=== PATIENT | female | born 1945 | race Caucasian/White ===

== ENCOUNTER 2017-09-10 10:16 | Inpatient (IN) | payer MEDICARE, BC ==
[~2017-09-10] VITALS: Ht 175.3 cm; Wt 69.9 kg
[~2017-09-10 10:16] MED LIST: ALBU1.25 NEB; ASPI-1169 PO; BACL10TA PO; CHOL100044 PO; CLON0.122 PO; LEVO750T21 GT; Nutritional Supplement/Fiber GT; SERT50TA PO
[2017-09-10 11:01] LABS: BASOPHILS # (AUTO) 0.2 /CMM (0.0-0.2); BASOPHILS % (AUTO) 1.5 % (0.0-2.0); EOSINOPHILS % (AUTO) 0.4 % (0.0-6.0); HEMATOCRIT 33 % (33-45); HEMOGLOBIN 10.9 g/dL (11.5-14.8); LYMPHOCYTES # (AUTO) 0.9 /CMM (0.8-4.8); LYMPHOCYTES % (AUTO) 6.7 % (20.0-44.0); MEAN CORPUSCULAR HEMOGLOBIN 26 PG (26.0-33.0); MEAN CORPUSCULAR HGB CONC 33 g/dl (31.0-36.0); MEAN CORPUSCULAR VOLUME 80 fL (82-100); MONOCYTES # (AUTO) 0.6 /CMM (0.1-1.30); MONOCYTES % (AUTO) 4.9 % (2.0-12.0); NEUTROPHILS # (AUTO) 11.4 /CMM (1.8-8.9); NEUTROPHILS % (AUTO) 86.5 % (43.0-81.0); PLATELET COUNT (AUTO) 451 /CMM (150-450); RDW COEFFICIENT OF VARIATION 15.3 (11.5-15.0); RED BLOOD CELL COUNT(AUTO) 4.14 MIL/uL (4.0-5.2); WHITE BLOOD COUNT (AUTO) 13.2 K/uL (4.3-11.0)
--- NOTE | 2017-09-10 11:10 | NUR ---
BBRA FROM HOME SENT BY PMD FOR FEVER . +BEDSORE. FAMILY MEMBER AT BS. NOTED WITH FC INSERTED 3 WEEKS AGO AND GTUBE. NOTED HYPOTENSIVE. SEEN BY MD FOR EVAL. SAFETY AND COMFORT MEASURES PROVIDED. WILL MONITOR.
[2017-09-10 11:11] LABS: CALCIUM, SERUM 8.8 mg/dL (8.5-10.1); CARBON DIOXIDE 28 mmol/L (21-32); CHLORIDE 99 mmol/L (98-107); CREATININE 0.6 mg/dL (0.6-1.3); GLUCOSE 152 mg/dL (74-106); POTASSIUM 4.1 mmol/L (3.5-5.1); SODIUM SERUM 131 mmol/L (136-145); UREA NITROGEN, BLOOD 13 mg/dL (7-18)
[2017-09-10 11:14] LABS: INR 1.32 (0.85-1.15)
--- NOTE | 2017-09-10 11:15 | NUR ---
IV ACCESS STARTED. TRUST VAULT CLERK AT TO DRAW BLOOD.
[2017-09-10 11:17] LABS: ALANINE AMINOTRANSFERASE 60 U/L (12-78); ALBUMIN 2.1 g/dL (3.4-5.0); ALKALINE PHOSPHATASE 115 U/L (46-116); ASPARTATE AMINOTRANSFERASE 52 U/L (15-37); BILIRUBIN,DIRECT 0.1 mg/dL (0.0-0.2); BILIRUBIN,TOTAL 0.4 mg/dL (0.2-1.0); TOTAL PROTEIN, SERUM 6.6 g/dL (6.4-8.2)
[2017-09-10 11:18] LABS: TROPONIN I < 0.017 ng/mL (0.00-0.056)
--- NOTE | 2017-09-10 11:25 | NUR ---
PT NOTED IN SOILED DIAPER, CLEANED AND CHANGED ASSISTED BY FAMILY MEMBER. OLD FC DISCONTINUED, REPLACED WITH A NEW ONE. NO OUTPUT NOTED OF NOW.
[2017-09-10] MEDS ORDERED: IV NS 0.9% 1,000 ML BAG IV ONE ×2 (11:30→13:30)
[2017-09-10 12:29] LABS: BILIRUBIN,URINE Negative (NEGATIVE); BLOOD, URINE Moderate Ery/uL (NEGATIVE); KETONES,URINE Negative (NEGATIVE); LEUKOCYTE ESTERASE ,URINE Negative (NEGATIVE); NITRITE, URINE Negative (NEGATIVE); PH,URINE 5.5 (5.0-8.0); PROTEIN,URINE 100 mg/dl (NEGATIVE); UGLUCOSE Negative (NEGATIVE); UROBILINOGEN,URINE 0.2 EU/dL (0.2)
[2017-09-10 12:32] LABS: APPEARANCE,URINE Slightly Hazy (CLEAR); COLOR,URINE Dark Yellow (YELLOW)
[2017-09-10 12:39] LABS: BACTERIA,URINE Few /HPF (None Seen); MUCUS,URINE Few /LPF (None Seen); RBC,URINE 50-80 /HPF (0-2); SQUAMOUS EPITHELIAL CELL,UR Few /HPF (None Seen)
[2017-09-10] MEDS ORDERED: CEFEPIME 1 GM in IV D5W 50 ML IV ONE (13:00)
[2017-09-10] MEDS ORDERED: JEVITY 1.2 CAL 1,000 ML BOTTLE GT PRN (13:00)
[2017-09-10] MEDS ORDERED: VANCOMYCIN 1 GM in IV D5W 250 ML IV ONE (13:00)
--- NOTE | 2017-09-10 13:00 | NUR ---
CALLED NURSING SUP. FOR TELE BED
--- NOTE | 2017-09-10 13:12 | NUR ---
TELE 311-1 FOR SEPSIS, DR. NONA Hook ADMITTING
[2017-09-10] MEDS ORDERED: POLY17PO4 GT (13:13)
[2017-09-10] MEDS ORDERED: ASCO500T9 GT (13:13)
[2017-09-10] MEDS ORDERED: ZINC220C6 GT (13:13)
[2017-09-10] MEDS ORDERED: MULT-188 GT (13:13)
[2017-09-10] MEDS ORDERED: ACID1TAB14 GT (13:13)
[2017-09-10] MEDS ORDERED: CIPR500T5 GT (13:13)
[2017-09-10] MEDS: ENOXAPARIN SODIUM 40 MG/0.4 ML DISP.SYRIN SQ SCH (13:30)
[2017-09-10] MEDS ORDERED: VANCOMYCIN 1 GM in IV D5W 250 ML IV SCH (13:30)
[2017-09-10] MEDS ORDERED: MAGNESIUM HYDROXIDE 30 ML UDC PO PRN (13:30)
[2017-09-10] MEDS ORDERED: HYDROCODONE/APAP 5/325MG 1 EACH TABLET PO PRN (13:30)
[2017-09-10] MEDS ORDERED: MAG HYDROX/AL HYDROX/SIMETH 30 ML UDC PO PRN (13:30)
[2017-09-10] MEDS ORDERED: ZOLPIDEM TARTRATE 5 MG TABLET PO PRN (13:30)
[2017-09-10] MEDS ORDERED: ONDANSETRON HCL/PF 4 MG/2 ML VIAL IVP PRN (13:30)
--- NOTE | 2017-09-10 13:35 | NUR ---
REPORT GIVEN TO DEBI FRANKS FOR TELE ROOM 311-1
[2017-09-10] MEDS ORDERED: FEE PK DOSING 1 MIN EA MC ONE (14:07)
--- NOTE | 2017-09-10 14:10 | NUR ---
AUTOMOTIVE PARTS MANAGERORTHOPEDIC SHOES SALESPERSON NOTE RECEIVED REPORT FROM WYATT SHI RN. RECEIVED PATIENT VIA FLEXRBETTY. PATIENT IS OBTUNDED, NON-VERBAL AND VERY CONTRACTED. GRAND DAUGHTER AT BEDSIDE AND PRIMARY CAREGIVER AT HOME WITH WOUND CARE NURSE. NO FACIAL GRIMACING NOTED FOR PAIN. NO SOB OR DISTRESS NOTED. ON ROOM AIR TOLERATING WELL. ALLERGIES DOCUMENTED ON ADMISSION. SKIN ISSUES PRESENT, AND DOCUMENTED IN CHART, WOUND CONSULT ORDERED. G-TUBE SITE SOILED IN BLOODY DRAINAGE NOTED. IV INTACT AND PATENT ON LEFT HAND 20G WITH IV FLUIDS RUNNING AT THIS TIME. AWAITING DIETARY CONSULT FOR TUBE FEEDING RATE. CALL LIGHT WITHIN REACH AND SAFETY MEASURES IMPLEMENTED. WILL CONTINUE TO MONITOR THROUGHOUT SHIFT
[2017-09-10] MEDS ORDERED: BLOO-697 IN (14:42)
[2017-09-10 15:30] VITALS: BP 104/58
[2017-09-10] MEDS ORDERED: INSU100V3 SQ (15:42)
[2017-09-10] MEDS ORDERED: COLL30OI TP (15:42)
--- NOTE | 2017-09-10 15:45 | NUR ---
ACCOUNTS PAYABLE PROCESSOR NOTE LOVENOX HELD DUE TO G-TUBE SITE CONTINUOUSLY BLEEDING. MADE MD AWARE. G-TUBE SITE CLEANED AND DRESSING INTACT. WILL CONTINUE TO MONITOR
[2017-09-10 15:57] VITALS: BP 104/58
[2017-09-10] MEDS ORDERED: BACLOFEN (10 MG) 10 MG TABLET PO ONE (17:30)
[2017-09-10] MEDS: PIPERACILLIN /TAZOBACTAM 3.375 G in IV NS 0.9% 50 ML IV SCH (17:30)
[2017-09-10] MEDS: BLOOD SUGAR DIAGNOSTIC 1 EACH STRIP IN SCH (17:51)
[2017-09-10] MEDS: IV NS 0.9% 1,000 ML IV PRN (17:56)
[2017-09-10] MEDS ORDERED: POLYETHYLENE GLYCOL 3350 17 GM POWD.PACK GT PRN (18:00)
[2017-09-10] MEDS ORDERED: DEXTROSE 50%-WATER 50 ML DISP.SYRIN IV PRN (18:00)
--- NOTE | 2017-09-10 18:30 | NUR ---
MS RN CLOSING NOTE PATIENT IS OBTUNDED, NON-VERBAL. NO FACIAL GRIMACING NOTED AT THIS TIME FOR PAIN. NO SOB OR DISTRESS NOTED. ON ROOM AIR TOLERATING WELL AT 97%. CALL LIGHT WITHIN REACH AT ALL TIMES. SAFETY MEASURES IMPLEMENTED. FALL PRECAUTION IN PLACE. G-TUBE SITE KEPT CLEAN DRY AND INTACT WITH TUBE FEEDING RUNNING AT THIS TIME, TOLERATING WELL. WOUND DRESSING CLEAN DRY AND INTACT, WOUND CONSULT ORDERED WELL DIETARY CONSULT. IV INTACT AND PATENT NO REDNESS OR SWELLING NOTED WITH IV FLUIDS. LABS IN AM. WARD CATHETER IN PLACE, DRAINING WELL WITH CLEAR YELLOW URINE. WILL ENDORSE TO HEADING AND PRIMING OPERATOR NURSE FOR ANGUS
--- NOTE | 2017-09-10 19:30 | NUR ---
MS/RN RECEIVE PATIENT APPEAR SLEEPING, APPEAR COMFORTABLE, BREATHING EVEN AND UNLABORED, HOB ELEVATED, GT FEEDING INFUSING, WILL MONITOR.
[2017-09-10 20:00] VITALS: BP 106/78
[2017-09-10] MEDS ORDERED: clonazePAM 1 MG TABLET PO SCH (22:00)
[2017-09-10] MEDS: clonazePAM 0.5 MG TABLET PO SCH (22:23)
[2017-09-11] MEDS: BLOOD SUGAR DIAGNOSTIC 1 EACH STRIP IN SCH ×4 (00:12→17:57)
[2017-09-11] MEDS: PIPERACILLIN /TAZOBACTAM 3.375 G in IV NS 0.9% 50 ML IV SCH ×4 (00:12→18:39)
[2017-09-11] MEDS: INSULIN REGULAR, HUMAN 100 UNIT/ML 3 ML VIAL SQ PRN ×4 (00:14→18:02)
[2017-09-11] MEDS: VANCOMYCIN 0.75 GM in IV NS 0.9% 250 ML IV SCH ×2 (02:07→14:14)
[2017-09-11] MEDS: IV NS 0.9% 1,000 ML IV PRN (05:49)
--- NOTE | 2017-09-11 06:36 | NUR ---
MS/RN PATIENT IS SLEEPING, AROUSABLE, APPEAR COMFORTABLE, NO SIGNS OF DISTRESS NOTED, GT FEEDING INFUSING NO RESIDUAL NOTED, HOB ELEVATED, ALL NEEDS ATTENDED AT THIS TIME, WILL CONTINUE TO MONITOR.
[2017-09-11 06:39] LABS: BASOPHILS % (AUTO) 0.1 % (0.0-2.0); HEMATOCRIT 30 % (33-45); HEMOGLOBIN 9.9 g/dL (11.5-14.8); LYMPHOCYTES # (AUTO) 0.8 /CMM (0.8-4.8); LYMPHOCYTES % (AUTO) 5.9 % (20.0-44.0); MEAN CORPUSCULAR HEMOGLOBIN 27 PG (26.0-33.0); MEAN CORPUSCULAR HGB CONC 33 g/dl (31.0-36.0); MEAN CORPUSCULAR VOLUME 83 fL (82-100); MONOCYTES # (AUTO) 0.6 /CMM (0.1-1.30); MONOCYTES % (AUTO) 4.3 % (2.0-12.0); NEUTROPHILS # (AUTO) 11.6 /CMM (1.8-8.9); NEUTROPHILS % (AUTO) 88.7 % (43.0-81.0); PLATELET COUNT (AUTO) 396 /CMM (150-450); RDW COEFFICIENT OF VARIATION 16.1 (11.5-15.0); RED BLOOD CELL COUNT(AUTO) 3.65 MIL/uL (4.0-5.2)
[2017-09-11 07:06] LABS: CALCIUM, SERUM 8.4 mg/dL (8.5-10.1); CREATININE 0.6 mg/dL (0.6-1.3); MAGNESIUM 2.1 mg/dL (1.8-2.4); PHOSPHORUS 3.4 mg/dL (2.5-4.9); POTASSIUM 4.5 mmol/L (3.5-5.1)
--- NOTE | 2017-09-11 07:10 | NUR ---
RN OPENING NOTES RECEIVED PT. IN BED OBTUNDED, NON VERBAL. PT. IS BREATHING UNLABORED, AND EVENLY ON ROOM AIR. NO S/S OF ACUTE DISTRESS. IV FLUIDS RUNNING AT 75 ML/HR. PT. HAS WARD CATHETER WITH CLEAR, AND YELLOW URINE. G TUBE FEEDING IS RUNNING AT 65 ML/HR. BED IS IN LOWEST, AND LOCKED POSITION. 2 SIDE RAILS UP, AND CALL LIGHT WITHIN REACH. WILL CONTINUE TO ASSESS AND MONITOR.
[2017-09-11 07:27] LABS: THYROID STIMULATING HORMONE 2.444 uIU/mL (0.358-3.74)
[2017-09-11 08:00] VITALS: BP 131/91
[2017-09-11] MEDS: ENOXAPARIN SODIUM 40 MG/0.4 ML DISP.SYRIN SQ SCH (09:00)
[2017-09-11] MEDS: SERTRALINE HCL 50 MG TABLET PO SCH (09:44)
[2017-09-11] MEDS: BACLOFEN (10 MG) 10 MG TABLET PO SCH (09:44)
[2017-09-11] MEDS: CHOLECALCIFEROL 1,000 UNIT TABLET (VIT D3) PO SCH (09:44)
[2017-09-11] MEDS: MULTIVITAMIN/LUTEIN/MINERALS 1 TAB PO SCH (09:44)
[2017-09-11] MEDS: ZINC SULFATE 220 MG CAPSULE GT SCH (09:44)
[2017-09-11] MEDS: ASPIRIN 81 MG TAB.CHEW PO SCH (09:44)
[2017-09-11] MEDS: ASCORBIC ACID 500 MG TABLET GT SCH ×2 (09:44→18:08)
[2017-09-11] MEDS: SANTYL TP SCH (09:45)
[2017-09-11] MEDS: ACETAMINOPHEN 325 MG TABLET PO PRN ×2 (09:54→15:54)
[2017-09-11] MEDS ORDERED: LIDOCAINE 1%-EPI 1:100,000 20 ML VIAL TP ONE (14:30)
[2017-09-11] MEDS ORDERED: SILVER NITRATE APPLICATOR 1 EA BOX TP ONE (14:30)
[2017-09-11] MEDS: DAKINS QUARTER STRENGTH (0.125%) 480 ML BOTTLE TOP SCH (18:35)
--- NOTE | 2017-09-11 19:20 | NUR ---
MS/RN OPENING NOTES PT RECEIVED RESTING IN BED. NON VERBAL, OBTUNDED. GRANDDAUGHTER AT BEDSIDE. ON ROOM AIR, BREATHING EVEN AND UNLABORED. NO S/S OF SOB NOTED. PT WITH SOME GRUNTING, PT RECEIVED PAIN MEDICATION. WARD IN PLACE AND DRAINING TO GRAVITY. IV TO LFA PATENT AND INTACT RUNNING IVF ORDERED. BED IN LOW/LOCKED POSITION WITH CALL LIGHT IN REACH. SIDE RAILS UPX3. WILL CONTINUE TO MONITOR
--- NOTE | 2017-09-11 19:25 | NUR ---
RN CLOSING NOTES PT. IN BED OBTUNDED, NON VERBAL, GRANDDAUGHTER IS AT BEDSIDE. PT. IS BREATHING UNLABORED, AND EVENLY ON ROOM AIR. NO S/S OF ACUTE DISTRESS. IV FLUIDS RUNNING AT 75 ML/HR. PT. HAS WARD CATHETER WITH CLEAR, AND YELLOW URINE OUTPUT. G TUBE FEEDING IS RUNNING AT 65 ML/HR. PT. HAD A SACRAL WOUND DEBRIDEMENT AT BEDSIDE. BED IS IN LOWEST, AND LOCKED POSITION. 2 SIDE RAILS UP, AND CALL LIGHT WITHIN REACH. WILL ENDORSE REPORT TO NURSE.
[2017-09-11 20:00] VITALS: BP 94/50
[2017-09-11] MEDS ORDERED: GLUCERNA 1.2 1,000 ML BOTTLE NG PRN (20:00)
[2017-09-11] MEDS: GLUCERNA 1.2 1,000 ML BOTTLE GT PRN (21:42)
[2017-09-12] MEDS: PIPERACILLIN /TAZOBACTAM 3.375 G in IV NS 0.9% 50 ML IV SCH ×4 (00:07→18:19)
[2017-09-12] MEDS: BLOOD SUGAR DIAGNOSTIC 1 EACH STRIP IN SCH ×4 (00:07→18:18)
[2017-09-12] MEDS: INSULIN REGULAR, HUMAN 100 UNIT/ML 3 ML VIAL SQ PRN ×2 (00:13→06:38)
[2017-09-12] MEDS: VANCOMYCIN 0.75 GM in IV NS 0.9% 250 ML IV SCH ×2 (02:08→14:18)
[2017-09-12] MEDS: IV NS 0.9% 1,000 ML IV PRN (04:06)
[2017-09-12 06:17] LABS: EOSINOPHILS % (AUTO) 1.5 % (0.0-6.0); HEMATOCRIT 29 % (33-45); HEMOGLOBIN 9.4 g/dL (11.5-14.8); LYMPHOCYTES # (AUTO) 0.8 /CMM (0.8-4.8); LYMPHOCYTES % (AUTO) 8.3 % (20.0-44.0); MEAN CORPUSCULAR HEMOGLOBIN 27 PG (26.0-33.0); MEAN CORPUSCULAR HGB CONC 33 g/dl (31.0-36.0); MEAN CORPUSCULAR VOLUME 83 fL (82-100); MONOCYTES # (AUTO) 0.5 /CMM (0.1-1.30); MONOCYTES % (AUTO) 4.6 % (2.0-12.0); NEUTROPHILS # (AUTO) 8.4 /CMM (1.8-8.9); NEUTROPHILS % (AUTO) 85.6 % (43.0-81.0); PLATELET COUNT (AUTO) 369 /CMM (150-450); RDW COEFFICIENT OF VARIATION 16.6 (11.5-15.0); RED BLOOD CELL COUNT(AUTO) 3.48 MIL/uL (4.0-5.2); WHITE BLOOD COUNT (AUTO) 9.8 K/uL (4.3-11.0)
[2017-09-12 06:29] LABS: CALCIUM, SERUM 8.4 mg/dL (8.5-10.1); CREATININE 0.6 mg/dL (0.6-1.3); PHOSPHORUS 3.4 mg/dL (2.5-4.9); POTASSIUM 4.5 mmol/L (3.5-5.1)
--- NOTE | 2017-09-12 06:56 | NUR ---
MS/RN CLOSING NOTES PT WITH EYES CLOSED, OPENS EYES TO LIGHT TOUCH. NON VERBAL. ALL EXTREMITIES CONTRACTED. ON ROOM AIR, BREATHING EVEN AND UNLABORED. NO S/S OF SOB, PAIN OR DISTRESS. NO FACIAL GRIMACING NOTED. IV TO LFA PATENT AND INTACT RUNNING IVF ORDERED. ASPIRATION PRECAUTIONS IMPLEMENTED DURING SHIFT. HOB ELEVATED. WOUND CARE PROVIDED ORDERED. TURNED/REPOSITIONED Q2H, HEELS AND ELBOWS OFFLOADED. WARD IN PLACE AND DRAINING CLEAR YELLOW URINE BY GRAVITY. NO SIGNIFICANT CHANGES OVERNIGHT. BED REMAINS IN LOW/LOCKED POSITION WITH CALL LIGHT IN REACH. SIDE RAILS UPX2. WILL ENDORSE TO DAY SHIFT RN ANGUS.
--- NOTE | 2017-09-12 07:00 | NUR ---
RN OPENING NOTES RECEIVED PT. IN BED OBTUNDED, NON VERBAL. PT. IS BREATHING UNLABORED, AND EVENLY ON ROOM AIR. NO S/S OF ACUTE DISTRESS. IV FLUIDS RUNNING AT 75 ML/HR. PT. HAS WARD CATHETER WITH CLEAR, AND YELLOW URINE. GLUCERNA FEEDING IS RUNNING AT 65 ML/HR. BED IS IN LOWEST, AND LOCKED POSITION. 2 SIDE RAILS UP, AND CALL LIGHT WITHIN REACH. WILL CONTINUE TO ASSESS AND MONITOR.
[2017-09-12 08:00] VITALS: BP 100/52
[2017-09-12] MEDS: BACLOFEN (10 MG) 10 MG TABLET PO SCH (08:21)
[2017-09-12] MEDS: CHOLECALCIFEROL 1,000 UNIT TABLET (VIT D3) PO SCH (08:21)
[2017-09-12] MEDS: MULTIVITAMIN/LUTEIN/MINERALS 1 TAB PO SCH (08:21)
[2017-09-12] MEDS: ASCORBIC ACID 500 MG TABLET GT SCH ×2 (08:21→16:44)
[2017-09-12] MEDS: SERTRALINE HCL 50 MG TABLET PO SCH (08:21)
[2017-09-12] MEDS: ASPIRIN 81 MG TAB.CHEW PO SCH (08:21)
[2017-09-12] MEDS: ZINC SULFATE 220 MG CAPSULE GT SCH (08:21)
[2017-09-12] MEDS: PROSOURCE / PROSTAT (PYXIS) 30 ML UDC GT SCH ×3 (08:22→16:44)
[2017-09-12] MEDS: DAKINS QUARTER STRENGTH (0.125%) 480 ML BOTTLE TOP SCH (08:22)
[2017-09-12] MEDS: SANTYL TP SCH (08:23)
[2017-09-12] MEDS: ACETAMINOPHEN 325 MG TABLET PO PRN ×2 (08:24→16:44)
--- NOTE | 2017-09-12 09:00 | NUR ---
SACRAL WOUND CARE WAS PERFORMED PER DOCTOR'S ORDERS. PT. TOLERATED PROCEDURE.
--- NOTE | 2017-09-12 09:30 | NUR ---
CHANGED PT. TO A [facility] MATTRESS. PT. TOLERATED TRANSFER WELL.
[2017-09-12] MEDS: ENOXAPARIN SODIUM 40 MG/0.4 ML DISP.SYRIN SQ SCH (09:46)
--- NOTE | 2017-09-12 11:43 | NUR ---
WOUND CARE CONSULT: PT FOLLOWED BY PLASTIC SURGERY TEAM FOR WOUNDS. DEFER TO SURGICAL TEAM FOR WOUND TREATMENT PLAN. ALL SKIN PROTECTION AND PRESSURE ULCER PREVENTION MEASURES IN PLACE AND DISCUSSED WITH NURSING STAFF. PT ON FIRST STEP MATTRESS (LOW AIRLOSS ). WILL SEE PRN.
--- NOTE | 2017-09-12 12:28 | NUR ---
BIOPHYSICS TEACHER BIOPHYSICS TEACHER RECOMMENDS SOCIAL SERVICE CONSULT FOR PATIENT PATIENT CAME FROM HOME WITH STAGE 4 PRESSURE ULCER. HAS CAREGIVERS IN PLACE, MAY NEED ADDITIONAL SERVICES IN THE HOME. DISCUSSED WITH WEB OPERATIONS LEAD.
[2017-09-12] MEDS: GLUCERNA 1.2 1,000 ML BOTTLE GT PRN (13:27)
--- NOTE | 2017-09-12 14:08 | NUR ---
Social service consult requested by wound RN Cristela due to pt. coming from home with Stage 4 wound. Pt. resides with her daughter Miracle who is also pt's caregiver 07/10. Pt. has all needed DME's at home but does require a new hospital bed and air mattress. Pt. is also currently receiving home health services with [facility] . [place] consulted with welfare case worker Serina who informed [place] that pt. will be receiving a new hospital bed and air mattress at home. Pt. appears to have good family support at home. No other social service needs are requested at this time. SW is available, if needed.
[2017-09-12 16:00] VITALS: BP 96/57
--- NOTE | 2017-09-12 19:47 | NUR ---
RN CLOSING NOTES PT. IS IN BED WITH HEAD OF BED UP, OBTUNDED, NON VERBAL. PT.'S GRANDDAUGHTER IS AT BEDSIDE. PT. IS BREATHING UNLABORED, AND EVENLY ON ROOM AIR. NO S/S OF ACUTE DISTRESS. PT. HAS WARD CATHETER WITH CLEAR, AND YELLOW URINE. GLUCERNA FEEDING IS RUNNING AT 65 ML/HR. BED IS IN LOWEST, AND LOCKED POSITION. 2 SIDE RAILS UP, AND CALL LIGHT WITHIN REACH. WILL ENDORSE REPORT.
--- NOTE | 2017-09-12 19:50 | NUR ---
MS RN NOTE: PATIENT RESTING IN BED, FAMILY AT BEDSIDE. BREATHING EVEN AND UNLABORED, NO SOB NOTED. WARD CATHETER IN PLACE, EMPTY AT THIS TIME. G-TUBE IN PLACE, WITH 5ML RESIDUAL, INFUSING GLUCERNA AT 65ML/HR. HOB ELEVATED. NO S/S OF HYPER/HYPOGLYCEMIA NOTED. IV TO LFA IN PLACE. BED LOCKED AND IN LOWEST POSITION, CALL LIGHT IN REACH. WILL CONTINUE TO MONITOR.
[2017-09-12 20:00] VITALS: BP 99/52
[2017-09-12] MEDS: clonazePAM 0.5 MG TABLET PO SCH (22:42)
[2017-09-13] MEDS: BLOOD SUGAR DIAGNOSTIC 1 EACH STRIP IN SCH ×4 (00:19→17:11)
[2017-09-13] MEDS: PIPERACILLIN /TAZOBACTAM 3.375 G in IV NS 0.9% 50 ML IV SCH ×5 (00:19→23:31)
--- NOTE | 2017-09-13 00:30 | NUR ---
MS RN NOTE: PATIENT BLOOD SUGAR LEVEL 123 MG/DL, NO INSULIN NEEDED PER SLIDING SCALE. NO S/S OF HYPER/HYPOGLYCEMIA NOTED. PATIENT ON G-TUBE FEEDING OF GLUCERNA AT 65 ML/HR. WILL CONTINUE TO MONITOR.
[2017-09-13] MEDS: VANCOMYCIN 0.75 GM in IV NS 0.9% 250 ML IV SCH ×2 (01:59→13:00)
[2017-09-13] MEDS: GLUCERNA 1.2 1,000 ML BOTTLE GT PRN ×2 (05:19→22:19)
[2017-09-13] MEDS: INSULIN REGULAR, HUMAN 100 UNIT/ML 3 ML VIAL SQ PRN ×2 (05:44→11:21)
--- NOTE | 2017-09-13 06:20 | NUR ---
MS RN NOTE: PATIENT RESTING IN BED, FAMILY AT BEDSIDE. BREATHING EVEN AND UNLABORED, NO SOB NOTED. WARD CATHETER IN PLACE, DRAINED 900ML AT THIS TIME. G-TUBE IN PLACE, INFUSING GLUCERNA AT 65ML/HR. HOB ELEVATED. PATIENT BLOOD SUGAR LEVEL 145 MG/DL, PATIENT TO RECEIVE 2 UNITS OF INSULIN PER SLIDING SCALE, NO S/S OF HYPER/HYPOGLYCEMIA NOTED. IV TO LFA IN PLACE. BED LOCKED AND IN LOWEST POSITION, CALL LIGHT IN REACH. WILL ENDORSE TO DAY NURSE TO CONTINUE WITH PLAN OF CARE.
[2017-09-13 06:49] LABS: BASOPHILS % (AUTO) 0.5 % (0.0-2.0); EOSINOPHILS % (AUTO) 2.8 % (0.0-6.0); HEMATOCRIT 31 % (33-45); HEMOGLOBIN 10.1 g/dL (11.5-14.8); LYMPHOCYTES # (AUTO) 1.1 /CMM (0.8-4.8); LYMPHOCYTES % (AUTO) 11.9 % (20.0-44.0); MEAN CORPUSCULAR HEMOGLOBIN 27 PG (26.0-33.0); MEAN CORPUSCULAR HGB CONC 33 g/dl (31.0-36.0); MEAN CORPUSCULAR VOLUME 82 fL (82-100); MONOCYTES # (AUTO) 0.3 /CMM (0.1-1.30); MONOCYTES % (AUTO) 3.4 % (2.0-12.0); NEUTROPHILS # (AUTO) 7.3 /CMM (1.8-8.9); NEUTROPHILS % (AUTO) 81.4 % (43.0-81.0); PLATELET COUNT (AUTO) 424 /CMM (150-450); RDW COEFFICIENT OF VARIATION 16.3 (11.5-15.0); RED BLOOD CELL COUNT(AUTO) 3.76 MIL/uL (4.0-5.2); WHITE BLOOD COUNT (AUTO) 8.9 K/uL (4.3-11.0)
[2017-09-13 07:11] LABS: CALCIUM, SERUM 8.9 mg/dL (8.5-10.1); CREATININE 0.6 mg/dL (0.6-1.3); POTASSIUM 4.6 mmol/L (3.5-5.1)
--- NOTE | 2017-09-13 07:15 | NUR ---
RN NOTES PT IS SITTING UP IN BED, SLEEPING COMFORTABLY. PT ON RA, RESPIRATIONS ARE EVEN AND UNLABORED. IV ON LFA INTACT AND RUNNING TKO. WARD CATHETER IS INTACT AND DRAINING TO GRAVITY. NO SIGNS OF DISTRESS NOTED. SAFETY MEASURES ARE IN PLACE, CALL LIGHT IS IN REACH. WILL CONTINUE TO MONITOR.
[2017-09-13 08:00] VITALS: BP 140/63
[2017-09-13 08:15] VITALS: BP 140/63
[2017-09-13] MEDS: MULTIVITAMIN/LUTEIN/MINERALS 1 TAB PO SCH (08:24)
[2017-09-13] MEDS: SERTRALINE HCL 50 MG TABLET PO SCH (08:24)
[2017-09-13] MEDS: BACLOFEN (10 MG) 10 MG TABLET PO SCH (08:24)
[2017-09-13] MEDS: DAKINS QUARTER STRENGTH (0.125%) 480 ML BOTTLE TOP SCH (08:24)
[2017-09-13] MEDS: ASCORBIC ACID 500 MG TABLET GT SCH ×2 (08:24→16:36)
[2017-09-13] MEDS: ASPIRIN 81 MG TAB.CHEW PO SCH (08:24)
[2017-09-13] MEDS: ZINC SULFATE 220 MG CAPSULE GT SCH (08:24)
[2017-09-13] MEDS: CHOLECALCIFEROL 1,000 UNIT TABLET (VIT D3) PO SCH (08:24)
[2017-09-13] MEDS: SANTYL TP SCH (08:28)
[2017-09-13] MEDS: PROSOURCE / PROSTAT (PYXIS) 30 ML UDC GT SCH ×3 (08:29→16:36)
[2017-09-13] MEDS: ENOXAPARIN SODIUM 40 MG/0.4 ML DISP.SYRIN SQ SCH (08:37)
[2017-09-13 16:00] VITALS: BP 120/48
[2017-09-13 16:02] VITALS: BP 120/48
--- NOTE | 2017-09-13 18:48 | NUR ---
RN NOTES PT IS SITTING UP WITH GRANDDAUGHTER AT BEDSIDE, RESTING COMFORTABLY. PT ON RA, RESPIRATIONS ARE EVEN AND UNLABORED. IV ON LFA INTACT AND RUNNING TKO. WARD CATHETER IS IN PLACE WITH 1800ML OUTPUT. G-TUBE IS IN PLACE AND RUNNING GLUCERNA @ 65ML/HR, PT TOLERATING WELL. ALL MEDS WERE GIVEN ORDERED AND PT NEEDS MET. WOUND CARE PROVIDED FOR SACRAL WOUND ORDERED. NO SIGNS OF DISTRESS NOTED. SAFETY MEASURES ARE IN PLACE, CALL LIGHT IS IN REACH. WILL ENDORSE TO SMOKED MEAT PREPARER RN FOR CONTINUITY OF CARE.
--- NOTE | 2017-09-13 19:20 | NUR ---
RN OPENING NOTES RECEIVED PT IN BED, EYES OPEN , NOTED WITH NO FACIAL GRIMACING, IN NO ACUTE DISTRESS, WITH DAUGHTER AT BEDSIDE. GTF INFUSING ORDERED. WARD CATHETER DRAINING WITH YELLOW URINE. PLACED CALL LIGHT WITHIN EASY REACH. BED IN LOW POSITION AND LOCKED IN PLACE. WILL CONTINUE TO MONITOR PT.
[2017-09-13 20:00] VITALS: BP 120/53
[2017-09-13] MEDS: clonazePAM 0.5 MG TABLET PO SCH (22:19)
[2017-09-13] MEDS: IV NS 0.9% 1,000 ML IV PRN (22:38)
[2017-09-14] MEDS: BLOOD SUGAR DIAGNOSTIC 1 EACH STRIP IN SCH ×5 (01:09→23:22)
[2017-09-14] MEDS: VANCOMYCIN 0.75 GM in IV NS 0.9% 250 ML IV SCH ×2 (01:29→13:26)
[2017-09-14] MEDS: PIPERACILLIN /TAZOBACTAM 3.375 G in IV NS 0.9% 50 ML IV SCH ×4 (05:17→23:19)
[2017-09-14 06:30] LABS: BASOPHILS # (AUTO) 0.1 /CMM (0.0-0.2); EOSINOPHILS % (AUTO) 2.9 % (0.0-6.0); HEMATOCRIT 34 % (33-45); LYMPHOCYTES # (AUTO) 1.2 /CMM (0.8-4.8); MEAN CORPUSCULAR HEMOGLOBIN 26 PG (26.0-33.0); MEAN CORPUSCULAR HGB CONC 32 g/dl (31.0-36.0); MEAN CORPUSCULAR VOLUME 82 fL (82-100); MONOCYTES # (AUTO) 0.3 /CMM (0.1-1.30); MONOCYTES % (AUTO) 3.6 % (2.0-12.0); NEUTROPHILS # (AUTO) 7.4 /CMM (1.8-8.9); NEUTROPHILS % (AUTO) 79.5 % (43.0-81.0); PLATELET COUNT (AUTO) 457 /CMM (150-450); RDW COEFFICIENT OF VARIATION 16.9 (11.5-15.0); RED BLOOD CELL COUNT(AUTO) 4.17 MIL/uL (4.0-5.2); WHITE BLOOD COUNT (AUTO) 9.3 K/uL (4.3-11.0)
[2017-09-14 06:46] LABS: CALCIUM, SERUM 9.2 mg/dL (8.5-10.1); CREATININE 0.6 mg/dL (0.6-1.3); POTASSIUM 4.9 mmol/L (3.5-5.1)
[2017-09-14] MEDS: INSULIN REGULAR, HUMAN 100 UNIT/ML 3 ML VIAL SQ PRN (06:58)
--- NOTE | 2017-09-14 07:05 | NUR ---
RN NOTES PT IS SITTING UP IN BED, SLEEPING COMFORTABLY. PT ON RA, RESPIRATIONS ARE EVEN AND UNLABORED. IV ON LFA INTACT AND RUNNING NS @ 75ML/HR. G-TUBE IS IN PLACE AND RUNNING GLUCERNA @ 65ML/HR. WARD CATHETER IS IN PLACE AND DRAINING TO GRAVITY. NO SIGNS OF DISTRESS NOTED. SAFETY MEASURES ARE IN PLACE, CALL LIGHT IS IN REACH. WILL CONTINUE TO MONITOR.
--- NOTE | 2017-09-14 07:11 | NUR ---
RN CLOSING NOTES PATIENT IN BED, OBTUNDED, NO FACIAL GRIMACING NOTED, TURNED AND REPOSITIONED [id number], OFFLOADED BONY PROMINENCES, WOUND DRESSING CHANGE DONE ORDERED. PT WITH NO SOB, BREATHING EVEN AND UNLABORED, PT IS RECEIVING GTF AND IS TOLERATING WELL. PT'S WARD CATHETER DRAINING WITH YELLOW URINE. PT RECEIVING IVF ORDERED VIA IV PERIPHERAL LINE ON RFA G#24, INTACT AND PATENT. ALL PATIENT'S NEEDS ATTENDED TO, PLACED BED IN LOW POSITION AND LOCKED IN PLACE. CALL LIGHT WITHIN EASY REACH. WILL ENDORSE TO AM SHIFT NURSE FOR CONTINUITY OF CARE.
[2017-09-14 08:00] VITALS: BP 99/57
[2017-09-14] MEDS: MULTIVITAMIN/LUTEIN/MINERALS 1 TAB PO SCH (08:06)
[2017-09-14] MEDS: DAKINS QUARTER STRENGTH (0.125%) 480 ML BOTTLE TOP SCH (08:07)
[2017-09-14] MEDS: CHOLECALCIFEROL 1,000 UNIT TABLET (VIT D3) PO SCH (08:07)
[2017-09-14] MEDS: ASPIRIN 81 MG TAB.CHEW PO SCH (08:07)
[2017-09-14] MEDS: SERTRALINE HCL 50 MG TABLET PO SCH (08:07)
[2017-09-14] MEDS: BACLOFEN (10 MG) 10 MG TABLET PO SCH (08:07)
[2017-09-14] MEDS: ZINC SULFATE 220 MG CAPSULE GT SCH (08:07)
[2017-09-14] MEDS: ASCORBIC ACID 500 MG TABLET GT SCH ×2 (08:07→17:09)
[2017-09-14] MEDS: SANTYL TP SCH (08:08)
[2017-09-14] MEDS: PROSOURCE / PROSTAT (PYXIS) 30 ML UDC GT SCH ×3 (08:12→17:09)
[2017-09-14] MEDS: ENOXAPARIN SODIUM 40 MG/0.4 ML DISP.SYRIN SQ SCH (08:13)
[2017-09-14] MEDS: ACETAMINOPHEN 325 MG TABLET PO PRN (13:26)
[2017-09-14] MEDS: GLUCERNA 1.2 1,000 ML BOTTLE GT PRN (14:51)
[2017-09-14 16:00] VITALS: BP 115/63
--- NOTE | 2017-09-14 17:25 | NUR ---
RN NOTES BLOOD SUGAR 134, GRANDDAUGHTER STATES SHE DOESNT WANT HER TO GET INSULIN WHEN HER BLOOD SUGAR IS THAT LOW. NO INSULIN GIVEN AT THIS TIME.
--- NOTE | 2017-09-14 18:30 | NUR ---
RN NOTES PT IS SITTING UP IN BED, SLEEPING COMFORTABLY WITH FAMILY AT BEDSIDE. PT ON RA, RESPIRATIONS ARE EVEN AND UNLABORED. IV ON R HAND INTACT AND RUNNING NS, IV ON LFA INTACT AND SL. G-TUBE IS IN PLACE AND RUNNING GLUCERNA @ 65ML/HR. WARD CATHETER IS IN PLACE AND DRAINING TO GRAVITY. ALL MEDS WERE GIVEN ORDERED AND PT NEEDS MET. WOUND CARE PROVIDED ORDERED AND PT REPOSITIONED Q2HRS. NO SIGNS OF DISTRESS NOTED. SAFETY MEASURES ARE IN PLACE, CALL LIGHT IS IN REACH. WILL ENDORSE TO HYDROGRAPHIC ENGINEER RN FOR CONTINUITY OF CARE.
--- NOTE | 2017-09-14 19:35 | NUR ---
MS RN OPENING NOTES RECEIVED PT IN BED, EYES OPEN, OBTUNDED, NON VERBAL. NOTED WITH NO FACIAL GRIMACING, IN NO ACUTE DISTRESS, WITH GRAND DAUGHTER AT BEDSIDE. GTF INFUSING ORDERED. WARD CATHETER DRAINING WITH LIGHT YELLOW URINE. WILL TURN & REPOSITION PER PROTOCOL. IV ACCESS TO LFA & R HAND, INTACT/PATENT. PLACED CALL LIGHT WITHIN EASY REACH. BED IN LOW POSITION AND LOCKED IN PLACE. WILL CONTINUE TO MONITOR PT.
[2017-09-14 20:00] VITALS: BP 107/59
[2017-09-14] MEDS: clonazePAM 0.5 MG TABLET PO SCH (22:21)
[2017-09-15] MEDS: VANCOMYCIN 0.75 GM in IV NS 0.9% 250 ML IV SCH ×2 (01:19→15:00)
[2017-09-15] MEDS: PIPERACILLIN /TAZOBACTAM 3.375 G in IV NS 0.9% 50 ML IV SCH ×4 (05:38→18:11)
[2017-09-15] MEDS: IV NS 0.9% 1,000 ML IV PRN (05:38)
[2017-09-15] MEDS: ACETAMINOPHEN 325 MG TABLET PO PRN ×3 (05:44→19:52)
[2017-09-15] MEDS: BLOOD SUGAR DIAGNOSTIC 1 EACH STRIP IN SCH ×3 (05:45→17:36)
[2017-09-15] MEDS: GLUCERNA 1.2 1,000 ML BOTTLE GT PRN (05:45)
--- NOTE | 2017-09-15 05:50 | NUR ---
MS RN NOTE PT'S BS LEVEL NOTED TO BE 148MG/DL, NO INSULIN GIVEN PER GRAND DTR REQUEST, STATED IF BS IS <150MG/DL, DO NOT GIVE INSULIN BUT IF MORE THAN THAT, FOLLOW THE HOSPITAL PROTOCOL.
--- NOTE | 2017-09-15 07:00 | NUR ---
MS RN CLOSING NOTES PATIENT IN BED, OBTUNDED, FACIAL GRIMACING NOTED, PRN TYLENOL WAS GIVEN @ 0544 & WAS EFFECTIVE. TURNED AND REPOSITIONED [id number], OFFLOADED BONY PROMINENCES, WOUND DRESSING CHANGE DONE ORDERED. PT WITH NO SOB, BREATHING EVEN AND UNLABORED, PT IS RECEIVING GTF AND IS TOLERATING WELL. PT'S WARD CATHETER DRAINING WITH YELLOW URINE. PT RECEIVING IVF ORDERED VIA IV PERIPHERAL LINE ON LFA G#24 & R HAND INTACT AND PATENT. ALL PATIENT'S NEEDS ATTENDED TO, PLACED BED IN LOW POSITION AND LOCKED IN PLACE. CALL LIGHT WITHIN EASY REACH. WILL ENDORSE TO AM SHIFT NURSE FOR CONTINUITY OF CARE.
[2017-09-15 07:04] LABS: CALCIUM, SERUM 9.1 mg/dL (8.5-10.1); CREATININE 0.7 mg/dL (0.6-1.3); POTASSIUM 4.6 mmol/L (3.5-5.1)
[2017-09-15 08:00] VITALS: BP 137/68
[2017-09-15] MEDS: BACLOFEN (10 MG) 10 MG TABLET PO SCH (08:06)
[2017-09-15] MEDS: PROSOURCE / PROSTAT (PYXIS) 30 ML UDC GT SCH ×3 (09:31→17:34)
[2017-09-15] MEDS: ASCORBIC ACID 500 MG TABLET GT SCH ×2 (09:33→17:33)
[2017-09-15] MEDS: ASPIRIN 81 MG TAB.CHEW PO SCH (09:34)
[2017-09-15] MEDS: CHOLECALCIFEROL 1,000 UNIT TABLET (VIT D3) PO SCH (09:35)
[2017-09-15] MEDS: MULTIVITAMIN/LUTEIN/MINERALS 1 TAB PO SCH (09:36)
[2017-09-15] MEDS: SERTRALINE HCL 50 MG TABLET PO SCH (09:36)
[2017-09-15] MEDS: ZINC SULFATE 220 MG CAPSULE GT SCH (09:36)
[2017-09-15] MEDS: ENOXAPARIN SODIUM 40 MG/0.4 ML DISP.SYRIN SQ SCH ×2 (09:42→10:34)
[2017-09-15] MEDS: DAKINS QUARTER STRENGTH (0.125%) 480 ML BOTTLE TOP SCH (09:43)
[2017-09-15] MEDS: SANTYL TP SCH (09:43)
--- NOTE | 2017-09-15 13:02 | NUR ---
TYLENOL ADMINISTERED PER ORDERS. PATIENT NOTED TO BE GRIMACING INDICATING MILD PAIN
--- NOTE | 2017-09-15 14:00 | NUR ---
NO FACIAL GRIMACING NOTED. NONLABORED BREATHING NOTED
--- NOTE | 2017-09-15 19:10 | NUR ---
NO CHANGES NOTED DURING SHIFT. IV SITES PATENT AND INTACT. NONLABORED BREATHING NOTED ON ROOM AIR. NO FACIAL GRIMACING NOTED. PATIENT KEPT CLEAN AND DRY THROUGHOUT SHIFT. WOUND CARE DONE. TURNED AND REPOSITIONED EVERY 2 HOURS. BED IN LOWEST LOCKED POSITION. ASPIRATION PRECAUTIONS IMPLEMENTED. NO GTUBE RESIDUALS NOTED. WARD CATHETER INTACT WITH YELLOW CLEAR URINE DRAINING. WILL ENDORSE TO NEXT SHIFT
--- NOTE | 2017-09-15 19:25 | NUR ---
MS RN OPENING NOTES RECEIVED PT IN BED, EYES OPEN, OBTUNDED, NON VERBAL. NOTED WITH FACIAL GRIMACING, WILL GIVE TYLENOL ORDERED. IN NO ACUTE DISTRESS. GTF INFUSING ORDERED. SLIGHT DRAINAGE NOTED @ GT SITE. CHANGED THE DRESSING. WARD CATHETER DRAINING WITH LIGHT YELLOW URINE. WILL TURN & REPOSITION PER PROTOCOL. IV ACCESS TO LFA & R HAND, INTACT/PATENT, RUNNING WITH IVF ORDERED. PLACED CALL LIGHT WITHIN EASY REACH. BED IN LOW POSITION AND LOCKED IN PLACE. WILL CONTINUE TO MONITOR PT.
--- NOTE | 2017-09-15 19:52 | NUR ---
PRN TYLENOL GIVEN PT NOTED TO BE GRIMACING, RESTLESS IN BED, ALSO MOANING @ THIS TIME. NON VERBAL, OBTUNDED. PRN TYLENOL GIVEN VIA GT. WILL REASSESS ACCORDINGLY.
[2017-09-15 20:00] VITALS: BP 112/79
--- NOTE | 2017-09-15 21:30 | NUR ---
MS RN NOTE PT NOTED TO BE CLAM & RELAXED, SLEEPING @ THIS TIME. NO FACIAL GRIMACING NOTED. WILL CONTINUE TO MONITOR.
[2017-09-15] MEDS: clonazePAM 0.5 MG TABLET PO SCH (22:51)
[2017-09-16] MEDS: PIPERACILLIN /TAZOBACTAM 3.375 G in IV NS 0.9% 50 ML IV SCH ×5 (00:12→23:03)
[2017-09-16] MEDS: BLOOD SUGAR DIAGNOSTIC 1 EACH STRIP IN SCH ×5 (00:36→23:14)
[2017-09-16] MEDS: GLUCERNA 1.2 1,000 ML BOTTLE GT PRN ×2 (02:03→21:32)
[2017-09-16] MEDS: VANCOMYCIN 0.75 GM in IV NS 0.9% 250 ML IV SCH ×2 (02:03→14:59)
[2017-09-16] MEDS: IV NS 0.9% 1,000 ML IV PRN ×2 (05:45→20:28)
[2017-09-16] MEDS: ACETAMINOPHEN 325 MG TABLET PO PRN (06:23)
--- NOTE | 2017-09-16 07:10 | NUR ---
MS RN CLOSING NOTES PT SLEPT INTERMITTENTLY @ NIGHT, OBTUNDED, OPENS EYES, NON VERBAL. NOTED WITH FACIAL GRIMACING & RESTLESSNESS, PRN TYLENOL WAS GIVEN & WAS EFFECTIVE. IN NO ACUTE DISTRESS. GTF INFUSING ORDERED. WARD CATHETER DRAINING WITH LIGHT YELLOW URINE. TURNED & REPOSITIONED PER PROTOCOL. IV ACCESS TO LFA & R HAND, INTACT/PATENT, RUNNING WITH IVF ORDERED. ALL NEEDS MET. PLACED CALL LIGHT WITHIN EASY REACH. BED IN LOW POSITION AND LOCKED IN PLACE. ENDORSED TO AM RN.
[2017-09-16 07:24] LABS: CALCIUM, SERUM 9.7 mg/dL (8.5-10.1); CREATININE 0.7 mg/dL (0.6-1.3); POTASSIUM 4.7 mmol/L (3.5-5.1)
--- NOTE | 2017-09-16 07:55 | NUR ---
MS RN OPENING NOTE PATIENT IS RESTING IN BED COMFORTABLY, PATIENT IS OBTUNDED AND NOT ABLE TO VERBALLY COMMUNICATE NEEDS. NO FACIAL GRIMACING NOTED FOR PAIN. NO SOB OR DISTRESS NOTED. CALL LIGHT WITHIN REACH AND SAFETY MEASURES IMPLEMENTED. WARD CATHETER IN PLACE AND DRAINING WELL TO GRAVITY. G-TUBE INTACT AND PATENT NO REDNESS OR SWELLING NOTED WITH TUBE FEEDING RUNNING AT 65 ML/HR TOLERATING WELL. BLOOD SUGAR TO BE MONITORED THROUGHOUT SHIFT AND INSULIN TO BE GIVEN NEEDED. WOUND TREATMENT TO BE DONE THROUGHOUT SHIFT. IV INTACT AND PATENT NO REDNESS OR SWELLING NOTED. WILL CONTINUE TO MONITOR THROUGHOUT SHIFT
[2017-09-16 08:00] VITALS: BP 114/57
[2017-09-16] MEDS: BACLOFEN (10 MG) 10 MG TABLET PO SCH (08:22)
[2017-09-16] MEDS: SERTRALINE HCL 50 MG TABLET PO SCH (08:22)
[2017-09-16] MEDS: ZINC SULFATE 220 MG CAPSULE GT SCH (08:22)
[2017-09-16] MEDS: ASPIRIN 81 MG TAB.CHEW PO SCH (08:22)
[2017-09-16] MEDS: CHOLECALCIFEROL 1,000 UNIT TABLET (VIT D3) PO SCH (08:22)
[2017-09-16] MEDS: PROSOURCE / PROSTAT (PYXIS) 30 ML UDC GT SCH ×3 (08:22→17:00)
[2017-09-16] MEDS: MULTIVITAMIN/LUTEIN/MINERALS 1 TAB PO SCH (08:22)
[2017-09-16] MEDS: ASCORBIC ACID 500 MG TABLET GT SCH ×2 (08:22→17:06)
[2017-09-16] MEDS: DAKINS QUARTER STRENGTH (0.125%) 480 ML BOTTLE TOP SCH (08:23)
[2017-09-16] MEDS: SANTYL TP SCH (08:23)
[2017-09-16] MEDS: ENOXAPARIN SODIUM 40 MG/0.4 ML DISP.SYRIN SQ SCH (08:24)
--- NOTE | 2017-09-16 11:28 | NUR ---
MS RN NOTE BLOOD SUGAR-134 NO INSULIN TO BE GIVEN. PER HOSPITAL PROTOCOL GIVEN INSULIN ABOVE 150.
[2017-09-16 16:00] VITALS: BP 111/56
--- NOTE | 2017-09-16 17:15 | NUR ---
MS RN NOTE BLOOD SUGAR-147 NO INSULIN NEEDED AT THIS TIME
--- NOTE | 2017-09-16 18:40 | NUR ---
MS RN CLOSING NOTE PATIENT RESTING COMFORTABLY AT THIS TIME. NO FACIAL GRIMACING NOTED FOR PAIN. NO SOB OR DISTRESS NOTED. CALL LIGHT WITHIN REACH AT ALL TIMES. SAFETY MEASURES IMPLEMENTED. ALL DUE MEDICATIONS GIVEN ORDERED. ALL NURSING CARE NEEDS ATTENDED TO NEEDED. WOUND TREATMENT DONE THROUGHOUT SHIFT AND BLOOD SUGAR MONITORED. WARD CATHETER DRAINING WELL-700 OUTPUT. G-TUBE INTACT AND PATENT NO REDNESS OR SWELLING NOTED WITH TUBE FEEDING RUNNING AT 65 ML/HR. WILL ENDORSE TO TONNAGE COMPILATION CLERK NURSE FOR ANGUS
--- NOTE | 2017-09-16 19:10 | NUR ---
RN INITIAL NOTES: RECEIVED REPORT FROM KAIT FRANKS, PT IN BED, AWAKE, NON VERBAL BASELINE, ON RA RESPIRATION EVEN AND UNLABORED, NO FACIAL GRIMACE NOTED, APPEARS CALM AND COMFORTABLE, IV ACCESS ON LEFT FA PATENT AND FLUSHING WELL, ON HL. RIGHT HAND IV ACCESS PATENT AND FLUSHING WELL, INFUSING WITH NS AT 75ML/HR, NOTED DRIED BLOOD ON THE IV ACCESS DRESSING, NPO LEAKING OR INFILTRATION NOTED. PT RECEIVING GLUCERNA 1.2 AT 65ML/HR. PT ON [employer] MATTRESS, SAFETY PRECAUTIONS FOR FALL INITIATED, CALL LIGHT IN REACH, WILL CONTINUE MONITORING PT.
--- NOTE | 2017-09-16 19:15 | NUR ---
RN NOTES: PER DAY RN REPORT, PT'S DISCHARGE WAS ON HOLD. PT'S GRAND DATER IS REARRANGING THE HOUSE, SO THE AIRLOSS MATTRESS AND HOSPITAL BED WILL BE DELIVER TO PT'S HOUSE ON FRIDAY, PER CASE MANAGEMENT DR BAUMAN IS AWARE OF THIS.
--- NOTE | 2017-09-16 19:45 | NUR ---
RN NOTES: ELEVATED PT'S BILATERAL ELBOW AND BOTH LEGS ON PILLOWS, ALSO NOTED PT'S GTUBE DRESSING DIRTY WITH BROWNISH/GREENISH DRAINAGE, REMOVED DRESSING. CLEANSED GTUBE SITE WITH NS, PAT DRY WITH GAUZE, APPLIED 4X4 GAUZE SECURED WITH PAPER TAPE.
[2017-09-16 20:00] VITALS: BP 139/72
--- NOTE | 2017-09-16 20:00 | NUR ---
RN NOTES: NOTED PT TO HAVE 100.6 TEMPERATURE, COLD COMPRESS PROVIDED, REMOVED THICK BLANKET, MAKE THE ROOM COLD, WILL RECHECK TEMP IN 15MINS
--- NOTE | 2017-09-16 20:10 | NUR ---
RN NOTES: KEPT HOB 30 DEGREES, ON ASPIRATION PRECAUTION, SUCTION SET UP SECURED
--- NOTE | 2017-09-16 20:20 | NUR ---
RN NOTES: RECHECK PT'S TEMP, NOW 98.6, CONTINUE PROVIDING COOLING MEASURES, WILL CONTINUE MONITORING FOR ANY FEVER
[2017-09-16] MEDS: clonazePAM 0.5 MG TABLET PO SCH (21:29)
--- NOTE | 2017-09-16 21:33 | NUR ---
RN NOTES: ABDOMEN SOFT TOT OUCH WITH ACTIVE BOWEL SOUND HEARD UPON AUSCULTATION OF THE ABDOMEN, NO RESIDUAL OBTAINED UPON CHECKING GTUBE RESIDUAL, ADMINISTERED NEW BEG/BOTTLE OF GLUCERNA 1.2 AT 65ML/HR, DUE MEDS ADMINISTERED, WILL CONTINUE MONITORING PT
[2017-09-16] MEDS: INSULIN REGULAR, HUMAN 100 UNIT/ML 3 ML VIAL SQ PRN (23:15)
--- NOTE | 2017-09-16 23:15 | NUR ---
BS 144: BS 144, NO INSULIN GIVEN PER SLIDING SCALE PER FAMILY REQUEST, PER REPORT FAMILY REQUESTED TO ONLY GIVE INSULIN WHEN PT BS IS ABOVE AND ABOVE. MD AWARE OF THIS REQUEST. WILL MONITOR PT FOR ANY S/S OF HYPO OR HYPERGLYCEMIA.
[2017-09-17] VITALS (8 sets, daily range): BP systolic 100–120; BP diastolic 48–79
[2017-09-17] MEDS: VANCOMYCIN 0.75 GM in IV NS 0.9% 250 ML IV SCH ×2 (01:08→14:26)
--- NOTE | 2017-09-17 02:10 | NUR ---
WOUND CARE: WOUND CARE PROVIDED ORDERED. CLEANSED SACRAL WOUND WITH DAKIN'S SOLUTION, AND PACKED WOUND WITH DAKIN'S MOISTENED GAUZE, COVERED WITH DRY GAUZE, ABD PAD AND SECURED WITH PAPER TAPE, ASSISTED AND WITNESSED BY CINDY KENNY
[2017-09-17] MEDS: PIPERACILLIN /TAZOBACTAM 3.375 G in IV NS 0.9% 50 ML IV SCH ×4 (05:09→23:14)
[2017-09-17] MEDS: ACETAMINOPHEN 325 MG TABLET PO PRN (05:11)
--- NOTE | 2017-09-17 05:11 | NUR ---
PRN TYLENOL: NOTED TEMP OF 100.2, COOLING MEASURES PROVIDED, PRN TYLENOL 650MG ADMINISTERED VIA GTUBE, WILL CONTINUE TO MONITOR AND REASSESS
[2017-09-17] MEDS: BLOOD SUGAR DIAGNOSTIC 1 EACH STRIP IN SCH ×4 (05:14→23:21)
[2017-09-17] MEDS: INSULIN REGULAR, HUMAN 100 UNIT/ML 3 ML VIAL SQ PRN ×3 (05:14→23:22)
[2017-09-17] MEDS: Z GUARD REMEDY 2 OZ OINT TP PRN ×2 (05:15→21:54)
--- NOTE | 2017-09-17 05:15 | NUR ---
BS 135: BS 135, NO INSULIN COVERAGE GIVEN PER FAMILY REQUEST, ONLY TO GIVE INSULIN IF BLOOD SUGAR IS ABOVE 150. MD AWARE. WILL MONITOR PT FOR ANY S/S OF HYPER OR HYPOGLYCEMIA
--- NOTE | 2017-09-17 05:53 | NUR ---
RECHECK TEMP: RECHECK PT'S TEMP AN HOUR AFTER ADMINISTERING PRN TYLENOL FOR FEVER, LATEST TEMP IS 98.2, PLEASE SEE VS LOG FOR COMPLETE VS DETAILS
--- NOTE | 2017-09-17 06:30 | NUR ---
RN NOTES: CHANGED PT'S GTUBE SITE DRESSING WITH NS PAT DRY, Z GUARD APPLIED ON SURROUNDING EXCORIATED SITE, 4X4 GAUZE APPLIED AND SECURED WITH PAPER TAPE
--- NOTE | 2017-09-17 06:50 | NUR ---
RN CLOSING NOTES: PT IN BED, REMAINS NON VERBAL, OBTUNDED, ON RA RESPIRATION EVEN AND UNLABORED, NO FACIAL GRIMACE NOTED, LATEST TEMP IS 98.5. PT ABDOMEN REMAINS SOFT TO TOUCH, WITH ACTIVE BOWEL SOUND HEARD UPON AUSCULTATION, GTUBE SITE REMAINS DRY, DRESSING C/D/I, RECEIVING GLUCERNA 1.2 GTUBE FEEDING AT 65ML/HR. IV ACCESS ON RIGHT HAND REMAINS PATENT AND FLUSHING WELL, INFUSING WITH NS AT 75ML/HR. LEFT FA IV ACCESS PATENT AND FLUSHING WELL, ON HL. BILATERAL ELBOWS AND BLE KEPT OFFLOADED, SCD REMAINS IN PLACED. SACRAL DRESSING REMAINS C/D/I, NO ACTIVE BLEEDING NOTED. SAFETY PRECAUTIONS FOR FALL REMAINS ENGAGED, CALL LIGHT IN REACH. POSSIBLE DC, EXIT CARE COMPLETED. WILL ENDORSE TO DAY RN FOR ANGUS.
--- NOTE | 2017-09-17 07:20 | NUR ---
RN OPENING NOTES RECEIVED PT. PT IS STABLE AND RESTING IN BED. OBTUNDED, PT IS NON VERBAL. NO S/S OF RESP DISTRESS OR SOB. PT DOES NOT APPEAR TO BE IN PAIN AT THIS TIME. FC IN PLACE. GT FEEDING OF GLUCERNA 1.2 INFUSING AT 65 ML/HR. PT AWAITING DC ONCE FAMILY HAS PREPARED HOME FOR MEDICAL EQUIP. SAFETY MEASURES IN PLACE, CALL LIGHT WITHIN REACH. WILL CONTINUE TO MONITOR.
[2017-09-17] MEDS: PROSOURCE / PROSTAT (PYXIS) 30 ML UDC GT SCH ×3 (08:57→16:47)
[2017-09-17] MEDS: CHOLECALCIFEROL 1,000 UNIT TABLET (VIT D3) PO SCH (08:58)
[2017-09-17] MEDS: ASCORBIC ACID 500 MG TABLET GT SCH ×2 (08:58→16:47)
[2017-09-17] MEDS: BACLOFEN (10 MG) 10 MG TABLET PO SCH (08:58)
[2017-09-17] MEDS: ASPIRIN 81 MG TAB.CHEW PO SCH (08:58)
[2017-09-17] MEDS: MULTIVITAMIN/LUTEIN/MINERALS 1 TAB PO SCH (08:58)
[2017-09-17] MEDS: ZINC SULFATE 220 MG CAPSULE GT SCH (08:58)
[2017-09-17] MEDS: SERTRALINE HCL 50 MG TABLET PO SCH (08:58)
[2017-09-17] MEDS: SANTYL TP SCH (08:59)
[2017-09-17] MEDS: DAKINS QUARTER STRENGTH (0.125%) 480 ML BOTTLE TOP SCH (08:59)
[2017-09-17] MEDS: ENOXAPARIN SODIUM 40 MG/0.4 ML DISP.SYRIN SQ SCH (09:18)
[2017-09-17] MEDS: IV NS 0.9% 1,000 ML IV PRN (14:26)
--- NOTE | 2017-09-17 14:30 | NUR ---
RN NOTES WOUND CARE PERFORMED. WOUND CARE INSTRUCTIONS ARE FOLLOW: CLEANSE WITH DAKINS SOAKED GAUZE, PACK WITH DAKINS SOAKED KERLIX. COVER WITH DRY ABD PAD, SECURE WITH TAPE.
[2017-09-17] MEDS: GLUCERNA 1.2 1,000 ML BOTTLE GT PRN (14:35)
--- NOTE | 2017-09-17 18:41 | NUR ---
RN CLOSING NOTES PT IN BED RESTING. NO S/S OF RESP DISTRESS OR SOB. PT DOES NOT APPEAR TO BE IN PAIN AT THIS TIME. D/C PLANNED FOR LATER THIS WEEK ONCE FAMILY IS ABLE TO TAKE NEW HOSPITAL BED AND EQUIPMENT MEASURES IN PLACE. ALL PT NEEDS ANTICIPATED AND MET. SAFETY MEASURES IN PLACE. 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
--- NOTE | 2017-09-17 19:15 | NUR ---
rn initial notes: RECEIVED REPORT FROM ALMITA FRANKS, PT IN BED, OPEN EYES SPONTANEOUSLY, NON VERBAL/OBTUNDED, ON RA RESPIRATION EVEN AND UNLABORED, NO FACIAL GRIMACE NOTED, APPEARS CALM AND COMFORTABLE, PT RECEIVING GLUCERNA 1.2 AT 65ML/HR. IV ACCESS ON LEFT FA PATENT AND FLUSHING WELL, ON HL. RIGHT HAND IV ACCESS PATENT AND FLUSHING WELL, INFUSING WITH NS AT 75ML/HR, NOTED DRIED BLOOD ON THE IV ACCESS DRESSING, NO S/S OF LEAKING OR INFILTRATION NOTED. PT ON KCI MATTRESS, BLE AND BILATERAL ELBOWS OFFLOADED, KEPT HOB 30 DEGREE'S, ON ASPIRATION PRECAUTIONS, SUCTION SET UP SECURED, SAFETY PRECAUTIONS FOR FALL INITIATED, CALL LIGHT IN REACH, WILL CONTINUE MONITORING PT.
--- NOTE | 2017-09-17 20:00 | NUR ---
RN NOTES: ABDOMEN SOFT TO TOUCH WITH ACTIVE BOWEL SOUND HEARD UPON AUSCULTATION OF THE ABDOMEN, NO RESIDUAL OBTAINED UPON CHECKING GTUBE, WILL CONTINUE MONITORING PT
[2017-09-17] MEDS: clonazePAM 0.5 MG TABLET PO SCH (21:20)
--- NOTE | 2017-09-17 21:22 | NUR ---
RN NOTES: GTUBE RESIDUAL CHECK PRIOR TO ADMINISTERING MEDICATION, NO RESIDUAL NOTED, ALL DUE MEDS GIVEN AT THIS TIME
--- NOTE | 2017-09-17 21:52 | NUR ---
PM CARE: ASSISTED VETERINARY ANATOMIST IN PROVIDING BED BATH TO THE PT, PT HAD I SMALL BM, SOFT BROWNISH COLORED, GTUBE SITE DRESSING CHANGED AT THIS TIME, ORAL CARE PROVIDED, Z GUARD APPLIED ON PERINEAL AREA FOR PREVENTION OF EXCORIATION AND REDNESS
--- NOTE | 2017-09-17 22:15 | NUR ---
CALLED PHARMACY DELINQUENCY COUNSELOR FOR VANCO AND ZOSYN SCHEDULE: PT WAS MY SAME PT FROM YESTERDAY, AND THERE IS A ZOSYN SCHEDULED LAST NIGHT Q6HRS, SCHEDULED FOR 0000 AND 0600AM, AND VANCOMYCIN 0.75GM IV Q12 SCHEDULE AT 0200AM, FOR SOME REASON TONIGHT, THESE MEDICATIONS DOESN'T APPEAR SCHEDULE IN EMAR FOR THOSE TIMES, CALLED PHARMACY DELINQUENCY COUNSELOR AT [phone], SPOKE TO EDUIN, INFORMED ABOUT THE CONCERN, SHE STATED THE ORDER WAS RENEWED TODAY BY NONA MENDOSA, AND SHE DOESN'T KNOW WHY IT DOESN'T SHOW TO ADMINISTER SCHEDULE. PER PHAMACY DELINQUENCY COUNSELOR THERE IS NO PROBLEM IN ADMINISTERING IT, JUST FOLLOW THE ZOSYN IV Q6 SCHEDULING ALTHOUGH IT DOESNT APPEAR ON EMAR,GIVE IT FOR 0000 AND 0600AM, AND FOR VANCOMYCIN 0.75GM IV Q12 TO ADMINISTER AT 0200AM.
--- NOTE | 2017-09-17 23:22 | NUR ---
BS 113: ACCU CHECK PERFORMED RESULT IS 113, NO INSULIN COVERAGE PER SLIDING SCALE, PT ON GTUBE FEEDING, WILL MONITOR FOR ANY S/S OF HYPOGLYCEMIA
[2017-09-18 02:02] VITALS: BP 107/65
--- NOTE | 2017-09-18 02:45 | NUR ---
WOUND CARE: WOUND CARE DONE ORDERED, CLEANSED WOUND WITH DAKIN'S SOLUTION AND PACKED WITH DAKIN'S MOISTENED GAUZE, COVERED WITH DRY DRESSING, ABD PADS AND SECURED WITH PAPER TAPE,CINDY STOVALL ASSISTED AND ACT WITNESS
[2017-09-18] MEDS: IV NS 0.9% 1,000 ML IV PRN (03:40)
--- NOTE | 2017-09-18 03:55 | NUR ---
AM CARE: ASSISTED FIELD IRONWORKER IN PROVIDING BED BATH TO THE PT, COMPLETE LINEN CHANGE PROVIDED
[2017-09-18 04:35] VITALS: BP 116/55
[2017-09-18] MEDS: BLOOD SUGAR DIAGNOSTIC 1 EACH STRIP IN SCH ×4 (05:10→23:05)
[2017-09-18] MEDS: INSULIN REGULAR, HUMAN 100 UNIT/ML 3 ML VIAL SQ PRN ×2 (05:12→23:10)
--- NOTE | 2017-09-18 05:12 | NUR ---
BS 175: BS 175, 3UNITS OF INSULIN GIVEN PER SLIDING SCALE, PT ON GT5UBE FEEDING, WILL MONITOR FOR ANY S/S OF HYPOGLYCEMIA
[2017-09-18 05:30] VITALS: BP 120/58
--- NOTE | 2017-09-18 06:45 | NUR ---
RN CLOSING NOTES: PT REMAINS NON VERBAL, ON RA, NO FACIAL GRIMACE NOTED, APPEARS CALM AND COMFORTABLE, NO FACIAL GRIMACE NOTED, EXTREMITIES ( UPPER AND LOWER )REMAINS CONTRACTED, PILLOWS IN BETWEEN LEGS KEPT IN PLACED, ALSO BUE AND BLE REMAINS OFFLOADED ON PILLOWS. IV ACCES REMAINS PATENT AND FLUSHING WELL, INFUSING WITH NS AT 75ML/HR. GTUBE DRESSING REMAINS C/D/I, RECEIVING GLUCERNA 1.2 AT 65ML/HR. KEPT HOB 30 DEGREES, REMAINS ON ASPIRATION PRECAUTION. KEPT SUCTION SET UP SECURED. WARD CATHETER REMAINS IN PLACED, BAG EMPTIED. SACRAL WOUND DRESSING REMAINS C/D/I, NO ACTIVE BLEEDING NOTED. PENDING DC, DME'S SUCH HOSPITAL BED AND AIR LOSS MATTRESS TO BE DELIVER ON FRIDAY, PT UNDER F[facility], CM ON BOARD, VS REMAINS STABLE, NEEDS ATTENDED, SAFETY PRECAUTIONS FOR FALL REMAINS ENGAGED, CALL LIGHT IN REACH, WILL ENDORSE TO DAY RN FOR ANGUS.
[2017-09-18 07:16] LABS: BASOPHILS % (AUTO) 0.2 % (0.0-2.0); EOSINOPHILS % (AUTO) 3.1 % (0.0-6.0); HEMATOCRIT 29 % (33-45); HEMOGLOBIN 9.3 g/dL (11.5-14.8); LYMPHOCYTES # (AUTO) 1.2 /CMM (0.8-4.8); LYMPHOCYTES % (AUTO) 13.5 % (20.0-44.0); MEAN CORPUSCULAR HEMOGLOBIN 26 PG (26.0-33.0); MEAN CORPUSCULAR HGB CONC 32 g/dl (31.0-36.0); MEAN CORPUSCULAR VOLUME 82 fL (82-100); MONOCYTES # (AUTO) 0.5 /CMM (0.1-1.30); MONOCYTES % (AUTO) 5.7 % (2.0-12.0); NEUTROPHILS % (AUTO) 77.5 % (43.0-81.0); PLATELET COUNT (AUTO) 408 /CMM (150-450); RDW COEFFICIENT OF VARIATION 16.8 (11.5-15.0); RED BLOOD CELL COUNT(AUTO) 3.54 MIL/uL (4.0-5.2)
[2017-09-18 07:39] LABS: CALCIUM, SERUM 7.9 mg/dL (8.5-10.1); CREATININE 0.5 mg/dL (0.6-1.3); POTASSIUM 3.8 mmol/L (3.5-5.1)
[2017-09-18 08:00] VITALS: BP 104/70
[2017-09-18] MEDS: ENOXAPARIN SODIUM 40 MG/0.4 ML DISP.SYRIN SQ SCH (08:10)
[2017-09-18] MEDS: MULTIVITAMIN/LUTEIN/MINERALS 1 TAB PO SCH (08:10)
[2017-09-18] MEDS: CHOLECALCIFEROL 1,000 UNIT TABLET (VIT D3) PO SCH (08:10)
[2017-09-18] MEDS: BACLOFEN (10 MG) 10 MG TABLET PO SCH (08:10)
[2017-09-18] MEDS: ASPIRIN 81 MG TAB.CHEW PO SCH (08:10)
[2017-09-18] MEDS: ASCORBIC ACID 500 MG TABLET GT SCH ×2 (08:10→16:50)
[2017-09-18] MEDS: SERTRALINE HCL 50 MG TABLET PO SCH (08:10)
[2017-09-18] MEDS: PROSOURCE / PROSTAT (PYXIS) 30 ML UDC GT SCH ×3 (08:16→16:51)
[2017-09-18] MEDS: ZINC SULFATE 220 MG CAPSULE GT SCH (08:16)
[2017-09-18] MEDS: SANTYL TP SCH (08:17)
[2017-09-18] MEDS: DAKINS QUARTER STRENGTH (0.125%) 480 ML BOTTLE TOP SCH (08:17)
--- NOTE | 2017-09-18 18:34 | NUR ---
RN CLOSING NOTE PT IN BED RESTING. NO S/S OF RESP DISTRESS OR SOB. PT DOES NOT APPEAR TO BE IN PAIN. DRESSING CHANGE PERFORMED. PT TO BE D/C HOME TMR UPON DISCRETION OF FAMILY. SAFETY MEASURES IN PLACE, CALL LIGHT WITHIN REACH. WILL ENDORSE TO SHIPYARD HELPER FOR ANGUS.
--- NOTE | 2017-09-18 19:40 | NUR ---
RN OPENING NOTES RECEIVED REPORT FROM DAYSHIFT RN ALMITA. FOUND Pt IN BED. NO S/S OF ACUTE DISTRESS OR SOB NOTED. Pt IS NON-VERBAL/OBTUNDED, OPENS EYES SPONTANEOUSLY. IV ACCESS ON R HAND#20G, IVF NS @75ML/HR, & L HAND #24G, SL. SAFETY MEASURES IN PLACE. BED LOW, LOCKED, HOB ELEVATED, SIDE RAILS UP, AND BED ALARM ON. WILL CONTINUE TO MONITOR Pt THROUGHOUT THE NIGHT FOR SAFETY.
[2017-09-18 20:00] VITALS: BP 128/64
[2017-09-18] MEDS: clonazePAM 0.5 MG TABLET PO SCH (21:38)
--- NOTE | 2017-09-18 23:13 | NUR ---
RN NOTES ACCUCHECK BG 160. ADMINISTERED 2UN OF INSULIN PER SLIDING SCALE. Pt ON CONTINUOUS GTF.
[2017-09-19] MEDS: ACETAMINOPHEN 325 MG TABLET PO PRN ×3 (03:35→18:56)
[2017-09-19] MEDS: BLOOD SUGAR DIAGNOSTIC 1 EACH STRIP IN SCH ×3 (05:22→17:40)
[2017-09-19] MEDS: INSULIN REGULAR, HUMAN 100 UNIT/ML 3 ML VIAL SQ PRN (05:40)
--- NOTE | 2017-09-19 05:54 | NUR ---
WAS UNABLE TO COMMENT ON THE GLUCOMETER. Pt's BG 156. ADMINISTERED 2UN OF INSULIN PER SLIDING SCALE. Pt IS ON CONTINUOUS GTF.
[2017-09-19 06:30] LABS: BASOPHILS % (AUTO) 0.3 % (0.0-2.0); EOSINOPHILS % (AUTO) 3.3 % (0.0-6.0); HEMATOCRIT 32 % (33-45); HEMOGLOBIN 10.5 g/dL (11.5-14.8); LYMPHOCYTES # (AUTO) 1.6 /CMM (0.8-4.8); LYMPHOCYTES % (AUTO) 15.8 % (20.0-44.0); MEAN CORPUSCULAR HEMOGLOBIN 27 PG (26.0-33.0); MEAN CORPUSCULAR HGB CONC 32 g/dl (31.0-36.0); MEAN CORPUSCULAR VOLUME 82 fL (82-100); MONOCYTES # (AUTO) 0.5 /CMM (0.1-1.30); MONOCYTES % (AUTO) 5.3 % (2.0-12.0); NEUTROPHILS # (AUTO) 7.9 /CMM (1.8-8.9); NEUTROPHILS % (AUTO) 75.3 % (43.0-81.0); PLATELET COUNT (AUTO) 461 /CMM (150-450); RED BLOOD CELL COUNT(AUTO) 3.94 MIL/uL (4.0-5.2); WHITE BLOOD COUNT (AUTO) 10.4 K/uL (4.3-11.0)
--- NOTE | 2017-09-19 06:33 | NUR ---
RN CLOSING NOTES NO SIGNIFICANT CHANGES IN Pt's CONDITION. Pt REMAINS STABLE AT THIS TIME. NO S/S OF ACUTE DISTRESS OR SOB NOTED DURING THE NIGHT. RESPIRATIONS EVEN AND UNLABORED. ALL NEEDS MET AND ATTENDED TO. ALL ORDERED MEDS GIVEN. SAFETY MEASURES IN PLACE. BED LOW, LOCKED, HOB ELEVATED, SIDE RAILS UP. POSSIBLE DC BACK HOME TODAY. WILL ENDORSE TO DAYSHIFT RN FOR Pt's ANGUS.
[2017-09-19 06:47] LABS: CREATININE 0.5 mg/dL (0.6-1.3); POTASSIUM 4.1 mmol/L (3.5-5.1)
--- NOTE | 2017-09-19 07:10 | NUR ---
RN NOTES: NONLABORED BREATHING NOTED ON ROOM AIR. NO FACIAL GRIMACING NOTED. RIGHT HAND GAUGE 2O PATENT AND INTACT. GTUBE FEEDING RUNNING PER ORDERS. ASPIRATION PRECAUTIONS AND FALL PRECAUTIONS IMPLEMENTED.
[2017-09-19 08:10] VITALS: BP 138/69
[2017-09-19] MEDS: GLUCERNA 1.2 1,000 ML BOTTLE GT PRN ×2 (08:16→17:36)
[2017-09-19] MEDS: IV NS 0.9% 1,000 ML IV PRN (08:25)
--- NOTE | 2017-09-19 08:30 | NUR ---
FACIAL GRIMACING NOTED WHILE TURNING AND REPOSITIONING PATIENT INDICATING MILD PAIN. TYLENOL ADMINISTERED PER ORDERS.
--- NOTE | 2017-09-19 09:07 | NUR ---
PATIENT RESTING IN BED. NONLABORED BREATHING NOTED. NO FACIAL GRIMACING NOTED
[2017-09-19] MEDS: PROSOURCE / PROSTAT (PYXIS) 30 ML UDC GT SCH ×3 (10:22→17:39)
[2017-09-19] MEDS: MULTIVITAMIN/LUTEIN/MINERALS 1 TAB PO SCH (10:22)
[2017-09-19] MEDS: BACLOFEN (10 MG) 10 MG TABLET PO SCH (10:22)
[2017-09-19] MEDS: SERTRALINE HCL 50 MG TABLET PO SCH (10:23)
[2017-09-19] MEDS: CHOLECALCIFEROL 1,000 UNIT TABLET (VIT D3) PO SCH (10:23)
[2017-09-19] MEDS: ZINC SULFATE 220 MG CAPSULE GT SCH (10:23)
[2017-09-19] MEDS: ASPIRIN 81 MG TAB.CHEW PO SCH (10:23)
[2017-09-19] MEDS: ASCORBIC ACID 500 MG TABLET GT SCH ×2 (10:24→17:40)
[2017-09-19] MEDS: SANTYL TP SCH (10:29)
[2017-09-19] MEDS: DAKINS QUARTER STRENGTH (0.125%) 480 ML BOTTLE TOP SCH (10:30)
--- NOTE | 2017-09-19 10:30 | NUR ---
ADMINISTERED MEDICATIONS NOW. UNABLE TO EARLIER DUE TO PATIENT GETTING BATH. BATH PERFORMED WELL WOUND CARE
[2017-09-19] MEDS: ENOXAPARIN SODIUM 40 MG/0.4 ML DISP.SYRIN SQ SCH (10:32)
[2017-09-19 16:38] VITALS: BP 132/63
--- NOTE | 2017-09-19 19:30 | NUR ---
RN CLOSING NOTES: PATIENT RESTING IN BED. NO FACIAL GRIMACING NOTED AFTER TYLENOL ADMINISTRATION. IV SITE ON RIGHT HAND GAUGE 20 PATENT AND INTACT. GTUBE FEEDING RUNNING PER ORDERS WITH ASPIRATION PRECAUTIONS IMPLEMENTED. IV FLUIDS RUNNING PER ORDERS. DURING SHIFT, PATIENT TURNED AND REPOSITIONED EVERY 2 HOURS. WOUND CARE DONE. WARD CATHETER DRAINING LIGHT YELLOW URINE. DR BAUMAN NOTIFIED THAT DISCHARGE IS BEING HELD DUE TO PATIENT'S FAMILY INABILITY TO ACCEPT HER DUE TO PROLONGED DELIVERY OF HOSPITAL BED AT HOME. PER GRANDDAUGHTER, SHE SPOKE TO CRISTA WHO CONFIRMED BED DELIVERY TOMORROW AT 2 PM SPOKE TO KALPESH FROM CASE MANAGEMENT AND UPDATED THEM.
--- NOTE | 2017-09-19 19:35 | NUR ---
MSRN AWAKE, UPPER AND LOWER EXT CONTRACTED, SUPPORTED WITH PILLOWS. NO SOB. HOB 30 DEGREES, GT FEEDINGS AT 65CC/HR TOLERATED WELL. REPOSITIONED PER PATIENT COMFORT. TOTAL CARE, CLOSELY WATCHED.
[2017-09-19 20:00] VITALS: BP 51/51
[2017-09-19] MEDS: clonazePAM 0.5 MG TABLET PO SCH (22:39)
--- NOTE | 2017-09-19 23:08 | NUR ---
MSRN DUE MEDS ADMINISTERED. LESS THAN 5CC RESIDUALS OBTAINED.GT FEEDINGS CONTINUED
[2017-09-20] MEDS: BLOOD SUGAR DIAGNOSTIC 1 EACH STRIP IN SCH ×3 (00:20→12:49)
--- NOTE | 2017-09-20 00:26 | NUR ---
MSRN BLOOD SUGAR WAS 149, NO COVERAGE FOR NOW PER [facility].
--- NOTE | 2017-09-20 03:58 | NUR ---
MS/RN ASSUMED CARE FOR CONTINUITY OF CARE. PATIENT IS SLEEPING, APPEAR COMFORTABLE, BREATHING EVEN AND UNLABORED, GT FEEDING INFUSING, HOB ELEVATED. WILL MONITOR.
[2017-09-20] MEDS: IV NS 0.9% 1,000 ML IV PRN (05:22)
--- NOTE | 2017-09-20 05:39 | NUR ---
MS/RN MORNING CARE WAS DONE, BED BATH DONE, TOTAL LINEN CARE RENDERED, WOUND CARE DONE PER ORDER, HOB ELEVATED, REPOSITIONED TO COMFORT, WILL CONTINUE TO MONITOR.
--- NOTE | 2017-09-20 06:29 | NUR ---
MS/RN SLEEPING, APPEAR COMFORTABLE, NO DISTRESS NOTED, HOB ELEVATED, IVF INFUSING, GT FEEDING INFUSING, HOB ELEVATED, ALL NEEDS ATTENDED AT THIS TIME, WILL CONTINUE TO MONITOR.
[2017-09-20] MEDS: INSULIN REGULAR, HUMAN 100 UNIT/ML 3 ML VIAL SQ PRN (07:03)
--- NOTE | 2017-09-20 07:20 | NUR ---
ms rn initial notes Received patient in bed, asleep, head of bed elevated, no SOB or distress noted, on room air and tolerated well. Patient is obtunded, no facial grimace noted. IV intact and patent with IVF infusing well. GT site clean and cover, with GT feeding Glucerna at 65 ml/hr. No residual noted. Kept patient clean and comfortable in bed, call light with in patient reach, will continue to monitor accordingly.
[2017-09-20 08:00] VITALS: BP 105/61
[2017-09-20] MEDS: CHOLECALCIFEROL 1,000 UNIT TABLET (VIT D3) PO SCH (08:19)
[2017-09-20] MEDS: ASCORBIC ACID 500 MG TABLET GT SCH ×2 (08:19→16:23)
[2017-09-20] MEDS: PROSOURCE / PROSTAT (PYXIS) 30 ML UDC GT SCH ×3 (08:19→16:23)
[2017-09-20] MEDS: BACLOFEN (10 MG) 10 MG TABLET PO SCH (08:19)
[2017-09-20] MEDS: MULTIVITAMIN/LUTEIN/MINERALS 1 TAB PO SCH (08:19)
[2017-09-20] MEDS: ASPIRIN 81 MG TAB.CHEW PO SCH (08:20)
[2017-09-20] MEDS: ZINC SULFATE 220 MG CAPSULE GT SCH (08:21)
[2017-09-20] MEDS: SERTRALINE HCL 50 MG TABLET PO SCH (08:21)
[2017-09-20] MEDS: ENOXAPARIN SODIUM 40 MG/0.4 ML DISP.SYRIN SQ SCH (08:22)
[2017-09-20] MEDS: DAKINS QUARTER STRENGTH (0.125%) 480 ML BOTTLE TOP SCH (08:23)
[2017-09-20] MEDS: SANTYL TP SCH (08:23)
[2017-09-20] MEDS: ACETAMINOPHEN 325 MG TABLET PO PRN (09:02)
[2017-09-20] MEDS: GLUCERNA 1.2 1,000 ML BOTTLE GT PRN (09:05)
--- NOTE | 2017-09-20 12:50 | NUR ---
ms rn notes Blood sugar checked no coverage given 123.
--- NOTE | 2017-09-20 17:25 | NUR ---
ms industrial engineering intern notes Discharge paper signed by co RN due to patient is unable to sign. Granddaughter is aware of the discharge. Patient in stable condition at this time. Report given to nurse for transfer of care. Pictures taken and filed in the patient chart. Flu is out of season, and PNA vaccine refused by granddaughter. Explained the risk and benefits x 3 and still refused. Health Teaching and education rendered. MD and charge nurse aware of the discharge, patient is going home with home health. Call light with in patient reach.
--- NOTE | 2017-09-20 17:40 | NUR ---
MS RN NOTES: ANGUS RECEIVED PT FROM [facility] IN STABLE CONDITION. PT IS TO BE DISCHARGED TO HOME WITH HOME HEALTH. D/C PAPERWORK AND D/C MATTERS CARRIED OUT BY RN. AWAITING AMBULANCE TRANSPORT. WILL CONTINUE TO MONITOR
--- NOTE | 2017-09-20 18:26 | NUR ---
MS AQUARIST NOTES PT WAS DISCHARGED FROM FACILITY IN STABLE CONDITION. ALL NEEDS MET AND ORDERS CARRIED OUT ACCORDINGLY. PT LEFT WITH ALL BELONGINGS. IVS WERE SUCCESSFULLY REMOVED WITH CATHETER TIPS INTACT. SHE WAS SAFELY TRANSFERRED FROM BED TO [facility]. FAMILY AWARE OF DISCHARGE.
== END 2017-09-20 18:28 | disposition home health service (06) | DRG 981 ==
LOC: ER 10:18 → TELE 13:33 → MED 19:09 → ICU 09-15 09:52 → MED 09-15 10:07
PROC: 0QB10ZZ Excision of Sacrum, Open Approach (ICD-10-PCS; principal; 2017-09-11)
DX: L89.154 Pressure ulcer of sacral region, stage 4 (principal); G23.1 Progressive supranuclear ophthalmoplegia [Steele-Richardson-Olszewski]; E44.0 Moderate protein-calorie malnutrition; D68.9 Coagulation defect, unspecified; E87.0 Hyperosmolality and hypernatremia; R13.10 Dysphagia, unspecified; I10 Essential (primary) hypertension; Z90.710 Acquired absence of both cervix and uterus; Z88.5 Allergy status to narcotic agent; Z88.0 Allergy status to penicillin; Z79.899 Other long term (current) drug therapy; D47.3 Essential (hemorrhagic) thrombocythemia; Z74.01 Bed confinement status; Z93.1 Gastrostomy status; Z79.82 Long term (current) use of aspirin; M19.90 Unspecified osteoarthritis, unspecified site; M62.422 Contracture of muscle, left upper arm; M62.421 Contracture of muscle, right upper arm; D50.9 Iron deficiency anemia, unspecified; Z86.19 Personal history of other infectious and parasitic diseases
CPT/HCPCS: 36415; 71045-TC; 80048-TC; 80061-TC; 80076-TC; 80202-TC; 81000-TC; 82962-TC; 83605-TC; 83735-TC; 84100-TC; 84134-TC; 84443-TC; 84484-TC; 85025-TC; 85730-TC; 87040-TC; 87070-TC; 87081-TC; 87086-TC; A4216; A4606; A6253; A6402; A6403; J0692; J1650; J1815; J2543; J3370; J3490; J7030; J7050; J7060; Z7610

== ENCOUNTER 2017-09-25 12:33 | Outpatient (CLI) | payer MEDICARE, BC ==
[~2017-09-25 12:33] MED LIST changes: +ACID1TAB14 GT; +ASCO500T9 GT; +ASPI-1169 GT; -ASPI-1169 PO; +BACL10TA GT; -BACL10TA PO; +BLOO-697 IN; +CHOL100044 GT; -CHOL100044 PO; +CIPR500T5 GT; +CLON0.122 GT; -CLON0.122 PO; +COLL30OI TP; +INSU100V3 SQ; +MULT-188 GT; +POLY17PO4 GT; +SERT50TA GT; -SERT50TA PO; +ZINC220C6 GT
[2017-09-25 12:45] VITALS: BP 115/60
[2017-09-25] MEDS ORDERED: NUT.237L30 GT (16:28)
[2017-09-25] MEDS ORDERED: AMIN30LI4 GT (16:29)
== END 2017-09-25 23:59 | disposition home or self-care (01) ==
LOC: MSC 12:33
PROVIDERS: ATTEND Internal Medicine
DX: L89.154 Pressure ulcer of sacral region, stage 4 (principal); G23.1 Progressive supranuclear ophthalmoplegia [Steele-Richardson-Olszewski]; R13.10 Dysphagia, unspecified; Z93.1 Gastrostomy status; M19.90 Unspecified osteoarthritis, unspecified site; E88.09 Other disorders of plasma-protein metabolism, not elsewhere classified; E44.0 Moderate protein-calorie malnutrition; M62.50 Muscle wasting and atrophy, not elsewhere classified, unspecified site; D50.9 Iron deficiency anemia, unspecified; D68.9 Coagulation defect, unspecified; I10 Essential (primary) hypertension; Z79.82 Long term (current) use of aspirin

== ENCOUNTER 2017-09-25 14:31 | Inpatient (IN) | payer MEDICARE, BC ==
[~2017-09-25] VITALS: Ht 175.3 cm; Wt 53.5 kg
--- NOTE | 2017-09-25 14:50 | NUR ---
BIB AMBULANCE C/O LEAKING G-TUBE, FAMILY REPORTS BLOOD OOZING AROUND GTUBE SITE. RR IS EVEN AND UNLABORED WITH NAD NOTED. SKIN IS WARM AND DRY. PLACED ON THE MONITOR. AWAITING MD FOR EVAL.
[2017-09-25 15:53] LABS: BASOPHILS # (AUTO) 0.1 /CMM (0.0-0.2); BASOPHILS % (AUTO) 0.9 % (0.0-2.0); EOSINOPHILS % (AUTO) 0.8 % (0.0-6.0); HEMATOCRIT 32 % (33-45); HEMOGLOBIN 10.5 g/dL (11.5-14.8); LYMPHOCYTES # (AUTO) 1.5 /CMM (0.8-4.8); LYMPHOCYTES % (AUTO) 10.5 % (20.0-44.0); MEAN CORPUSCULAR HEMOGLOBIN 27 PG (26.0-33.0); MEAN CORPUSCULAR HGB CONC 33 g/dl (31.0-36.0); MEAN CORPUSCULAR VOLUME 80 fL (82-100); MONOCYTES # (AUTO) 0.6 /CMM (0.1-1.30); MONOCYTES % (AUTO) 4.2 % (2.0-12.0); NEUTROPHILS # (AUTO) 11.8 /CMM (1.8-8.9); NEUTROPHILS % (AUTO) 83.6 % (43.0-81.0); PLATELET COUNT (AUTO) 419 /CMM (150-450); RDW COEFFICIENT OF VARIATION 17.2 (11.5-15.0); RED BLOOD CELL COUNT(AUTO) 3.96 MIL/uL (4.0-5.2); WHITE BLOOD COUNT (AUTO) 14.1 K/uL (4.3-11.0)
[2017-09-25 16:05] LABS: CALCIUM, SERUM 8.9 mg/dL (8.5-10.1); CREATININE 0.7 mg/dL (0.6-1.3); POTASSIUM 3.9 mmol/L (3.5-5.1)
[2017-09-25 16:09] LABS: INR 1.18 (0.85-1.15)
--- NOTE | 2017-09-25 16:24 | NUR ---
BED 309-1
[2017-09-25] MEDS ORDERED: NUT.237L30 GT (16:28)
[2017-09-25] MEDS ORDERED: AMIN30LI4 GT (16:29)
--- NOTE | 2017-09-25 16:54 | NUR ---
REPORT GIVEN TO [facility] FOR ANGUS MS 309-2
[2017-09-25] MEDS ORDERED: VANCOMYCIN 1 GM in IV NS 0.9% 250 ML IV SCH (17:30)
--- NOTE | 2017-09-25 17:30 | NUR ---
REMANUFACTURING TECHNICIAN NOTE PT ADMITTED FROM ER. RECEIVED PT IN [facility], TRANSFERRED TO BED. GRANDDAUGHTER BEDSIDE, REPORTED HX. ABD DRESSING CHANGED, SACRAL DRESSING NOTED. WOUND PICTURES TAKEN AND PLACED IN CHART. PT RESTING COMFORTABLY IN BED. WILL CONTINUE TO MONITOR.
--- NOTE | 2017-09-25 19:20 | NUR ---
MS/RN OPENING NOTES PT RECEIVED, OBTUNDED. NON VERBAL, OPENS EYES SPONTANEOUSLY. ON ROOM AIR, BREATHING EVEN AND UNLABORED. GRANDDAUGHTER LIZZETH AT BEDSIDE. BUE CONTRACTED. IV TO LEFT HAND PATENT AND INTACT. GT CLAMPED, DRESSING C/D/I. NO S/S OF BLEEDING NOTED. BED IN LOW/LOCKED POSITION, CALL LIGHT IN REACH. SIDE RAILS UPX3. WILL CONTINUE TO MONITOR.
--- NOTE | 2017-09-25 19:36 | NUR ---
RN CLOSING NOTE PT IN BED RESTING. NO S/S OF RESP DISTRESS OR SOB. NO C/O PAIN. ALL PT NEEDS ANTICIPATED AND MET. SAFETY MEASURES IN PLACE, CALL LIGHT IN REACH. WILL ENDORSE TO ENTERTAINER & COMIC FOR ANGUS.
[2017-09-25 20:00] VITALS: BP 109/58
[2017-09-25] MEDS ORDERED: LEVOFLOXACIN 500 MG /D5W 100ML 500 MG in PREMIX 1 EA IV SCH (20:00)
[2017-09-25] MEDS: ALBUTEROL HALF STRENGTH 1.25 MG/3 ML VIAL.NEB NEB SCH ×2 (20:34→23:20)
[2017-09-25] MEDS: PIPERACILLIN /TAZOBACTAM 4.5 G in IV D5W 50 ML IV SCH (20:42)
--- NOTE | 2017-09-25 22:37 | NUR ---
TELE/RN NOTES SPOKE TO PT'S GRANDDAUGHTER LIZZETH [phone] STATED THAT THE BACLOFEN THE PATIENT TAKES AT HOME IS 40MG NOT 80MG. SHE GIVES HER 4 10MG PILLS EACH MORNING. IF SHE USES THE 20MG TABS, SHE GIVES HER 2 TABS. WILL NOTIFY PHARMACY IN THE MORNING. Addendum: 09/26/17 at 0650 by ATILIO CANO RN SPOKE TO PHARMACY REGARDING BACLOFEN. OKAY TO CHANGE ORDER FROM 80MG TO 40MG DAILY
[2017-09-25] MEDS: VANCOMYCIN 0.75 GM in IV D5W 250 ML IV SCH (23:36)
[2017-09-26] MEDS: ALBUTEROL HALF STRENGTH 1.25 MG/3 ML VIAL.NEB NEB SCH ×6 (03:16→22:57)
[2017-09-26] MEDS: PIPERACILLIN /TAZOBACTAM 4.5 G in IV D5W 50 ML IV SCH ×2 (05:23→12:27)
[2017-09-26 06:29] LABS: CALCIUM, SERUM 8.5 mg/dL (8.5-10.1); CREATININE 0.7 mg/dL (0.6-1.3); POTASSIUM 4.3 mmol/L (3.5-5.1)
--- NOTE | 2017-09-26 06:53 | NUR ---
MS/RN CLOSING NOTES PT RESTING COMFORTABLY IN BED. OBTUNDED. NON VERBAL. OPENS EYES SPONTANEOUSLY. ON ROOM AIR, BREATHING EVEN AND UNLABORED. NO S/S OF SOB OR PAIN. IV TO RIGHT HAND PATENT AND INTACT. GT CLAMPED. WARD DRAINING TO GRAVITY. TURNED/REPOSITIONED Q2H. HEELS OFFLOADED. WOUND CARE CONSULT AND [facility] MATTRESS ORDERED FOR SACRAL WOUND. NO SIGNIFICANT CHANGES OVERNIGHT. BED IN LOW/LOCKED POSITION WITH CALL LIGHT IN REACH. SIDE RAILS UPX2. WILL ENDORSE TO DAY SHIFT RN ANGUS.
[2017-09-26 08:00] VITALS: BP 104/65
--- NOTE | 2017-09-26 08:00 | NUR ---
MS RN NOTES PATIENT IN BED RESTING NO SOB OR ACUTE DISTRESS NOTED. PATIENT OBTUNDED OPENS EYES AT TIMES. PERIPHERAL IV INTACT PATENT. BED IN LOW LOCKED POSITION. CALL LIGHT WITHIN REACH. BED IN LOW LOCKED POSITION.
[2017-09-26] MEDS: ACIDOPHILUS/BULGARICUS 1 EACH TAB.CHEW GT SCH (09:00)
[2017-09-26] MEDS: BACLOFEN (10 MG) 10 MG TABLET PO SCH (09:00)
[2017-09-26] MEDS: ASCORBIC ACID 500 MG TABLET GT SCH ×2 (09:00→17:00)
[2017-09-26] MEDS ORDERED: COLLAGENASE 15 GM TUBE TP SCH (09:00)
[2017-09-26] MEDS: ASPIRIN 81 MG TAB.CHEW PO SCH (09:00)
[2017-09-26] MEDS: SERTRALINE HCL 50 MG TABLET GT SCH (09:00)
[2017-09-26] MEDS: ZINC SULFATE 220 MG CAPSULE GT SCH (09:00)
[2017-09-26] MEDS ORDERED: BACLOFEN (10 MG) 10 MG TABLET PO SCH (09:00)
[2017-09-26] MEDS: VANCOMYCIN 0.75 GM in IV D5W 250 ML IV SCH ×3 (09:39→22:40)
[2017-09-26] MEDS ORDERED: FEE PK DOSING 1 MIN EA MC ONE (10:49)
--- NOTE | 2017-09-26 12:00 | NUR ---
MS RN NOTES [facility] BED SET UP
--- NOTE | 2017-09-26 12:39 | NUR ---
WOUND CARE CONSULT WOUND CARE RECEIVED CONSULT FOR SACRAL WOUND, WOUND CARE WILL DEFER CONSULT AND ALL TREATMENT PLANS TO SURGICAL TEAM THEY ARE CURRENTLY FOLLOWING. PATIENT WITH KAREN AT 7, ALL PRESSURE ULCER PREVENTION MEASURES ARE NOTED TO BE IN PLACE AT THIS TIME. WILL SEE PRN.
[2017-09-26] MEDS ORDERED: DIATR MEGLU/DIATRIZOATE SODIUM 30 ML BOTTLE (GASTROGRAPHIN) ONE (14:46)
[2017-09-26] MEDS: PANTOPRAZOLE 40 MG VIAL IV SCH (14:55)
[2017-09-26] MEDS: DAKINS QUARTER STRENGTH (0.125%) 480 ML BOTTLE TOP SCH (14:56)
[2017-09-26] MEDS ORDERED: LORAZEPAM INJ 2 MG/ML VIAL IV PRN (15:00)
[2017-09-26 16:00] VITALS: BP 99/57
[2017-09-26] MEDS ORDERED: LEVOFLOXACIN 500 MG /D5W 100ML 500 MG in PREMIX 1 EA IV SCH (16:00)
[2017-09-26] MEDS: IV D5/0.45 NACL 500 ML IV PRN (17:10)
--- NOTE | 2017-09-26 17:38 | NUR ---
Readmitted less than 30days from last discharge due to GT malfunction.Patient lives locally with daughter Miracle who is the primary caregiver. Patient has hx of progressive supranuclear palsy, she is non-ambulatory, totally dependent with adl's. Patient adequate DME: Hosp bed, oxygen, walker, wheelchair, commode, cane and GT care supplies. She is currently on service with [facility] [phone]/F: [phone]. Family want to take patient back home when discharge. Addendum: 09/26/17 at 1739 by SRINI NAIK RN Amended: Links added.
[2017-09-26 18:37] LABS: OCCULT BLOOD STOOL NEGATIVE (NEGATIVE)
--- NOTE | 2017-09-26 19:29 | NUR ---
MS RN NOTES PATIENT ALERT, ORIENTED X 3 NO SOB OR ACUTE DISTRESS NOTED . ALL DUE MEDIATIONS ADMINISTERED. ALL NEEDS MET. PATIENT NPO DUE TO G-TUBE MALFUNCTION. WILL ENDORSE CARE TO PM SHIFT.
--- NOTE | 2017-09-26 19:30 | NUR ---
MS/RN OPENING NOTES PT RECEIVED RESTING IN BED. GRANDDAUGHTER AT BEDSIDE. ON ROOM AIR BREATHING EVEN AND UNLABORED. NO S/S OF DISTRESS. IV TO LEFT HAND PATENT AND INTACT RUNNING IVF ORDERED. BED IN LOW/LOCKED POSITION WITH CALL LIGHT IN REACH. SIDE RAILS UPX2. WILL CONTINUE TO MONITOR
[2017-09-26 20:00] VITALS: BP 90/46
[2017-09-26 20:46] LABS: IRON, SERUM 22 ug/dl (50-175); TOTAL IRON BINDING CAPACITY 212 ug/dl (250-450)
--- NOTE | 2017-09-26 21:00 | NUR ---
MS/RN NOTES PT GRANDDAUGHTER AT BEDSIDE. OBTAINED CONSENT FOR SACRAL WOUND DEBRIDEMENT. PLACED IN CHART
[2017-09-26] MEDS ORDERED: MEROPENEM 500 MG VIAL IV ONE (21:44)
[2017-09-26] MEDS: MEROPENEM 500 MG in IV NS 0.9% 50 ML IV SCH (22:07)
--- NOTE | 2017-09-26 22:14 | NUR ---
MS/RN NOTES SCANNED VANCO WHILE WAITING FOR NURSING SUP TO BRING MERREM. ONCE SCANNED, NURSING SUP. PROVIDED MERREM. VANCO "UNDO" ADMINISTRATION AND GAVE MERREM INSTEAD TO INFUSE OVER 30MINS, THEN WILL ADMINISTER VANCO.
--- NOTE | 2017-09-26 22:30 | NUR ---
MS/RN NOTES PT'S BP CHECKED 8X TIMES, RANGING FROM 75/35 - 92/42, HR RANGING FROM 69-78. TOOK BP MANUALLY = 100/50. SPO2 88-89% ON RA, PLACED ON 2L NC FOR O2 SUPPORT, INCREASED TO 94-95%. BREATHING EVEN AND UNLABORED. PT SUCTIONED. NO S/S OF DISTRESS NOTED. WILL CONTINUE TO MONITOR
--- NOTE | 2017-09-26 23:00 | NUR ---
MS/RN NOTES MD NOTIFIED OF PT'S SUSTAINED LOW BP, DESPITE [place]. WITH ORDERS TO INCREASE IVF FROM 50ML/HR TO 80ML/HR. ALSO STAT URINE CX AND URINALYSIS. ORDERS NOTED. WILL COLLECT URINE SAMPLE AND SEND TO LAB
--- NOTE | 2017-09-26 23:15 | NUR ---
MS/RN NOTES PT ON SURGERY SCHEDULE FOR EGD AND GT REPLACEMENT AT 0800 TOMORROW. SPOKE TO LIZZETH, PT'S GRANDDAUGHTER AND OBTAINED TELEPHONE CONSENT FOR PROCEDURE, ANESTHESIA AND BLOOD. WITNESSED BY ANOTHER RN. PLACED IN CHART.
[2017-09-27 01:06] LABS: APPEARANCE,URINE CLEAR (CLEAR); BILIRUBIN,URINE NEGATIVE (NEGATIVE); BLOOD, URINE 2+ Ery/uL (NEGATIVE); COLOR,URINE YELLOW (YELLOW); KETONES,URINE NEGATIVE (NEGATIVE); LEUKOCYTE ESTERASE ,URINE 1+ (NEGATIVE); NITRITE, URINE NEGATIVE (NEGATIVE); PROTEIN,URINE NEGATIVE (NEGATIVE); UGLUCOSE NEGATIVE (NEGATIVE); UROBILINOGEN,URINE 0.2 EU/dL (0.2)
[2017-09-27 01:28] LABS: BACTERIA,URINE Few /HPF (None Seen); SQUAMOUS EPITHELIAL CELL,UR Few /HPF (None Seen); WBC,URINE 21-50 /HPF (0-3); YEAST,URINE Moderate /HPF (None Seen)
[2017-09-27] MEDS ORDERED: MEROPENEM 500 MG VIAL IV ONE (02:53)
[2017-09-27] MEDS: ALBUTEROL HALF STRENGTH 1.25 MG/3 ML VIAL.NEB NEB SCH ×7 (03:07→23:35)
[2017-09-27] MEDS: MEROPENEM 500 MG in IV NS 0.9% 50 ML IV SCH ×3 (05:09→20:22)
[2017-09-27 06:11] LABS: CALCIUM, SERUM 8.7 mg/dL (8.5-10.1); CREATININE 0.7 mg/dL (0.6-1.3); PHOSPHORUS 3.5 mg/dL (2.5-4.9); POTASSIUM 4.4 mmol/L (3.5-5.1)
[2017-09-27 06:16] LABS: INR 1.28 (0.87-1.13)
--- NOTE | 2017-09-27 07:00 | NUR ---
MS/RN CLOSING NOTES PT RESTING COMFORTABLY IN BED. OPENS EYES SPONTANEOUSLY. GRANDDAUGHTER AT BEDSIDE. PLACED ON 2L O2 DURING BEGINNING OF SHIFT FOR SPO2 88%. SPO2 INCREASED TO 94%. BP INCREASED TO 103/60 DURING SHIFT. SUCTIONED PRN. WOUND CARE PROVIDED ORDERED. TURNED/REPOSITIONED PT Q2H, HEELS OFFLOADED. IV TO LEFT HAND PATENT AND INTACT RUNNING IVF ORDERED. FOR EGD AND GT REPLACEMENT TODAY, CONSENTS SIGNED AND CHECKLIST COMPLETED, PLACED IN CHART. CONSENT FOR SACRAL WOUND DEBRIDEMENT IN CHART WELL. BED REMAINS IN LOW/LOCKED POSITION WITH CALL LIGHT IN REACH. SIDE RAILS UPX2. WILL ENDORSE TO DAY SHIFT RN ANGUS.
--- NOTE | 2017-09-27 07:10 | NUR ---
MS/RN OPENING NOTE PATIENT IS RECEIVED IN BED SLEEPING. RESPONSIVE TO VERBAL AND TACTILE STIMULI. RESPIRATION REGULAR AND UNLABORED. PATIENT ON OXYGEN AT 2L/MIN VIA NC. PATIENT WITH NO APPARENT DISTRESS. WARD CATH IN PLACE AND CLEAR, YELLOW URINE IS DRAINED. LEFT HAND G 22 PATENT AND IV FLUID INFUSING AT 80 ML/HR. NO S/S INFILTRATION NOTED. PATIENT NPO. BED LOW AND LOCKED. SIDE RAILS UP X3. CALL LIGHT WITHIN REACH. WILL CONTINUE TO MONITOR.
--- NOTE | 2017-09-27 07:46 | NUR ---
MS/RN NOTE PATIENT RESPONSIVE TO VERBAL AND TACTILE STIMULI. NO MANIFESTATION OF DISTRESS. PATIENT IS PICEK UP GOING TO OR. PATIENT LEFT THE FLOOR IN STABLE CONDITION.
--- NOTE | 2017-09-27 08:53 | NUR ---
MS/RN NOTE PATIENT IS RECEIVED FROM OR, AWAKE. RESPIRATION REGULAR AND UNLABORED. ON OXYGEN AT 2L/MIN VIA NC. NO MANIFESTATION OF DISTRESS NOTED. GT IN PLACE. GT SITE WITH NO BLEEDING AND NO S/S INFECTION. IV PATENT. BED LOW AND LOCKED. SIDE RAILS UP X3. JALYN LIGHT WITHIN REACH. WILL CONTINUE TO MONITOR.
[2017-09-27 08:55] VITALS: BP 108/68
--- NOTE | 2017-09-27 09:30 | NUR ---
MS/RN NOTE NEW ORDER OF GT FEEDING IS RECEIVED FROM DR CROCKER. THE ORDER READ BACK, VERIFIED. NOTED AND CARRIED OUT.
[2017-09-27 10:02] LABS: WHITE BLOOD COUNT (AUTO) 8.4 K/uL (4.3-11.0)
[2017-09-27 10:03] LABS: BASOPHILS % (AUTO) 0.8 % (0.0-2.0); EOSINOPHILS % (AUTO) 1.2 % (0.0-6.0); HEMATOCRIT 27 % (33-45); HEMOGLOBIN 8.7 g/dL (11.5-14.8); LYMPHOCYTES % (AUTO) 12.4 % (20.0-44.0); MEAN CORPUSCULAR HEMOGLOBIN 26 PG (26.0-33.0); MEAN CORPUSCULAR HGB CONC 32 g/dl (31.0-36.0); MEAN CORPUSCULAR VOLUME 82 fL (82-100); MONOCYTES % (AUTO) 7.4 % (2.0-12.0); NEUTROPHILS % (AUTO) 78.2 % (43.0-81.0); PLATELET COUNT (AUTO) 363 /CMM (150-450); RDW COEFFICIENT OF VARIATION 17.9 (11.5-15.0); RED BLOOD CELL COUNT(AUTO) 3.35 MIL/uL (4.0-5.2)
[2017-09-27 10:04] LABS: BASOPHILS # (AUTO) 0.1 /CMM (0.0-0.2); MONOCYTES # (AUTO) 0.6 /CMM (0.1-1.30); NEUTROPHILS # (AUTO) 6.5 /CMM (1.8-8.9)
[2017-09-27] MEDS: ACIDOPHILUS/BULGARICUS 1 EACH TAB.CHEW GT SCH (10:45)
[2017-09-27] MEDS: VANCOMYCIN 0.75 GM in IV D5W 250 ML IV SCH (10:45)
[2017-09-27] MEDS: ZINC SULFATE 220 MG CAPSULE GT SCH (10:46)
[2017-09-27] MEDS: BACLOFEN (10 MG) 10 MG TABLET PO SCH (10:46)
[2017-09-27] MEDS: SERTRALINE HCL 50 MG TABLET GT SCH (10:46)
[2017-09-27] MEDS: ASCORBIC ACID 500 MG TABLET GT SCH ×2 (10:46→16:16)
[2017-09-27] MEDS: DAKINS QUARTER STRENGTH (0.125%) 480 ML BOTTLE TOP SCH (10:47)
[2017-09-27] MEDS: ASPIRIN 81 MG TAB.CHEW PO SCH (10:47)
[2017-09-27 16:00] VITALS: BP 112/72
[2017-09-27] MEDS: PANTOPRAZOLE 40 MG VIAL IV SCH (16:16)
[2017-09-27] MEDS: IV D5/0.45 NACL 500 ML IV PRN (16:53)
[2017-09-27] MEDS ORDERED: GLUCERNA 1.2 1,000 ML BOTTLE NG PRN (17:30)
--- NOTE | 2017-09-27 17:45 | NUR ---
MS/RN CLOSING NOTE PATIENT IN BED SLEEPING. RESPONSIVE TO TACTILE AND VERBAL STIMULI. RESPIRATION REGULAR AND UNLABORED. PATIENT IS RECEIVING 2L/MIN VIA NC AND OXYGEN SATURATION LEVEL AT 95%. NO MANIFESTATION OF PAIN/DISCOMFORT. WARD CATH DRAINING FREELY AND NOTED CLEAR, YELLOW COLOR URINE. LEFT HAND G 22 AND IV FLUID INFUSING 80ML/HR AND NO S/S INFILTRATION NOTED. WOUND DRESSING DONE. GOOD AND GENTLE SKIN CARE RENDERED. KEPT CLEAN, DRY AND COMFORTABLE. TURNED AND REPOSITIONED Q2HR AND NEEDED. BED LOW AND LOCKED. SIDE RAILS UP X3. CALL LIGHT WITHIN REACH. WILL ENDORSE TO CAKE BATTER MIXER.
[2017-09-27] MEDS: GLUCERNA 1.2 1,000 ML BOTTLE GT PRN (19:06)
--- NOTE | 2017-09-27 19:25 | NUR ---
MS RN NOTE RECEIVED PATIENT FROM DAY SHIFT, PATIENT IS OBTUNDED, OPENS EYES, NO S/S OF RESPIRATORY DISTRESS, NO FACIAL GRIMACE. GETTING O2 VIA NC. WARD PRESENT WITH YELLOW CLEAR URINE AND S/P GT REPLACEMENT TODAY BY DR HILL. RESUMED FEEDING STARTED AT 45ML/HR. WILL MONITOR FOR RESIDUAL AND FEEDING TOLERANCE. SRX2, BED IN LOW POSITION, CALL LIGHT WITHIN REACH, WILL CONTINUE TO MONITOR PATIENT.
[2017-09-27 20:00] VITALS: BP 90/40
[2017-09-27] MEDS: VANCOMYCIN 0.75 GM in IV NS 0.9% 250 ML IV SCH (20:51)
[2017-09-27] MEDS ORDERED: VANCOMYCIN 1 GM in IV NS 0.9% 250 ML IV SCH (21:00)
[2017-09-28] MEDS: MEROPENEM 500 MG in IV NS 0.9% 50 ML IV SCH ×3 (04:30→21:58)
--- NOTE | 2017-09-28 06:48 | NUR ---
MS RN NOTE PATIENT IS SLEEPING COMFORTABLY IN BED, NO ACUTE EVENT NOTED THROUGHOUT THE SHIFT. BREATHING NON-LABORED, NO FACIAL GRIMACE NOTED. DRESSING CHANGED ON SACRUM AND GTUBE SITE. MORNING CARE RENDERED, ALL DUE MEDS GIVEN. GTUBE FEEDING RATE NOW @55ML/HR, TOLERATING WELL. WILL ENDORSE TO DAY SHIFT NURSE FOR ANGUS
[2017-09-28] MEDS: ALBUTEROL HALF STRENGTH 1.25 MG/3 ML VIAL.NEB NEB SCH ×5 (07:29→23:20)
--- NOTE | 2017-09-28 07:55 | NUR ---
MS RN OPENING NOTE PATIENT RESTING COMFORTABLY WITH BED LOCKED IN LOWEST POSITION AND SIDE RAILS UP x2 FOR SAFETY. NON-VERBAL. NO FACIAL GRIMACING NOTED FOR PAIN. NO SOB OR DISTRESS NOTED ON 2L NASAL CANNULA TOLERATING WELL AT 100%. CALL LIGHT WITHIN REACH AND SAFETY MEASURES IMPLEMENTED. WARD CATHETER IN PLACE AND DRAINING WELL TO GRAVITY. WOUND TREATMENT TO BE DONE QSHIFT. G-TUBE REPLACED 09/27/17 KEPT CLEAN DRY AND INTACT WITH TUBE FEEDING RUNNING AT THIS TIME. IV INTACT AND PATENT NO REDNESS OR SWELLING NOTED WITH IV FLUIDS RUNNING. WILL CONTINUE TO MONITOR THROUGHOUT SHIFT
[2017-09-28 08:00] VITALS: BP 109/55
[2017-09-28] MEDS: SERTRALINE HCL 50 MG TABLET GT SCH (08:15)
[2017-09-28] MEDS: ZINC SULFATE 220 MG CAPSULE GT SCH (08:15)
[2017-09-28] MEDS: ASCORBIC ACID 500 MG TABLET GT SCH ×2 (08:15→16:38)
[2017-09-28] MEDS: ASPIRIN 81 MG TAB.CHEW PO SCH (08:16)
[2017-09-28] MEDS: ACIDOPHILUS/BULGARICUS 1 EACH TAB.CHEW GT SCH (08:16)
[2017-09-28] MEDS: BACLOFEN (10 MG) 10 MG TABLET PO SCH (08:16)
[2017-09-28] MEDS: DAKINS QUARTER STRENGTH (0.125%) 480 ML BOTTLE TOP SCH (08:16)
[2017-09-28] MEDS: VANCOMYCIN 0.75 GM in IV NS 0.9% 250 ML IV SCH ×2 (08:28→21:53)
[2017-09-28] MEDS: IV D5/0.45 NACL 500 ML IV PRN (08:29)
[2017-09-28 10:09] LABS: CALCIUM, SERUM 8.5 mg/dL (8.5-10.1); CREATININE 0.7 mg/dL (0.6-1.3); MAGNESIUM 1.9 mg/dL (1.8-2.4); POTASSIUM 4.6 mmol/L (3.5-5.1)
[2017-09-28 10:15] LABS: BASOPHILS % (AUTO) 0.7 % (0.0-2.0); EOSINOPHILS % (AUTO) 1.5 % (0.0-6.0); HEMATOCRIT 28 % (33-45); LYMPHOCYTES % (AUTO) 9.2 % (20.0-44.0); MEAN CORPUSCULAR HEMOGLOBIN 26 PG (26.0-33.0); MEAN CORPUSCULAR HGB CONC 32 g/dl (31.0-36.0); MEAN CORPUSCULAR VOLUME 81 fL (82-100); MONOCYTES % (AUTO) 5.6 % (2.0-12.0); PLATELET COUNT (AUTO) 380 /CMM (150-450); RDW COEFFICIENT OF VARIATION 18.2 (11.5-15.0); RED BLOOD CELL COUNT(AUTO) 3.45 MIL/uL (4.0-5.2)
[2017-09-28] MEDS: CYANOCOBALAMIN 100 MCG TABLET PO SCH (12:21)
[2017-09-28] MEDS: PANTOPRAZOLE 40 MG VIAL IV SCH (13:54)
[2017-09-28] MEDS: SOD FERRIC GLUC 125 MG in IV NS 0.9% 100 ML IV SCH (14:27)
[2017-09-28] MEDS: GLUCERNA 1.2 1,000 ML BOTTLE GT PRN (14:58)
[2017-09-28] MEDS: IV D5/0.45 NACL 1,000 ML IV PRN (14:59)
[2017-09-28 16:00] VITALS: BP 92/46
[2017-09-28] MEDS: FLUCONAZOLE IN NS,PREMIX 200 MG in PREMIX 1 EA IV SCH ×2 (17:18)
--- NOTE | 2017-09-28 18:29 | NUR ---
MS RN CLOSING NOTE PATIENT RESTING COMFORTABLY AT THIS TIME. NO FACIAL GRIMACING NOTED FOR PAIN. NO SOB OR DISTRESS NOTED ON 3L OF OXYGEN VIA NASAL CANNULA TOLERATING WELL. CALL LIGHT WITHIN REACH AT ALL TIMES. SAFETY MEASURES IMPLEMENTED. WOUND TREATMENT DONE QSHIFT. CHARIS MIDLINE INSERTED TODAY WITH IV FLUIDS RUNNING AT THIS TIME. G-TUBE DRESSING CHANGED AND KEPT CLEAN DRY AND INTACT WITH TUBE FEEDING RUNNING AT THIS TIME, TOLERATING WELL WITH NO RESIDUAL. WARD CATHETER DRAINING WELL TO GRAVITY-1100 OUTPUT. LABS IN AM. WILL ENDORSE TO PATIENT BILLER NURSE FOR ANGUS
--- NOTE | 2017-09-28 19:35 | NUR ---
MS RN OPENING NOTES PATIENT RESTING IN BED. NO FACIAL GRIMACING NOTED FOR PAIN. NO SOB OR DISTRESS NOTED.PT ON 3L OF OXYGEN VIA NASAL CANNULA TOLERATING WELL. HOB ELEVATED, SAFETY MEASURES IMPLEMENTED. W CHARIS MIDLINE IN PLACE WITH IV FLUIDS RUNNING. G-TUBE DRESSING CLEAN DRY AND INTACT WITH TUBE FEEDING RUNNING AT 55 ML/HR THIS TIME, TOLERATING WELL WITH NO RESIDUAL. WARD CATHETER DRAINING WELL.WILL CONTINUE TO MONITOR
[2017-09-28 20:00] VITALS: BP_SYST 108; BP_DIAS 54; BP_DIAS 94
[2017-09-29] MEDS: ALBUTEROL HALF STRENGTH 1.25 MG/3 ML VIAL.NEB NEB SCH ×6 (02:49→23:50)
[2017-09-29] MEDS: MEROPENEM 500 MG in IV NS 0.9% 50 ML IV SCH ×3 (04:33→21:45)
--- NOTE | 2017-09-29 06:29 | NUR ---
MS RN CLOSING NOTES PATIENT RESTING IN BED. NO FACIAL GRIMACING NOTED FOR PAIN. NO SOB OR DISTRESS NOTED.PT ON 3L OF OXYGEN VIA NASAL CANNULA TOLERATING WELL. HOB ELEVATED, SAFETY MEASURES IMPLEMENTED. WITH CHARIS MIDLINE IN PLACE , IV FLUIDS RUNNING. G-TUBE DRESSING CLEAN DRY AND INTACT WITH TUBE FEEDING RUNNING AT 60 ML/HR THIS TIME, TOLERATING WELL WITH NO RESIDUAL. WARD CATHETER DRAINING WELL. WILL ENDORSE TO NEXT SHIFT NURSE FOR ANGUS.
--- NOTE | 2017-09-29 07:47 | NUR ---
MS RN OPENING NOTE PATIENT RESTING COMFORTABLY IN BED, LOCKED IN LOWEST POSITION WITH SIDE RAILS UP x2 FOR SAFETY. PATIENT IS OBTUNDED AND NON-VERBAL. NO FACIAL GRIMACING NOTED. NO SOB OR DISTRESS NOTED ON 3L/MIN OF OXYGEN VIA NASAL CANNULA TOLERATING WELL. IV MIDLINE INTACT AND PATENT WITH IV FLUIDS RUNNING AT THIS TIME. WARD CATHETER DRAINING WELL TO GRAVITY. G-TUBE KEPT CLEAN DRY AND INTACT WITH TUBE FEEDING RUNNING AT THIS TIME. WOUND TREATMENT TO BE DONE THROUGHOUT SHIFT. WILL CONTINUE TO MONITOR THROUGHOUT SHIFT
[2017-09-29 08:00] VITALS: BP 118/54
[2017-09-29 08:29] LABS: CALCIUM, SERUM 8.9 mg/dL (8.5-10.1); CREATININE 0.7 mg/dL (0.6-1.3); MAGNESIUM 1.9 mg/dL (1.8-2.4); PHOSPHORUS 3.2 mg/dL (2.5-4.9); POTASSIUM 4.9 mmol/L (3.5-5.1)
[2017-09-29] MEDS: SERTRALINE HCL 50 MG TABLET GT SCH (08:33)
[2017-09-29] MEDS: ZINC SULFATE 220 MG CAPSULE GT SCH (08:33)
[2017-09-29] MEDS: ACIDOPHILUS/BULGARICUS 1 EACH TAB.CHEW GT SCH (08:33)
[2017-09-29] MEDS: ASPIRIN 81 MG TAB.CHEW PO SCH (08:33)
[2017-09-29] MEDS: ASCORBIC ACID 500 MG TABLET GT SCH ×2 (08:33→16:42)
[2017-09-29] MEDS: BACLOFEN (10 MG) 10 MG TABLET PO SCH (08:34)
[2017-09-29] MEDS: DAKINS QUARTER STRENGTH (0.125%) 480 ML BOTTLE TOP SCH (08:34)
[2017-09-29] MEDS: CYANOCOBALAMIN 100 MCG TABLET PO SCH (08:35)
[2017-09-29] MEDS: VANCOMYCIN 0.75 GM in IV NS 0.9% 250 ML IV SCH ×2 (08:39→22:21)
[2017-09-29] MEDS: GLUCERNA 1.2 1,000 ML BOTTLE GT PRN (11:37)
[2017-09-29] MEDS: SOD FERRIC GLUC 125 MG in IV NS 0.9% 100 ML IV SCH (14:30)
[2017-09-29] MEDS: PANTOPRAZOLE 40 MG VIAL IV SCH (14:39)
[2017-09-29 16:00] VITALS: BP 118/58
[2017-09-29] MEDS: FLUCONAZOLE IN NS,PREMIX 200 MG in PREMIX 1 EA IV SCH ×2 (16:34)
[2017-09-29] MEDS: IV D5/0.45 NACL 1,000 ML IV PRN (16:43)
[2017-09-29] MEDS ORDERED: SILVER NITRATE APPLICATOR 1 EA BOX TP ONE (17:30)
--- NOTE | 2017-09-29 18:27 | NUR ---
ms rn closing note patient is resting comfortably in bed locked in lowest position with siderails up X2. obtunded, non-verbal. all due medications given as ordered. all nursing care needs attended to as needed. iv midline intact and patent with iv fluids running at this time. s/p wound debridement with at bedside, patient tolerated procedure well. g-tube kept clean dry and intact, dressing changed. tube feeding running at 65 ml hr tolerating well with 10cc residual. turned and repositioned q2h and as needed. on 3l/min via nasal cannula. labs in am tomorrow. will endorse to transmission line engineer nurse for colin
--- NOTE | 2017-09-29 19:15 | NUR ---
MS/RN OPENING NOTES PT OBTUNDED. OPENS EYES SPONTANEOUSLY. HOB ELEVATED. ON 3L O2 VIA NC, BREATHING EVEN AND UNLABORED. NO S/S OF SOB OR PAIN NOTED, NO FACIAL GRIMACING. ASPIRATION PRECAUTIONS. CHARIS MIDLINE PATENT AND INTACT RUNNING IVF ORDERED. GT FEEDING RUNNING ORDERED. WARD IN PLACE DRAINING TO GRAVITY. BED IN LOW/LOCKED POSITION WITH CALL LIGHT IN REACH. SIDE RAILS UPX3 WITH BED ALARM ON FOR SAFETY. WILL CONTINUE TO MONITOR
[2017-09-29 20:00] VITALS: BP 107/53
[2017-09-30] MEDS: ALBUTEROL HALF STRENGTH 1.25 MG/3 ML VIAL.NEB NEB SCH ×6 (03:54→22:57)
[2017-09-30] MEDS: MEROPENEM 500 MG in IV NS 0.9% 50 ML IV SCH ×2 (05:44→13:06)
[2017-09-30] MEDS: GLUCERNA 1.2 1,000 ML BOTTLE GT PRN ×2 (05:45→21:29)
[2017-09-30 06:00] VITALS: BP 107/53
[2017-09-30 06:41] LABS: CREATININE 0.6 mg/dL (0.6-1.3); POTASSIUM 5.5 mmol/L (3.5-5.1)
[2017-09-30 07:05] LABS: BASOPHILS % (AUTO) 0.4 % (0.0-2.0); EOSINOPHILS % (AUTO) 3.4 % (0.0-6.0); HEMATOCRIT 27 % (33-45); HEMOGLOBIN 8.9 g/dL (11.5-14.8); LYMPHOCYTES # (AUTO) 1.1 /CMM (0.8-4.8); MEAN CORPUSCULAR HEMOGLOBIN 27 PG (26.0-33.0); MEAN CORPUSCULAR HGB CONC 33 g/dl (31.0-36.0); MEAN CORPUSCULAR VOLUME 80 fL (82-100); MONOCYTES # (AUTO) 0.4 /CMM (0.1-1.30); MONOCYTES % (AUTO) 5.3 % (2.0-12.0); NEUTROPHILS # (AUTO) 6.4 /CMM (1.8-8.9); NEUTROPHILS % (AUTO) 76.9 % (43.0-81.0); PLATELET COUNT (AUTO) 328 /CMM (150-450); RDW COEFFICIENT OF VARIATION 17.4 (11.5-15.0); RED BLOOD CELL COUNT(AUTO) 3.36 MIL/uL (4.0-5.2); WHITE BLOOD COUNT (AUTO) 8.2 K/uL (4.3-11.0)
--- NOTE | 2017-09-30 07:36 | NUR ---
MS/RN CLOSING NOTES PT REMAINS OBTUNDED. OPENS EYES SPONTANEOUSLY. HOB ELEVATED. REMAINS ON 3L O2 VIA NC, BREATHING EVEN AND UNLABORED. ASPIRATION PRECAUTIONS IMPLEMENTED. CHARIS MIDLINE PATENT AND INTACT RUNNING IVF ORDERED. GT FEEDING RUNNING ORDERED, NO RESIDUALS NOTED. WARD IN PLACE DRAINING TO GRAVITY. WOUND CARE PROVIDED ORDERED. TURNED/REPOSITIONED Q2H. HEELS OFFLOADED. NO SIGNIFICANT CHANGES OVERNIGHT. BED IN LOW/LOCKED POSITION WITH CALL LIGHT IN REACH. SIDE RAILS UPX3 WITH BED ALARM ON FOR SAFETY. ENDORSED TO DAY SHIFT RN ANGUS.
[2017-09-30 08:00] VITALS: BP 118/55
--- NOTE | 2017-09-30 08:04 | NUR ---
MS RN NOTES PATIENT IN BED, NON VERBAL, EYES OPEN. ON LOW FLOW OXYGEN AT 3L VIA NC WITH NO SOB. CHARIS MIDLINE INTACT, IVF D5 1/2 NS INFUSING AT 50ML/HR. ABDOMEN PRESENCE OF GTUBE INTACT, GTUBE GLUCERNA 1.2 AT 65ML/HR, HOB ELEVATED. [employer] LOW AIR LOSS MATTRESS IN PLACE, MAINTAINED SAFETY. WILL CONT TO MONITOR.
[2017-09-30] MEDS: ASCORBIC ACID 500 MG TABLET GT SCH ×2 (09:10→16:58)
[2017-09-30] MEDS: ASPIRIN 81 MG TAB.CHEW PO SCH (09:10)
[2017-09-30] MEDS: ZINC SULFATE 220 MG CAPSULE GT SCH (09:10)
[2017-09-30] MEDS: ACIDOPHILUS/BULGARICUS 1 EACH TAB.CHEW GT SCH (09:10)
[2017-09-30] MEDS: SERTRALINE HCL 50 MG TABLET GT SCH (09:10)
[2017-09-30] MEDS: BACLOFEN (10 MG) 10 MG TABLET PO SCH (09:16)
[2017-09-30] MEDS: CYANOCOBALAMIN 100 MCG TABLET PO SCH (09:20)
[2017-09-30] MEDS: VANCOMYCIN 0.75 GM in IV NS 0.9% 250 ML IV SCH ×2 (09:24→21:09)
[2017-09-30] MEDS: DAKINS QUARTER STRENGTH (0.125%) 480 ML BOTTLE TOP SCH (09:48)
[2017-09-30] MEDS: PANTOPRAZOLE 40 MG VIAL IV SCH (14:39)
[2017-09-30] MEDS: SOD FERRIC GLUC 125 MG in IV NS 0.9% 100 ML IV SCH (15:20)
[2017-09-30 16:00] VITALS: BP 118/50
[2017-09-30] MEDS: FLUCONAZOLE (100 MG) 100 MG TABLET GT SCH (16:58)
--- NOTE | 2017-09-30 18:59 | NUR ---
MS RN CLOSING NOTES PATIENT IN BED, NON VERBAL, EYES OPEN. BUE,BLE CONTRACTED. ON SUPPLEMENTAL OXYGEN AT 3L VIA NC, BREATHING TREATMENT VIA NEB ATC. NO WHEEZING, NO SOB. CHARIS MIDLINE PATENT AND INTACT, CONT ANTIBIOTIC PER ID, AFEBRILE DURING THE SHIFT. WOUND CARE DONE, [facility] LOW AIR LOSS MATTRESS IN PLACE. GTUBE IN PLACE, GASTRIC RESIDUAL MINIMAL AMT 10ML, GTUBE FEEDING GLUCERNA AT 65ML/HR TOLERATING WELL. CONTINUE HOSPITALIZATION PER MD, WILL ENDORSE TO ONCOMING RN.
--- NOTE | 2017-09-30 19:00 | NUR ---
MS RN OPENING NOTES PATIENT IN BED, NON VERBAL ,PT ON OXYGEN AT 3L VIA NC. NO S/S RESPIRATORY DISTRESS OR PAIN AT THIS TIME. CHARIS MIDLINE PATENT AND INTACT,[employer] LOW AIR LOSS MATTRESS IN PLACE. GTUBE IN PLACE, GASTRIC RESIDUAL 5ML, GTUBE FEEDING GLUCERNA AT 65ML/HR TOLERATING WELL. CONTINUE TO MONITOR
[2017-09-30 20:00] VITALS: BP 101/43
[2017-09-30] MEDS: IV D5/0.45 NACL 1,000 ML IV PRN (21:33)
[2017-10-01] MEDS: ALBUTEROL HALF STRENGTH 1.25 MG/3 ML VIAL.NEB NEB SCH ×6 (03:30→23:08)
--- NOTE | 2017-10-01 07:15 | NUR ---
MS RN CLOSING NOTES PATIENT IN BED, NON VERBAL ,PT ON OXYGEN AT 3L VIA NC. NO S/S RESPIRATORY DISTRESS OR PAIN AT THIS TIME. CHARIS MIDLINE PATENT AND INTACT,[facility] LOW AIR LOSS MATTRESS IN PLACE. GTUBE IN PLACE, GASTRIC RESIDUAL 10 ML, GTUBE FEEDING GLUCERNA AT 65ML/HR TOLERATING WELL. ONGOING FLUID AT 50 ML/HR. WOUND CARE DONE. WILL ENDORSE TO DAY SHIFT NURSE FOR ANGUS.
--- NOTE | 2017-10-01 07:30 | NUR ---
MSRN NOTES. PT RECEIVED OBTUNDED. PT WITH O2 VIA NC 4LPM, WITHOUT RESP DISTRESS OR S/S OF PAIN OR DISCOMFORT. PT REPOSITIONED. PT WITH G TUBE INTACT AND OPERATIONAL AND R UA MIDLINE INTACT AND OPERATIONAL. PT BED IN LOWEST LOCKED POSITION WITH HANDRAILSX4, SHEETS STRAIGHTENED AND PT OFFLOADED. WILL CONTINUE POC.
[2017-10-01 08:00] VITALS: BP 116/57
[2017-10-01] MEDS: ACIDOPHILUS/BULGARICUS 1 EACH TAB.CHEW GT SCH (08:23)
[2017-10-01] MEDS: BACLOFEN (10 MG) 10 MG TABLET PO SCH (08:23)
[2017-10-01] MEDS: ASCORBIC ACID 500 MG TABLET GT SCH ×2 (08:23→16:12)
[2017-10-01] MEDS: FLUCONAZOLE (100 MG) 100 MG TABLET GT SCH (08:24)
[2017-10-01] MEDS: ASPIRIN 81 MG TAB.CHEW PO SCH (08:24)
[2017-10-01] MEDS: CYANOCOBALAMIN 100 MCG TABLET PO SCH (08:24)
[2017-10-01] MEDS: ZINC SULFATE 220 MG CAPSULE GT SCH (08:24)
[2017-10-01] MEDS: SERTRALINE HCL 50 MG TABLET GT SCH (08:24)
[2017-10-01] MEDS: VANCOMYCIN 0.75 GM in IV NS 0.9% 250 ML IV SCH ×2 (08:34→09:17)
[2017-10-01 09:01] LABS: CALCIUM, SERUM 8.6 mg/dL (8.5-10.1); CREATININE 0.6 mg/dL (0.6-1.3)
[2017-10-01] MEDS: DAKINS QUARTER STRENGTH (0.125%) 480 ML BOTTLE TOP SCH (09:19)
[2017-10-01 09:37] LABS: BASOPHILS % (AUTO) 0.4 % (0.0-2.0); EOSINOPHILS % (AUTO) 1.2 % (0.0-6.0); HEMATOCRIT 28 % (33-45); HEMOGLOBIN 9.2 g/dL (11.5-14.8); LYMPHOCYTES # (AUTO) 1.3 /CMM (0.8-4.8); LYMPHOCYTES % (AUTO) 12.8 % (20.0-44.0); MEAN CORPUSCULAR HEMOGLOBIN 26 PG (26.0-33.0); MEAN CORPUSCULAR HGB CONC 33 g/dl (31.0-36.0); MEAN CORPUSCULAR VOLUME 79 fL (82-100); MONOCYTES # (AUTO) 0.4 /CMM (0.1-1.30); MONOCYTES % (AUTO) 4.3 % (2.0-12.0); NEUTROPHILS # (AUTO) 8.4 /CMM (1.8-8.9); NEUTROPHILS % (AUTO) 81.3 % (43.0-81.0); PLATELET COUNT (AUTO) 336 /CMM (150-450); RDW COEFFICIENT OF VARIATION 16.7 (11.5-15.0); RED BLOOD CELL COUNT(AUTO) 3.51 MIL/uL (4.0-5.2); WHITE BLOOD COUNT (AUTO) 10.2 K/uL (4.3-11.0)
[2017-10-01] MEDS: PANTOPRAZOLE 40 MG VIAL IV SCH (13:33)
[2017-10-01] MEDS: GLUCERNA 1.2 1,000 ML BOTTLE GT PRN (13:33)
[2017-10-01] MEDS: SOD FERRIC GLUC 125 MG in IV NS 0.9% 100 ML IV SCH (13:52)
[2017-10-01 16:00] VITALS: BP 114/59
--- NOTE | 2017-10-01 18:04 | NUR ---
MSRN CLOSING NOTES. PT OBTUNDED. PT WITH O2 VIA NC 4LPM, WITHOUT RESP DISTRESS OR S/S OF PAIN OR DISCOMFORT. PT REPOSITIONED Q2HR. PT WITH G TUBE INTACT AND OPERATIONAL, <5CC RESIDUAL. R UA MIDLINE INTACT AND OPERATIONAL. PT BED IN LOWEST LOCKED POSITION WITH HANDRAILSX4, LIMBS OFFLOADED. WOUND CARE PER RX. ALL DAY NURSE DUTIES ATTENDED TO, WILL ENDORSE TO NIGHT NURSE AT BEDSIDE FOR ANGUS.
--- NOTE | 2017-10-01 19:54 | NUR ---
MS RN OPENING NOTES PT IN BED. PT WITH O2 VIA NC 3L, WITHOUT RESP DISTRESS OR S/S OF PAIN OR DISCOMFORT. PT WITH G TUBE INTACT AND OPERATIONAL, 5 ML RESIDUAL. R UA MIDLINE INTACT AND PATENT. PT BED IN LOWEST LOCKED POSITION WITH HANDRAILSX3. WILL CONTINUE CARE.
[2017-10-01 20:00] VITALS: BP 128/94
[2017-10-01] MEDS: VANCOMYCIN 500 MG in IV D5W 100 ML IV SCH (20:38)
[2017-10-02] MEDS: ALBUTEROL HALF STRENGTH 1.25 MG/3 ML VIAL.NEB NEB SCH ×6 (02:23→23:50)
[2017-10-02] MEDS: GLUCERNA 1.2 1,000 ML BOTTLE GT PRN (04:14)
[2017-10-02 06:29] LABS: CALCIUM, SERUM 8.8 mg/dL (8.5-10.1); CREATININE 0.6 mg/dL (0.6-1.3); POTASSIUM 5.3 mmol/L (3.5-5.1)
[2017-10-02 06:33] LABS: BASOPHILS % (AUTO) 0.4 % (0.0-2.0); EOSINOPHILS % (AUTO) 2.1 % (0.0-6.0); HEMATOCRIT 31 % (33-45); HEMOGLOBIN 9.7 g/dL (11.5-14.8); LYMPHOCYTES # (AUTO) 1.2 /CMM (0.8-4.8); LYMPHOCYTES % (AUTO) 11.5 % (20.0-44.0); MEAN CORPUSCULAR HEMOGLOBIN 26 PG (26.0-33.0); MEAN CORPUSCULAR HGB CONC 32 g/dl (31.0-36.0); MEAN CORPUSCULAR VOLUME 82 fL (82-100); MONOCYTES # (AUTO) 0.5 /CMM (0.1-1.30); MONOCYTES % (AUTO) 5.2 % (2.0-12.0); NEUTROPHILS # (AUTO) 8.1 /CMM (1.8-8.9); NEUTROPHILS % (AUTO) 80.8 % (43.0-81.0); PLATELET COUNT (AUTO) 339 /CMM (150-450); RDW COEFFICIENT OF VARIATION 18.4 (11.5-15.0); RED BLOOD CELL COUNT(AUTO) 3.74 MIL/uL (4.0-5.2)
--- NOTE | 2017-10-02 06:58 | NUR ---
MS RN CLOSING NOTES PT IN BED. PT WITH O2 VIA NC 3L, WITHOUT RESP DISTRESS OR S/S OF PAIN OR DISCOMFORT. PT WITH G TUBE INTACT AND OPERATIONAL, WITH NO RESIDUAL AT THIS TIME. R UA MIDLINE INTACT AND PATENT.PT HAD ONE EPISODE OF LARGE DIARRHEA TONIGHT. PT BED IN LOWEST LOCKED POSITION WITH HANDRAILSX3. HOB ELEVATED. ONGOING FEEDING 65 ML/HR . WILL ENDORSE TO [place] SHIFT FOR ANGUS.
--- NOTE | 2017-10-02 07:00 | NUR ---
MSRN NOTES. PT RECEIVED OBTUNDED. PT WITH O2 VIA NC 3LPM, WITHOUT RESP DISTRESS. PT GRUNTING, OTHERWISE WITHOUT S/S OF PAIN OR DISCOMFORT. PT REPOSITIONED. PT WITH G TUBE INTACT AND OPERATIONAL, ABDOMEN SOFT, VERBAL ENDORSEMENT OF <5CC RESIDUALS. PT WITH R UA MIDLINE INTACT AND OPERATIONAL. PT BED IN LOWEST LOCKED POSITION WITH HANDRAILSX4, SHEETS STRAIGHTENED AND PT OFFLOADED. WILL CONTINUE POC.
[2017-10-02 08:00] VITALS: BP 114/48
[2017-10-02] MEDS: VANCOMYCIN 500 MG in IV D5W 100 ML IV SCH ×2 (08:52→23:43)
[2017-10-02] MEDS: ASCORBIC ACID 500 MG TABLET GT SCH ×2 (08:53→17:03)
[2017-10-02] MEDS: BACLOFEN (10 MG) 10 MG TABLET PO SCH (08:53)
[2017-10-02] MEDS: CYANOCOBALAMIN 100 MCG TABLET PO SCH (08:53)
[2017-10-02] MEDS: SERTRALINE HCL 50 MG TABLET GT SCH (08:53)
[2017-10-02] MEDS: ASPIRIN 81 MG TAB.CHEW PO SCH (08:54)
[2017-10-02] MEDS: ACIDOPHILUS/BULGARICUS 1 EACH TAB.CHEW GT SCH (08:54)
[2017-10-02] MEDS: DAKINS QUARTER STRENGTH (0.125%) 480 ML BOTTLE TOP SCH (08:54)
[2017-10-02] MEDS: ZINC SULFATE 220 MG CAPSULE GT SCH (08:54)
--- NOTE | 2017-10-02 09:21 | NUR ---
residual < 1 cc prior to med administration. HOB up to 45 degree. 200 ml of free water given with medication administration. Addendum: 10/02/17 at 0923 by NEGRA BASS RN Amended: Links added.
[2017-10-02] MEDS ORDERED: CYAN100T3 PO (10:26)
[2017-10-02] MEDS ORDERED: RXVAN XX (10:26)
[2017-10-02] MEDS: PANTOPRAZOLE 40 MG VIAL IV SCH (14:24)
[2017-10-02] MEDS: IV D5/0.45 NACL 1,000 ML IV PRN (14:29)
[2017-10-02] MEDS ORDERED: SOD FERRIC GLUC 125 MG in IV NS 0.9% 100 ML IV SCH (15:00)
[2017-10-02] MEDS ORDERED: VANCOMYCIN 1 GM in IV D5W 250ml IV ONE (15:00)
[2017-10-02 16:00] VITALS: BP 100/49
[2017-10-02] MEDS: FLUCONAZOLE (100 MG) 100 MG TABLET GT SCH (17:02)
--- NOTE | 2017-10-02 18:00 | NUR ---
KATELYNN ARELLANO. SUPRIYA, DRUG INF CONTRACTOR REQUESTING XRAY PLACEMENT CONFIRMATION OF PICC FAXED TONIGHT. ENDORSED TO NIGHT NURSE AND CHARGE.
--- NOTE | 2017-10-02 18:19 | NUR ---
MSRN CLOSING NOTES. PT OBTUNDED WITH O2 VIA NC 3LPM, WITHOUT RESP DISTRESS. PT WITHOUT S/S OF PAIN OR DISCOMFORT. PT REPOSITIONED Q2HR OR SOONER. PT WITH G TUBE INTACT AND OPERATIONAL, ABDOMEN SOFT, <5CC RESIDUALS. PT WITH R UA MIDLINE INTACT AND OPERATIONAL- PICC LINE ORDERED. WOUND CARE COMPLETED X2. PHOTOS UPDATED FOR POSSIBLE D/C. PT BED IN LOWEST LOCKED POSITION WITH HANDRAILSX4, HOB ELEVATED. ALL DAY NURSE DUTIES ATTENDED TO. WILL ENDORSE TO NIGHT NURSE AT BEDSIDE FOR ANGUS.
--- NOTE | 2017-10-02 19:00 | NUR ---
MS RN NOTES RECEIVE PATIENT AWAKE IN BED, OPENS EYES, OBTUNDED, STABLE NO FACIAL GRIMACING NOTED FOR PAIN. NO SOB OR DISTRESS NOTED, CALL LIGHT WITHIN REACH. SAFETY MEASURES IMPLEMENTED. WILL CONTINUE TO MONITOR THROUGHOUT SHIFT.
[2017-10-02 20:00] VITALS: BP 101/55
--- NOTE | 2017-10-02 21:00 | NUR ---
2 EMT ARRIVED AT THE FLOOR PREPARING THE PT FOR DISCHARGE UNABLE TO ADMINISTER ATB
--- NOTE | 2017-10-02 21:30 | NUR ---
DISCHARGE PT DISCHARGE TO HOME STORE SALES CONSULTANT BY AMBULANCE 2 EMT VS STABLE ON 3LPM VIA NC 02 SAT AT 95% RP AWARE LIZZETH APPRECIATIVE TO NURSES ALL DOCUMENTS AND HEALTH TEACHINGS PROVIDED TO RP PICC LINE CHARIS INTACT AND PATENT. RESPIRATIONS EVEN AND UNLABORED. STABLE.
--- NOTE | 2017-10-02 22:14 | NUR ---
MS RN NOTES DTR LIZZETH CALLED REGARDING PT NOT HAVING OXYGEN AT HOME AND PT IS DESATURATING AT 87% ON RA PER DTR. NOTIFIED KRIS SALES SOLUTIONS ASSOCIATE. PER KRIS SEND PT BACK TO HOSPITAL AND REINSTATE PT. NOTIFIED ADMITTING RE PT'S REINSTATEMENT. MADE AWARE. NURSING LANDSCAPE NURSERYMAN MADE AWARE. WILL F/U OXYGEN IN AM BY SALES SOLUTIONS ASSOCIATE.
--- NOTE | 2017-10-02 22:20 | NUR ---
AMBULANCE CALLED PER DAUGHTER THEY DONT HAVE OXYGEN AT HOME CHARGE NURSE MADE AWARE COORDINATE WITH ORACLE FORMS DEVELOPER KRIS TIRADO WORRIED PER CM NOTES PT HAS DME AT HOME. PER CM PT CAN GO BACK AT [facility].
--- NOTE | 2017-10-02 22:55 | NUR ---
MS RN NOTES PT CAME BACK FROM HOME WITH AMBULANCE 2 EMT, PT IN STABLE CONDITION VS STABLE RESUME ALL ORDERS DR. NONA MENDOSA MADE AWARE ORDERED OK TO STAY OVER NIGHT
[2017-10-02 23:00] VITALS: BP 105/60
[2017-10-03] MEDS: IV D5/0.45 NACL 1,000 ML IV PRN (02:08)
[2017-10-03] MEDS: GLUCERNA 1.2 1,000 ML BOTTLE GT PRN (02:08)
[2017-10-03] MEDS: ALBUTEROL HALF STRENGTH 1.25 MG/3 ML VIAL.NEB NEB SCH ×4 (02:43→14:55)
--- NOTE | 2017-10-03 06:13 | NUR ---
MS RN CLOSING NOTES PT COMFORTABLY ASLEEP AND EASILY AWAKEN, OBTUNDED, NON VERBAL. ASSISTED REPOSITION EVERY 2 HOURS, ON 2 LPM VIA NC 02 SAT AT 98% STABLE CONDITION. GT FEEDING INFUSING ORDERED TOLERATED WELL. GOOD F/C CARE PROVIDED. RESPIRATION EVEN AND UNLABORED. KEPT CLEAN AND DRY AND COMFORTABLE, ALL NURSING CARE RENDERED. NEEDS ATTENDED AND ANTICIPATED, GOOD SKIN CARE PROVIDED. TREATMENT ORDERED. ON LOW BED AT ALL TIMES TO ENSURE SAFETY. SAFE HAZARD FREE ENVIRONMENT PROVIDED. CALL LIGHT WITHIN EASY TO REACH. WILL ENDORSE NEXT SHIFT CONTINUITY OF CARE.
--- NOTE | 2017-10-03 07:38 | NUR ---
MS RN OPENING NOTES RECEIVED PT FROM NIGHTSHIFT NURSE IN STABLE CONDITION. PT IS OBTUNDED, HOWEVER RESPONSIVE TO TACTILE STIMULI. NO SOB OR ACUTE SIGNS OF DISTRESS NOTED. BREATHING IS EVEN AND UNLABORED. PT ON 2L VIA NC AND SATING WELL. WARD CATHETER NOTED TO BE INTACT AND DRAINING CLEAR YELLOW URINE. GTUBE NOTED TO BE PATENT AND INTACT. PLACEMENT VERIFIED VIA AUSCULTATION. PT CURRENTLY RECEIVING GLUCERNA @ 65ML/HR AND TOLERATING IT WELL. RIGHT UPPER ARM PICC LINE NOTED TO BE PATENT AND INTACT. NO REDNESS OR SIGNS OF INFILTRATION NOTED. PT TOLERATING IV INFUSION WELL. BED IN LOW LOCKED POSITION, SIDE RAILS UP X3, CALL LIGHT WITHIN REACH, BED ALARM ON. WILL CONTINUE TO MONITOR
[2017-10-03 08:00] VITALS: BP 122/64
[2017-10-03 08:37] LABS: CREATININE 0.7 mg/dL (0.6-1.3); POTASSIUM 5.1 mmol/L (3.5-5.1)
[2017-10-03] MEDS: VANCOMYCIN 500 MG in IV D5W 100 ML IV SCH ×2 (09:00→12:23)
[2017-10-03] MEDS: CYANOCOBALAMIN 100 MCG TABLET PO SCH (09:09)
[2017-10-03] MEDS: ZINC SULFATE 220 MG CAPSULE GT SCH (09:09)
[2017-10-03] MEDS: ASCORBIC ACID 500 MG TABLET GT SCH ×2 (09:09→16:47)
[2017-10-03] MEDS: SERTRALINE HCL 50 MG TABLET GT SCH (09:09)
[2017-10-03] MEDS: ACIDOPHILUS/BULGARICUS 1 EACH TAB.CHEW GT SCH (09:09)
[2017-10-03] MEDS: ASPIRIN 81 MG TAB.CHEW PO SCH (09:10)
[2017-10-03] MEDS: BACLOFEN (10 MG) 10 MG TABLET PO SCH (09:14)
[2017-10-03] MEDS: DAKINS QUARTER STRENGTH (0.125%) 480 ML BOTTLE TOP SCH (10:00)
--- NOTE | 2017-10-03 11:57 | NUR ---
MS RN NOTES: VANCO ADMINISTRATION CALLED RECEIVED FROM PHARMACIST AUSTYN STATING THAT PT'S VANCO MAY BE GIVEN DESPITE HER RECENT THROUGH LEVEL OF 20. PER PHARMACIST, "DUE TO THE PT'S OSTEOMYELITIS AND BECAUSE IT WAS ADMINISTERED AT A LATER TIME LAST NIGHT, THE LAB MAY NOT REFLECT A TRUE READING. IT IS OKAY TO ADMINISTER THE DOSE"
[2017-10-03] MEDS: PANTOPRAZOLE 40 MG VIAL IV SCH (15:01)
[2017-10-03] MEDS: FLUCONAZOLE (100 MG) 100 MG TABLET GT SCH (16:47)
--- NOTE | 2017-10-03 18:41 | NUR ---
MS CHAIN SALES REPRESENTATIVE NOTES: PT WAS DISCHARGED FROM FACILITY TO HOME IN STABLE CONDITION. GRANDDAUGHTER LIZZETH CALLED AND MADE AWARE THAT PT IS ON HER WAY. GRANDDAUGHTER STATES THAT SHE WILL BE HOME TO ACCEPT PT. GTUBE REMAINS PATENT AND INTACT. NO RESIDUALS ASPIRATED PRIOR TO D/C. RIGHT UPPER ARM PICC LINE REMAINS PATENT AND INTACT. NO REDNESS OR SIGNS OF INFILTRATION NOTED. WARD CATHETER REMAINS INTACT AND CONTINUE TO DRAIN CLEAR YELLOW URINE TO GRAVITY. D/C INSTRUCTIONS GIVEN AND D/C PAPERWORK GIVEN TO AMBULANCE STAFF TO GIVE TO PT'S FAMILY. PT WAS REPOSITIONED AND TURNED PER HOSPITAL PROTOCOL. WOUND AND SKIN CARE RENDERED. PT LEFT WITH ALL BELONGINGS. D/C PHOTOS TAKEN AND PLACED IN CHART. PT WAS SAFELY TRANSFERRED FROM HOSPITAL BED TO [facility] BY AMBULANCE STAFF AND LEFT IN STABLE CONDITION.
[2017-10-04] MEDS ORDERED: ACET-2605 GT (12:17)
[2017-10-04] MEDS ORDERED: CYAN50003 GT (12:17)
[2017-10-04] MEDS ORDERED: VANC500F2 IV (12:17)
== END 2017-10-03 18:45 | disposition home health service (06) | DRG 981 ==
LOC: ER 14:32 → MED 16:32 → UNDODISIN 10-02 21:39 → MED 10-02 22:39
PROVIDERS: ADMIT Internal Medicine; ATTEND Internal Medicine
PROC: 0DB68ZX Excision of Stomach, Via Natural or Artificial Opening Endoscopic, Diagnostic (ICD-10-PCS; 2017-09-27)
PROC: 0DH63UZ Insertion of Feeding Device into Stomach, Percutaneous Approach (ICD-10-PCS; principal; 2017-09-27 08:00)
PROC: 3E0G76Z Introduction of Nutritional Substance into Upper GI, Via Natural or Artificial Opening (ICD-10-PCS; 2017-09-27 08:00)
PROC: 05H533Z Insertion of Infusion Device into Right Subclavian Vein, Percutaneous Approach (ICD-10-PCS; 2017-09-28)
PROC: B546ZZA Ultrasonography of Right Subclavian Vein, Guidance (ICD-10-PCS; 2017-09-28)
PROC: 0QB10ZZ Excision of Sacrum, Open Approach (ICD-10-PCS; 2017-09-29)
PROC: 02HV33Z Insertion of Infusion Device into Superior Vena Cava, Percutaneous Approach (ICD-10-PCS; 2017-10-03)
PROC: B548ZZA Ultrasonography of Superior Vena Cava, Guidance (ICD-10-PCS; 2017-10-03)
DX: K94.22 Gastrostomy infection (principal); L89.154 Pressure ulcer of sacral region, stage 4; A41.9 Sepsis, unspecified organism; G93.40 Encephalopathy, unspecified; D68.9 Coagulation defect, unspecified; E44.0 Moderate protein-calorie malnutrition; G23.1 Progressive supranuclear ophthalmoplegia [Steele-Richardson-Olszewski]; D68.59 Other primary thrombophilia; L03.311 Cellulitis of abdominal wall; N39.0 Urinary tract infection, site not specified; Y83.3 Surgical operation with formation of external stoma as the cause of abnormal reaction of the patient, or of later complication, without mention of misadventure at the time of the procedure; Y82.9 Unspecified medical devices associated with adverse incidents; Y92.129 Unspecified place in nursing home as the place of occurrence of the external cause; E86.0 Dehydration; Z88.5 Allergy status to narcotic agent; Z88.0 Allergy status to penicillin; Z79.82 Long term (current) use of aspirin; Z79.4 Long term (current) use of insulin; Z79.899 Other long term (current) drug therapy; Z86.19 Personal history of other infectious and parasitic diseases; K29.70 Gastritis, unspecified, without bleeding; F03.90 Unspecified dementia, unspecified severity, without behavioral disturbance, psychotic disturbance, mood disturbance, and anxiety; I10 Essential (primary) hypertension; I25.10 Atherosclerotic heart disease of native coronary artery without angina pectoris; M19.90 Unspecified osteoarthritis, unspecified site; D47.3 Essential (hemorrhagic) thrombocythemia; D50.9 Iron deficiency anemia, unspecified; B96.5 Pseudomonas (aeruginosa) (mallei) (pseudomallei) as the cause of diseases classified elsewhere; R13.10 Dysphagia, unspecified; Z90.710 Acquired absence of both cervix and uterus; Z86.73 Personal history of transient ischemic attack (TIA), and cerebral infarction without residual deficits; Z74.01 Bed confinement status; I70.0 Atherosclerosis of aorta
CPT/HCPCS: 36415; 36569; 71045-TC; 74018; 80048-TC; 80202-TC; 81000-TC; 82272-TC; 83540-TC; 83735-TC; 84100-TC; 84134-TC; 85025-TC; 85610-TC; 85730-TC; 87040-TC; 87070-TC; 87081-TC; 87086-TC; 87186-TC; 88305-TC; 88313-TC; 88342; 94799-TC; A4216; A4606; A6253; A6402; A6403; C1751; C9113; J1450; J1956; J2060; J2185; J2543; J2916; J3370; J3490; J7030; J7050; J7060; Q9963; Z7610

== ENCOUNTER 2017-10-04 11:37 | Inpatient (IN) | payer MEDICARE, BC ==
[~2017-10-04] VITALS: Ht 172.7 cm; Wt 65.8 kg
[~2017-10-04 11:37] MED LIST changes: +AMIN30LI4 GT; -CIPR500T5 GT; +CYAN100T3 PO; -LEVO750T21 GT; +NUT.237L30 GT; -Nutritional Supplement/Fiber GT; +RXVAN XX
--- NOTE | 2017-10-04 11:40 | NUR ---
BIBRA FROM HOME DT LEAKING GT, NOTED WITH SLIGHT REDNESS, PATIENT IS AWAKE, NON VEBRAL. SKIN IS WARM TO TOUCH AND NON DIAPHORETIC, AFEBRILE. VSS
[2017-10-04 11:58] LABS: BASOPHILS # (AUTO) 0.2 /CMM (0.0-0.2); BASOPHILS % (AUTO) 1.4 % (0.0-2.0); EOSINOPHILS % (AUTO) 0.3 % (0.0-6.0); HEMATOCRIT 27 % (33-45); HEMOGLOBIN 9.1 g/dL (11.5-14.8); LYMPHOCYTES # (AUTO) 1.5 /CMM (0.8-4.8); LYMPHOCYTES % (AUTO) 9.3 % (20.0-44.0); MEAN CORPUSCULAR HEMOGLOBIN 27 PG (26.0-33.0); MEAN CORPUSCULAR HGB CONC 34 g/dl (31.0-36.0); MEAN CORPUSCULAR VOLUME 79 fL (82-100); MONOCYTES # (AUTO) 0.7 /CMM (0.1-1.30); MONOCYTES % (AUTO) 4.5 % (2.0-12.0); NEUTROPHILS # (AUTO) 13.5 /CMM (1.8-8.9); NEUTROPHILS % (AUTO) 84.5 % (43.0-81.0); PLATELET COUNT (AUTO) 350 /CMM (150-450); RDW COEFFICIENT OF VARIATION 17.7 (11.5-15.0); RED BLOOD CELL COUNT(AUTO) 3.42 MIL/uL (4.0-5.2); WHITE BLOOD COUNT (AUTO) 15.9 K/uL (4.3-11.0)
[2017-10-04] MEDS ORDERED: IV NS 0.9% 1,000 ML BAG IV ONE (12:00)
[2017-10-04 12:07] LABS: CALCIUM, SERUM 8.8 mg/dL (8.5-10.1); CREATININE 0.7 mg/dL (0.6-1.3); POTASSIUM 4.2 mmol/L (3.5-5.1)
[2017-10-04 12:11] LABS: INR 1.27 (0.85-1.15)
[2017-10-04 12:13] LABS: ALBUMIN 2.1 g/dL (3.4-5.0); BILIRUBIN,DIRECT 0.1 mg/dL (0.0-0.2); BILIRUBIN,TOTAL 0.4 mg/dL (0.2-1.0); TOTAL PROTEIN, SERUM 6.5 g/dL (6.4-8.2)
[2017-10-04] MEDS ORDERED: ACET-2605 GT (12:17)
[2017-10-04] MEDS ORDERED: VANC500F2 IV (12:17)
[2017-10-04] MEDS ORDERED: CYAN50003 GT (12:17)
[2017-10-04 12:23] LABS: BAND % (MANUAL) 2 % (0.0-5.0); LYMPHOCYTES % (MANUAL) 10 % (16-48); MONOCYTES % (MANUAL) 5 % (0-11.0); NEUTROPHILS % (MANUAL) 83 (42-76)
[2017-10-04] MEDS ORDERED: DILTIAZEM HCL 50 MG IV IV ONE (13:30)
[2017-10-04] MEDS ORDERED: Z GUARD REMEDY 2 OZ OINT TP PRN (14:00)
[2017-10-04] MEDS ORDERED: INSULIN REGULAR, HUMAN 100 UNIT/ML 3 ML VIAL SQ PRN (14:00)
[2017-10-04] MEDS ORDERED: ONDANSETRON HCL/PF 4 MG/2 ML VIAL IVP PRN (14:00)
[2017-10-04] MEDS ORDERED: MAG HYDROX/AL HYDROX/SIMETH 30 ML UDC PO PRN (14:00)
[2017-10-04] MEDS ORDERED: POLYETHYLENE GLYCOL 3350 17 GM POWD.PACK GT PRN (14:00)
[2017-10-04] MEDS ORDERED: MAGNESIUM HYDROXIDE 30 ML UDC PO PRN (14:00)
--- NOTE | 2017-10-04 14:02 | NUR ---
REPORT GIVEN TO GOLDEN BURNS
--- NOTE | 2017-10-04 14:03 | NUR ---
PT TRANSP WITH STABLE CONDITION. NAD. VSS
[2017-10-04 15:00] VITALS: BP 111/57
[2017-10-04] MEDS: ALBUTEROL HALF STRENGTH 1.25 MG/3 ML VIAL.NEB NEB SCH ×3 (15:24→23:47)
[2017-10-04] MEDS: LACTOBACILLUS RHAMNOSUS GG 1 EACH CAP.SPRINK GT SCH ×2 (15:38→17:00)
[2017-10-04] MEDS: ENOXAPARIN SODIUM 40 MG/0.4 ML DISP.SYRIN SQ SCH (15:49)
[2017-10-04] MEDS ORDERED: FEE PK DOSING 1 MIN EA MC ONE (16:46)
[2017-10-04] MEDS: BLOOD SUGAR DIAGNOSTIC 1 EACH STRIP IN SCH (17:22)
[2017-10-04] MEDS: ASCORBIC ACID 500 MG TABLET GT SCH (17:22)
[2017-10-04] MEDS: VANCOMYCIN 500 MG in IV NS 0.9% 100 ML IV SCH (17:48)
[2017-10-04] MEDS: GLUCERNA 1.2 1,000 ML BOTTLE GT SCH (19:11)
--- NOTE | 2017-10-04 19:18 | NUR ---
ms rn closing notes All needs provided, attended, and anticipated. Patient is in stable condition. Endorsed to next shift RN to continue care. Call light with in patient reach. Addendum: 10/05/17 at 0739 by KATY HIGH admitted a 72 years old female due to GT site leakage accompanied by granddaughter Miracle. Patient is on 02 @ 2lpm via NC and tolerated well with 02 sat of 95%. Skin assessment done and pictures taken and filed in the patient's chart. Dr. Alcantar aware of the admission and admission orders on file. Vital signs checked and recorded. Kept comfortable.
--- NOTE | 2017-10-04 19:45 | NUR ---
MS RN NOTE RECEIVED PATIENT FROM DAY SHIFT, PATIENT IS OBTUNDED, NON-VERBAL AND NON-RESPONSIVE. NO S/S OF RESPIRATORY DISTRESS AND NO FACIAL GRIMACE NOTED. G TUBE IS PRESENT, PATENT AND NO RESIDUAL NOTED. WARD CATH PRESENT ALSO CLEAR YELLOW URINE NOTED. PICC LINE ON RIGHT UPPER ARM IS PATENT AND INTACT, KVO. SRX2, BED IN LOW POSITION, CALL LIGHT WITHIN REACH, WILL CONTINUE TO MONITOR PATIENT.
[2017-10-04 20:00] VITALS: BP 97/49
[2017-10-04] MEDS: clonazePAM 0.5 MG TABLET GT SCH (20:52)
[2017-10-04] MEDS ORDERED: ZOLPIDEM TARTRATE 5 MG TABLET PO PRN (22:00)
[2017-10-05] MEDS: ALBUTEROL HALF STRENGTH 1.25 MG/3 ML VIAL.NEB NEB SCH ×6 (02:45→23:29)
[2017-10-05] MEDS: VANCOMYCIN 500 MG in IV NS 0.9% 100 ML IV SCH ×2 (06:09→16:49)
--- NOTE | 2017-10-05 06:43 | NUR ---
MS RN NOTE PATIENT IS RESTING IN BED, NO FACIAL GRIMACE OR NO S/S OF RESPIRATORY DISTRESS PRESENT. ALL DUE MEDS GIVEN, MORNING CARE RENDERED. NO ACUTE EVENT NOTED THROUGHOUT THE SHIFT. WILL ENDORSE TO DAY SHIFT NURSE FOR ANGUS.
--- NOTE | 2017-10-05 07:15 | NUR ---
ms colbert initial notes Received patient in bed, asleep, head of bed elevated, no SOB or distress noted, on room air and tolerated well. Alert and oriented x 3 verbally responsive and able to make needs known. Iv intact and patent HL only. Call light with in patient reach, will continue to monitor accordingly. Addendum: 10/05/17 at 0743 by KATY HIGH wrong initial notes, not for this patient:
--- NOTE | 2017-10-05 07:15 | NUR ---
ms rn initial notes Received patient in bed, asleep, head of bed elevated, no SOB or distress noted, on simple mask @ 6lpm with 02 sat of 94%. GT intact and patent with GT feeding infusing well. CHARIS picc line intact and patent. Kept comfortable in bed, call light with in patient reach, will continue to monitor.
[2017-10-05 08:00] VITALS: BP 108/55
[2017-10-05] MEDS: SERTRALINE HCL 50 MG TABLET GT SCH (08:32)
[2017-10-05] MEDS: ASPIRIN 81 MG TAB.CHEW GT SCH (08:33)
[2017-10-05] MEDS: clonazePAM 0.5 MG TABLET GT SCH ×2 (08:33→21:10)
[2017-10-05] MEDS: ASCORBIC ACID 500 MG TABLET GT SCH ×2 (08:33→16:49)
[2017-10-05] MEDS: MULTIVIT, IRON, MIN NO. 8, FA 1 TAB GT SCH (08:33)
[2017-10-05] MEDS: HYDROCODONE/APAP 5/325MG 1 EACH TABLET PO PRN (08:33)
[2017-10-05] MEDS: LACTOBACILLUS RHAMNOSUS GG 1 EACH CAP.SPRINK GT SCH ×2 (08:33→16:49)
[2017-10-05] MEDS: BACLOFEN (10 MG) 10 MG TABLET GT SCH (08:33)
[2017-10-05] MEDS: CHOLECALCIFEROL 1,000 UNIT TABLET (VIT D3) GT SCH (08:33)
[2017-10-05] MEDS: ZINC SULFATE 220 MG CAPSULE GT SCH (08:33)
[2017-10-05 08:53] LABS: BASOPHILS % (AUTO) 0.2 % (0.0-2.0); EOSINOPHILS % (AUTO) 0.2 % (0.0-6.0); HEMATOCRIT 28 % (33-45); HEMOGLOBIN 9.1 g/dL (11.5-14.8); LYMPHOCYTES # (AUTO) 0.6 /CMM (0.8-4.8); LYMPHOCYTES % (AUTO) 4.5 % (20.0-44.0); MEAN CORPUSCULAR HEMOGLOBIN 26 PG (26.0-33.0); MEAN CORPUSCULAR HGB CONC 32 g/dl (31.0-36.0); MEAN CORPUSCULAR VOLUME 80 fL (82-100); MONOCYTES # (AUTO) 0.3 /CMM (0.1-1.30); MONOCYTES % (AUTO) 2.5 % (2.0-12.0); NEUTROPHILS # (AUTO) 12.8 /CMM (1.8-8.9); NEUTROPHILS % (AUTO) 92.6 % (43.0-81.0); PLATELET COUNT (AUTO) 336 /CMM (150-450); RDW COEFFICIENT OF VARIATION 19.1 (11.5-15.0); RED BLOOD CELL COUNT(AUTO) 3.53 MIL/uL (4.0-5.2); WHITE BLOOD COUNT (AUTO) 13.8 K/uL (4.3-11.0)
[2017-10-05] MEDS ORDERED: PROSTAT (PYXIS) 30 ML UDC GT SCH (09:00)
[2017-10-05] MEDS ORDERED: COLLAGENASE 15 GM TUBE TP SCH (09:00)
[2017-10-05] MEDS ORDERED: MISCELLANEOUS MED 1 EA EA GT SCH (09:00)
[2017-10-05] MEDS: BLOOD SUGAR DIAGNOSTIC 1 EACH STRIP IN SCH ×4 (09:01→23:59)
[2017-10-05 09:14] LABS: CALCIUM, SERUM 8.5 mg/dL (8.5-10.1); CREATININE 0.7 mg/dL (0.6-1.3); PHOSPHORUS 3.4 mg/dL (2.5-4.9); POTASSIUM 4.2 mmol/L (3.5-5.1)
[2017-10-05] MEDS ORDERED: DEXTROSE 50%-WATER 50 ML DISP.SYRIN IV PRN (10:00)
[2017-10-05] MEDS: PROSOURCE / PROSTAT (PYXIS) 30 ML UDC GT SCH (10:59)
[2017-10-05] MEDS: CYANOCOBALAMIN 500 MCG TABLET GT SCH (11:43)
[2017-10-05] MEDS: INSULIN REGULAR, HUMAN 100 UNIT/ML 3 ML VIAL SQ PRN (12:39)
[2017-10-05] MEDS ORDERED: SILVER NITRATE APPLICATOR 1 EA BOX TP SCH (15:00)
[2017-10-05] MEDS ORDERED: LIDOCAINE 1%-EPI 1:100,000 20 ML VIAL TP ONE (15:00)
[2017-10-05 16:00] VITALS: BP 102/52
[2017-10-05] MEDS: DAKINS QUARTER STRENGTH (0.125%) 480 ML BOTTLE TOP SCH (16:50)
--- NOTE | 2017-10-05 17:58 | NUR ---
ms rn notes Blood sugar checked 118 no coverage given. Will continue to monitor.
--- NOTE | 2017-10-05 19:05 | NUR ---
ms rn closing notes All needs provided, attended, and anticipated. Patient in stable condition at this time. Endorsed to next shift RN to continue care. Call light with in reach.
--- NOTE | 2017-10-05 19:25 | NUR ---
MS RN NOTE RECEIVED PATIENT FROM DAY SHIFT, PATIENT IS NON-VERBAL AND NON-RESPONSIVE. NO S/S OF RESPIRATORY DISTRESS AND NO FACIAL GRIMACE NOTED. G TUBE IS PRESENT, PATENT AND NO RESIDUAL NOTED, FEEDING IS RUNNING. WARD CATH PRESENT ALSO CLEAR AMBERURINE NOTED. PICC LINE ON RIGHT UPPER ARM IS PATENT AND INTACT, KVO. SRX2, BED IN LOW POSITION, CALL LIGHT WITHIN REACH, WILL CONTINUE TO MONITOR PATIENT.
[2017-10-05 20:00] VITALS: BP 87/40
[2017-10-05] MEDS: ENOXAPARIN SODIUM 40 MG/0.4 ML DISP.SYRIN SQ SCH (21:10)
--- NOTE | 2017-10-05 21:45 | NUR ---
MS RN NOTE PATIENT'S BP AT 1999 WAS 87/40 PULSE 77 AND AT 2129 75/39 [address] PAG[address] ONCALL DR CASTELLANO AND GOT AN ORDER OF BOLUS 1L NS ONCE. ORDERS PUT IN AND WILL CARRY OUT.
[2017-10-05] MEDS ORDERED: IV NS 0.9% 1,000 ML IV ONE (22:00)
[2017-10-05 23:00] VITALS: BP 95/47
[2017-10-06] MEDS: GLUCERNA 1.2 1,000 ML BOTTLE GT SCH (00:11)
[2017-10-06] MEDS: ALBUTEROL HALF STRENGTH 1.25 MG/3 ML VIAL.NEB NEB SCH ×5 (03:48→19:51)
[2017-10-06] MEDS: VANCOMYCIN 500 MG in IV NS 0.9% 100 ML IV SCH ×2 (04:53→16:16)
[2017-10-06] MEDS: INSULIN REGULAR, HUMAN 100 UNIT/ML 3 ML VIAL SQ PRN ×3 (05:52→17:34)
[2017-10-06] MEDS: BLOOD SUGAR DIAGNOSTIC 1 EACH STRIP IN SCH ×3 (05:55→17:22)
--- NOTE | 2017-10-06 06:29 | NUR ---
MS RN NOTE PATIENT IS RESTING IN BED, NO FACIAL GRIMACE OR NO S/S OF RESPIRATORY DISTRESS PRESENT. ALL DUE MEDS GIVEN, MORNING CARE RENDERED. RIGHT UPPER ARM PICC LINE IS PATENT AND INTACT, KVO. NO ACUTE EVENT NOTED THROUGHOUT THE SHIFT. WILL ENDORSE TO DAY SHIFT NURSE FOR ANGUS.
[2017-10-06 07:57] LABS: BASOPHILS % (AUTO) 0.4 % (0.0-2.0); EOSINOPHILS % (AUTO) 1.8 % (0.0-6.0); HEMATOCRIT 24 % (33-45); HEMOGLOBIN 7.5 g/dL (11.5-14.8); LYMPHOCYTES # (AUTO) 0.9 /CMM (0.8-4.8); LYMPHOCYTES % (AUTO) 9.9 % (20.0-44.0); MEAN CORPUSCULAR HEMOGLOBIN 25 PG (26.0-33.0); MEAN CORPUSCULAR HGB CONC 31 g/dl (31.0-36.0); MEAN CORPUSCULAR VOLUME 81 fL (82-100); MONOCYTES # (AUTO) 0.4 /CMM (0.1-1.30); NEUTROPHILS # (AUTO) 7.7 /CMM (1.8-8.9); NEUTROPHILS % (AUTO) 83.9 % (43.0-81.0); PLATELET COUNT (AUTO) 284 /CMM (150-450); RED BLOOD CELL COUNT(AUTO) 2.98 MIL/uL (4.0-5.2); WHITE BLOOD COUNT (AUTO) 9.1 K/uL (4.3-11.0)
[2017-10-06 08:14] LABS: CALCIUM, SERUM 8.3 mg/dL (8.5-10.1); CREATININE 0.7 mg/dL (0.6-1.3); POTASSIUM 4.1 mmol/L (3.5-5.1)
[2017-10-06] MEDS: LACTOBACILLUS RHAMNOSUS GG 1 EACH CAP.SPRINK GT SCH ×2 (08:46→16:15)
[2017-10-06] MEDS: BACLOFEN (10 MG) 10 MG TABLET GT SCH (08:46)
[2017-10-06] MEDS: ASCORBIC ACID 500 MG TABLET GT SCH ×2 (08:46→16:15)
[2017-10-06] MEDS: ZINC SULFATE 220 MG CAPSULE GT SCH (08:46)
[2017-10-06] MEDS: ASPIRIN 81 MG TAB.CHEW GT SCH (08:46)
[2017-10-06] MEDS: CHOLECALCIFEROL 1,000 UNIT TABLET (VIT D3) GT SCH (08:46)
[2017-10-06] MEDS: MULTIVIT, IRON, MIN NO. 8, FA 1 TAB GT SCH (08:46)
[2017-10-06] MEDS: clonazePAM 0.5 MG TABLET GT SCH ×2 (08:47→21:23)
[2017-10-06] MEDS: SERTRALINE HCL 50 MG TABLET GT SCH (08:47)
[2017-10-06] MEDS: CYANOCOBALAMIN 500 MCG TABLET GT SCH (08:47)
--- NOTE | 2017-10-06 08:50 | NUR ---
MS RN NOTES PATIENT IN BED, NON VERBAL, EYES OPEN. ON LOW OXYGEN AT 3L VIA NC, NO WHEEZING, NO SOB. ABDOMEN PRESENCE OF GTUBE, GASTRIC RESIDUAL MINIMAL AMOUNT-10ML. STOMA SITE CLEAN AND DRY, NO NOTED LEAKING. GTUBE FEEDING GLUCERNA AT 45ML/HR, WILL ADVANCE AT TOLERATED. WARD CATH INTACT, DRAINING TO GRAVITY. AWAITING FOR SACRAL WOUND DEBRIDEMENT. MAINTAINED HOB ELEVATED, KCI LOW AIR LOSS MATTRESS IN PLACE. MAINTAINED ASPIRATION PRECAUTION.
[2017-10-06 09:04] VITALS: BP 90/51
[2017-10-06] MEDS: DAKINS QUARTER STRENGTH (0.125%) 480 ML BOTTLE TOP SCH (09:13)
--- NOTE | 2017-10-06 09:22 | NUR ---
WOUND CARE CONSULT: PT FOLLOWED BY PLASTIC SURGERY TEAM. DEFER TO PLASTICS TEAM FOR WOUND TREATMENT PLAN. PT ON FIRST STEP MATTRESS. ALL SKIN PROTECTION AND PRESSURE ULCER PREVENTION MEASURES IN PLACE. WILL SEE PRN. CURRENT KAREN SCORE IS 11.
[2017-10-06] MEDS: PROSOURCE / PROSTAT (PYXIS) 30 ML UDC GT SCH (09:25)
[2017-10-06 16:52] VITALS: BP 127/52
--- NOTE | 2017-10-06 18:45 | NUR ---
MS RN CLOSING NOTES PATIENT IN BED, MAINTAINED ON LOW FLOW OXYGEN AT 3L VIA NC, BREATHING TREATMENT VIA NEB. NO SHORTNESS OF BREATH, NO NOTED WHEEZING. GASTRIC RESIDUAL MINIMAL AMOUNT-5CC, GTUBE FEEDING GLUCERNA AT 55ML TOLERATING WELL, NO NOTED LEAKING ON GTUBE SITE. SACRAL WOUND DEBRIDEMENT BY DR. GRAYSON TODAY, CONTINUE WOUND TREATMENT ORDERED. KCI MATTRESS IN PLACE, FALL AND ASPIRATION PRECAUTION MAINTAINED. LOW HEMOGLOBIN 7.5 PREVIOUSLY 9.1 (10-05-17) INFORMED DR. BAUMAN, WILL RECHECK H/H IN 4HOURS. WILL ENDORSE TO ONCOMING RN.
--- NOTE | 2017-10-06 19:30 | NUR ---
MS2/RN RECEIVE PATIENT APPEAR SLEEPING, APPEAR COMFORTABLE, NO SIGNS OF DISTRESS NOTED, HOB ELEVATED, GT FEEDING INFUSING. WILL MONITOR.
[2017-10-06 20:00] VITALS: BP 116/52
[2017-10-06] MEDS: ENOXAPARIN SODIUM 40 MG/0.4 ML DISP.SYRIN SQ SCH (21:23)
[2017-10-06 23:35] LABS: HEMOGLOBIN 7.7 g/dL (11.5-14.8)
[2017-10-07] MEDS: BLOOD SUGAR DIAGNOSTIC 1 EACH STRIP IN SCH ×4 (00:07→18:06)
[2017-10-07] MEDS: ALBUTEROL HALF STRENGTH 1.25 MG/3 ML VIAL.NEB NEB SCH ×7 (00:37→23:38)
[2017-10-07] MEDS: GLUCERNA 1.2 1,000 ML BOTTLE GT SCH ×2 (00:57→23:54)
[2017-10-07] MEDS: VANCOMYCIN 500 MG in IV NS 0.9% 100 ML IV SCH ×2 (04:58→17:15)
[2017-10-07] MEDS: HYDROCODONE/APAP 5/325MG 1 EACH TABLET PO PRN (05:03)
--- NOTE | 2017-10-07 05:14 | NUR ---
MS2/RN MORNING CARE WAS DONE, TOTAL LINEN CARE RENDERED, GOOD SKIN CARE, F/C CARE DONE, REPOSITIONED TO COMFORT, HOB ELEVATED, WILL CONTINUE TO MONITOR.
[2017-10-07] MEDS: INSULIN REGULAR, HUMAN 100 UNIT/ML 3 ML VIAL SQ PRN ×3 (05:42→18:09)
--- NOTE | 2017-10-07 05:55 | NUR ---
MS2/RN PATIENT IS SLEEPING, CALM AND COMFORTABLE, NO SIGNS OF DISTRESS NOTED, HOB ELEVATED, GT FEEDING INFUSING, NO RESIDUAL NOTED, ALL NEEDS ATTENDED AT THIS TIME, WILL CONTINUE TO MONITOR.
[2017-10-07 08:00] VITALS: BP 113/50
[2017-10-07 08:01] LABS: CALCIUM, SERUM 8.2 mg/dL (8.5-10.1); CREATININE 0.6 mg/dL (0.6-1.3); POTASSIUM 4.5 mmol/L (3.5-5.1)
[2017-10-07 08:02] LABS: BASOPHILS % (AUTO) 0.1 % (0.0-2.0); HEMATOCRIT 26 % (33-45); HEMOGLOBIN 8.1 g/dL (11.5-14.8); LYMPHOCYTES # (AUTO) 0.9 /CMM (0.8-4.8); LYMPHOCYTES % (AUTO) 15.3 % (20.0-44.0); MEAN CORPUSCULAR HEMOGLOBIN 26 PG (26.0-33.0); MEAN CORPUSCULAR HGB CONC 32 g/dl (31.0-36.0); MEAN CORPUSCULAR VOLUME 81 fL (82-100); MONOCYTES # (AUTO) 0.4 /CMM (0.1-1.30); MONOCYTES % (AUTO) 6.7 % (2.0-12.0); NEUTROPHILS # (AUTO) 4.4 /CMM (1.8-8.9); NEUTROPHILS % (AUTO) 74.9 % (43.0-81.0); PLATELET COUNT (AUTO) 293 /CMM (150-450); RDW COEFFICIENT OF VARIATION 18.9 (11.5-15.0); RED BLOOD CELL COUNT(AUTO) 3.14 MIL/uL (4.0-5.2); WHITE BLOOD COUNT (AUTO) 5.9 K/uL (4.3-11.0)
[2017-10-07] MEDS: ASPIRIN 81 MG TAB.CHEW GT SCH (08:18)
[2017-10-07] MEDS: ASCORBIC ACID 500 MG TABLET GT SCH ×2 (08:18→17:14)
[2017-10-07] MEDS: LACTOBACILLUS RHAMNOSUS GG 1 EACH CAP.SPRINK GT SCH ×2 (08:18→17:14)
[2017-10-07] MEDS: clonazePAM 0.5 MG TABLET GT SCH ×2 (08:19→21:11)
[2017-10-07] MEDS: CYANOCOBALAMIN 500 MCG TABLET GT SCH (08:19)
[2017-10-07] MEDS: MULTIVIT, IRON, MIN NO. 8, FA 1 TAB GT SCH (08:19)
[2017-10-07] MEDS: BACLOFEN (10 MG) 10 MG TABLET GT SCH (08:19)
[2017-10-07] MEDS: SERTRALINE HCL 50 MG TABLET GT SCH (08:19)
[2017-10-07] MEDS: ZINC SULFATE 220 MG CAPSULE GT SCH (08:19)
[2017-10-07] MEDS: CHOLECALCIFEROL 1,000 UNIT TABLET (VIT D3) GT SCH (08:19)
--- NOTE | 2017-10-07 08:20 | NUR ---
MS RN NOTES PATIENT IN BED, NON VERBAL, EYES OPEN. ON LOW FLOW OXYGEN AT 3L VIA NC, NO WHEEZING, NO SOB. ABDOMEN PRESENCE OF GTUBE, GASTRIC RESIDUAL MINIMAL AMOUNT-5ML. STOMA SITE CLEAN AND DRY, NO NOTED LEAKING. GTUBE FEEDING GLUCERNA AT 55ML/HR, TOLERATING WELL. MAINTAINED HOB ELEVATED, KCI LOW AIR LOSS MATTRESS IN PLACE. MAINTAINED FALL AND ASPIRATION PRECAUTION. WILL CONT TO MONITOR.
[2017-10-07] MEDS: PROSOURCE / PROSTAT (PYXIS) 30 ML UDC GT SCH (08:36)
[2017-10-07] MEDS: DAKINS QUARTER STRENGTH (0.125%) 480 ML BOTTLE TOP SCH (09:20)
[2017-10-07 16:00] VITALS: BP 113/47
[2017-10-07] MEDS: ACETAMINOPHEN 325 MG TABLET PO PRN (17:25)
--- NOTE | 2017-10-07 19:27 | NUR ---
MS RN CLOSING NOTES PATIENT IN BED, MAINTAINED ON LOW FLOW OXYGEN AT 3L VIA NC, BREATHING TREATMENT VIA NEB. NO SHORTNESS OF BREATH, NO NOTED WHEEZING. GASTRIC RESIDUAL MINIMAL AMOUNT-5CC, GTUBE FEEDING GLUCERNA AT 55ML GOAL RATE, TOLERATING WELL, GTUBE SITE NO NOTED LEAKING DURING THE SHIFT. SACRAL WOUND DRESSING CHANGED, KCI LOW AIR LOSS MATTRESS IN PLACE, FALL AND ASPIRATION PRECAUTION MAINTAINED. EPISODE OF ELEVATED TEMP 100.5 AT 1600, COOLING MEASURE RENDERED, GIVEN TYLENOL 650 MG PRN FOR PAIN-MOANING AND FACIAL GRIMACING, RE CHECKED TEMP AT 1845, THERMOMETER READING 98.[address] TEJADA INFORMED WITH NO NEW ORDERS AT THIS TIME. REGARDING GTUBE SITE NO LEAKS, CALLED FAMILY LEFT MESSAGE TO LIZZETH VOICE MAIL. ENDORSED TO ONCOMING RN.
[2017-10-07 20:00] VITALS: BP 105/54
--- NOTE | 2017-10-07 20:00 | NUR ---
MS2/RN RECEIVE PATIENT EYES CLOSED APPEAR SLEEPING, APPEAR COMFORTABLE, NO SIGNS OF DISTRESS NOTED, HOB ELEVATED, GT FEEDING INFUSING WITH NO RESIDUAL NOTED, NO LEAK NOTED AT GT SITE. WILL MONITOR.
[2017-10-07] MEDS: ENOXAPARIN SODIUM 40 MG/0.4 ML DISP.SYRIN SQ SCH (21:16)
[2017-10-08] MEDS: BLOOD SUGAR DIAGNOSTIC 1 EACH STRIP IN SCH ×4 (00:01→18:21)
[2017-10-08] MEDS: ALBUTEROL HALF STRENGTH 1.25 MG/3 ML VIAL.NEB NEB SCH ×6 (02:56→23:52)
[2017-10-08] MEDS: HYDROCODONE/APAP 5/325MG 1 EACH TABLET PO PRN ×2 (03:13→08:38)
[2017-10-08] MEDS: VANCOMYCIN 500 MG in IV NS 0.9% 100 ML IV SCH ×2 (05:05→18:21)
[2017-10-08] MEDS: INSULIN REGULAR, HUMAN 100 UNIT/ML 3 ML VIAL SQ PRN ×2 (06:04→12:48)
--- NOTE | 2017-10-08 06:13 | NUR ---
MS2/RN PATIENT AWAKE, APPEAR COMFORTABLE, NO SIGNS OF DISTRESS NOTED, HOB ELEVATED, GT FEEDING INFUSING, NO RESIDUAL NOTED, NO LEAK AT GT SITE NOTED, ALL NEEDS ATTENDED AT THIS TIME. WILL CONTINUE TO MONITOR.
[2017-10-08 08:00] VITALS: BP 133/67
--- NOTE | 2017-10-08 08:00 | NUR ---
MS RN AM NOTES PATIENT IN BED, NON VERBAL, EYES OPEN. ON LOW OXYGEN AT 2L VIA NC, NO WHEEZING, NO SOB. SUCTIONED ORAL SECRETIONS AND ORAL CARE DONE NEEDED.ABDOMEN PRESENCE OF GTUBE, NO GASTRIC RESIDUAL NOTED. STOMA SITE CLEAN AND DRY, NO NOTED LEAKING. GTUBE FEEDING GLUCERNA AT 55ML/HR, TOLERATED WELL. WARD CATH INTACT, DRAINING YELLOW URINE OUTPUT TO WARD BAG.TX DONE TO SACRAL WOUND ORDERED.TURNED EVERY TWO HRS. AFLOAT AUTUMN HEELS WITH PILLOWS.MAINTAINED HOB ELEVATED, KCI LOW AIR LOSS MATTRESS IN PLACE. MAINTAINED ASPIRATION PRECAUTION. WITH MILD FEVER T100.6.COOLING MEASURES RENDERED.WITH CONSTANT MOANING AND GRIMACING NOTED.NORCO 5/325 1 TAB VIA GT GIVEN FOR COMFORT.WILL MONITOR.
[2017-10-08 08:06] LABS: CALCIUM, SERUM 9.1 mg/dL (8.5-10.1); CREATININE 0.6 mg/dL (0.6-1.3)
[2017-10-08] MEDS: CYANOCOBALAMIN 500 MCG TABLET GT SCH (08:36)
[2017-10-08] MEDS: SERTRALINE HCL 50 MG TABLET GT SCH (08:37)
[2017-10-08] MEDS: LACTOBACILLUS RHAMNOSUS GG 1 EACH CAP.SPRINK GT SCH ×2 (08:37→16:04)
[2017-10-08] MEDS: clonazePAM 0.5 MG TABLET GT SCH ×2 (08:38→21:44)
[2017-10-08] MEDS: CHOLECALCIFEROL 1,000 UNIT TABLET (VIT D3) GT SCH (08:38)
[2017-10-08] MEDS: ASPIRIN 81 MG TAB.CHEW GT SCH (08:38)
[2017-10-08] MEDS: MULTIVIT, IRON, MIN NO. 8, FA 1 TAB GT SCH (08:38)
[2017-10-08] MEDS: ASCORBIC ACID 500 MG TABLET GT SCH ×2 (08:38→16:04)
[2017-10-08] MEDS: BACLOFEN (10 MG) 10 MG TABLET GT SCH (08:38)
[2017-10-08] MEDS: ZINC SULFATE 220 MG CAPSULE GT SCH (08:39)
[2017-10-08] MEDS: PROSOURCE / PROSTAT (PYXIS) 30 ML UDC GT SCH (08:40)
[2017-10-08] MEDS: DAKINS QUARTER STRENGTH (0.125%) 480 ML BOTTLE TOP SCH (08:40)
--- NOTE | 2017-10-08 09:00 | NUR ---
PT'S ROOM WAS WARM INSIDE AND ORDERED A BOX FAN FOR THE PT.COOLING MEASURES RENDERED.RECHECKED TEMP 100.0 WITH NO S/S OF PAIN OR DISTRESS.RESTING COMFORTABLY.
--- NOTE | 2017-10-08 10:00 | NUR ---
RECHECKED PT'S TEMP AND IT WAS 98.PT COMFORTABLY RESTING WITH NO S/S OF PAIN OR DISTRESS.
--- NOTE | 2017-10-08 12:28 | NUR ---
PT'S LIZZETH SALAS WAS C/O THAT PT'S GT IS LEAKING EVEN IF ITS JUST MINIMAL ON THE SIDE.NOTICED THAT THE GT KNOB WAS LOOSE WHICH I PRESSED DOWN THE KNOB AND LOCKED IT DOWN.EXPLAINED THAT THE REASON OF THE LEAK IS BECAUSE THE KNOB WAS LOOSE BUT LIZZETH CONTINUES TO INSISTS TO SEE THE GI DOCTOR.NOTIFIED DR RICKETTS AND STATED ITS OK TO LET DR THOMAS SEE THE PT.NOTIFIED DR THOMAS WHO STATED THAT HE'S ON HIS WAY TO SEE THE PT.
--- NOTE | 2017-10-08 15:44 | NUR ---
PT DESATURATES TO 85% PT IS A MOUTH BREATHER PER MARITZA BUT AT THE SAME TIME FREQUENT ORAL SUCTIONING AND ORAL CARE DONE .ADMINISTERED O2 AT 6L/MIN VIA MASK O2 SAT WENT UP TO 94%.
[2017-10-08 16:00] VITALS: BP 160/84
--- NOTE | 2017-10-08 16:00 | NUR ---
PT'S TEMP OF 101.1-DR RICKETTS AWARE.TYLENOL VIA GT GIVEN AND CONTINUOUS COOLING MEASURES RENDERED.SUCTIONED ORAL SECRETIONS AND ORAL CARE DONE OFTEN.NO S/S OF PAIN OR DISTRESS.
[2017-10-08] MEDS: ACETAMINOPHEN 325 MG TABLET PO PRN (16:04)
--- NOTE | 2017-10-08 17:00 | NUR ---
PT WAS A HARDSTICK-MADE ATTEMPTS BUT TO NO AVAIL DELAYING VANCO TROUGH BLOOD DRAW.WILL TRY LATER.DR RICKETTS MADE AWARE OF PT'S SOB AND THE GT CONDITION OF THE PT COORDINATING WITH DR THOMAS REGARDING PT'S GT LEAK WITH ORDERS FOR PEG TUBE PLACEMENT TOMORROW AND TO HOLD THE FEEDING.PT'S GRANDAUGHTER AT BEDSIDE AWARE AND SPOKE TO BOTH DR RICKETTS AND DR THOMAS.
--- NOTE | 2017-10-08 18:32 | NUR ---
VANCO LEVEL 13-ADMINISTERED VANCO IV 500 MG
[2017-10-08 18:59] LABS: APPEARANCE,URINE CLEAR (CLEAR); BILIRUBIN,URINE NEGATIVE (NEGATIVE); BLOOD, URINE 3+ Ery/uL (NEGATIVE); COLOR,URINE YELLOW (YELLOW); KETONES,URINE NEGATIVE (NEGATIVE); LEUKOCYTE ESTERASE ,URINE 1+ (NEGATIVE); NITRITE, URINE NEGATIVE (NEGATIVE); PH,URINE 5.5 (5.0-8.0); PROTEIN,URINE TRACE mg/dl (NEGATIVE); UGLUCOSE NEGATIVE (NEGATIVE); UROBILINOGEN,URINE 0.2 EU/dL (0.2)
--- NOTE | 2017-10-08 19:00 | NUR ---
HELD GT FEEDING AND PT WILL BE ON NPO FOR PEG REPLACEMENT PROCEDURE FOR TOMORROW.ALL CONSENTS HAS BEEN SIGNED.URINE C/S,UA PROFILE SPECIMEN SENT.STAT BLOOD C/S AND CXR DONE.SEEN BY KAREY JOHN WITH ORDERS CARRIED OUT.
[2017-10-08 19:14] LABS: BACTERIA,URINE Moderate /HPF (None Seen); RBC,URINE TOO NUMEROUS TO COUN /HPF (0-2); SQUAMOUS EPITHELIAL CELL,UR Few /HPF (None Seen)
[2017-10-08] MEDS: IV D5/0.45 NACL 1,000 ML IV SCH (20:29)
[2017-10-08 20:47] VITALS: BP 134/96
[2017-10-08] MEDS: ENOXAPARIN SODIUM 40 MG/0.4 ML DISP.SYRIN SQ SCH (21:00)
[2017-10-08] MEDS: MEROPENEM 500 MG in IV NS 0.9% 50 ML IV SCH (21:24)
--- NOTE | 2017-10-08 21:44 | NUR ---
MS2/RN PATIENT IS RESTLESS, KLONOPIN 0.125 WAS GIVEN PER ORDER. WILL MONITOR.
--- NOTE | 2017-10-08 22:00 | NUR ---
MS2/RN SPOKE TO KAREY WELLER, GOT AN ORDER TO HOLD LOVENOX DUE TO PEG PLACEMENT PROCEDURE IN A.M.
[2017-10-09] MEDS: BLOOD SUGAR DIAGNOSTIC 1 EACH STRIP IN SCH ×4 (00:17→17:48)
--- NOTE | 2017-10-09 00:17 | NUR ---
MS2/RN ACCU CHECK DONE, BS 149, DID NOT COVER, PATIENT HAS NO FEEDING.
[2017-10-09] MEDS: ALBUTEROL HALF STRENGTH 1.25 MG/3 ML VIAL.NEB NEB SCH ×5 (02:57→21:19)
--- NOTE | 2017-10-09 03:12 | NUR ---
Received pt on 6 l simple mask, notified the patients nurse about the oxygen dependency increase and to let the MD know about the changes, pt remained stable throughout the shift, breathing treatments given tolerated well.
[2017-10-09] MEDS: MEROPENEM 500 MG in IV NS 0.9% 50 ML IV SCH ×3 (05:16→21:32)
[2017-10-09] MEDS: VANCOMYCIN 500 MG in IV NS 0.9% 100 ML IV SCH ×2 (05:54→17:16)
[2017-10-09 06:42] LABS: CALCIUM, SERUM 8.7 mg/dL (8.5-10.1); CREATININE 0.7 mg/dL (0.6-1.3); POTASSIUM 4.3 mmol/L (3.5-5.1)
--- NOTE | 2017-10-09 06:53 | NUR ---
MS2/RN PATIENT IS AWAKE AT THIS TIME, APPEAR COMFORTABLE, NO SIGNS OF DISTRESS NOTED, O2 AT 8L SIMPLE MASK, O2 SAT 95%, NPO, NO GT FEEDING, ALL NEEDS ATTENDED AT THIS TIME . WILL CONTINUE TO MONITOR.
[2017-10-09 08:00] VITALS: BP 90/48
--- NOTE | 2017-10-09 08:00 | NUR ---
MS RN AM NOTES PATIENT IN BED, NON VERBAL, EYES OPEN. ON LOW OXYGEN AT 6L VIA MASK O2 SAT 98%, NO WHEEZING, NO SOB. SUCTIONED ORAL SECRETIONS AND ORAL CARE DONE NEEDED.ABDOMEN PRESENCE OF GTUBE, NO GASTRIC RESIDUAL NOTED. STOMA SITE CLEAN AND DRY, NO NOTED LEAKING. GTUBE FEEDING HELD.WARD CATH INTACT, DRAINING YELLOW URINE OUTPUT TO WARD BAG.TX DONE TO SACRAL WOUND ORDERED.TURNED EVERY TWO HRS. AFLOAT AUTUMN HEELS WITH PILLOWS.MAINTAINED HOB ELEVATED, KCI LOW AIR LOSS MATTRESS IN PLACE. MAINTAINED ASPIRATION PRECAUTION. AFEBRILE.NO MOANING EPISODES.ON NPO FOR GT REPLACEMENT BY DR THOMAS.CONSENTS HAS BEEN SIGNED.WILL MONITOR.
[2017-10-09] MEDS: CYANOCOBALAMIN 500 MCG TABLET GT SCH (09:00)
[2017-10-09] MEDS: ZINC SULFATE 220 MG CAPSULE GT SCH (09:00)
[2017-10-09] MEDS: SERTRALINE HCL 50 MG TABLET GT SCH (09:00)
[2017-10-09] MEDS: PROSOURCE / PROSTAT (PYXIS) 30 ML UDC GT SCH (09:00)
[2017-10-09] MEDS: LACTOBACILLUS RHAMNOSUS GG 1 EACH CAP.SPRINK GT SCH ×2 (09:00→17:13)
[2017-10-09] MEDS: clonazePAM 0.5 MG TABLET GT SCH ×2 (09:00→21:00)
[2017-10-09] MEDS: CHOLECALCIFEROL 1,000 UNIT TABLET (VIT D3) GT SCH (09:00)
[2017-10-09] MEDS: MULTIVIT, IRON, MIN NO. 8, FA 1 TAB GT SCH (09:00)
[2017-10-09] MEDS: BACLOFEN (10 MG) 10 MG TABLET GT SCH (09:00)
[2017-10-09] MEDS: ASPIRIN 81 MG TAB.CHEW GT SCH (09:00)
[2017-10-09] MEDS: ASCORBIC ACID 500 MG TABLET GT SCH ×2 (09:00→17:13)
[2017-10-09] MEDS: DAKINS QUARTER STRENGTH (0.125%) 480 ML BOTTLE TOP SCH (10:31)
[2017-10-09] MEDS: IV D5/0.45 NACL 1,000 ML IV SCH (10:31)
[2017-10-09 10:44] LABS: BASOPHILS % (AUTO) 0.4 % (0.0-2.0); EOSINOPHILS % (AUTO) 4.4 % (0.0-6.0); HEMATOCRIT 27 % (33-45); HEMOGLOBIN 8.3 g/dL (11.5-14.8); LYMPHOCYTES # (AUTO) 0.9 /CMM (0.8-4.8); LYMPHOCYTES % (AUTO) 15.9 % (20.0-44.0); MEAN CORPUSCULAR HEMOGLOBIN 25 PG (26.0-33.0); MEAN CORPUSCULAR HGB CONC 31 g/dl (31.0-36.0); MEAN CORPUSCULAR VOLUME 81 fL (82-100); MONOCYTES # (AUTO) 0.4 /CMM (0.1-1.30); MONOCYTES % (AUTO) 7.1 % (2.0-12.0); NEUTROPHILS # (AUTO) 3.9 /CMM (1.8-8.9); NEUTROPHILS % (AUTO) 72.2 % (43.0-81.0); PLATELET COUNT (AUTO) 335 /CMM (150-450); RDW COEFFICIENT OF VARIATION 18.7 (11.5-15.0); RED BLOOD CELL COUNT(AUTO) 3.28 MIL/uL (4.0-5.2); WHITE BLOOD COUNT (AUTO) 5.4 K/uL (4.3-11.0)
--- NOTE | 2017-10-09 12:10 | NUR ---
PT WAS BROUGHT TO [facility] WITH STABLE V/S FOR GT REPLACEMENT
[2017-10-09] MEDS ORDERED: BACITRACIN ZINC OINT (15 GM) 15 GM TUBE TP ONE (13:02)
--- NOTE | 2017-10-09 14:10 | NUR ---
PT JUST CAME BACK FROM [facility] S/P GT REPLACEMENT.SCANNED MERREM IVPB SEVERAL TIMES BUT FAILED.NOTIFIED PHARMACIST,
[2017-10-09 16:00] VITALS: BP 125/55
[2017-10-09] MEDS: GLUCERNA 1.2 1,000 ML BOTTLE GT PRN (17:12)
--- NOTE | 2017-10-09 17:30 | NUR ---
CENTRAL NURSESHILPA ARRIVED AND ASSESSED PT'S PICC LINE IN CHARIS AND FLUSHED THE 2 PORTS WITH NS.THE PURPLE PORT IS CLOGGED AND RECOMMENDED TO GET MD ORDERS FOR CATH FLOW TO DECLOT THE PORTS WITH ORDERS MADE AND CARRIED OUT.
[2017-10-09] MEDS: INSULIN REGULAR, HUMAN 100 UNIT/ML 3 ML VIAL SQ PRN (17:48)
--- NOTE | 2017-10-09 18:00 | NUR ---
PT IS AFEBRILE.COMFORTABLE WITH O2 MASK ON AT 10L/MIN WITH O2 SAT OF 94-98%.RESUMED GT FEEDING OF GLUCERNA AT 55 ML/HR.NO LEAK ON THE NEW GT SITE AND OLD GT SITE IS WITH CLEAN AND DRY DRESSING.WILL CONTINUE TO MONITOR.TURNED AND REPOSITIONED EVERY TWO HRS.SUCTIONED ORAL SECRETIONS NEEDED.ORAL CARE DONE.
[2017-10-09] MEDS ORDERED: ALTEPLASE CATHFLO 2 MG/VIAL IJ ONE (19:00)
--- NOTE | 2017-10-09 19:00 | NUR ---
PT'S PICC LINE CLIPS WERE NOTED TO BE OPEN AND CHANGED PT'S PICC LINE DRESSING -AND ENDORSED TO NIGHT NURSE TO FLUSH THE PORTS WITH CATH FLOW ORDERED.
--- NOTE | 2017-10-09 19:10 | NUR ---
MS/RN OPENING NOTES PT RECEIVED OBTUNDED. OPENS EYES SPONTANEOUSLY. ON 10L O2 VIA SIMPLE MASK SATTING 98%. BREATHING EVEN AND UNLABORED. NO S/S OF DISTRESS OR PAIN NOTED. NO FACIAL GRIMACING. AWRD IN PLACE AND DRAINING TO GRAVITY. CHARIS PICC LINE PATENT AND INTACT, PURPLE PORT CLOGGED. WITH ORDERS FOR CATHFLO. WARD IN PLACE AND DRAINING TO GRAVITY. GT FEEDING RUNNING ORDERED. NO LEAKING NOTED. OLD GT SITE COVERED WITH GAUZE, C/D/I. BED IN LOW/LOCKED POSITION WITH CALL LIGHT IN REACH. SIDE RAILS UPX2. WILL CONTINUE TO MONITOR
[2017-10-09 20:00] VITALS: BP 108/63
[2017-10-09 21:30] VITALS: BP 91/45
--- NOTE | 2017-10-09 21:35 | NUR ---
MS/RN NOTES PT NOTED WITH BP 91/45, HR 66. AGUILAR KAYE
[2017-10-09] MEDS: ENOXAPARIN SODIUM 40 MG/0.4 ML DISP.SYRIN SQ SCH (21:44)
[2017-10-10] MEDS: ALBUTEROL HALF STRENGTH 1.25 MG/3 ML VIAL.NEB NEB SCH ×7 (00:21→23:01)
[2017-10-10] MEDS: BLOOD SUGAR DIAGNOSTIC 1 EACH STRIP IN SCH ×4 (00:26→17:41)
[2017-10-10] MEDS: INSULIN REGULAR, HUMAN 100 UNIT/ML 3 ML VIAL SQ PRN ×3 (00:32→17:40)
[2017-10-10] MEDS: MEROPENEM 500 MG in IV NS 0.9% 50 ML IV SCH ×3 (04:36→20:27)
[2017-10-10] MEDS: VANCOMYCIN 500 MG in IV NS 0.9% 100 ML IV SCH ×2 (05:34→16:22)
[2017-10-10 06:32] LABS: BASOPHILS % (AUTO) 0.6 % (0.0-2.0); EOSINOPHILS % (AUTO) 5.2 % (0.0-6.0); HEMATOCRIT 24 % (33-45); HEMOGLOBIN 7.6 g/dL (11.5-14.8); LYMPHOCYTES # (AUTO) 0.9 /CMM (0.8-4.8); LYMPHOCYTES % (AUTO) 23.7 % (20.0-44.0); MEAN CORPUSCULAR HEMOGLOBIN 26 PG (26.0-33.0); MEAN CORPUSCULAR HGB CONC 32 g/dl (31.0-36.0); MEAN CORPUSCULAR VOLUME 80 fL (82-100); MONOCYTES # (AUTO) 0.3 /CMM (0.1-1.30); MONOCYTES % (AUTO) 8.5 % (2.0-12.0); NEUTROPHILS # (AUTO) 2.4 /CMM (1.8-8.9); PLATELET COUNT (AUTO) 312 /CMM (150-450); RDW COEFFICIENT OF VARIATION 18.2 (11.5-15.0); RED BLOOD CELL COUNT(AUTO) 2.96 MIL/uL (4.0-5.2); WHITE BLOOD COUNT (AUTO) 3.9 K/uL (4.3-11.0)
--- NOTE | 2017-10-10 06:42 | NUR ---
MS/RN CLOSING NOTES PT RESTING IN BED. OBTUNDED, OPENS EYES SPONTANEOUSLY. BUE CONTRACTED. REMAINS ON SIMPLE MASK AT 10LPM, BREATHING IS EVEN AND UNLABORED. NO S/S OF SOB, PAIN OR DISTRESS NOTED. CHARIS PICC LINE PATENT AND INTACT RUNNING NS TKO. ALL 3 LUMENS ARE PATENT POST ADMINISTRATION OF CATHFLO AND ALL HAVE GOOD BUT SLOW BLOOD RETURN. WARD IN PLACE AND DRAINING TO GRAVITY. GT FEEDING RUNNING GLUCERNA 1.2 AT 55ML/HR, NO RESIDUALS DURING SHIFT. WOUND CARE PROVIDED ORDERED. TURNED/REPOSITIONED Q2H, HEELS OFFLOADED AT ALL TIMES. BED IN LOW/LOCKED POSITION WITH CALL LIGHT IN REACH. SIDE RAILS UPX2. NO SIGNIFICANT CHANGES OVERNIGHT. WILL ENDORSE TO DAY SHIFT RN ANGUS.
[2017-10-10 06:55] LABS: CALCIUM, SERUM 8.1 mg/dL (8.5-10.1); CREATININE 0.6 mg/dL (0.6-1.3); POTASSIUM 3.8 mmol/L (3.5-5.1)
--- NOTE | 2017-10-10 07:15 | NUR ---
RN NOTES PATIENT IN BED, ASLEEP, BREATHING EVEN AND UNLABORED ON SIMPLE MASK AT 10LPM. GTF ONGOING AT 55ML/HR, NO RESIDUAL, NO S/SX OF PAIN OR DISCOMFORT NOTED, NO DISTRESS NOTED, KEPT PATIENT COMFORTABLE, NEEDS ATTENDED, CALL LIGHT WITHIN REACH, WILL CONTINUE TO MONITOR.
[2017-10-10 07:56] VITALS: BP 96/52
[2017-10-10] MEDS: clonazePAM 0.5 MG TABLET GT SCH ×2 (08:56→20:27)
[2017-10-10] MEDS: SERTRALINE HCL 50 MG TABLET GT SCH (08:57)
[2017-10-10] MEDS: CYANOCOBALAMIN 500 MCG TABLET GT SCH (08:57)
[2017-10-10] MEDS: ASCORBIC ACID 500 MG TABLET GT SCH ×2 (08:58→16:19)
[2017-10-10] MEDS: CHOLECALCIFEROL 1,000 UNIT TABLET (VIT D3) GT SCH (08:58)
[2017-10-10] MEDS: ZINC SULFATE 220 MG CAPSULE GT SCH (08:58)
[2017-10-10] MEDS: PROSOURCE / PROSTAT (PYXIS) 30 ML UDC GT SCH (08:58)
[2017-10-10] MEDS: BACLOFEN (10 MG) 10 MG TABLET GT SCH (08:58)
[2017-10-10] MEDS: LACTOBACILLUS RHAMNOSUS GG 1 EACH CAP.SPRINK GT SCH ×2 (08:58→16:19)
[2017-10-10] MEDS: ASPIRIN 81 MG TAB.CHEW GT SCH (08:58)
[2017-10-10] MEDS: MULTIVIT, IRON, MIN NO. 8, FA 1 TAB GT SCH (08:58)
[2017-10-10] MEDS: DAKINS QUARTER STRENGTH (0.125%) 480 ML BOTTLE TOP SCH (09:03)
[2017-10-10] MEDS: GLUCERNA 1.2 1,000 ML BOTTLE GT PRN (14:10)
[2017-10-10 16:00] VITALS: BP 103/54
--- NOTE | 2017-10-10 18:14 | NUR ---
RN NOTES PATIENT OBTUNDED, BREATHING EVEN AND UNLABORED, ON SIMPLE MASK AT 6LPM WITH SPO2 AT 99%. WOUND TREATMENT RENDERED, TURNED AND REPOSITIONED EVERY 2 HOURS, BILATERAL HEELS OFFLOADED, KEPT CLEAN AND DRY, NEEDS ATTENDED, GTF ONGOING AT 55ML/HR, NO RESIDUAL, OLD GT SITE CLEAN AND DRY, NO LEAKAGE NOTED. CALL LIGHT WITHIN REACH, WILL ENDORSE TO FILM WRITER FOR CONTINUITY OF CARE.
--- NOTE | 2017-10-10 19:30 | NUR ---
MS/RN OPENING NOTES RECEIVED REPORT FROM AM RN FOR ANGUS. PATIENT ASLEEP, RESTING COMFORTABLY IN BES, ON OXYGEN WITH MASK, REQUIRE FREQUENT MONITORING PATIENT REMOVES MASK AT TIMES, OXYGENATION CHECK AT 90% WILL MONITOR, EXTENSIVE ASSISTANCE NEEDED, ON GTUBE RESIDUAL CHECK, , PATENCY CHECK, SKIN WARM TO TOUCH, ON WOUND CARE REQUIRE FREQUENT RE[POSITION DUE TO SACRAL WOUND WILL MONITOR,CALL LIGHTS WITHIN REACH, BED IN LOCK POSITION.
[2017-10-10 20:00] VITALS: BP 121/71
[2017-10-10] MEDS: ENOXAPARIN SODIUM 40 MG/0.4 ML DISP.SYRIN SQ SCH (20:42)
[2017-10-11] MEDS: BLOOD SUGAR DIAGNOSTIC 1 EACH STRIP IN SCH ×5 (00:17→23:11)
[2017-10-11] MEDS: INSULIN REGULAR, HUMAN 100 UNIT/ML 3 ML VIAL SQ PRN ×4 (00:28→23:19)
[2017-10-11] MEDS: ALBUTEROL HALF STRENGTH 1.25 MG/3 ML VIAL.NEB NEB SCH ×6 (03:14→23:54)
[2017-10-11] MEDS: VANCOMYCIN 500 MG in IV NS 0.9% 100 ML IV SCH ×2 (04:07→17:32)
[2017-10-11] MEDS: GLUCERNA 1.2 1,000 ML BOTTLE GT PRN (04:30)
[2017-10-11] MEDS: MEROPENEM 500 MG in IV NS 0.9% 50 ML IV SCH ×2 (05:13→12:00)
--- NOTE | 2017-10-11 06:21 | NUR ---
MS/RN NOTES PATIENT IN BED, HOB ELEVATED,RESTING COMFORTABLY IN BED, ON 6 LITER OXYGEN VIA MASK, OXYGENATION AT 99%. SKIN WARM TO TOUCH, IV ANTIBIOTICS ADMINISTERED W/ NO S/S OF ADVERSE REACTION.G-TUBE SITE PATENT AND MIN MINIMAL RESIDUAL AT 5ML. IV ON CHARIS PICC LINE ABLE TO FLUSH. , WARD EMPTIED AT 200ML WITH YELLOW URINE. CALL LIGHTS WITHIN REACH. WILL ENDORSE TO AM RN FOR ANGUS.
[2017-10-11 07:05] LABS: BASOPHILS % (AUTO) 0.4 % (0.0-2.0); EOSINOPHILS % (AUTO) 5.3 % (0.0-6.0); HEMATOCRIT 26 % (33-45); HEMOGLOBIN 8.2 g/dL (11.5-14.8); LYMPHOCYTES # (AUTO) 0.8 /CMM (0.8-4.8); LYMPHOCYTES % (AUTO) 23.9 % (20.0-44.0); MEAN CORPUSCULAR HEMOGLOBIN 25 PG (26.0-33.0); MEAN CORPUSCULAR HGB CONC 32 g/dl (31.0-36.0); MEAN CORPUSCULAR VOLUME 80 fL (82-100); MONOCYTES # (AUTO) 0.3 /CMM (0.1-1.30); MONOCYTES % (AUTO) 9.6 % (2.0-12.0); NEUTROPHILS % (AUTO) 60.8 % (43.0-81.0); PLATELET COUNT (AUTO) 325 /CMM (150-450); RDW COEFFICIENT OF VARIATION 18.6 (11.5-15.0); RED BLOOD CELL COUNT(AUTO) 3.25 MIL/uL (4.0-5.2); WHITE BLOOD COUNT (AUTO) 3.3 K/uL (4.3-11.0)
[2017-10-11 07:17] LABS: CALCIUM, SERUM 8.6 mg/dL (8.5-10.1); CREATININE 0.7 mg/dL (0.6-1.3); POTASSIUM 4.5 mmol/L (3.5-5.1)
--- NOTE | 2017-10-11 07:30 | NUR ---
MS RN OPENING NOTES RECEIVED PATIENT IN STABLE CONDITION. IN NO APPARENT DISTRESS. BEDSIDE RAILS ARE UPX2. BED IS LOCKED AND LOWERED. CALL LIGHT IS WITHIN REACH. IV LINE IS INTACT AND PATENT. CALL LIGHT IS WITHIN REACH. WILL CONTINUE TO MONITOR.
[2017-10-11 08:00] VITALS: BP 100/68
[2017-10-11] MEDS: MULTIVIT, IRON, MIN NO. 8, FA 1 TAB GT SCH (09:00)
[2017-10-11] MEDS: ASCORBIC ACID 500 MG TABLET GT SCH ×2 (09:00→17:33)
[2017-10-11] MEDS: DAKINS QUARTER STRENGTH (0.125%) 480 ML BOTTLE TOP SCH (09:00)
[2017-10-11] MEDS: SERTRALINE HCL 50 MG TABLET GT SCH (09:00)
[2017-10-11] MEDS: clonazePAM 0.5 MG TABLET GT SCH ×2 (09:00→21:03)
[2017-10-11] MEDS: BACLOFEN (10 MG) 10 MG TABLET GT SCH (09:00)
[2017-10-11] MEDS: CHOLECALCIFEROL 1,000 UNIT TABLET (VIT D3) GT SCH (09:00)
[2017-10-11] MEDS: PROSOURCE / PROSTAT (PYXIS) 30 ML UDC GT SCH (09:00)
[2017-10-11] MEDS: ZINC SULFATE 220 MG CAPSULE GT SCH (09:00)
[2017-10-11] MEDS: LACTOBACILLUS RHAMNOSUS GG 1 EACH CAP.SPRINK GT SCH ×2 (09:00→17:33)
[2017-10-11] MEDS: ASPIRIN 81 MG TAB.CHEW GT SCH (09:00)
[2017-10-11] MEDS: CYANOCOBALAMIN 500 MCG TABLET GT SCH (09:00)
[2017-10-11 09:56] LABS: IRON, SERUM 27 ug/dl (50-175); TOTAL IRON BINDING CAPACITY 165 ug/dl (250-450)
--- NOTE | 2017-10-11 10:19 | NUR ---
UNABLE TO SCAN MEDICATION DUE TO SENIOR PRODUCTION MANAGER ERROR. Addendum: 10/11/17 at 1019 by ALEM GUPTA RN MEDICATION ADMINISTERED AT 1000.
[2017-10-11 16:00] VITALS: BP 106/62
--- NOTE | 2017-10-11 18:44 | NUR ---
MS RN CLOSING NOTES PATIENT IS RESTING IN NO APPARENT DISTRESS. BEDSIDE RAILS ARE UPX2. BED IS LOCKED AND LOWERED. CALL LIGHT IS WITHIN REACH. IV LINE IS INTACT AND PATENT. ALL NEEDS WERE MET. WILL ENDORSE CARE TO SALES REPRESENTATIVE ADVERTISING NURSE FOR ANGUS.
--- NOTE | 2017-10-11 19:35 | NUR ---
MS RN NOTES RECEIVED ON BED,OPEN EYES,OBTUNDED,HOB ELEVATED FOR ASPIRATION PRECAUTION,ON GLUCERNA 1.2 GT FEEDING AT 55ML/HR RATE IN PROGRESS VIA FEEDING PUMP.WITH WARD CATH IN PLACE DRAINING YELLOWISH OUTPUT.SACRAL DRESSING INTACT AND DRY.WITH HEEL PROTECTOR FOR SKIN MANAGEMENT.REPOSITION PER PROTOCOL.WITH CHARIS PICC LINE FOR MEDS.WILL CONTINUE TO MO ITOR STATUS.
--- NOTE | 2017-10-11 19:53 | NUR ---
MS RN NOTES RT KALEIGH AT BEDSIDE ADMINISTERING BREATHING TREATMENT SCHEDULED.
[2017-10-11 20:00] VITALS: BP 106/54
--- NOTE | 2017-10-11 20:10 | NUR ---
RN WAS NOTIFIED ABOUT PT BREATH SOUNDS. PT HAS RALES & CRACKLES, VERY COARSE. PT IS ON SIMPLE MASK 8L SPO2 97% AFTER TX. Addendum: 10/11/17 at 2013 by KALEIGH LAWRENCE RT Amended: Links added.
[2017-10-11] MEDS: ENOXAPARIN SODIUM 40 MG/0.4 ML DISP.SYRIN SQ SCH (21:04)
--- NOTE | 2017-10-12 | NUR ---
MS RN NOTES ACCU-CHECK BLOOD SUGAR CHECK 145,COVERED WITH HUMULIN R 2 UNITS PER SLIDING SCALE..GT FEEDING IN PROGRESS
[2017-10-12] MEDS: ALBUTEROL HALF STRENGTH 1.25 MG/3 ML VIAL.NEB NEB SCH ×4 (03:02→19:13)
--- NOTE | 2017-10-12 05:00 | NUR ---
MS RN NOTES GT FEEDING RESIDUAL MORE THAN 60 ML,GT FEEDING HELD.
[2017-10-12] MEDS: GLUCERNA 1.2 1,000 ML BOTTLE GT PRN (05:01)
[2017-10-12] MEDS: VANCOMYCIN 500 MG in IV NS 0.9% 100 ML IV SCH (05:01)
--- NOTE | 2017-10-12 05:15 | NUR ---
MS RN NOTES MORNING CARE RENDERED BY CINDY ALDANA.DRESSING DONE ON SACRAL AREA,PACKED WITH GAUZE WITH DAKIN"S SOLUTION AND COVERED WITH ABD,SECURED WITH PAPER TAPE.REPOSITION PER PROTOCOL.
[2017-10-12] MEDS: BLOOD SUGAR DIAGNOSTIC 1 EACH STRIP IN SCH ×3 (05:29→17:26)
--- NOTE | 2017-10-12 05:30 | NUR ---
MS RN NOTES ACCU-CHECK BLOOD SUGAR CHECK 147,COVERED WITH HUMULIN R 2 UNITS PER SLIDING SCALE
[2017-10-12] MEDS: INSULIN REGULAR, HUMAN 100 UNIT/ML 3 ML VIAL SQ PRN ×2 (05:33→17:24)
--- NOTE | 2017-10-12 06:27 | NUR ---
MS RN NOTES GT FEEDING STILL ON HOLD.BREATHING NON LABORED ,O2 IN USED WITH SIMPLE MASK TO KEEP O2 SAT ABOVE 90%,REPOSITION PER PROTOCOL.POSSIBLE D/C HOME WITH DAUGHTER PRIMARY CAREGIVER.IN NO ACUTE DISTRESS.WILL ENDORSE TO DAY NURSE FOR ANGUS.
[2017-10-12 07:48] LABS: BASOPHILS % (AUTO) 0.4 % (0.0-2.0); EOSINOPHILS % (AUTO) 3.4 % (0.0-6.0); HEMATOCRIT 28 % (33-45); HEMOGLOBIN 8.9 g/dL (11.5-14.8); LYMPHOCYTES % (AUTO) 19.9 % (20.0-44.0); MEAN CORPUSCULAR HEMOGLOBIN 25 PG (26.0-33.0); MEAN CORPUSCULAR HGB CONC 32 g/dl (31.0-36.0); MEAN CORPUSCULAR VOLUME 80 fL (82-100); MONOCYTES # (AUTO) 0.5 /CMM (0.1-1.30); NEUTROPHILS # (AUTO) 3.5 /CMM (1.8-8.9); NEUTROPHILS % (AUTO) 67.3 % (43.0-81.0); PLATELET COUNT (AUTO) 367 /CMM (150-450); RDW COEFFICIENT OF VARIATION 18.7 (11.5-15.0); RED BLOOD CELL COUNT(AUTO) 3.51 MIL/uL (4.0-5.2); WHITE BLOOD COUNT (AUTO) 5.2 K/uL (4.3-11.0)
[2017-10-12 07:59] LABS: CALCIUM, SERUM 8.9 mg/dL (8.5-10.1); CREATININE 0.6 mg/dL (0.6-1.3); POTASSIUM 4.8 mmol/L (3.5-5.1)
[2017-10-12 08:00] VITALS: BP 124/61
[2017-10-12] MEDS: LACTOBACILLUS RHAMNOSUS GG 1 EACH CAP.SPRINK GT SCH ×2 (09:04→16:12)
[2017-10-12] MEDS: MULTIVIT, IRON, MIN NO. 8, FA 1 TAB GT SCH (09:04)
[2017-10-12] MEDS: ASPIRIN 81 MG TAB.CHEW GT SCH (09:04)
[2017-10-12] MEDS: SERTRALINE HCL 50 MG TABLET GT SCH (09:04)
[2017-10-12] MEDS: ASCORBIC ACID 500 MG TABLET GT SCH ×2 (09:04→16:12)
[2017-10-12] MEDS: CHOLECALCIFEROL 1,000 UNIT TABLET (VIT D3) GT SCH (09:04)
[2017-10-12] MEDS: ZINC SULFATE 220 MG CAPSULE GT SCH (09:04)
[2017-10-12] MEDS: BACLOFEN (10 MG) 10 MG TABLET GT SCH (09:05)
[2017-10-12] MEDS: clonazePAM 0.5 MG TABLET GT SCH ×2 (09:05→21:00)
--- NOTE | 2017-10-12 09:05 | NUR ---
MS RN notes Patient in bed, eyes open, on simple mask 8L oxygen. Non verbal, appears pale, BUE and BLE rigid and contracted. Abdomen presence of gtube, gastric residual zero, Gtube feeding Glucerna at 55ml/hr, maintained HOB elevated. Zuleta cath intact, draining to gravity, bag off the floor. Call light within reach. KCI mattress in place, Will cont to monitor.
[2017-10-12] MEDS: PROSOURCE / PROSTAT (PYXIS) 30 ML UDC GT SCH (09:10)
[2017-10-12] MEDS: CYANOCOBALAMIN 500 MCG TABLET GT SCH (09:12)
[2017-10-12] MEDS ORDERED: FUROSEMIDE 20 MG/2 ML VIAL IV ONE (10:00)
--- NOTE | 2017-10-12 10:00 | NUR ---
Patient is on simple mask 8L oxygen, place on NC at 2L. Oxygen sat dropped to 88%, breathing treatment administered by RT, informed Dr. Howell. Given Lasix 20mg IV x1. Suction secretion PRN. Maintain HOB elevated, rechecked oxygen sat via NC at 2L, currently 98%. BP 120/65 P98, will cont to monitor.
[2017-10-12] MEDS: DAKINS QUARTER STRENGTH (0.125%) 480 ML BOTTLE TOP SCH (10:08)
--- NOTE | 2017-10-12 11:16 | NUR ---
RT NT SX THICK LARGE YELLOW-GUTIERREZ SECRETIONS NO COMPLICATION SPO02 IMPROVED
[2017-10-12] MEDS: ACETAMINOPHEN 325 MG TABLET PO PRN (15:04)
--- NOTE | 2017-10-12 15:06 | NUR ---
Patient appears with pain, facial grimacing and moans. Given PRN Tylenol. Will reassess.
[2017-10-12 16:00] VITALS: BP 102/51
--- NOTE | 2017-10-12 18:47 | NUR ---
MS RN closing notes Patient in bed, maintained on oxygen at 3L via NC, suction secretion PRN. Sacral wound dressing changed, turn and reposition every 2H, KCI low air loss mattress in place. Gtube feeding at 55ml/hr, tolerating well. No episode of vomiting, HOB elevated. Zuleta cath intact, bag off the floor. Breathing treatment via neb. by RT. Afebrile during the shift. Maintained aspiration, fall precaution. Will endorse to oncoming RN.
[2017-10-12] MEDS: VANCOMYCIN 0.75 GM in IV D5W 250 ML IV SCH (19:09)
--- NOTE | 2017-10-12 19:20 | NUR ---
MS/RN OPENING NOTES PT RECEIVED OBTUNDED. NON VERBAL BUT OPENS EYES SPONTANEOUSLY. CHANGED FROM 2L NC TO 9L O2 VIA SIMPLE MASK BY RT. CHARIS PICC LINE PATENT AND INTACT. WARD IN PLACE AND DRAINING TO GRAVITY. GT FEEDING RUNNING GLUCERNA 1.2 AT 55ML/HR. BED IN LOW/LOCKED POSITION WITH CALL LIGHT IN REACH. SIDE RAILS UPX2. WILL CONTINUE TO MONITOR.
[2017-10-12 20:00] VITALS: BP 99/51
[2017-10-12 21:00] VITALS: BP 93/47
[2017-10-12] MEDS: ENOXAPARIN SODIUM 40 MG/0.4 ML DISP.SYRIN SQ SCH (21:43)
--- NOTE | 2017-10-12 22:00 | NUR ---
MS/RN NOTES HELD SCHEDULED MIKKI. BP 93/47, HR 64
--- NOTE | 2017-10-12 23:23 | NUR ---
MS/RN NOTES TITRATED PT'S O2 TO 5L VIA NC. SPO2 96%. WILL TITRATE PT'S CONDITION PERMITS
[2017-10-13] MEDS: BLOOD SUGAR DIAGNOSTIC 1 EACH STRIP IN SCH ×4 (00:18→17:53)
[2017-10-13] MEDS: INSULIN REGULAR, HUMAN 100 UNIT/ML 3 ML VIAL SQ PRN ×3 (00:21→17:57)
[2017-10-13] MEDS: ALBUTEROL HALF STRENGTH 1.25 MG/3 ML VIAL.NEB NEB SCH ×6 (00:23→19:30)
[2017-10-13] MEDS: GLUCERNA 1.2 1,000 ML BOTTLE GT PRN (04:02)
[2017-10-13] MEDS: VANCOMYCIN 0.75 GM in IV D5W 250 ML IV SCH ×2 (06:14→17:53)
--- NOTE | 2017-10-13 06:24 | NUR ---
MS/RN CLOSING NOTES PT AWAKE, OBTUNDED. TITRATED TO 2-3L O2 VIA NC, BREATHING EVEN AND UNLABORED. SPO2 96%. NO S/S OF SOB OR DISTRESS NOTED. NO FACIAL GRIMACING OR MOANING NOTED. CHARIS PICC LINE PATENT AND INTACT. GT FEEDING RUNNING ORDERED. PT NOTED WITH 30 ML RESIDUAL. SUCTIONED PRN. WOUND CARE PROVIDED. TURNED/REPOSITIONED Q2H FROM SIDE TO SIDE. HEEL PROTECTORS IN PLACE. NO SIGNIFICANT CHANGES OVERNIGHT. BED REMAINS IN LOW/LOCKED POSITION WITH CALL LIGHT IN REACH. SIDE RAILS UPX2. WILL ENDORSE TO DAY SHIFT RN ANGUS.
[2017-10-13 07:03] LABS: CALCIUM, SERUM 8.4 mg/dL (8.5-10.1); CREATININE 0.6 mg/dL (0.6-1.3); POTASSIUM 4.6 mmol/L (3.5-5.1)
[2017-10-13 07:08] LABS: BASOPHILS % (AUTO) 0.3 % (0.0-2.0); EOSINOPHILS % (AUTO) 4.5 % (0.0-6.0); HEMATOCRIT 26 % (33-45); HEMOGLOBIN 8.2 g/dL (11.5-14.8); LYMPHOCYTES # (AUTO) 0.9 /CMM (0.8-4.8); LYMPHOCYTES % (AUTO) 17.8 % (20.0-44.0); MEAN CORPUSCULAR HEMOGLOBIN 26 PG (26.0-33.0); MEAN CORPUSCULAR HGB CONC 32 g/dl (31.0-36.0); MEAN CORPUSCULAR VOLUME 80 fL (82-100); MONOCYTES # (AUTO) 0.4 /CMM (0.1-1.30); MONOCYTES % (AUTO) 7.5 % (2.0-12.0); NEUTROPHILS # (AUTO) 3.5 /CMM (1.8-8.9); NEUTROPHILS % (AUTO) 69.9 % (43.0-81.0); PLATELET COUNT (AUTO) 369 /CMM (150-450); RDW COEFFICIENT OF VARIATION 18.2 (11.5-15.0); RED BLOOD CELL COUNT(AUTO) 3.21 MIL/uL (4.0-5.2); WHITE BLOOD COUNT (AUTO) 5.1 K/uL (4.3-11.0)
[2017-10-13 08:00] VITALS: BP 101/54
--- NOTE | 2017-10-13 08:00 | NUR ---
RN NOTES RECEIVED PATIENT IN THE ROOM NONVERBAL, ON O2-3L NC, PATIENT WITH RT GETTING BREATHING TREATMENT, PATIENT CONTRACTED UPPER, AND LOWER EXTREMITIES, V.S TAKEN STABLE. PATIENT HAS PICC LINE ON RIGHT UPPER ARM INTACT, G-TUBE FEEDING INTACT, SCHEDULED MEDICATION ADMINISTERED VIA G-TUBE, RESIDUAL GET 20ML, ALSO CHECKED FOR PLACEMENT. . F/C DRAIN LIGHT YELLOW OUTPUT, DRESSING CHANGED SACRAL AREA, ASSIST TURN AND REPOSTION Q 2 HR. CALL LIGHT WITHIN TO REACH. CONTINUED MONITORING.
[2017-10-13] MEDS: SERTRALINE HCL 50 MG TABLET GT SCH (08:52)
[2017-10-13] MEDS: ZINC SULFATE 220 MG CAPSULE GT SCH (08:52)
[2017-10-13] MEDS: MULTIVIT, IRON, MIN NO. 8, FA 1 TAB GT SCH (08:52)
[2017-10-13] MEDS: LACTOBACILLUS RHAMNOSUS GG 1 EACH CAP.SPRINK GT SCH ×2 (08:52→17:56)
[2017-10-13] MEDS: BACLOFEN (10 MG) 10 MG TABLET GT SCH (08:52)
[2017-10-13] MEDS: ASPIRIN 81 MG TAB.CHEW GT SCH (08:53)
[2017-10-13] MEDS: CHOLECALCIFEROL 1,000 UNIT TABLET (VIT D3) GT SCH (08:53)
[2017-10-13] MEDS: CYANOCOBALAMIN 500 MCG TABLET GT SCH (08:53)
[2017-10-13] MEDS: ASCORBIC ACID 500 MG TABLET GT SCH ×2 (08:53→17:58)
[2017-10-13] MEDS: clonazePAM 0.5 MG TABLET GT SCH (08:53)
[2017-10-13] MEDS: PROSOURCE / PROSTAT (PYXIS) 30 ML UDC GT SCH (08:54)
[2017-10-13] MEDS: DAKINS QUARTER STRENGTH (0.125%) 480 ML BOTTLE TOP SCH (08:56)
--- NOTE | 2017-10-13 12:00 | NUR ---
RN NOTES BS-100MG/DL NO COVERAGE GIVEN, PATIENT TOTAL CARE, ASSIST TURN AND REPOSTION Q 2 HR, CALL LIGHT WITHIN TO REACH, CONTINUED MONITORING.
[2017-10-13 16:00] VITALS: BP 128/58
[2017-10-13] MEDS: HYDROCODONE/APAP 5/325MG 1 EACH TABLET PO PRN (17:56)
--- NOTE | 2017-10-13 17:56 | NUR ---
RN NOTES BS-136 MG/SL, COVERAGE GIVEN, ALSO ADMINISTERED NARCO 5/325 MG VIA G-TUBE, AND SCHEDULED MEDICATION. V/S STABLE PATIENT GOING TO D/C HOME PER DAUGHTER REQUEST. ENDORSED ONCOMING NURSE FOR PLAN OF CARE.
[2017-10-13 20:00] VITALS: BP 114/61
--- NOTE | 2017-10-13 20:00 | NUR ---
MS/RN NOTES PATIENT WAS DISCHARGE TO HOME, FAMILY WASCONTACTED AND 2 EMT ARRIVE FOR D/C TO HOME ON A GURNEY, BELONGINGS WAS SENT HOME, DISCUSSED MEDICATION MANAGMENT WITH NICOLE. 2 EMT RECEIVE REPORT FOR PATIENT SAFETY, REPORT GIVEN AND MADE AWARE PATIENT REQUIRE OXYGEN, ON WARD AND ON PICC LINE WITH 24 HOURS CARE GIVEN AND HOME HEALTH FOR ANTIBIOTIC THERAPY. WITH SACRAL WOUND, TREATMENT WITH DAKINS. SAFETY ,MEASURES, , EDUCATED ON IV THERAPHY AND HOME HEALTH FOLLOW UP CARE. , ID BAND REMIOVED. VITAL SIGNS CHECK AT O2 SAT 3l 97%, B/P 114/61, PULSE 67 TEMPERATURE AT 97.7 DEG F LAST PAIN MEDICATION GIVEN 1756 BY AM RN.
--- NOTE | 2017-10-13 20:03 | NUR ---
BREATHING TX NOT GIVEN AT THIS TIME. EMT'S WERE IN ROOM TO DISCHARGE HER.
== END 2017-10-13 20:00 | disposition home health service (06) | DRG 981 ==
LOC: ER 11:39 → MEDSG2 13:13
PROVIDERS: ADMIT Family Medicine; ATTEND Family Medicine
PROC: 0KBP0ZZ Excision of Left Hip Muscle, Open Approach (ICD-10-PCS; principal; 2017-10-06)
PROC: 0KBN0ZZ Excision of Right Hip Muscle, Open Approach (ICD-10-PCS; 2017-10-06)
PROC: 02HV33Z Insertion of Infusion Device into Superior Vena Cava, Percutaneous Approach (ICD-10-PCS; 2017-10-09)
PROC: B548ZZA Ultrasonography of Superior Vena Cava, Guidance (ICD-10-PCS; 2017-10-09)
DX: K94.23 Gastrostomy malfunction (principal); A41.9 Sepsis, unspecified organism; L89.154 Pressure ulcer of sacral region, stage 4; E43 Unspecified severe protein-calorie malnutrition; G92 Toxic encephalopathy; G23.1 Progressive supranuclear ophthalmoplegia [Steele-Richardson-Olszewski]; D68.59 Other primary thrombophilia; M86.9 Osteomyelitis, unspecified; D72.829 Elevated white blood cell count, unspecified; Z98.890 Other specified postprocedural states; Z90.710 Acquired absence of both cervix and uterus; Z79.82 Long term (current) use of aspirin; Z86.19 Personal history of other infectious and parasitic diseases; Z88.0 Allergy status to penicillin; Z79.4 Long term (current) use of insulin; Z79.899 Other long term (current) drug therapy; D50.9 Iron deficiency anemia, unspecified; M19.90 Unspecified osteoarthritis, unspecified site; Z74.09 Other reduced mobility; E11.69 Type 2 diabetes mellitus with other specified complication; I48.91 Unspecified atrial fibrillation; R13.10 Dysphagia, unspecified; I10 Essential (primary) hypertension; Y83.3 Surgical operation with formation of external stoma as the cause of abnormal reaction of the patient, or of later complication, without mention of misadventure at the time of the procedure; Y92.009 Unspecified place in unspecified non-institutional (private) residence as the place of occurrence of the external cause
CPT/HCPCS: 31720; 36415; 71045-TC; 80048-TC; 80061-TC; 80076-TC; 80202-TC; 81000-TC; 82962-TC; 83540-TC; 83735-TC; 84100-TC; 85025-TC; 85027-TC; 85730-TC; 87040-TC; 87081-TC; 87086-TC; 94799-TC; A4216; A4606; A6253; A6402; A6403; J1650; J1815; J1940; J2185; J2997; J3370; J3490; J7030; J7040; J7050; J7060; Z7610

== ENCOUNTER 2017-10-15 18:56 | Inpatient (IN) | payer MEDICARE, BC ==
[~2017-10-15] VITALS: Ht 175.3 cm; Wt 62.3 kg
[~2017-10-15 18:56] MED LIST changes: +ACET-2605 GT; -COLL30OI TP; -CYAN100T3 PO; +CYAN50003 GT; +VANC500F2 IV
[2017-10-15 20:11] LABS: BASOPHILS % (AUTO) 0.5 % (0.0-2.0); EOSINOPHILS % (AUTO) 1.9 % (0.0-6.0); HEMATOCRIT 27 % (33-45); HEMOGLOBIN 8.5 g/dL (11.5-14.8); LYMPHOCYTES # (AUTO) 1.2 /CMM (0.8-4.8); LYMPHOCYTES % (AUTO) 16.9 % (20.0-44.0); MEAN CORPUSCULAR HEMOGLOBIN 25 PG (26.0-33.0); MEAN CORPUSCULAR HGB CONC 32 g/dl (31.0-36.0); MEAN CORPUSCULAR VOLUME 77 fL (82-100); MONOCYTES # (AUTO) 0.5 /CMM (0.1-1.30); MONOCYTES % (AUTO) 7.2 % (2.0-12.0); NEUTROPHILS # (AUTO) 5.1 /CMM (1.8-8.9); NEUTROPHILS % (AUTO) 73.5 % (43.0-81.0); PLATELET COUNT (AUTO) 402 /CMM (150-450); RDW COEFFICIENT OF VARIATION 17.7 (11.5-15.0); RED BLOOD CELL COUNT(AUTO) 3.42 MIL/uL (4.0-5.2); WHITE BLOOD COUNT (AUTO) 6.9 K/uL (4.3-11.0)
--- NOTE | 2017-10-15 20:12 | NUR ---
BIB [facility] FOR FEVER AND ; LEAKING G-TUBE SITE. DAUGHTER STS THAT SHE WAS ALSO BROUGHT HERE DUE TO PT NEEDS FEEDING MACHINE @ HOME. PT EYES CLOSED, OPENS EYE WITH PAINFUL STIMULI, NO RESP DISTRESS NOTED ON O2 5L 94%. LABS DRAWN THRU PICC LINE WITH ASEPTIC TECHNIQUE. WILL CONT TO MONITOR. DAUGHTER @ BS.
--- NOTE | 2017-10-15 20:24 | NUR ---
PT IS ASSIGNED TO MED SURG RM#: [id number], DX: FAILURE TO THRIVE, AND ACCEPTING: AYLIN GREENE
[2017-10-15 20:26] LABS: CALCIUM, SERUM 8.9 mg/dL (8.5-10.1); CREATININE 0.6 mg/dL (0.6-1.3); POTASSIUM 3.8 mmol/L (3.5-5.1)
[2017-10-15 20:32] LABS: ALBUMIN 2.1 g/dL (3.4-5.0); BILIRUBIN,DIRECT 0.1 mg/dL (0.0-0.2); BILIRUBIN,TOTAL 0.3 mg/dL (0.2-1.0); TOTAL PROTEIN, SERUM 6.2 g/dL (6.4-8.2)
--- NOTE | 2017-10-15 21:27 | NUR ---
PT STABLE, NAD NOTED & WILL BE TRANSFERRED TO FLOOR, [id number].
[2017-10-15] MEDS ORDERED: Z GUARD REMEDY 2 OZ OINT TP PRN (21:30)
[2017-10-15] MEDS ORDERED: ZOLPIDEM TARTRATE 5 MG TABLET PO PRN (21:30)
[2017-10-15] MEDS ORDERED: ONDANSETRON HCL/PF 4 MG/2 ML VIAL IVP PRN (21:30)
[2017-10-15] MEDS ORDERED: VANCOMYCIN 500 MG in IV NS 0.9% 100 ML IV SCH (21:30)
--- NOTE | 2017-10-15 22:50 | NUR ---
RN MS RECEIVING NOTES PATIENT RECEIVED FROM ER VIA GURNEY. PATIENT IS ALERT AND ORIENTED X0, EYES OPEN, MOANS/GRUNTS ONLY, NONVERBAL. BREATHING EVEN AND UNLABORED. NO SOB NOTED. ON 3L OF OXYGEN VIA NC. PATIENT WITH PICC LINE ON RIGHT UPPER ARM, PATENT AND INTACT. PATIENT ALSO NOTED WITH GTUBE - DRESSING INTACT. GTUBE PATENT. PATIENT ALSO HAS WARD CATH INTACT AND DRAINING CLEAR YELLOW URINE. ALL OTHER NEEDS ATTENDED TO. GRANDDAUGHTER, LIZZETH, AT BEDSIDE, MADE AWARE OF ADMISSION PROCESS. CALL LIGHT WITHIN REACH. BED ON LOWEST LOCKED POSITION. WILL CONTINUE TO MONITOR.
--- NOTE | 2017-10-15 23:30 | NUR ---
RN MS NOTES PATIENT WITH ORDERS FOR VANCOMYCIN 500MG Q12H. GRAND DAUGHTER MADE AWARE THAT I WILL BE STARTING PATIENT ON VANCO. GRANDDAUGHTER REFUSED AND STATED THAT SHE'S BEEN RECEIVING VANCO 750MG. PER GRANDDAUGHTER, PATIENT WAS DISCHARGED FROM [facility] ON September WITH ORDERS FOR VANCOMYCIN 750MG Q12H AND SHE WOULD LIKE TO KEEP IT THAT WAY. INFORMED GRANDDAUGHTER THAT WE WILL GET IN TOUCH WITH THE CONCRETE BOOM PUMP OPERATOR DOCTOR AND CLARIFY ORDER. >>> PAGED FURNACE MAINTENANCE AYLIN GREENE FOR MEDICATION CLARIFICATION .. AWAITING CALL BACK.
[2017-10-15] MEDS ORDERED: VANCOMYCIN 1 GM VIAL ONE (23:36)
--- NOTE | 2017-10-16 00:30 | NUR ---
RN MS NOTES LATIN TEACHER AYLIN GREENE APPROVED GRANDDAUGHTER'S REQUEST FOR VANCOMYCIN 750MG Q12H. ORDER NOTED, AND CARRIED OUT.
[2017-10-16] MEDS ORDERED: clonazePAM 0.5 MG TABLET GT PRN (01:00)
[2017-10-16] MEDS: GLUCERNA 1.2 1,000 ML BOTTLE NG PRN ×2 (01:24→20:42)
[2017-10-16] MEDS ORDERED: NS 0.9% IV ONE (03:00)
[2017-10-16] MEDS ORDERED: VANCOMYCIN IV ONE (03:00)
[2017-10-16] MEDS ORDERED: VANCOMYCIN 1 GM VIAL ONE (03:03)
[2017-10-16 06:24] LABS: BASOPHILS % (AUTO) 0.2 % (0.0-2.0); EOSINOPHILS % (AUTO) 3.1 % (0.0-6.0); HEMATOCRIT 27 % (33-45); HEMOGLOBIN 8.5 g/dL (11.5-14.8); LYMPHOCYTES # (AUTO) 0.9 /CMM (0.8-4.8); LYMPHOCYTES % (AUTO) 15.9 % (20.0-44.0); MEAN CORPUSCULAR HEMOGLOBIN 25 PG (26.0-33.0); MEAN CORPUSCULAR HGB CONC 31 g/dl (31.0-36.0); MEAN CORPUSCULAR VOLUME 80 fL (82-100); MONOCYTES # (AUTO) 0.3 /CMM (0.1-1.30); NEUTROPHILS # (AUTO) 4.2 /CMM (1.8-8.9); NEUTROPHILS % (AUTO) 74.8 % (43.0-81.0); PLATELET COUNT (AUTO) 398 /CMM (150-450); RDW COEFFICIENT OF VARIATION 19.2 (11.5-15.0); RED BLOOD CELL COUNT(AUTO) 3.35 MIL/uL (4.0-5.2); WHITE BLOOD COUNT (AUTO) 5.7 K/uL (4.3-11.0)
--- NOTE | 2017-10-16 06:53 | NUR ---
RN MS CLOSING NOTES PATIENT RESTING IN BED. ALERT AND ORIENTED X0, EYES OPEN, MOANS/GRUNTS ONLY, NONVERBAL. BREATHING EVEN AND UNLABORED. NO SOB NOTED. ON 3L OF OXYGEN VIA NC. PATIENT WITH PICC LINE ON RIGHT UPPER ARM, PATENT AND INTACT. PATIENT'S GTUBE INTACT AND PATENT - CURRENTLY RUNNING GLUCERNA 1.2 @ 55ML/HR - TOLERATING WELL. PATIENT ALSO HAS WARD CATH INTACT AND DRAINING CLEAR YELLOW URINE. SKIN DRY AND WARM TO TOUCH. ALL OTHER NEEDS ATTENDED TO. CALL LIGHT WITHIN REACH. BED ON LOWEST LOCKED POSITION. WILL ENDORSE TO ONCOMING NURSE FOR CONTINUITY FOR CARE
[2017-10-16 07:00] LABS: CALCIUM, SERUM 8.3 mg/dL (8.5-10.1); CREATININE 0.5 mg/dL (0.6-1.3); PHOSPHORUS 3.4 mg/dL (2.5-4.9)
[2017-10-16] MEDS ORDERED: ZOLPIDEM TARTRATE 5 MG TABLET GT PRN (07:15)
[2017-10-16] MEDS ORDERED: FEE PK DOSING 1 MIN EA MC ONE (07:16)
--- NOTE | 2017-10-16 08:23 | NUR ---
RN OPENING NOTES RECEIVED PT. IN BED AWAKE, NON VERBAL. BREATHING UNLABORED, AND EVENLY ON OXYGEN AT 3L/MIN VIA NASAL CANNULA. NO S/S OF ACUTE DISTRESS. IV FLUIDS RUNNING TKO. G TUBE FEEDING RUNNING AT 55 ML/HR. WARD CATHETER HAS 50CC CLEAR, AND YELLOW URINE. BED IS IN LOWEST, AND LOCKED POSITION. 2 SIDE RAILS UP, AND CALL LIGHT WITHIN REACH. ALL NEEDS MET.
[2017-10-16 08:30] VITALS: BP 124/58
[2017-10-16] MEDS ORDERED: VANCOMYCIN IV SCH (09:00)
[2017-10-16] MEDS ORDERED: NS 0.9% IV SCH (09:00)
[2017-10-16] MEDS: BACLOFEN (10 MG) 10 MG TABLET GT SCH (10:04)
[2017-10-16] MEDS: ASPIRIN 81 MG TAB.CHEW GT SCH (10:04)
[2017-10-16] MEDS: ZINC SULFATE 220 MG CAPSULE GT SCH (10:04)
[2017-10-16] MEDS: MULTIVITAMINS,THERAGRAN 1 UDTAB TABLET GT SCH (10:04)
[2017-10-16] MEDS: SERTRALINE HCL 50 MG TABLET GT SCH (10:04)
[2017-10-16] MEDS: ASCORBIC ACID 500 MG TABLET GT SCH ×2 (10:04→18:07)
[2017-10-16] MEDS: CHOLECALCIFEROL 1,000 UNIT TABLET (VIT D3) GT SCH (10:05)
[2017-10-16] MEDS: ACIDOPHILUS/BULGARICUS 1 EACH TAB.CHEW GT SCH (10:06)
[2017-10-16 16:00] VITALS: BP 120/58
[2017-10-16] MEDS: NS 0.9% IV SCH (16:07)
[2017-10-16] MEDS: VANCOMYCIN IV SCH (16:07)
--- NOTE | 2017-10-16 16:16 | NUR ---
Multiple readmissions, now readmitted less than 72hrs. Patient lives locally with granddaughter Miracle who is the primary caregiver. Patient has hx of progressive supranuclear palsy, she is non-ambulatory, totally dependent with adl's. Patient adequate DME: Hosp bed, oxygen, walker, wheelchair, commode, cane and GT care supplies. She is currently on [facility] with [facility] [phone]. stadium manager had discussed dc planning option for SNF, was at [facility] in the past. Addendum: 10/16/17 at 1616 by SRINI NAIK RN Amended: Links added.
[2017-10-16] MEDS: ACETAMINOPHEN 325 MG TABLET PO PRN (18:07)
[2017-10-16] MEDS: DAKINS QUARTER STRENGTH (0.125%) 480 ML BOTTLE TOP SCH (18:10)
--- NOTE | 2017-10-16 19:30 | NUR ---
RN MS OPENING NOTES PATIENT RESTING IN BED. ALERT AND ORIENTED X0, EYES OPEN, MOANS/GRUNTS ONLY, NONVERBAL. BREATHING EVEN AND UNLABORED. NO SOB NOTED. ON 3L OF OXYGEN VIA NC. PATIENT WITH PICC LINE ON RIGHT UPPER ARM, PATENT AND INTACT. PATIENT'S GTUBE INTACT AND PATENT - CURRENTLY RUNNING GLUCERNA 1.2 @ 55ML/HR - TOLERATING WELL. PATIENT ALSO HAS WARD CATH INTACT AND DRAINING CLEAR YELLOW URINE. SKIN DRY AND WARM TO TOUCH. ALL OTHER NEEDS ATTENDED TO. CALL LIGHT WITHIN REACH. BED ON LOWEST LOCKED POSITION. WILL CONTINUE TO MONITOR.
--- NOTE | 2017-10-16 19:46 | NUR ---
RN CLOSING NOTES PT. IS IN BED AWAKE, NON VERBAL. BREATHING UNLABORED, AND EVENLY ON OXYGEN AT 3L/MIN VIA NASAL CANNULA. PT. WAS SUCTIONED DUE TO ACCUMULATION OF SECRETIONS AFTER PT.'S LINENS WERE CHANGED. VITAL SIGNS WNL. PT. WAS PLACED ON A KCI MATTRESS TODAY, AND HAD A SACRAL WOUND DEBRIDEMENT AT BEDSIDE. NO S/S OF ACUTE DISTRESS. IV FLUIDS RUNNING TKO. G TUBE FEEDING RUNNING AT 55 ML/HR. WARD CATHETER HAS 20 CC CLEAR, AND YELLOW URINE. BED IS IN LOWEST, AND LOCKED POSITION. 2 SIDE RAILS UP, AND CALL LIGHT WITHIN REACH. ALL NEEDS MET. WILL ENDORSE REPORT TO NURSE.
[2017-10-16 20:00] VITALS: BP 125/60
[2017-10-17] MEDS: VANCOMYCIN IV SCH (02:15)
[2017-10-17] MEDS: NS 0.9% IV SCH (02:15)
--- NOTE | 2017-10-17 06:38 | NUR ---
RN MS CLOSING NOTES PATIENT RESTING IN BED. ALERT AND ORIENTED X0, EYES OPEN. NONVERBAL. BREATHING EVEN AND UNLABORED. NO SOB NOTED. ON 3L OF OXYGEN VIA NC. PATIENT WITH PICC LINE ON RIGHT UPPER ARM, PATENT AND INTACT. PATIENT'S GTUBE INTACT AND PATENT - CURRENTLY RUNNING GLUCERNA 1.2 @ 55ML/HR - TOLERATING WELL. PATIENT ALSO HAS WARD CATH INTACT AND DRAINING CLEAR YELLOW URINE. SKIN DRY AND WARM TO TOUCH. PATIENT IS S/P DEBRIDEMENT ON SACRAL WOUND ON 10/16/17. KEPT CLEAN, DRY,AND COMFORTABLE. ALL OTHER NEEDS ATTENDED TO. CALL LIGHT WITHIN REACH. BED ON LOWEST LOCKED POSITION. WILL ENDORSE TO ONCOMING NURSE FOR CONTINUITY FOR CARE
[2017-10-17 07:31] LABS: CALCIUM, SERUM 8.5 mg/dL (8.5-10.1); CREATININE 0.5 mg/dL (0.6-1.3); POTASSIUM 4.3 mmol/L (3.5-5.1)
--- NOTE | 2017-10-17 07:56 | NUR ---
WOUND CARE CONSULT WOUND CARE RECEIVED CONSULT FOR SACRAL ULCER. WOUND CARE WILL DEFER CONSULT AND ALL TREATMENT PLANS TO SURGICAL TEAM WHO ARE CURRENTLY FOLLOWING. ALL PRESSURE ULCER PREVENTION MEASURES ARE NOTED TO BE IN PLACE AT THIS TIME. PATIENT WITH KAREN AT 11. WILL SEE PRN.
[2017-10-17 08:00] VITALS: BP 97/55
--- NOTE | 2017-10-17 08:00 | NUR ---
RN NOTES RECEIVED PATIENT IN THE BED NONVERBAL, CONTRACTED LOWER, AND UPPER BILATERAL EXTREMITIES. ON O2-4L NC, NO ACUTE RESPIRATORY DISTRESS, GT-FEEDING GLUCERNA 55 ML/HR, PICC LINE ON RIGHT UPPER ARM INTACT. PATIENT INCONTINENT BOWEL AND BLADDER, ASSIST TURN AND REPOSTION Q 2 HR. SCHEDULED MEDICATION ADMINISTERED VIA G-TUBE. KEEP HOB ELEVATED. NEEDS ATTENDED AND ANTICIPATED, CALL LIGHT WITHIN TO REACH, DRESSING CHANGED SACRAL AREA, CONTINUED MONITORING.
[2017-10-17] MEDS: MULTIVITAMINS,THERAGRAN 1 UDTAB TABLET GT SCH (09:06)
[2017-10-17] MEDS: ASPIRIN 81 MG TAB.CHEW GT SCH (09:07)
[2017-10-17] MEDS: CHOLECALCIFEROL 1,000 UNIT TABLET (VIT D3) GT SCH (09:07)
[2017-10-17] MEDS: SERTRALINE HCL 50 MG TABLET GT SCH (09:07)
[2017-10-17] MEDS: BACLOFEN (10 MG) 10 MG TABLET GT SCH (09:07)
[2017-10-17] MEDS: ZINC SULFATE 220 MG CAPSULE GT SCH (09:07)
[2017-10-17] MEDS: ACIDOPHILUS/BULGARICUS 1 EACH TAB.CHEW GT SCH (09:07)
[2017-10-17] MEDS: ASCORBIC ACID 500 MG TABLET GT SCH ×2 (09:07→16:06)
[2017-10-17] MEDS: DAKINS QUARTER STRENGTH (0.125%) 480 ML BOTTLE TOP SCH (09:08)
[2017-10-17 09:24] VITALS: BP 102/54
[2017-10-17] MEDS: ACETAMINOPHEN 325 MG TABLET PO PRN ×2 (09:35→21:38)
--- NOTE | 2017-10-17 09:35 | NUR ---
RN NOTES ADMINISTERED TYLENOL 650 MG PO PRN FOR T-99.3, R-32, BP-102/54, P-77, CONTINUED MONITORING.
[2017-10-17 10:00] VITALS: BP 98/47
--- NOTE | 2017-10-17 10:00 | NUR ---
RN NOTES RECHECKED T-98.6, R-25, NO ACUTE DISTRESS, ASSIST TURN AND REPOSTION Q 2 HR. CALL LIGHT WITHIN TO REACH, CONTINUED MONITORING.
[2017-10-17] MEDS: VANCOMYCIN 0.75 GM in IV D5W 250 ML IV SCH (14:55)
[2017-10-17] MEDS: GLUCERNA 1.2 1,000 ML BOTTLE NG PRN (15:49)
[2017-10-17 16:00] VITALS: BP 88/43
[2017-10-17] MEDS: HYDROCODONE/APAP 5/325MG 1 EACH TABLET PO PRN (16:06)
--- NOTE | 2017-10-17 16:06 | NUR ---
RN NOTES ADMINISTERED NARCO 5/325 MG PO PRN FOR GENERALIZED PAIN VIA G-TUBE, AND SCHEDULED MEDICATION, ASSIST TURN AND REPOSITION Q 2 HR, CALL LIGHT WITHIN TO REACH, CONTINUED MONITORING.
--- NOTE | 2017-10-17 18:30 | NUR ---
RN NOTES MEDICATION WERE ADMINISTERED FOR PAIN EFFECTIVE, V/S STABLE. ADMINISTERED SCHEDULED MEDICATION, ASSIST TURN AND REPOSTION Q 2 HR. HOB KEEP ELEVATED. ENDORSED ONCOMING NURSE FOR PLAN OF CARE.
--- NOTE | 2017-10-17 19:00 | NUR ---
RN NOTES: RECEIVED LYING ON BED ON SEMI FOWLERS POSITION, OBSTUNDED, NON VERBAL,CONTRACTURES ON BUE AND BLE,RESPONDING TO PAINFUL STIMULI, ON O2 AT 2-4L/MIN VIA NC SPO2-99%,NO FACIAL GRIMACE, NO PAIN OR DISCOMFORT NOTED AT THIS TIME,WARD CATH IN SITE, DRAINING INTO YELLOWISH COLORED URINE,FOR URINE C/S; PEG TUBE IN SITE, WITH FEEDING ON GOING OF GLUCERNA AT 55 ML/HR,PICC LINE ON CHARIS INTACT,FALL,SAFETY AND ASPIRATION PRECAUTION OBSERVED, TURNING AND REPOSITIONING Q 2H.KEPT ON CLOSE VISUAL CHECK.
[2017-10-17] MEDS: MEROPENEM 500 MG in IV NS 0.9% 50 ML IV SCH (19:22)
--- NOTE | 2017-10-17 19:23 | NUR ---
RN NOTES: MERREM DELIVERED FROM THE PHARMACY PER ENDORSEMENT TO GIVE 1ST DOSE ONCE AVAILABLE, GIVEN.
--- NOTE | 2017-10-17 19:44 | NUR ---
GOLDEN NOTED: URINE SPECIMEN COLLECTED, READY FOR P/U, SEJALLAB) AWARE. Addendum: 10/17/17 at 1957 by JEANNINE ROBERSON RN GOLDEN NOTES: AT 1953 URINE SPECIMEN P/U BY LAB. MANAGER CARDIOLOGY.
[2017-10-17 20:00] VITALS: BP 100/51
--- NOTE | 2017-10-17 21:00 | NUR ---
RN NOTES: BED BATH RENDERED, CLEAN AND CHANGE, PEG SITE, ABDOMINAL SURGERY AND PS STAGE 4 SACRAL ULCER, DRESSING DONE.KEPT ON COMFORTABLE POSITION.DRESSING CHANGE TOLERATED. Addendum: 10/18/17 at 0732 by JEANNINE ROBERSON RN RN NOTES: VERY SMALL AMOUNT OF BROWNISH DISCHARGE NOTED ON THE ABDOMINAL SURGERY SITE.DRESSING CHANGE.
--- NOTE | 2017-10-17 21:40 | NUR ---
RN NOTES: MAKING SOUNDS, SHE LOOKS UNCOMFORTABLE, REPOSITIONED, MEDICATION FOR MILD PAIN GIVEN, NON PHARMACOLOGIC INTERVENTION RENDERED, BACK RUBBING, DIM LIT,WARM BLANKET.WILL CONTINUE TO MONIOTR AND ANTICIPATE NEEDS.
--- NOTE | 2017-10-18 02:29 | NUR ---
RN NOTES: ABLE TO SLEEP AND REST. NO MORE SOUND,KEPT ON CLOSE WATCH, VISUAL CHECK AT FREQUENT INTERVAL DONE.
[2017-10-18] MEDS: VANCOMYCIN 0.75 GM in IV D5W 250 ML IV SCH ×2 (02:34→14:53)
[2017-10-18] MEDS: ACETAMINOPHEN 325 MG TABLET PO PRN (04:53)
[2017-10-18] MEDS: MEROPENEM 500 MG in IV NS 0.9% 50 ML IV SCH ×2 (05:03→19:30)
--- NOTE | 2017-10-18 05:03 | NUR ---
RN NOTES: WITH ON AND OFF COUGH, ORAL SUCTION DONE OF WHITISH PHLEGM, SPO2-93%, MAKING SOUNDS AGAIN DURING REPOSITIONING, PAIN MEDICATION GIVEN.
[2017-10-18 06:06] LABS: BASOPHILS % (AUTO) 0.3 % (0.0-2.0); EOSINOPHILS % (AUTO) 3.3 % (0.0-6.0); HEMATOCRIT 30 % (33-45); HEMOGLOBIN 9.3 g/dL (11.5-14.8); LYMPHOCYTES # (AUTO) 0.9 /CMM (0.8-4.8); LYMPHOCYTES % (AUTO) 13.6 % (20.0-44.0); MEAN CORPUSCULAR HEMOGLOBIN 25 PG (26.0-33.0); MEAN CORPUSCULAR HGB CONC 31 g/dl (31.0-36.0); MEAN CORPUSCULAR VOLUME 80 fL (82-100); MONOCYTES # (AUTO) 0.3 /CMM (0.1-1.30); MONOCYTES % (AUTO) 4.9 % (2.0-12.0); NEUTROPHILS # (AUTO) 5.3 /CMM (1.8-8.9); NEUTROPHILS % (AUTO) 77.9 % (43.0-81.0); PLATELET COUNT (AUTO) 390 /CMM (150-450); RDW COEFFICIENT OF VARIATION 19.3 (11.5-15.0); RED BLOOD CELL COUNT(AUTO) 3.69 MIL/uL (4.0-5.2); WHITE BLOOD COUNT (AUTO) 6.8 K/uL (4.3-11.0)
[2017-10-18 06:14] LABS: CALCIUM, SERUM 8.7 mg/dL (8.5-10.1); CREATININE 0.6 mg/dL (0.6-1.3); PHOSPHORUS 4.1 mg/dL (2.5-4.9); POTASSIUM 4.5 mmol/L (3.5-5.1)
--- NOTE | 2017-10-18 06:39 | NUR ---
RN NOTES: ABLE TO SLEEP AND REST, TURNING AND REPOSITIONING DONE,MORNING CARE DONE,ASPIRATION PRECAUTION OBSERVE,F/U BLOOD RESULTS, AND ENDORSED TO MORNING SHIFT FOR CONTINUITY OF CARE.
[2017-10-18 08:00] VITALS: BP 109/63
[2017-10-18] MEDS: ZINC SULFATE 220 MG CAPSULE GT SCH (10:51)
[2017-10-18] MEDS: BACLOFEN (10 MG) 10 MG TABLET GT SCH (10:52)
[2017-10-18] MEDS: ASCORBIC ACID 500 MG TABLET GT SCH ×2 (10:52→17:00)
[2017-10-18] MEDS: ACIDOPHILUS/BULGARICUS 1 EACH TAB.CHEW GT SCH (10:52)
[2017-10-18] MEDS: CHOLECALCIFEROL 1,000 UNIT TABLET (VIT D3) GT SCH (10:52)
[2017-10-18] MEDS: ASPIRIN 81 MG TAB.CHEW GT SCH (10:52)
[2017-10-18] MEDS: SERTRALINE HCL 50 MG TABLET GT SCH (10:53)
[2017-10-18] MEDS: MULTIVITAMINS,THERAGRAN 1 UDTAB TABLET GT SCH (10:53)
[2017-10-18] MEDS: DAKINS QUARTER STRENGTH (0.125%) 480 ML BOTTLE TOP SCH (10:54)
[2017-10-18] MEDS: GLUCERNA 1.2 1,000 ML BOTTLE NG PRN (14:53)
[2017-10-18 16:00] VITALS: BP 94/56
--- NOTE | 2017-10-18 18:30 | NUR ---
NO DISTRESS NOTED,NO FACIAL GRIMACING.VS STABLE.WOUND CARE DONE ORDERED.
[2017-10-18 20:00] VITALS: BP 122/58
--- NOTE | 2017-10-18 20:05 | NUR ---
Lying on air matress A/O x 0 non verbal no facial grimacing. HOB up o2 2 4 L humidified N/c sats 96% lung sounds clear bilat.Picc line to right upper arm intact. Glucerna @ 55 cc hr to GT peg. patent no risdual. F/c draining bright yellow urine via gravity. Sacral and Abd dressing C/D/I IV N.S. 0.9% infusing at 10 cc hr to picc line. Siderails up call light within reach. Appears in no distress.
[2017-10-19] MEDS: VANCOMYCIN 0.75 GM in IV D5W 250 ML IV SCH ×2 (02:50→16:22)
[2017-10-19] MEDS: MEROPENEM 500 MG in IV NS 0.9% 50 ML IV SCH ×2 (06:12→18:01)
--- NOTE | 2017-10-19 06:24 | NUR ---
END OF SHIFT: HOB UP O2 @ 4l N/C GLUCERNA INFUSING @ 55 CC HR TO gt PEG I.V, n.s. TKO TO PICC LINE SIDERAILS UP CALL LIGHT WITHIN REACH RESTING COMFORTABLY NO FACIAL GRIAMCING.
[2017-10-19 06:35] LABS: BASOPHILS % (AUTO) 0.3 % (0.0-2.0); EOSINOPHILS % (AUTO) 2.3 % (0.0-6.0); HEMATOCRIT 29 % (33-45); HEMOGLOBIN 9.4 g/dL (11.5-14.8); LYMPHOCYTES % (AUTO) 12.7 % (20.0-44.0); MEAN CORPUSCULAR HEMOGLOBIN 26 PG (26.0-33.0); MEAN CORPUSCULAR HGB CONC 32 g/dl (31.0-36.0); MEAN CORPUSCULAR VOLUME 80 fL (82-100); MONOCYTES # (AUTO) 0.3 /CMM (0.1-1.30); MONOCYTES % (AUTO) 3.5 % (2.0-12.0); NEUTROPHILS # (AUTO) 6.7 /CMM (1.8-8.9); NEUTROPHILS % (AUTO) 81.2 % (43.0-81.0); PLATELET COUNT (AUTO) 418 /CMM (150-450); RDW COEFFICIENT OF VARIATION 20.2 (11.5-15.0); RED BLOOD CELL COUNT(AUTO) 3.67 MIL/uL (4.0-5.2); WHITE BLOOD COUNT (AUTO) 8.2 K/uL (4.3-11.0)
[2017-10-19 06:59] LABS: CALCIUM, SERUM 9.3 mg/dL (8.5-10.1); CREATININE 0.6 mg/dL (0.6-1.3); POTASSIUM 4.8 mmol/L (3.5-5.1)
[2017-10-19 07:00] LABS: MAGNESIUM 2.2 mg/dL (1.8-2.4); PHOSPHORUS 3.7 mg/dL (2.5-4.9)
[2017-10-19 08:00] VITALS: BP 96/53
[2017-10-19] MEDS: ASCORBIC ACID 500 MG TABLET GT SCH ×2 (08:37→16:25)
[2017-10-19] MEDS: ACIDOPHILUS/BULGARICUS 1 EACH TAB.CHEW GT SCH (08:37)
[2017-10-19] MEDS: ZINC SULFATE 220 MG CAPSULE GT SCH (08:37)
[2017-10-19] MEDS: MULTIVITAMINS,THERAGRAN 1 UDTAB TABLET GT SCH (08:37)
[2017-10-19] MEDS: ASPIRIN 81 MG TAB.CHEW GT SCH (08:37)
[2017-10-19] MEDS: BACLOFEN (10 MG) 10 MG TABLET GT SCH (08:37)
[2017-10-19] MEDS: SERTRALINE HCL 50 MG TABLET GT SCH (08:38)
[2017-10-19] MEDS: CHOLECALCIFEROL 1,000 UNIT TABLET (VIT D3) GT SCH (08:38)
--- NOTE | 2017-10-19 08:40 | NUR ---
MS NOTES PATIENT IN BED, EYES OPEN, NON VERBAL. ON OXYGEN AT 4L VIA NC, APPEARS COMFORTABLE, NO WHEEZING. ABDOMEN PRESENCE OF GTUBE, PATIENT IS NPO. ON GTUBE FEEDING AT 55ML/HR. PREVIOUS GT SITE, WITH DRESSING IN PLACE, NOTED REDNESS AND EXCORIATION ON STOMA SITE, DRESSING CHANGED. WILL CONT TO MONITOR.
[2017-10-19] MEDS: DAKINS QUARTER STRENGTH (0.125%) 480 ML BOTTLE TOP SCH (09:34)
[2017-10-19 16:00] VITALS: BP 104/58
--- NOTE | 2017-10-19 18:42 | NUR ---
MS RN closing notes Patient in bed, VS remains stable. Continue on IV antibiotic for sacral wound and UTI, afebrile during the shift. Dressing changed to sacral wound, turning and repositioning every 2 hours. KCI low air loss mattress in place. Minimal gastric residual 5cc, on Gtube feeding 65ml/hr per RD recommendation. Maintained HOB elevated, reyes cath tubing off the floor. Will endorse to oncoming RN.
[2017-10-19] MEDS: SILVER SULFADIAZINE CREAM 25 GM TUBE TP SCH (18:48)
--- NOTE | 2017-10-19 19:30 | NUR ---
RN INITIAL NOTES Received patient in bed, opens eyes, non-verbal. Breathing even & unlabored. On 3L O2 via NC. Patient contracted. Zuleta catheter in place. On low air loss mattress. GTube feeding running at 65mL/hr. Safety precautions in place. Patient stable as endorsed by the morning shift RN. Will continue to monitor.
[2017-10-19 20:00] VITALS: BP 103/42
[2017-10-19] MEDS: GLUCERNA 1.2 1,000 ML BOTTLE NG PRN (23:19)
[2017-10-20] MEDS: VANCOMYCIN 0.75 GM in IV D5W 250 ML IV SCH ×2 (02:12→15:14)
[2017-10-20] MEDS: MEROPENEM 500 MG in IV NS 0.9% 50 ML IV SCH ×2 (05:08→16:48)
[2017-10-20 06:46] LABS: CALCIUM, SERUM 8.7 mg/dL (8.5-10.1); CREATININE 0.7 mg/dL (0.6-1.3); POTASSIUM 4.7 mmol/L (3.5-5.1)
--- NOTE | 2017-10-20 06:50 | NUR ---
MS RN closing notes Patient in bed, VS remains stable. Continue on IV antibiotic for sacral wound and UTI, afebrile during the shift. Dressing changed to sacral wound, turning and repositioning every 2 hours. KCI low air loss mattress in place. DVT pump in place. Minimal gastric residual 10cc, on Gtube feeding 65ml/hr per RD recommendation. Maintained HOB elevated, reyes cath in place, drained 650mL. Will endorse to oncoming RN.
--- NOTE | 2017-10-20 07:00 | NUR ---
WOUND CARE CONSULT WOUND CARE RECEIVED CONSULT FOR PREVIOUS GT SITE REDNESS/EXCORIATION. WOUND CARE WILL DEFER CONSULT AND TREATMENT PLAN TO SURGICAL TEAM WHO ARE CURRENTLY FOLLOWING. WILL SEE PRN.
[2017-10-20 08:00] VITALS: BP 123/64
[2017-10-20] MEDS: ACETAMINOPHEN 325 MG TABLET PO PRN ×2 (08:14→16:52)
[2017-10-20] MEDS: ASCORBIC ACID 500 MG TABLET GT SCH ×2 (08:14→16:00)
[2017-10-20] MEDS: CHOLECALCIFEROL 1,000 UNIT TABLET (VIT D3) GT SCH (08:14)
[2017-10-20] MEDS: ASPIRIN 81 MG TAB.CHEW GT SCH (08:14)
[2017-10-20] MEDS: BACLOFEN (10 MG) 10 MG TABLET GT SCH (08:14)
[2017-10-20] MEDS: SERTRALINE HCL 50 MG TABLET GT SCH (08:14)
[2017-10-20] MEDS: ZINC SULFATE 220 MG CAPSULE GT SCH (08:14)
[2017-10-20] MEDS: ACIDOPHILUS/BULGARICUS 1 EACH TAB.CHEW GT SCH (08:14)
--- NOTE | 2017-10-20 08:15 | NUR ---
MS NOTES PATIENT IN BED, EYES OPEN, NON VERBAL. ON OXYGEN AT 3L VIA NC WITH NO SOB. ABDOMEN PRESENCE OF GTUBE, PATIENT IS NPO. ON GTUBE FEEDING AT 65ML/HR. PREVIOUS GT SITE, MINIMAL FLUID DRAINAGE, DRESSING IN PLACE. ELEVATED TEMP 101.0 PER OVERHAULER HELPER REPORT, WILL MEDICATE WITH PRN TYLENOL, COOLING MEASURES RENDERED. WILL CONT TO MONITOR.
[2017-10-20] MEDS: MULTIVITAMINS,THERAGRAN 1 UDTAB TABLET GT SCH (08:17)
[2017-10-20] MEDS: SILVER SULFADIAZINE CREAM 25 GM TUBE TP SCH (09:30)
[2017-10-20] MEDS: DAKINS QUARTER STRENGTH (0.125%) 480 ML BOTTLE TOP SCH (09:37)
[2017-10-20] MEDS: GLUCERNA 1.2 1,000 ML BOTTLE NG PRN (15:20)
[2017-10-20 16:00] VITALS: BP 110/54
[2017-10-20 16:02] VITALS: BP 110/54
--- NOTE | 2017-10-20 18:48 | NUR ---
MS RN closing notes Patient in bed, eyes open, non verbal. Episode of elevated temp today 101, medicated with PRN Tylenol, fever was resolved. Cooling measure given. Dr. Amador was informed, blood culture pending result. Continue on IV antibiotic for sacral wound and UTI. Dressing changed to sacral wound, turning and repositioning every 2 hours. KCI low air loss mattress in place. Minimal gastric residual 10cc, on Gtube feeding Glucerna 65ml/hr goal, tolerating well. Zuleta cath intact, draining to gravity, bag off the floor. Fall, aspiration precaution maintained. Will endorse to oncoming RN.
--- NOTE | 2017-10-20 19:00 | NUR ---
RN OPENING NOTES PT RESTING IN BED. PT NONVERBAL. NO APPARENT S/S OF PAIN, DISTRESS OR SOB AT THIS TIME. PT HAS GTUBE FEEDING, GLUCERNA RUNNING @65ML/HR. PT HAS A CHARIS PICC LINE INTACT. SAFETY PRECAUTIONS IN PLACE, BED IN LOWEST LOCKED POSITION, X2 SIDE RAILS UP, AND CALL LIGHT WITH IN REACH. WILL CONTINUE TO MONITOR.
[2017-10-20 20:12] VITALS: BP 129/74
[2017-10-21] MEDS: VANCOMYCIN 0.75 GM in IV D5W 250 ML IV SCH ×2 (03:34→14:35)
[2017-10-21] MEDS: MEROPENEM 500 MG in IV NS 0.9% 50 ML IV SCH ×2 (05:06→17:03)
[2017-10-21] MEDS: GLUCERNA 1.2 1,000 ML BOTTLE NG PRN (05:11)
[2017-10-21 06:21] LABS: BASOPHILS % (AUTO) 0.3 % (0.0-2.0); EOSINOPHILS % (AUTO) 2.2 % (0.0-6.0); HEMATOCRIT 30 % (33-45); HEMOGLOBIN 9.5 g/dL (11.5-14.8); LYMPHOCYTES % (AUTO) 11.5 % (20.0-44.0); MEAN CORPUSCULAR HEMOGLOBIN 26 PG (26.0-33.0); MEAN CORPUSCULAR HGB CONC 32 g/dl (31.0-36.0); MEAN CORPUSCULAR VOLUME 81 fL (82-100); MONOCYTES # (AUTO) 0.4 /CMM (0.1-1.30); PLATELET COUNT (AUTO) 379 /CMM (150-450); RDW COEFFICIENT OF VARIATION 20.2 (11.5-15.0); RED BLOOD CELL COUNT(AUTO) 3.69 MIL/uL (4.0-5.2); WHITE BLOOD COUNT (AUTO) 8.6 K/uL (4.3-11.0)
[2017-10-21 06:48] LABS: CALCIUM, SERUM 8.9 mg/dL (8.5-10.1); CREATININE 0.6 mg/dL (0.6-1.3); MAGNESIUM 2.1 mg/dL (1.8-2.4); PHOSPHORUS 3.8 mg/dL (2.5-4.9)
--- NOTE | 2017-10-21 06:52 | NUR ---
RN CLOSING CNOTES PT RESTING IN BED. PT NONVERBAL. NO APPARENT S/S OF PAIN, DISTRESS OR SOB OVERNIGHT. PT HAS GTUBE FEEDING, GLUCERNA RUNNING @65ML/HR. PT HAS A CHARIS PICC LINE INTACT. SAFETY PRECAUTIONS IN PLACE, BED IN LOWEST LOCKED POSITION, X2 SIDE RAILS UP, AND CALL LIGHT WITH IN REACH. WILL ENDORSE TO DAY SHIFT NURSE FOR CONTINUITY OF CARE.
--- NOTE | 2017-10-21 07:05 | NUR ---
MS FRANKS INITIAL NOTES Received patient awake on bed on Frank's position with O2 inhalation via NC @ 3LPM. Non-verbal, with no signs of SOB/respiratory distress noted. With patent indwelling FC with clear yellow urine output. With patent RVA PICC, no signs of infection noted. With severe contractures of the extremities noted. Kept clean, dry and comfortable. Will monitor accordingly.
[2017-10-21 08:00] VITALS: BP 104/58
[2017-10-21] MEDS: ASCORBIC ACID 500 MG TABLET GT SCH ×2 (08:30→16:33)
[2017-10-21] MEDS: BACLOFEN (10 MG) 10 MG TABLET GT SCH (08:30)
[2017-10-21] MEDS: MULTIVITAMINS,THERAGRAN 1 UDTAB TABLET GT SCH (08:30)
[2017-10-21] MEDS: ASPIRIN 81 MG TAB.CHEW GT SCH (08:30)
[2017-10-21] MEDS: ACIDOPHILUS/BULGARICUS 1 EACH TAB.CHEW GT SCH (08:30)
[2017-10-21] MEDS: CHOLECALCIFEROL 1,000 UNIT TABLET (VIT D3) GT SCH (08:30)
[2017-10-21] MEDS: ZINC SULFATE 220 MG CAPSULE GT SCH (08:30)
[2017-10-21] MEDS: SERTRALINE HCL 50 MG TABLET GT SCH (08:30)
[2017-10-21] MEDS: DAKINS QUARTER STRENGTH (0.125%) 480 ML BOTTLE TOP SCH (08:31)
[2017-10-21] MEDS: SILVER SULFADIAZINE CREAM 25 GM TUBE TP SCH (08:32)
[2017-10-21] MEDS ORDERED: GLUCERNA 1.2 1,000 ML BOTTLE NG PRN (14:51)
[2017-10-21 16:00] VITALS: BP 94/52
--- NOTE | 2017-10-21 19:00 | NUR ---
MS RN CLOSING NOTES Patient asleep on bed on semi-Frank's position, easily aroused to loud sound and touch. With O2 inhalation via NC @ 3LPM, no SOB/respiratory distress noted. Indwelling FC patently draining out clear yellow urine. G-tube feeding tolerated well @ 65ml/hr, abdomen soft, no distension noted. AP Dr. Howard awaiting for the daughter/responsible constitution party to discuss with possible discharge. Routine wound care done, universal precaution observed during the procedure, patient tolerated the procedure without discomfort noted. RVA PICC remained patent and intact without signs of infection noted. Repositioned Q2H, ensured safety precautions at all times. Endorsed to the next shift.
--- NOTE | 2017-10-21 19:30 | NUR ---
MS KAITLIN INITIAL NOTES RECEIVED REPORT FROM AM NURSE WHILE CHECKING THE PATIENT, SHE'S AWAKE BUT NON -VERBAL BREATHING EVEN AND NON-LABORED NOT IN ANY ACUTE DISTRESS NOTED. PT STILL ON G-TUBE FEEDING GLUCERNA AT 65ML/HR NO RESIDUAL NOTED AT THIS TIME, NO ASPIRATION NOTED. SKIN WARM AND DRY TOUCH NOTED CONTRACTED BOTH UPPER AND LOWER EXTREMITIES.SHE'S ON KCI MATTRESS WITH DVT PUMP BOTH LOWER LEGS. WARD TO GRAVITY . KEPT HER WARM AND COMFORTABLE AT ALL TIMES. WILL CONTINUE MONITORING.
[2017-10-21 20:00] VITALS: BP 129/74
--- NOTE | 2017-10-22 00:40 | NUR ---
MS DIE FITTER NOTES PT SLEEPING COMFORTABLY IN BED WITHOUT ANY ACUTE DISTRESS NOTED. G-TUBE FEEDING TOLERATED WELL NO ASPIRATION NOTED. REPOSITION HER FOR COMFORT. KEPT HER WARM AND COMFORTABLE AT ALL TIMES. WILL CONTINUE MONITORING.
[2017-10-22] MEDS: VANCOMYCIN 0.75 GM in IV D5W 250 ML IV SCH ×2 (03:16→14:54)
[2017-10-22] MEDS: MEROPENEM 500 MG in IV NS 0.9% 50 ML IV SCH (05:05)
--- NOTE | 2017-10-22 05:47 | NUR ---
MS BEHAVIORAL PEDIATRICIAN NOTES STARTED SPONGE BATH WELL WOUND CARE TREATMENT ORDERED. REPOSITION PT FRO COMFORT. G-TUBE FEEDING TOLERATED WELL, NO ASPIRATION NOTED.NO SIGNS OF ANY ACUTE DISTRESS WHILE DOING MORNING CARE. KEPT HER WARM AND COMFORTABLE AT ALL TIMES. WILL CONTINUE MONITORING. MERREM IVP BAG HUNG BY ANOTHER NURSE ORDERED.
[2017-10-22 06:25] LABS: CALCIUM, SERUM 8.9 mg/dL (8.5-10.1); CREATININE 0.6 mg/dL (0.6-1.3); POTASSIUM 4.7 mmol/L (3.5-5.1)
--- NOTE | 2017-10-22 06:57 | NUR ---
MS PANTOGRAPH WATCHER CLOSING NOTES PT REMAINS STABLE MILA THE NIGHT, NO SIGNS OF ANY ACUTE DISTRESS NOTED. ALL DUE MEDS GIVEN AND ALL NEEDS MET. G-TUBE FEEDING TOLERATED WELL, NO ASPIRATION NOTED. REPOSITION HER FOR COMFORT. KEPT HER WARM AND COMFORTABLE AT ALL TIMES. ON SEMI FOWLERS POSITION WITH SIDE RAILS X2 UP AND BED IN LOW AND LOCK IN POSITION,. WARD TO GRAVITY WITH CLEAR YELLOW OUTPUT NOTED. WILL ENDORSE TO AM NURSE FOR CONTINUITY OF CARE.
--- NOTE | 2017-10-22 07:15 | NUR ---
MS FRANKS INITIAL NOTES Received patient asleep on bed on left side lying position with HOB elevated, with patent RVA PICC line with NS @ KVO rate. With patent indwelling F/C with clear yellow urine output. With patent G-tube with Glucerna 1.2 infusing well @ 65ml/hr, patient tolerating well abdomen soft upon palpation. Non-verbal, no signs of discomfort noted. On O2 inhalation @ 3LPM, no SOB/respiratory distress noted. Kept clean, dry and comfortable. Will continue to monitor accordingly.
[2017-10-22 08:00] VITALS: BP 114/50
[2017-10-22] MEDS: ASPIRIN 81 MG TAB.CHEW GT SCH (08:00)
[2017-10-22] MEDS: SERTRALINE HCL 50 MG TABLET GT SCH (08:00)
[2017-10-22] MEDS: BACLOFEN (10 MG) 10 MG TABLET GT SCH (08:00)
[2017-10-22] MEDS: ZINC SULFATE 220 MG CAPSULE GT SCH (08:00)
[2017-10-22] MEDS: ACIDOPHILUS/BULGARICUS 1 EACH TAB.CHEW GT SCH (08:00)
[2017-10-22] MEDS: ASCORBIC ACID 500 MG TABLET GT SCH ×2 (08:00→17:10)
[2017-10-22] MEDS: CHOLECALCIFEROL 1,000 UNIT TABLET (VIT D3) GT SCH (08:00)
[2017-10-22] MEDS: SILVER SULFADIAZINE CREAM 25 GM TUBE TP SCH (08:01)
[2017-10-22] MEDS: LEVOFLOXACIN (500MG) 500 MG TABLET PO SCH (08:04)
[2017-10-22] MEDS: MULTIVITAMINS,THERAGRAN 1 UDTAB TABLET GT SCH (08:20)
[2017-10-22] MEDS: DAKINS QUARTER STRENGTH (0.125%) 480 ML BOTTLE TOP SCH (09:43)
[2017-10-22] MEDS: MAG HYDROX/AL HYDROX/SIMETH 30 ML UDC TP SCH (17:10)
[2017-10-22] MEDS: HYDROCODONE/APAP 5/325MG 1 EACH TABLET PO PRN ×2 (17:22→21:53)
--- NOTE | 2017-10-22 18:40 | NUR ---
MS RN CLOSING NOTES Patient asleep on Frank's position, with patent RVA PICC line, no signs of discomfort noted. With PEG tube in placed, feeding on hold for 24hrs. Indwelling FC noted with clear yellow urine output. Seen and examined by GI doctor with new orders noted and carried out. Low Pressure Boiler Operator in agreement on G-tube feeding bolus with recommendation to give Glucerna in can 260ml Q4hrs to start on 10/23/2017 @1300. Suctioned PRN, repositioned Q2hrs. No new unusualities noted, afebrile the whole shift. Endorsed to the next shift.
--- NOTE | 2017-10-22 19:42 | NUR ---
MS CRANIOLOGIST INITIAL NOTES SEEN PT IN BED WHILE GETTING REPORT FROM AM NURSE LAILA. PT AWAKE BREATHING EVEN AND NON-LABORED, NOT IN ANY ACUTE DISTRESS NOTED. NPO AT THIS TIME PER MD ORDERED. ON SEMI FOWLERS POSITION WITH SIDE RAILS X2 UP. SKIN WARM AND DRY TO TOUCH. WARD TO GRAVITY WITH CLEAR YELLOW OUTPUT NOTED. KEPT HER WARM AND COMFORTABLE AT ALL TIMES. PLACE CALL LIGHT AT REACH. WILL CONTINUE TO MONITOR.
[2017-10-22 20:00] VITALS: BP 94/69
--- NOTE | 2017-10-22 21:54 | NUR ---
ASSOCIATE FACULTY/NOTES PATIENT MOANING AND FACIAL GRIMACE NOTED SEEMS ON PAIN , NORCO TABLET GIVEN MILA G-TUBE .NO ASPIRATION NOTED. BED BATH RENDERED WITH THE HELPED OF CINDY DEL ANGEL WELL WOUND TREATMENT. REPOSITION PT FOR COMFORT. KEPT HER WARM AND COMFORTABLE AT ALL TIMES WILL CONTINUE TO MONITOR. WILL RE- ASSESS LATER.
--- NOTE | 2017-10-23 | NUR ---
MS KAITLIN NOTES PT SLEEPING AT THIS TIME AFTER PAIN MEDS GIVEN MILA G- TUBE. NO SIGNS OF ANY ACUTE DISTRESS OR ANY DISCOMFORT NOTED. WILL CONTINUE MONITORING. PLACE CALL LIGHT AT REACH.
[2017-10-23] MEDS: VANCOMYCIN 0.75 GM in IV D5W 250 ML IV SCH ×3 (03:16→21:03)
--- NOTE | 2017-10-23 07:00 | NUR ---
MS TECHNICAL SYSTEMS ARCHITECT CLOSING NOTES PT RESTING COMFORTABLY IN BED AFTER SPONGE BATH RENDERED WELL WOUND TREATMENT. STABLE MILA THE NIGHT AND SLEPT WELL AFTER NORCO TABLET GIVEN. G-TUBE CLAMPED AT THIS TIME. BREATHING EVEN AND NON-LABORED NOT IN ANY ACUTE DISTRESS NOTED. WARD DRAINING WELL WITH CLEAR YELLOW OUTPUT NOTED. KEPT HER WARM AND COMFORTABLE AT ALL TIMES. PT ON SEMI FOWLERS POSITION WITH SIDE RAILS X3 UP AND BED IN LOW AND LOCK IN POSITION. ENDORSE TO AM NURSE FOR CONTINUITY OF CARE.
--- NOTE | 2017-10-23 07:05 | NUR ---
RN INITIAL NOTES Received patient, nonverbal, asleep on semi Frank's position with patent RVA PICC Line. With patent indwelling catheter with clear yellow urine output. With patent PEG tubed clamped, in place, no leakage noted. Respiratory even and unlabored, no signs of discomfort noted. Kept clean, dry and comfortable. Will monitor accordingly.
[2017-10-23] MEDS ORDERED: GLUCERNA 1.2 1,000 ML BOTTLE GT PRN (07:53)
[2017-10-23 08:00] VITALS: BP 92/50
[2017-10-23] MEDS: MULTIVITAMINS,THERAGRAN 1 UDTAB TABLET GT SCH (08:14)
[2017-10-23] MEDS: ZINC SULFATE 220 MG CAPSULE GT SCH (08:14)
[2017-10-23] MEDS: ACIDOPHILUS/BULGARICUS 1 EACH TAB.CHEW GT SCH (08:14)
[2017-10-23] MEDS: CHOLECALCIFEROL 1,000 UNIT TABLET (VIT D3) GT SCH (08:14)
[2017-10-23] MEDS: ASCORBIC ACID 500 MG TABLET GT SCH ×2 (08:14→17:01)
[2017-10-23] MEDS: SERTRALINE HCL 50 MG TABLET GT SCH (08:14)
[2017-10-23] MEDS: BACLOFEN (10 MG) 10 MG TABLET GT SCH (08:14)
[2017-10-23] MEDS: LEVOFLOXACIN (500MG) 500 MG TABLET PO SCH (08:14)
[2017-10-23] MEDS: MAG HYDROX/AL HYDROX/SIMETH 30 ML UDC TP SCH ×3 (08:14→17:01)
[2017-10-23] MEDS: ASPIRIN 81 MG TAB.CHEW GT SCH (08:14)
[2017-10-23] MEDS: DAKINS QUARTER STRENGTH (0.125%) 480 ML BOTTLE TOP SCH (08:15)
[2017-10-23] MEDS: SILVER SULFADIAZINE CREAM 25 GM TUBE TP SCH (08:16)
--- NOTE | 2017-10-23 09:00 | NUR ---
MS RN NOTES Due meds given as ordered. Seen by Dr. Howard with new orders, noted and carried out. Patient is closely monitored for any unusualities.
--- NOTE | 2017-10-23 10:00 | NUR ---
MS RN NOTES PEG in place, abdomen soft upon palpation. Resumed continuous G-tube feeding @ 65ml/hr as ordered bu the attending physician. Kept HOB elevated, on aspiration precaution. Monitored closely for G-tube feeding complications.
[2017-10-23] MEDS: HYDROCODONE/APAP 5/325MG 1 EACH TABLET PO PRN ×2 (10:11→21:10)
[2017-10-23] MEDS ORDERED: GLUCERNA 1.2 1,000 ML BOTTLE GT SCH (13:00)
--- NOTE | 2017-10-23 15:25 | NUR ---
M/S RN - Jazmin Wu trough level today was 22, dose held per level order. Pharmacist made aware.
[2017-10-23 16:00] VITALS: BP 110/54
--- NOTE | 2017-10-23 18:33 | NUR ---
MS RN CLOSING NOTES Patient asleep on bed, easily aroused to light touch, non-verbal. With patent RVA PICC line infusing well with NS @ KVO rate. With patent PEG with Glucerna 1.2 feeding infusing well @ 65ml/hr as ordered, abdomen soft upon palpation, no distention noted. With patent indwelling FC with clear yellow urine output. Patient seemed comfortable, no SOB/respiratory distress, no signs of discomfort noted. Medicated for pain noted to be effective. Wound treatment done as ordered, tolerated the procedure well without complications noted. Repositioned Q2H as ordered. Kept HOB elevated, on aspiration precaution. Kept comfortable, dry and warm. Endorsed to the next shift.
--- NOTE | 2017-10-23 19:30 | NUR ---
RN NOTES RECEIVED PATIENT IN BED AWAKE, NON-VERBAL. NO ACUTE DISTRESS NOTED. NO SIGNS OF PAIN NOTED. PICC LINE PATENT, INTACT; FLUSHED. GT PATENT, INTACT; NOTED TO BE IN PLACE VIA AUSCULTATION. GTF ONGOING; 5 ML RESIDUAL TAKEN. HOB RAISED. WARD CATH PATENT, INTACT; DRAINING CLEAR YELLOW URINE. ON LOW BED WITH BILATERAL UPPER SIDE RAILS UP. CALL JUNA WITHIN EASY REACH. WILL CONTINUE TO MONITOR.
[2017-10-23 20:00] VITALS: BP 107/64
[2017-10-23 20:04] VITALS: BP 107/64
--- NOTE | 2017-10-24 06:40 | NUR ---
RN NOTES PATIENT ASLEEP, EASILY AROUSABLE. RESPIRATIONS EVEN. NO SIGNS OF PAIN NOTED. DUE IV MED GIVEN WITH NO ASE NOTED. PATIENT TOLERATING GTF. NEEDS ATTENDED. OLD PEG DRESSING AND SACRAL DRESSING CHANGED. KEPT CLEAN, DRY, AND COMFORTABLE. SAFETY PRECAUTIONS AND COMFORT MEASURES IN PLACE. WILL GIVE REPORT TO DAY SHIFT FOR CONTINUITY OF CARE.
--- NOTE | 2017-10-24 07:30 | NUR ---
RN NOTES PATIENT OPENS EYES, NON-VERBAL, BREATHING EVEN AND UNLABORED, NO SOB NOTED, GTF ONGOING AND TOLERATING WELL, CHARIS PICC LINE PATENT AND INTACT, NEEDS ATTENDED, CALL LIGHT WITHIN REACH, WILL CONTINUE TO MONITOR.
[2017-10-24 08:30] VITALS: BP 107/48
[2017-10-24] MEDS: ACIDOPHILUS/BULGARICUS 1 EACH TAB.CHEW GT SCH (09:03)
[2017-10-24] MEDS: CHOLECALCIFEROL 1,000 UNIT TABLET (VIT D3) GT SCH (09:03)
[2017-10-24] MEDS: ASCORBIC ACID 500 MG TABLET GT SCH (09:03)
[2017-10-24] MEDS: BACLOFEN (10 MG) 10 MG TABLET GT SCH (09:03)
[2017-10-24] MEDS: ASPIRIN 81 MG TAB.CHEW GT SCH (09:03)
[2017-10-24] MEDS: MAG HYDROX/AL HYDROX/SIMETH 30 ML UDC TP SCH ×2 (09:04→13:13)
[2017-10-24] MEDS: MULTIVITAMINS,THERAGRAN 1 UDTAB TABLET GT SCH (09:04)
[2017-10-24] MEDS: SERTRALINE HCL 50 MG TABLET GT SCH (09:04)
[2017-10-24] MEDS: ZINC SULFATE 220 MG CAPSULE GT SCH (09:04)
[2017-10-24] MEDS: LEVOFLOXACIN (500MG) 500 MG TABLET PO SCH (09:04)
[2017-10-24] MEDS: DAKINS QUARTER STRENGTH (0.125%) 480 ML BOTTLE TOP SCH (09:10)
[2017-10-24] MEDS: SILVER SULFADIAZINE CREAM 25 GM TUBE TP SCH (09:10)
[2017-10-24] MEDS: VANCOMYCIN 0.75 GM in IV D5W 250 ML IV SCH (15:11)
--- NOTE | 2017-10-24 16:31 | NUR ---
RN NOTES PATIENT NON-VERBAL, BREATHING EVEN AND UNLABORED, NO SOB NOTED, ON O2 AT 2LPM VIA NC WITH SPO2 OF 98%. SKIN ASSESSMENT COMPLETED, PHOTOS TAKEN AND PLACED IN CHART, WOUND TREATMENT RENDERED, SKIN CARE PROVIDED, PICC LINE DRESSING CHANGED USING STERILE TECHNIQUE. CHARIS PICC LINE PATENT AND INTACT, 3 PORTS FLUSHES WELL, PATIENT JUST COMPLETED A DOSE OF VANCOMYCIN. DISCHARGE INSTRUCTIONS PROVIDED TO LIZZETH GRANDDAUGHTER, BELONGINGS RECONCILED, MISSING 1 SHEET AND 2 PILLOWS PER INVENTORY, LIZZETH MADE AWARE, AND STATED "ITS FINE." WARD CATHETER IN PLACED AND DRAINING YELLOW URINE. NEEDS ATTENDED, AMBULANCE CAME, REPORT GIVEN, AND TRANSFERRED TO [facility]. PATIENT LEFT THE FACILITY IN NO DISTRESS.
== END 2017-10-24 16:35 | disposition home health service (06) | DRG 981 ==
LOC: ER 19:04 → MED 20:34
PROVIDERS: ADMIT Nurse Practitioner Acute Care; ATTEND Nurse Practitioner Acute Care
PROC: 02HV33Z Insertion of Infusion Device into Superior Vena Cava, Percutaneous Approach (ICD-10-PCS; 2017-10-15)
PROC: B548ZZA Ultrasonography of Superior Vena Cava, Guidance (ICD-10-PCS; 2017-10-15)
PROC: 0QB10ZZ Excision of Sacrum, Open Approach (ICD-10-PCS; principal; 2017-10-16)
DX: G23.1 Progressive supranuclear ophthalmoplegia [Steele-Richardson-Olszewski] (principal); J96.01 Acute respiratory failure with hypoxia; L89.154 Pressure ulcer of sacral region, stage 4; R53.2 Functional quadriplegia; G93.40 Encephalopathy, unspecified; E44.0 Moderate protein-calorie malnutrition; D68.59 Other primary thrombophilia; M86.9 Osteomyelitis, unspecified; N39.0 Urinary tract infection, site not specified; J98.11 Atelectasis; R62.7 Adult failure to thrive; R13.10 Dysphagia, unspecified; Z90.710 Acquired absence of both cervix and uterus; M19.90 Unspecified osteoarthritis, unspecified site; Z88.0 Allergy status to penicillin; Z79.4 Long term (current) use of insulin; Z79.82 Long term (current) use of aspirin; Z79.899 Other long term (current) drug therapy; E11.9 Type 2 diabetes mellitus without complications; Z86.19 Personal history of other infectious and parasitic diseases; E11.69 Type 2 diabetes mellitus with other specified complication; B96.5 Pseudomonas (aeruginosa) (mallei) (pseudomallei) as the cause of diseases classified elsewhere; M85.9 Disorder of bone density and structure, unspecified; I10 Essential (primary) hypertension
CPT/HCPCS: 36415; 71045-TC; 80048-TC; 80061-TC; 80076-TC; 80202-TC; 82962-TC; 83735-TC; 84100-TC; 84134-TC; 85025-TC; 87040-TC; 87081-TC; 87086-TC; 87186-TC; A4216; A4606; A6253; A6402; A6403; J2185; J3370; J7030; J7040; J7050; J7060; Z7610

== ENCOUNTER 2017-10-30 12:38 | Outpatient (CLI) | payer MEDICARE, BC ==
[~2017-10-30 12:38] MED LIST changes: +ETOMIDATE 2 MG/ML VIAL ONE
== END 2017-10-30 23:59 | disposition home health service (06) ==
LOC: WOU 12:38
PROVIDERS: ATTEND Surgery
DX: L89.154 Pressure ulcer of sacral region, stage 4 (principal); G23.1 Progressive supranuclear ophthalmoplegia [Steele-Richardson-Olszewski]; M24.50 Contracture, unspecified joint; Z93.1 Gastrostomy status; Z87.891 Personal history of nicotine dependence; E11.9 Type 2 diabetes mellitus without complications; Z79.82 Long term (current) use of aspirin; Z79.899 Other long term (current) drug therapy
CPT/HCPCS: 11043; A6402 ×2; J3490; Z7610

== ENCOUNTER → 2017-11-06 | Outpatient (CLI) | payer MEDICARE, BC ==
[~2017-11-06] MED LIST changes: -ETOMIDATE 2 MG/ML VIAL ONE
== END | disposition home or self-care (01) ==
LOC: WOU 12:50
PROVIDERS: ATTEND Surgery
DX: L89.154 Pressure ulcer of sacral region, stage 4 (principal); M24.50 Contracture, unspecified joint; Z88.0 Allergy status to penicillin; L76.34 Postprocedural seroma of skin and subcutaneous tissue following other procedure; E11.9 Type 2 diabetes mellitus without complications; I11.9 Hypertensive heart disease without heart failure; G23.1 Progressive supranuclear ophthalmoplegia [Steele-Richardson-Olszewski]; E44.0 Moderate protein-calorie malnutrition; Z68.1 Body mass index [BMI] 19.9 or less, adult; Z93.1 Gastrostomy status; Z87.891 Personal history of nicotine dependence; Z79.82 Long term (current) use of aspirin; Z79.4 Long term (current) use of insulin; Z79.899 Other long term (current) drug therapy
CPT/HCPCS: 11044; A6402; Z7610

== ENCOUNTER 2017-11-13 13:00 | Outpatient (CLI) | payer MEDICARE, BC | END 2017-11-13 23:59 | disposition home or self-care (01) | LOC: WOU 13:00 | PROVIDERS: ATTEND Surgery | DX: L89.154 Pressure ulcer of sacral region, stage 4 (principal); M24.50 Contracture, unspecified joint; Z88.0 Allergy status to penicillin; Z93.1 Gastrostomy status; Z43.1 Encounter for attention to gastrostomy; E11.9 Type 2 diabetes mellitus without complications; E46 Unspecified protein-calorie malnutrition; I11.9 Hypertensive heart disease without heart failure; R13.10 Dysphagia, unspecified; G23.1 Progressive supranuclear ophthalmoplegia [Steele-Richardson-Olszewski] | CPT/HCPCS: 11044; 11047; 87070-TC; 87186-TC; A6402; Z7610 ==

== ENCOUNTER 2017-11-27 12:30 | Outpatient (CLI) | payer MEDICARE, BC | END 2017-11-27 23:59 | disposition home health service (06) | LOC: WOU 12:30 | PROVIDERS: ATTEND Surgery | DX: L89.154 Pressure ulcer of sacral region, stage 4 (principal); M24.50 Contracture, unspecified joint; R23.8 Other skin changes; K94.22 Gastrostomy infection; Z88.0 Allergy status to penicillin; Z91.048 Other nonmedicinal substance allergy status; E11.9 Type 2 diabetes mellitus without complications; I10 Essential (primary) hypertension; R53.2 Functional quadriplegia; E46 Unspecified protein-calorie malnutrition; Z68.1 Body mass index [BMI] 19.9 or less, adult | CPT/HCPCS: 11044; 11047; A6402 ×2; Z7610 ==

== ENCOUNTER 2017-12-01 13:50 | Outpatient (CLI) | payer MEDICARE, BC | END 2017-12-01 23:59 | disposition home health service (06) | LOC: WOU 13:50 | PROVIDERS: ATTEND Surgery | DX: T81.83XA Persistent postprocedural fistula, initial encounter (principal); K63.2 Fistula of intestine; Y73.8 Miscellaneous gastroenterology and urology devices associated with adverse incidents, not elsewhere classified; E88.09 Other disorders of plasma-protein metabolism, not elsewhere classified; G23.1 Progressive supranuclear ophthalmoplegia [Steele-Richardson-Olszewski]; I11.9 Hypertensive heart disease without heart failure; Z77.22 Contact with and (suspected) exposure to environmental tobacco smoke (acute) (chronic); R13.10 Dysphagia, unspecified; I25.10 Atherosclerotic heart disease of native coronary artery without angina pectoris; E11.9 Type 2 diabetes mellitus without complications; Z87.891 Personal history of nicotine dependence; L89.154 Pressure ulcer of sacral region, stage 4; Z79.4 Long term (current) use of insulin; Z79.899 Other long term (current) drug therapy; Z79.82 Long term (current) use of aspirin | CPT/HCPCS: 11043; A6402; Z7610 ==

== ENCOUNTER 2017-12-04 12:50 | Outpatient (CLI) | payer MEDICARE, BC | END 2017-12-04 23:59 | disposition home health service (06) | LOC: WOU 12:50 | PROVIDERS: ATTEND Surgery | DX: L89.154 Pressure ulcer of sacral region, stage 4 (principal); M24.50 Contracture, unspecified joint; K94.29 Other complications of gastrostomy; G23.1 Progressive supranuclear ophthalmoplegia [Steele-Richardson-Olszewski]; R13.10 Dysphagia, unspecified; I11.9 Hypertensive heart disease without heart failure; M19.90 Unspecified osteoarthritis, unspecified site; E11.9 Type 2 diabetes mellitus without complications; E46 Unspecified protein-calorie malnutrition; Z68.1 Body mass index [BMI] 19.9 or less, adult; Z74.09 Other reduced mobility; Z88.0 Allergy status to penicillin; Z79.4 Long term (current) use of insulin | CPT/HCPCS: 11043; A6402; Z7610 ==

== ENCOUNTER 2017-12-11 10:27 | Inpatient (IN) | payer MEDICARE, BC ==
[2017-12-11] VITALS (20 sets, daily range): BP systolic 99–174; BP diastolic 42–126
[~2017-12-11] VITALS: Ht 165.1 cm; Wt 59.4 kg
[2017-12-11] MEDS ORDERED: IV NS 0.9% 1,000 ML BAG IV ONE ×2 (11:00→12:00)
[2017-12-11 11:14] LABS: BASOPHILS # (AUTO) 0.2 /CMM (0.0-0.2); BASOPHILS % (AUTO) 0.9 % (0.0-2.0); EOSINOPHILS % (AUTO) 0.4 % (0.0-6.0); HEMATOCRIT 32 % (33-45); HEMOGLOBIN 10.2 g/dL (11.5-14.8); LYMPHOCYTES # (AUTO) 1.2 /CMM (0.8-4.8); LYMPHOCYTES % (AUTO) 5.9 % (20.0-44.0); MEAN CORPUSCULAR HGB CONC 32 g/dl (31.0-36.0); MEAN CORPUSCULAR VOLUME 76 fL (82-100); MONOCYTES # (AUTO) 0.7 /CMM (0.1-1.30); MONOCYTES % (AUTO) 3.6 % (2.0-12.0); NEUTROPHILS # (AUTO) 17.5 /CMM (1.8-8.9); NEUTROPHILS % (AUTO) 89.2 % (43.0-81.0); PLATELET COUNT (AUTO) 464 /CMM (150-450); RDW COEFFICIENT OF VARIATION 17.6 (11.5-15.0); RED BLOOD CELL COUNT(AUTO) 4.18 MIL/uL (4.0-5.2); WHITE BLOOD COUNT (AUTO) 19.7 K/uL (4.3-11.0)
[2017-12-11 11:22] LABS: INR 1.26 (0.85-1.15)
[2017-12-11] MEDS ORDERED: LEVOFLOXACIN 750 MG /D5W 150ML 150 ML IV ONE (11:30)
[2017-12-11 11:33] LABS: CHLORIDE 102 mmol/L (98-107); POTASSIUM 4.7 mmol/L (3.5-5.1); SODIUM SERUM 136 mmol/L (136-145)
[2017-12-11 11:34] LABS: CALCIUM, SERUM 8.9 mg/dL (8.5-10.1); CARBON DIOXIDE 28 mmol/L (21-32); CREATININE 0.8 mg/dL (0.6-1.3); GLUCOSE 334 mg/dL (74-106); UREA NITROGEN, BLOOD 29 mg/dL (7-18)
[2017-12-11 11:38] LABS: BILIRUBIN,TOTAL 0.3 mg/dL (0.2-1.0); TROPONIN I < 0.017 ng/mL (0.00-0.056)
[2017-12-11 11:39] LABS: ALANINE AMINOTRANSFERASE 65 U/L (12-78); ALBUMIN 2.3 g/dL (3.4-5.0); ALKALINE PHOSPHATASE 188 U/L (46-116); ASPARTATE AMINOTRANSFERASE 57 U/L (15-37); BILIRUBIN,DIRECT 0.1 mg/dL (0.0-0.2); TOTAL PROTEIN, SERUM 7.5 g/dL (6.4-8.2)
[2017-12-11 11:44] LABS: ABG BASE EXCESS -1.9 mmol/L; ABG OXYGEN SATURATION 94.2 % (92.0-98.5); ABG PH 7.357 (7.350-7.450); ABG PO2 85.4 mmHg (75.0-100.0); AaDO2 584.6 mmHg; COHb 0.2 % (0.5-1.5); MetHb 0.8 % (0.0-1.5); O2Hb 93.3 % (94.0-97.0); SITE, ABG Right Radial
[2017-12-11] MEDS ORDERED: ALBU1.257 NEB (11:46)
[2017-12-11 12:13] LABS: APPEARANCE,URINE Clear (CLEAR); BILIRUBIN,URINE Negative (NEGATIVE); BLOOD, URINE Large Ery/uL (NEGATIVE); COLOR,URINE Yellow (YELLOW); KETONES,URINE Negative (NEGATIVE); LEUKOCYTE ESTERASE ,URINE Small (NEGATIVE); NITRITE, URINE Negative (NEGATIVE); PH,URINE 5.5 (5.0-8.0); PROTEIN,URINE 100 mg/dl (NEGATIVE); UGLUCOSE Negative (NEGATIVE); UROBILINOGEN,URINE 0.2 EU/dL (0.2)
[2017-12-11 12:20] LABS: BACTERIA,URINE 1+ /HPF (None Seen); SQUAMOUS EPITHELIAL CELL,UR Few /HPF (None Seen)
[2017-12-11] MEDS ORDERED: ONDANSETRON HCL/PF 4 MG/2 ML VIAL IVP PRN (12:30)
[2017-12-11] MEDS ORDERED: NOREPINEPHRINE 8 MG in IV D5W 500 ML IV PRN (12:30)
[2017-12-11] MEDS ORDERED: POLYETHYLENE GLYCOL 3350 17 GM POWD.PACK GT PRN (12:30)
[2017-12-11] MEDS ORDERED: GLUCERNA 1.2 1,000 ML BOTTLE GT SCH ×2 (12:30→13:30)
[2017-12-11] MEDS ORDERED: FEE PK DOSING 1 MIN EA MC ONE (13:00)
[2017-12-11] MEDS ORDERED: CYANOCOBALAMIN 500 MCG TABLET PO SCH (13:00)
[2017-12-11] MEDS ORDERED: CYAN500T4 PO (13:21)
[2017-12-11] MEDS: VANCOMYCIN 0.75 GM in IV D5W 250 ML IV SCH (14:57)
[2017-12-11] MEDS: ACETYLCYSTEINE 10% SOLN 400 MG/4 ML VIAL NEB SCH (16:22)
[2017-12-11] MEDS: ALBUTEROL HALF STRENGTH 1.25 MG/3 ML VIAL.NEB NEB SCH ×2 (16:22→21:20)
[2017-12-11] MEDS: IPRATROPIUM NEB FS 0.5 MG/2.5 ML AMPUL.NEB NEB SCH ×2 (16:23→19:33)
[2017-12-11] MEDS ORDERED: DEXTROSE 50%-WATER 50 ML DISP.SYRIN IV PRN (17:00)
[2017-12-11] MEDS: DAKINS QUARTER STRENGTH (0.125%) 480 ML BOTTLE TOP SCH (17:00)
[2017-12-11] MEDS: ASCORBIC ACID 500 MG TABLET GT SCH (17:15)
[2017-12-11] MEDS: BLOOD SUGAR DIAGNOSTIC 1 EACH STRIP VI SCH ×2 (17:26→21:28)
[2017-12-11] MEDS: ENOXAPARIN SODIUM 40 MG/0.4 ML DISP.SYRIN SQ SCH (21:00)
[2017-12-11] MEDS: clonazePAM 0.5 MG TABLET PO SCH (21:28)
[2017-12-11] MEDS: *INSULIN REGULAR(HUMULIN R)HUM 100 UNIT/ML VIAL SQ PRN (21:28)
[2017-12-12] VITALS (53 sets, daily range): BP systolic 94–154; BP diastolic 48–105
[2017-12-12] MEDS: IPRATROPIUM NEB FS 0.5 MG/2.5 ML AMPUL.NEB NEB SCH ×7 (00:06→23:35)
[2017-12-12] MEDS: ACETYLCYSTEINE 10% SOLN 400 MG/4 ML VIAL NEB SCH ×4 (00:06→23:35)
[2017-12-12] MEDS: ALBUTEROL HALF STRENGTH 1.25 MG/3 ML VIAL.NEB NEB SCH ×7 (01:32→23:35)
[2017-12-12] MEDS: VANCOMYCIN 0.75 GM in IV D5W 250 ML IV SCH ×2 (01:49→14:30)
[2017-12-12 04:38] LABS: BASOPHILS # (AUTO) 0.1 /CMM (0.0-0.2); BASOPHILS % (AUTO) 0.5 % (0.0-2.0); EOSINOPHILS % (AUTO) 1.1 % (0.0-6.0); HEMATOCRIT 25 % (33-45); LYMPHOCYTES # (AUTO) 1.3 /CMM (0.8-4.8); LYMPHOCYTES % (AUTO) 11.9 % (20.0-44.0); MEAN CORPUSCULAR HGB CONC 32 g/dl (31.0-36.0); MEAN CORPUSCULAR VOLUME 75 fL (82-100); MONOCYTES # (AUTO) 0.5 /CMM (0.1-1.30); MONOCYTES % (AUTO) 4.5 % (2.0-12.0); NEUTROPHILS # (AUTO) 9.2 /CMM (1.8-8.9); PLATELET COUNT (AUTO) 343 /CMM (150-450); RDW COEFFICIENT OF VARIATION 17.6 (11.5-15.0); WHITE BLOOD COUNT (AUTO) 11.2 K/uL (4.3-11.0)
[2017-12-12 05:11] LABS: ALBUMIN 2.1 g/dL (3.4-5.0); BILIRUBIN,TOTAL 0.4 mg/dL (0.2-1.0); CALCIUM, SERUM 8.4 mg/dL (8.5-10.1); CREATININE 0.5 mg/dL (0.6-1.3); PHOSPHORUS 3.1 mg/dL (2.5-4.9); POTASSIUM 3.9 mmol/L (3.5-5.1); TOTAL PROTEIN, SERUM 6.2 g/dL (6.4-8.2)
[2017-12-12 05:18] LABS: THYROID STIMULATING HORMONE 2.317 uIU/mL (0.358-3.74)
[2017-12-12] MEDS: CYANOCOBALAMIN 500 MCG TABLET PO SCH (08:12)
[2017-12-12] MEDS: ACETAMINOPHEN ES 500 MG TABLET GT SCH (08:12)
[2017-12-12] MEDS: SERTRALINE HCL 25 MG TABLET GT SCH (08:12)
[2017-12-12] MEDS: BACLOFEN (10 MG) 10 MG TABLET GT SCH (08:12)
[2017-12-12] MEDS: ACIDOPHILUS/BULGARICUS 1 EACH TAB.CHEW GT SCH (08:12)
[2017-12-12] MEDS: ZINC SULFATE 220 MG CAPSULE GT SCH (08:12)
[2017-12-12] MEDS: BLOOD SUGAR DIAGNOSTIC 1 EACH STRIP VI SCH ×4 (08:12→21:46)
[2017-12-12] MEDS: ASPIRIN 81 MG TAB.CHEW GT SCH (08:12)
[2017-12-12] MEDS: CHOLECALCIFEROL 1,000 UNIT TABLET (VIT D3) GT SCH (08:13)
[2017-12-12] MEDS: ASCORBIC ACID 500 MG TABLET GT SCH ×2 (08:13→17:11)
[2017-12-12] MEDS: PANTOPRAZOLE 40 MG VIAL IV SCH (08:13)
[2017-12-12] MEDS: MULTIVIT, IRON, MIN NO. 8, FA 1 TAB GT SCH (08:13)
[2017-12-12] MEDS: DAKINS QUARTER STRENGTH (0.125%) 480 ML BOTTLE TOP SCH (08:14)
[2017-12-12] MEDS: PROSOURCE / PROSTAT (PYXIS) 30 ML UDC GT SCH (08:15)
[2017-12-12] MEDS: INSULIN REGULAR, HUMAN 100 UNIT/ML 3 ML VIAL SQ PRN ×4 (08:16→21:44)
[2017-12-12 08:52] LABS: ABG BASE EXCESS 1.5 mmol/L; ABG OXYGEN SATURATION 97.7 % (92.0-98.5); ABG PCO2 36.4 mmHg (35.0-45.0); ABG PH 7.459 (7.350-7.450); ABG PO2 130.8 mmHg (75.0-100.0); AaDO2 112.5 mmHg; COHb 0.2 % (0.5-1.5); O2Hb 96.5 % (94.0-97.0); SITE, ABG Right Radial; VENT MODE, BG ST 20/10 40%
[2017-12-12] MEDS: ENOXAPARIN SODIUM 40 MG/0.4 ML DISP.SYRIN SQ SCH (09:00)
[2017-12-12] MEDS ORDERED: GLUCERNA GT PRN (11:00)
[2017-12-12] MEDS ORDERED: GLUCERNA 1.2 1,000 ML BOTTLE GT PRN (12:30)
[2017-12-12 13:28] LABS: OCCULT BLOOD STOOL NEGATIVE (NEGATIVE)
[2017-12-12 13:51] LABS: ABG OXYGEN SATURATION 95.8 % (92.0-98.5); ABG PCO2 35.7 mmHg (35.0-45.0); ABG PH 7.444 (7.350-7.450); AaDO2 127.3 mmHg; COHb 0.3 % (0.5-1.5); O2Hb 94.6 % (94.0-97.0); SITE, ABG Right Radial; VENT MODE, BG nasal cannula
[2017-12-12] MEDS: MEROPENEM 500 MG in IV NS 0.9% 50 ML IV SCH ×2 (13:54→21:11)
[2017-12-12] MEDS ORDERED: IV D5/ 0.9% NACL 1,000 ML IV ONE (14:00)
[2017-12-12] MEDS: clonazePAM 0.5 MG TABLET PO SCH (21:11)
[2017-12-13] VITALS (49 sets, daily range): BP systolic 95–139; BP diastolic 47–84
[2017-12-13] MEDS: VANCOMYCIN 0.75 GM in IV D5W 250 ML IV SCH ×2 (01:17→13:23)
[2017-12-13] MEDS: IPRATROPIUM NEB FS 0.5 MG/2.5 ML AMPUL.NEB NEB SCH ×6 (03:21→23:23)
[2017-12-13] MEDS: ALBUTEROL HALF STRENGTH 1.25 MG/3 ML VIAL.NEB NEB SCH ×6 (03:21→23:23)
[2017-12-13] MEDS: MEROPENEM 500 MG in IV NS 0.9% 50 ML IV SCH ×3 (04:40→21:25)
[2017-12-13 05:09] LABS: CALCIUM, SERUM 8.9 mg/dL (8.5-10.1); CREATININE 0.5 mg/dL (0.6-1.3); PHOSPHORUS 2.4 mg/dL (2.5-4.9); POTASSIUM 3.3 mmol/L (3.5-5.1)
[2017-12-13 05:15] LABS: BASOPHILS # (AUTO) 0.1 /CMM (0.0-0.2); BASOPHILS % (AUTO) 0.5 % (0.0-2.0); EOSINOPHILS % (AUTO) 1.2 % (0.0-6.0); HEMATOCRIT 25 % (33-45); HEMOGLOBIN 7.8 g/dL (11.5-14.8); LYMPHOCYTES # (AUTO) 0.9 /CMM (0.8-4.8); LYMPHOCYTES % (AUTO) 6.9 % (20.0-44.0); MEAN CORPUSCULAR HGB CONC 31 g/dl (31.0-36.0); MEAN CORPUSCULAR VOLUME 77 fL (82-100); MONOCYTES # (AUTO) 0.7 /CMM (0.1-1.30); MONOCYTES % (AUTO) 5.2 % (2.0-12.0); NEUTROPHILS # (AUTO) 10.7 /CMM (1.8-8.9); NEUTROPHILS % (AUTO) 86.2 % (43.0-81.0); PLATELET COUNT (AUTO) 356 /CMM (150-450); RDW COEFFICIENT OF VARIATION 18.4 (11.5-15.0); RED BLOOD CELL COUNT(AUTO) 3.28 MIL/uL (4.0-5.2); WHITE BLOOD COUNT (AUTO) 12.5 K/uL (4.3-11.0)
[2017-12-13] MEDS: BLOOD SUGAR DIAGNOSTIC 1 EACH STRIP VI SCH ×4 (08:02→21:58)
[2017-12-13] MEDS: ASCORBIC ACID 500 MG TABLET GT SCH ×2 (08:09→16:35)
[2017-12-13] MEDS: BACLOFEN (10 MG) 10 MG TABLET GT SCH (08:09)
[2017-12-13] MEDS: ASPIRIN 81 MG TAB.CHEW GT SCH (08:09)
[2017-12-13] MEDS: PANTOPRAZOLE 40 MG VIAL IV SCH (08:09)
[2017-12-13] MEDS: SERTRALINE HCL 25 MG TABLET GT SCH (08:09)
[2017-12-13] MEDS: PROSOURCE / PROSTAT (PYXIS) 30 ML UDC GT SCH (08:09)
[2017-12-13] MEDS: MULTIVIT, IRON, MIN NO. 8, FA 1 TAB GT SCH (08:09)
[2017-12-13] MEDS: ACIDOPHILUS/BULGARICUS 1 EACH TAB.CHEW GT SCH (08:09)
[2017-12-13] MEDS: CYANOCOBALAMIN 500 MCG TABLET PO SCH (08:09)
[2017-12-13] MEDS: ZINC SULFATE 220 MG CAPSULE GT SCH (08:09)
[2017-12-13] MEDS: CHOLECALCIFEROL 1,000 UNIT TABLET (VIT D3) GT SCH (08:09)
[2017-12-13] MEDS: ENOXAPARIN SODIUM 40 MG/0.4 ML DISP.SYRIN SQ SCH (08:10)
[2017-12-13] MEDS: DAKINS QUARTER STRENGTH (0.125%) 480 ML BOTTLE TOP SCH (08:10)
[2017-12-13] MEDS: INSULIN REGULAR, HUMAN 100 UNIT/ML 3 ML VIAL SQ PRN ×2 (08:11→16:36)
[2017-12-13] MEDS: ACETAMINOPHEN ES 500 MG TABLET GT SCH (08:11)
[2017-12-13] MEDS: ACETYLCYSTEINE 10% SOLN 400 MG/4 ML VIAL NEB SCH ×3 (08:13→23:23)
[2017-12-13] MEDS ORDERED: POTASSIUM CHLORIDE 20 MEQ TAB.PRT.SR PO SCH (10:00)
[2017-12-13] MEDS ORDERED: POTASSIUM CHLORIDE 20 MEQ POWDER PACKET PO SCH (10:00)
[2017-12-13] MEDS ORDERED: NEUTRA PHOS 1 POWD.PACKET NG ONE (10:30)
[2017-12-13] MEDS: GLUCERNA GT PRN (13:28)
[2017-12-13] MEDS ORDERED: IV D5/ 0.9% NACL 1,000 ML IV ONE (14:00)
[2017-12-13] MEDS ORDERED: IV D5/ 0.9% NACL 1,000 ML IV PRN (14:30)
[2017-12-13] MEDS: clonazePAM 0.5 MG TABLET PO SCH (21:58)
[2017-12-13] MEDS: *INSULIN REGULAR(HUMULIN R)HUM 100 UNIT/ML VIAL SQ PRN (22:04)
[2017-12-13] MEDS ORDERED: FLUCONAZOLE IN NS,PREMIX 200 MG in PREMIX 1 EA IV SCH ×2 (23:30)
[2017-12-13] MEDS ORDERED: FLUCONAZOLE IN NS,PREMIX 200 MG in PREMIX 1 EA IV ONE ×2 (23:45)
[2017-12-14] VITALS (29 sets, daily range): BP systolic 101–132; BP diastolic 47–75
[2017-12-14] MEDS ORDERED: FLUCONAZOLE IN NS 100 ML IV ONE (00:31)
[2017-12-14] MEDS: VANCOMYCIN 0.75 GM in IV D5W 250 ML IV SCH ×2 (02:40→14:58)
[2017-12-14] MEDS: IPRATROPIUM NEB FS 0.5 MG/2.5 ML AMPUL.NEB NEB SCH ×6 (03:39→23:42)
[2017-12-14] MEDS: ALBUTEROL HALF STRENGTH 1.25 MG/3 ML VIAL.NEB NEB SCH ×6 (03:40→23:48)
[2017-12-14 04:40] LABS: BASOPHILS % (AUTO) 0.3 % (0.0-2.0); EOSINOPHILS % (AUTO) 4.2 % (0.0-6.0); HEMATOCRIT 24 % (33-45); HEMOGLOBIN 7.4 g/dL (11.5-14.8); LYMPHOCYTES % (AUTO) 10.8 % (20.0-44.0); MEAN CORPUSCULAR HGB CONC 31 g/dl (31.0-36.0); MEAN CORPUSCULAR VOLUME 77 fL (82-100); MONOCYTES # (AUTO) 0.6 /CMM (0.1-1.30); MONOCYTES % (AUTO) 6.1 % (2.0-12.0); NEUTROPHILS # (AUTO) 7.6 /CMM (1.8-8.9); NEUTROPHILS % (AUTO) 78.6 % (43.0-81.0); PLATELET COUNT (AUTO) 366 /CMM (150-450); RDW COEFFICIENT OF VARIATION 19.2 (11.5-15.0); WHITE BLOOD COUNT (AUTO) 9.7 K/uL (4.3-11.0)
[2017-12-14 04:57] LABS: CREATININE 0.5 mg/dL (0.6-1.3); MAGNESIUM 1.9 mg/dL (1.8-2.4); PHOSPHORUS 2.6 mg/dL (2.5-4.9); POTASSIUM 3.6 mmol/L (3.5-5.1)
[2017-12-14] MEDS: MEROPENEM 500 MG in IV NS 0.9% 50 ML IV SCH ×3 (05:41→21:23)
[2017-12-14] MEDS: GLUCERNA GT PRN ×2 (06:58→18:40)
[2017-12-14] MEDS: ACETYLCYSTEINE 10% SOLN 400 MG/4 ML VIAL NEB SCH ×3 (07:12→23:42)
[2017-12-14] MEDS: CHOLECALCIFEROL 1,000 UNIT TABLET (VIT D3) GT SCH (08:10)
[2017-12-14] MEDS: CYANOCOBALAMIN 500 MCG TABLET PO SCH (08:10)
[2017-12-14] MEDS: ASPIRIN 81 MG TAB.CHEW GT SCH (08:10)
[2017-12-14] MEDS: PANTOPRAZOLE 40 MG VIAL IV SCH (08:10)
[2017-12-14] MEDS: BACLOFEN (10 MG) 10 MG TABLET GT SCH (08:10)
[2017-12-14] MEDS: MULTIVIT, IRON, MIN NO. 8, FA 1 TAB GT SCH (08:11)
[2017-12-14] MEDS: SERTRALINE HCL 25 MG TABLET GT SCH (08:11)
[2017-12-14] MEDS: ZINC SULFATE 220 MG CAPSULE GT SCH (08:11)
[2017-12-14] MEDS: ASCORBIC ACID 500 MG TABLET GT SCH ×2 (08:11→16:14)
[2017-12-14] MEDS: ACETAMINOPHEN ES 500 MG TABLET GT SCH (08:11)
[2017-12-14] MEDS: ACIDOPHILUS/BULGARICUS 1 EACH TAB.CHEW GT SCH (08:11)
[2017-12-14] MEDS: PROSOURCE / PROSTAT (PYXIS) 30 ML UDC GT SCH (08:14)
[2017-12-14] MEDS: BLOOD SUGAR DIAGNOSTIC 1 EACH STRIP VI SCH ×4 (08:16→21:28)
[2017-12-14] MEDS: INSULIN REGULAR, HUMAN 100 UNIT/ML 3 ML VIAL SQ PRN ×3 (08:18→16:39)
[2017-12-14] MEDS: DAKINS QUARTER STRENGTH (0.125%) 480 ML BOTTLE TOP SCH (08:18)
[2017-12-14 18:09] LABS: ABG BASE EXCESS 1.4 mmol/L; ABG OXYGEN SATURATION 92.4 % (92.0-98.5); ABG PH 7.428 (7.350-7.450); ABG PO2 67.2 mmHg (75.0-100.0); COHb 0.3 % (0.5-1.5); MetHb 0.9 % (0.0-1.5); O2Hb 91.3 % (94.0-97.0); SITE, ABG Right Radial; VENT MODE, BG NC 4L
[2017-12-14] MEDS: clonazePAM 0.5 MG TABLET PO SCH (21:23)
[2017-12-14] MEDS: *INSULIN REGULAR(HUMULIN R)HUM 100 UNIT/ML VIAL SQ PRN (21:34)
[2017-12-15] VITALS (27 sets, daily range): BP systolic 101–132; BP diastolic 55–71
[2017-12-15] MEDS: VANCOMYCIN 0.75 GM in IV D5W 250 ML IV SCH ×2 (02:08→15:20)
[2017-12-15] MEDS: GLUCERNA GT PRN (03:47)
[2017-12-15] MEDS: ALBUTEROL HALF STRENGTH 1.25 MG/3 ML VIAL.NEB NEB SCH ×6 (04:04→22:58)
[2017-12-15] MEDS: IPRATROPIUM NEB FS 0.5 MG/2.5 ML AMPUL.NEB NEB SCH ×6 (04:04→22:58)
[2017-12-15 04:50] LABS: LYMPHOCYTES # (AUTO) 1.1 /CMM (0.8-4.8); MONOCYTES # (AUTO) 0.4 /CMM (0.1-1.30); RED BLOOD CELL COUNT(AUTO) 2.89 MIL/uL (4.0-5.2)
[2017-12-15 04:52] LABS: BASOPHILS % (AUTO) 0.5 % (0.0-2.0); EOSINOPHILS % (AUTO) 7.4 % (0.0-6.0); LYMPHOCYTES % (AUTO) 14.4 % (20.0-44.0); MEAN CORPUSCULAR HGB CONC 31 g/dl (31.0-36.0); MEAN CORPUSCULAR VOLUME 76 fL (82-100); MONOCYTES % (AUTO) 5.1 % (2.0-12.0); NEUTROPHILS # (AUTO) 5.4 /CMM (1.8-8.9); NEUTROPHILS % (AUTO) 72.6 % (43.0-81.0); PLATELET COUNT (AUTO) 345 /CMM (150-450); RDW COEFFICIENT OF VARIATION 18.6 (11.5-15.0); WHITE BLOOD COUNT (AUTO) 7.4 K/uL (4.3-11.0)
[2017-12-15 04:54] LABS: HEMATOCRIT 22 % (33-45); HEMOGLOBIN 6.9 g/dL (11.5-14.8)
[2017-12-15 04:56] LABS: CALCIUM, SERUM 7.9 mg/dL (8.5-10.1); CREATININE 0.5 mg/dL (0.6-1.3); MAGNESIUM 1.9 mg/dL (1.8-2.4); PHOSPHORUS 2.7 mg/dL (2.5-4.9); POTASSIUM 3.6 mmol/L (3.5-5.1)
[2017-12-15 05:23] LABS: EOSINOPHILS % (MANUAL) 5 % (0-4); LYMPHOCYTES % (MANUAL) 18 % (16-48); MONOCYTES % (MANUAL) 5 % (0-11.0); NEUTROPHILS % (MANUAL) 72 (42-76)
[2017-12-15] MEDS: MEROPENEM 500 MG in IV NS 0.9% 50 ML IV SCH ×3 (05:59→21:21)
[2017-12-15] MEDS: ACETYLCYSTEINE 10% SOLN 400 MG/4 ML VIAL NEB SCH ×3 (07:30→22:59)
[2017-12-15] MEDS: SERTRALINE HCL 25 MG TABLET GT SCH (08:42)
[2017-12-15] MEDS: ZINC SULFATE 220 MG CAPSULE GT SCH (08:42)
[2017-12-15] MEDS: MULTIVIT, IRON, MIN NO. 8, FA 1 TAB GT SCH (08:42)
[2017-12-15] MEDS: ASPIRIN 81 MG TAB.CHEW GT SCH (08:42)
[2017-12-15] MEDS: BLOOD SUGAR DIAGNOSTIC 1 EACH STRIP VI SCH ×4 (08:42→21:32)
[2017-12-15] MEDS: PANTOPRAZOLE 40 MG VIAL IV SCH (08:43)
[2017-12-15] MEDS: BACLOFEN (10 MG) 10 MG TABLET GT SCH (08:43)
[2017-12-15] MEDS: DAKINS QUARTER STRENGTH (0.125%) 480 ML BOTTLE TOP SCH (08:43)
[2017-12-15] MEDS: CYANOCOBALAMIN 500 MCG TABLET PO SCH (08:43)
[2017-12-15] MEDS: CHOLECALCIFEROL 1,000 UNIT TABLET (VIT D3) GT SCH (08:43)
[2017-12-15] MEDS: ASCORBIC ACID 500 MG TABLET GT SCH ×2 (08:43→17:37)
[2017-12-15] MEDS: ACIDOPHILUS/BULGARICUS 1 EACH TAB.CHEW GT SCH (08:43)
[2017-12-15] MEDS: ACETAMINOPHEN ES 500 MG TABLET GT SCH (08:44)
[2017-12-15] MEDS: PROSOURCE / PROSTAT (PYXIS) 30 ML UDC GT SCH (08:45)
[2017-12-15] MEDS: *INSULIN REGULAR(HUMULIN R)HUM 100 UNIT/ML VIAL SQ PRN ×2 (08:46→21:38)
[2017-12-15] MEDS ORDERED: LIDOCAINE 1%-EPI 1:100,000 20 ML VIAL TP SCH ×2 (10:00→10:58)
[2017-12-15] MEDS ORDERED: SILVER NITRATE APPLICATOR 1 EA BOX TP ONE (10:00)
[2017-12-15] MEDS: INSULIN REGULAR, HUMAN 100 UNIT/ML 3 ML VIAL SQ PRN ×2 (12:48→17:59)
[2017-12-15] MEDS: clonazePAM 0.5 MG TABLET PO SCH (21:21)
[2017-12-16] VITALS (36 sets, daily range): BP systolic 111–147; BP diastolic 52–94
[2017-12-16] MEDS: VANCOMYCIN 0.75 GM in IV D5W 250 ML IV SCH ×2 (01:52→13:55)
[2017-12-16] MEDS: IPRATROPIUM NEB FS 0.5 MG/2.5 ML AMPUL.NEB NEB SCH ×6 (03:05→23:20)
[2017-12-16] MEDS: ALBUTEROL HALF STRENGTH 1.25 MG/3 ML VIAL.NEB NEB SCH ×6 (03:05→23:20)
[2017-12-16 04:48] LABS: BASOPHILS % (AUTO) 0.4 % (0.0-2.0); HEMATOCRIT 28 % (33-45); HEMOGLOBIN 8.8 g/dL (11.5-14.8); LYMPHOCYTES # (AUTO) 1.2 /CMM (0.8-4.8); LYMPHOCYTES % (AUTO) 14.2 % (20.0-44.0); MEAN CORPUSCULAR HGB CONC 32 g/dl (31.0-36.0); MEAN CORPUSCULAR VOLUME 77 fL (82-100); MONOCYTES # (AUTO) 0.4 /CMM (0.1-1.30); NEUTROPHILS # (AUTO) 6.2 /CMM (1.8-8.9); NEUTROPHILS % (AUTO) 73.4 % (43.0-81.0); PLATELET COUNT (AUTO) 393 /CMM (150-450); RDW COEFFICIENT OF VARIATION 18.5 (11.5-15.0); RED BLOOD CELL COUNT(AUTO) 3.61 MIL/uL (4.0-5.2); WHITE BLOOD COUNT (AUTO) 8.5 K/uL (4.3-11.0)
[2017-12-16 05:08] LABS: ALBUMIN 2.2 g/dL (3.4-5.0); BILIRUBIN,TOTAL 0.3 mg/dL (0.2-1.0); CALCIUM, SERUM 8.3 mg/dL (8.5-10.1); CREATININE 0.5 mg/dL (0.6-1.3); MAGNESIUM 1.8 mg/dL (1.8-2.4); PHOSPHORUS 2.7 mg/dL (2.5-4.9); POTASSIUM 3.8 mmol/L (3.5-5.1); TOTAL PROTEIN, SERUM 6.3 g/dL (6.4-8.2)
[2017-12-16] MEDS: MEROPENEM 500 MG in IV NS 0.9% 50 ML IV SCH ×3 (05:29→21:42)
[2017-12-16] MEDS: ACETYLCYSTEINE 10% SOLN 400 MG/4 ML VIAL NEB SCH ×3 (07:35→23:20)
[2017-12-16] MEDS: BLOOD SUGAR DIAGNOSTIC 1 EACH STRIP VI SCH ×4 (08:20→22:19)
[2017-12-16] MEDS: ASPIRIN 81 MG TAB.CHEW GT SCH (08:30)
[2017-12-16] MEDS: BACLOFEN (10 MG) 10 MG TABLET GT SCH (08:30)
[2017-12-16] MEDS: ACIDOPHILUS/BULGARICUS 1 EACH TAB.CHEW GT SCH (08:30)
[2017-12-16] MEDS: MULTIVIT, IRON, MIN NO. 8, FA 1 TAB GT SCH (08:31)
[2017-12-16] MEDS: PROSOURCE / PROSTAT (PYXIS) 30 ML UDC GT SCH (08:31)
[2017-12-16] MEDS: ACETAMINOPHEN ES 500 MG TABLET GT SCH (08:31)
[2017-12-16] MEDS: CYANOCOBALAMIN 500 MCG TABLET PO SCH (08:32)
[2017-12-16] MEDS: CHOLECALCIFEROL 1,000 UNIT TABLET (VIT D3) GT SCH (08:32)
[2017-12-16] MEDS: SERTRALINE HCL 25 MG TABLET GT SCH (08:32)
[2017-12-16] MEDS: ASCORBIC ACID 500 MG TABLET GT SCH ×2 (08:32→16:09)
[2017-12-16] MEDS: ZINC SULFATE 220 MG CAPSULE GT SCH (08:32)
[2017-12-16] MEDS: PANTOPRAZOLE 40 MG VIAL IV SCH (08:32)
[2017-12-16] MEDS: INSULIN REGULAR, HUMAN 100 UNIT/ML 3 ML VIAL SQ PRN (08:50)
[2017-12-16 09:37] LABS: ABG OXYGEN SATURATION 97.8 % (92.0-98.5); ABG PCO2 38.4 mmHg (35.0-45.0); ABG PH 7.449 (7.350-7.450); ABG PO2 135.2 mmHg (75.0-100.0); AaDO2 539.4 mmHg; COHb 0.2 % (0.5-1.5); MetHb 0.9 % (0.0-1.5); O2Hb 96.7 % (94.0-97.0); SITE, ABG Right Radial
[2017-12-16] MEDS: DAKINS QUARTER STRENGTH (0.125%) 480 ML BOTTLE TOP SCH (09:38)
[2017-12-16] MEDS: GLUCERNA GT PRN (10:41)
[2017-12-16] MEDS ORDERED: DIATR MEGLU/DIATRIZOATE SODIUM 30 ML BOTTLE (GASTROGRAPHIN) ONE (11:27)
[2017-12-16] MEDS: clonazePAM 0.5 MG TABLET PO SCH (21:42)
[2017-12-16] MEDS: *INSULIN REGULAR(HUMULIN R)HUM 100 UNIT/ML VIAL SQ PRN (22:20)
[2017-12-17] VITALS (33 sets, daily range): BP systolic 93–143; BP diastolic 45–108
[2017-12-17] MEDS ORDERED: VANCOMYCIN 1 GM VIAL ONE (00:54)
[2017-12-17] MEDS: VANCOMYCIN 0.75 GM in IV D5W 250 ML IV SCH ×2 (02:06→16:23)
[2017-12-17] MEDS: ALBUTEROL HALF STRENGTH 1.25 MG/3 ML VIAL.NEB NEB SCH ×6 (03:46→23:38)
[2017-12-17] MEDS: IPRATROPIUM NEB FS 0.5 MG/2.5 ML AMPUL.NEB NEB SCH ×6 (03:46→23:38)
[2017-12-17 04:54] LABS: BASOPHILS % (AUTO) 0.4 % (0.0-2.0); EOSINOPHILS % (AUTO) 5.4 % (0.0-6.0); HEMATOCRIT 28 % (33-45); HEMOGLOBIN 8.5 g/dL (11.5-14.8); LYMPHOCYTES # (AUTO) 1.1 /CMM (0.8-4.8); MEAN CORPUSCULAR HGB CONC 31 g/dl (31.0-36.0); MEAN CORPUSCULAR VOLUME 78 fL (82-100); MONOCYTES # (AUTO) 0.4 /CMM (0.1-1.30); NEUTROPHILS # (AUTO) 8.2 /CMM (1.8-8.9); NEUTROPHILS % (AUTO) 79.2 % (43.0-81.0); PLATELET COUNT (AUTO) 386 /CMM (150-450); RDW COEFFICIENT OF VARIATION 18.6 (11.5-15.0); RED BLOOD CELL COUNT(AUTO) 3.58 MIL/uL (4.0-5.2); WHITE BLOOD COUNT (AUTO) 10.3 K/uL (4.3-11.0)
[2017-12-17 05:02] LABS: CALCIUM, SERUM 8.5 mg/dL (8.5-10.1); CREATININE 0.5 mg/dL (0.6-1.3); MAGNESIUM 1.8 mg/dL (1.8-2.4); PHOSPHORUS 2.9 mg/dL (2.5-4.9); POTASSIUM 3.9 mmol/L (3.5-5.1)
[2017-12-17] MEDS: MEROPENEM 500 MG in IV NS 0.9% 50 ML IV SCH ×3 (05:02→21:29)
[2017-12-17] MEDS: INSULIN REGULAR, HUMAN 100 UNIT/ML 3 ML VIAL SQ PRN (06:22)
[2017-12-17] MEDS: BLOOD SUGAR DIAGNOSTIC 1 EACH STRIP VI SCH ×4 (06:31→21:52)
[2017-12-17] MEDS: ACETYLCYSTEINE 10% SOLN 400 MG/4 ML VIAL NEB SCH ×3 (07:22→23:38)
[2017-12-17 08:50] LABS: ABG BASE EXCESS 4.2 mmol/L; ABG OXYGEN SATURATION 96.7 % (92.0-98.5); ABG PCO2 42.4 mmHg (35.0-45.0); ABG PH 7.448 (7.350-7.450); ABG PO2 96.5 mmHg (75.0-100.0); AaDO2 176.1 mmHg; COHb 0.2 % (0.5-1.5); O2Hb 95.5 % (94.0-97.0); SITE, ABG Right Radial; VENT MODE, BG Bipap 20/10 45% BR 20
[2017-12-17] MEDS ORDERED: SILVER NITRATE APPLICATOR 1 EA BOX TP ONE (09:00)
[2017-12-17] MEDS: ZINC SULFATE 220 MG CAPSULE GT SCH (09:37)
[2017-12-17] MEDS: ASPIRIN 81 MG TAB.CHEW GT SCH (09:37)
[2017-12-17] MEDS: CHOLECALCIFEROL 1,000 UNIT TABLET (VIT D3) GT SCH (09:38)
[2017-12-17] MEDS: MULTIVIT, IRON, MIN NO. 8, FA 1 TAB GT SCH (09:38)
[2017-12-17] MEDS: BACLOFEN (10 MG) 10 MG TABLET GT SCH (09:38)
[2017-12-17] MEDS: SERTRALINE HCL 25 MG TABLET GT SCH (09:38)
[2017-12-17] MEDS: ACETAMINOPHEN ES 500 MG TABLET GT SCH (09:38)
[2017-12-17] MEDS: CYANOCOBALAMIN 500 MCG TABLET PO SCH (09:38)
[2017-12-17] MEDS: ASCORBIC ACID 500 MG TABLET GT SCH ×2 (09:38→17:07)
[2017-12-17] MEDS: ACIDOPHILUS/BULGARICUS 1 EACH TAB.CHEW GT SCH (09:38)
[2017-12-17] MEDS: PANTOPRAZOLE 40 MG VIAL IV SCH (09:40)
[2017-12-17] MEDS: DAKINS QUARTER STRENGTH (0.125%) 480 ML BOTTLE TOP SCH (09:40)
[2017-12-17 10:20] LABS: ABG BASE EXCESS 4.8 mmol/L; ABG PCO2 40.9 mmHg (35.0-45.0); ABG PH 7.467 (7.350-7.450); ABG PO2 79.7 mmHg (75.0-100.0); AaDO2 158.5 mmHg; COHb 0.2 % (0.5-1.5); MetHb 1.4 % (0.0-1.5); O2Hb 93.5 % (94.0-97.0); SITE, ABG Left Radial; VENT MODE, BG 5LNC
[2017-12-17] MEDS: NEOMY SULF/BACITRAC ZN/POLY 15 GM TUBE TP SCH (13:30)
[2017-12-17] MEDS: PROSOURCE / PROSTAT (PYXIS) 30 ML UDC GT SCH (13:30)
[2017-12-17] MEDS: *INSULIN REGULAR(HUMULIN R)HUM 100 UNIT/ML VIAL SQ PRN ×2 (13:32→21:54)
[2017-12-17] MEDS: clonazePAM 0.5 MG TABLET PO SCH (21:29)
[2017-12-18] VITALS (28 sets, daily range): BP systolic 105–142; BP diastolic 51–84
[2017-12-18] MEDS: ALBUTEROL HALF STRENGTH 1.25 MG/3 ML VIAL.NEB NEB SCH ×6 (03:04→23:57)
[2017-12-18] MEDS: IPRATROPIUM NEB FS 0.5 MG/2.5 ML AMPUL.NEB NEB SCH ×6 (03:04→23:57)
[2017-12-18 04:32] LABS: BASOPHILS # (AUTO) 0.1 /CMM (0.0-0.2); BASOPHILS % (AUTO) 0.7 % (0.0-2.0); EOSINOPHILS % (AUTO) 4.6 % (0.0-6.0); HEMATOCRIT 26 % (33-45); HEMOGLOBIN 8.3 g/dL (11.5-14.8); LYMPHOCYTES # (AUTO) 1.2 /CMM (0.8-4.8); LYMPHOCYTES % (AUTO) 13.3 % (20.0-44.0); MEAN CORPUSCULAR HGB CONC 32 g/dl (31.0-36.0); MEAN CORPUSCULAR VOLUME 77 fL (82-100); MONOCYTES # (AUTO) 0.4 /CMM (0.1-1.30); MONOCYTES % (AUTO) 4.6 % (2.0-12.0); NEUTROPHILS # (AUTO) 6.8 /CMM (1.8-8.9); NEUTROPHILS % (AUTO) 76.8 % (43.0-81.0); PLATELET COUNT (AUTO) 407 /CMM (150-450); RDW COEFFICIENT OF VARIATION 18.7 (11.5-15.0); WHITE BLOOD COUNT (AUTO) 8.9 K/uL (4.3-11.0)
[2017-12-18 04:55] LABS: CALCIUM, SERUM 8.6 mg/dL (8.5-10.1); CREATININE 0.4 mg/dL (0.6-1.3); PHOSPHORUS 3.3 mg/dL (2.5-4.9); POTASSIUM 4.6 mmol/L (3.5-5.1)
[2017-12-18 04:55] LABS: INR 1.2 (0.87-1.13)
[2017-12-18] MEDS: VANCOMYCIN 0.75 GM in IV D5W 250 ML IV SCH ×2 (05:27→23:49)
[2017-12-18] MEDS: MEROPENEM 500 MG in IV NS 0.9% 50 ML IV SCH ×3 (05:32→21:52)
[2017-12-18] MEDS: ACETYLCYSTEINE 10% SOLN 400 MG/4 ML VIAL NEB SCH ×3 (07:29→23:57)
[2017-12-18] MEDS: BLOOD SUGAR DIAGNOSTIC 1 EACH STRIP VI SCH ×4 (07:49→23:52)
[2017-12-18] MEDS: PANTOPRAZOLE 40 MG VIAL IV SCH (08:21)
[2017-12-18] MEDS: DAKINS QUARTER STRENGTH (0.125%) 480 ML BOTTLE TOP SCH (08:22)
[2017-12-18] MEDS: NEOMY SULF/BACITRAC ZN/POLY 15 GM TUBE TP SCH (08:23)
[2017-12-18] MEDS: CYANOCOBALAMIN 500 MCG TABLET PO SCH (08:23)
[2017-12-18] MEDS: ZINC SULFATE 220 MG CAPSULE GT SCH (08:24)
[2017-12-18] MEDS: SERTRALINE HCL 25 MG TABLET GT SCH (08:24)
[2017-12-18] MEDS: ASCORBIC ACID 500 MG TABLET GT SCH ×2 (08:24→17:00)
[2017-12-18] MEDS: CHOLECALCIFEROL 1,000 UNIT TABLET (VIT D3) GT SCH (08:24)
[2017-12-18] MEDS: MULTIVIT, IRON, MIN NO. 8, FA 1 TAB GT SCH (08:25)
[2017-12-18] MEDS: ASPIRIN 81 MG TAB.CHEW GT SCH (08:25)
[2017-12-18] MEDS: ACETAMINOPHEN ES 500 MG TABLET GT SCH (08:25)
[2017-12-18] MEDS: ACIDOPHILUS/BULGARICUS 1 EACH TAB.CHEW GT SCH (08:25)
[2017-12-18] MEDS: BACLOFEN (10 MG) 10 MG TABLET GT SCH (08:25)
[2017-12-18] MEDS: PROSOURCE / PROSTAT (PYXIS) 30 ML UDC GT SCH (08:25)
[2017-12-18] MEDS ORDERED: Z GUARD REMEDY 2 OZ OINT TP PRN (11:00)
[2017-12-18] MEDS ORDERED: DEXTROSE 50%-WATER 50 ML DISP.SYRIN IV PRN (21:13)
[2017-12-18] MEDS: clonazePAM 0.5 MG TABLET PO SCH (21:52)
[2017-12-19] VITALS (25 sets, daily range): BP systolic 97–133; BP diastolic 49–73
[2017-12-19] MEDS ORDERED: GLUCERNA 1.2 1,000 ML BOTTLE NG PRN
[2017-12-19] MEDS: IPRATROPIUM NEB FS 0.5 MG/2.5 ML AMPUL.NEB NEB SCH ×6 (03:06→23:47)
[2017-12-19] MEDS: ALBUTEROL HALF STRENGTH 1.25 MG/3 ML VIAL.NEB NEB SCH ×6 (03:06→23:47)
[2017-12-19] MEDS: GLUCERNA GT PRN (04:08)
[2017-12-19 04:51] LABS: BASOPHILS % (AUTO) 0.1 % (0.0-2.0); EOSINOPHILS % (AUTO) 3.4 % (0.0-6.0); HEMATOCRIT 30 % (33-45); HEMOGLOBIN 9.3 g/dL (11.5-14.8); LYMPHOCYTES # (AUTO) 1.4 /CMM (0.8-4.8); LYMPHOCYTES % (AUTO) 10.1 % (20.0-44.0); MEAN CORPUSCULAR HGB CONC 31 g/dl (31.0-36.0); MEAN CORPUSCULAR VOLUME 78 fL (82-100); MONOCYTES # (AUTO) 0.6 /CMM (0.1-1.30); MONOCYTES % (AUTO) 4.1 % (2.0-12.0); NEUTROPHILS # (AUTO) 11.2 /CMM (1.8-8.9); NEUTROPHILS % (AUTO) 82.3 % (43.0-81.0); PLATELET COUNT (AUTO) 415 /CMM (150-450); WHITE BLOOD COUNT (AUTO) 13.6 K/uL (4.3-11.0)
[2017-12-19 05:10] LABS: CALCIUM, SERUM 8.6 mg/dL (8.5-10.1); CREATININE 0.5 mg/dL (0.6-1.3); MAGNESIUM 1.7 mg/dL (1.8-2.4); PHOSPHORUS 2.6 mg/dL (2.5-4.9); POTASSIUM 3.6 mmol/L (3.5-5.1)
[2017-12-19] MEDS: MEROPENEM 500 MG in IV NS 0.9% 50 ML IV SCH ×3 (05:11→21:25)
[2017-12-19] MEDS: BLOOD SUGAR DIAGNOSTIC 1 EACH STRIP VI SCH ×3 (05:26→17:20)
[2017-12-19] MEDS: ACETYLCYSTEINE 10% SOLN 400 MG/4 ML VIAL NEB SCH ×3 (07:20→23:47)
[2017-12-19] MEDS: PANTOPRAZOLE 40 MG VIAL IV SCH (08:30)
[2017-12-19] MEDS: SERTRALINE HCL 25 MG TABLET GT SCH (08:30)
[2017-12-19] MEDS: MULTIVIT, IRON, MIN NO. 8, FA 1 TAB GT SCH (08:31)
[2017-12-19] MEDS: CHOLECALCIFEROL 1,000 UNIT TABLET (VIT D3) GT SCH (08:31)
[2017-12-19] MEDS: ASPIRIN 81 MG TAB.CHEW GT SCH (08:31)
[2017-12-19] MEDS: CYANOCOBALAMIN 500 MCG TABLET PO SCH (08:31)
[2017-12-19] MEDS: ASCORBIC ACID 500 MG TABLET GT SCH ×2 (08:31→16:12)
[2017-12-19] MEDS: ZINC SULFATE 220 MG CAPSULE GT SCH (08:31)
[2017-12-19] MEDS: BACLOFEN (10 MG) 10 MG TABLET GT SCH (08:31)
[2017-12-19] MEDS: ACETAMINOPHEN ES 500 MG TABLET GT SCH (08:31)
[2017-12-19] MEDS: ACIDOPHILUS/BULGARICUS 1 EACH TAB.CHEW GT SCH (08:31)
[2017-12-19] MEDS: NEOMY SULF/BACITRAC ZN/POLY 15 GM TUBE TP SCH (08:35)
[2017-12-19] MEDS: PROSOURCE / PROSTAT (PYXIS) 30 ML UDC GT SCH (08:35)
[2017-12-19] MEDS: DAKINS QUARTER STRENGTH (0.125%) 480 ML BOTTLE TOP SCH (08:35)
[2017-12-19] MEDS: VANCOMYCIN 0.75 GM in IV D5W 250 ML IV SCH (17:06)
[2017-12-19] MEDS: INSULIN REGULAR, HUMAN 100 UNIT/ML 3 ML VIAL SQ PRN (17:19)
[2017-12-19] MEDS: Magnesium 1GM/D5W 100ML PREMIX 100 ML IV SCH ×2 (17:48→19:01)
[2017-12-19] MEDS: clonazePAM 0.5 MG TABLET PO SCH (21:26)
[2017-12-20] VITALS (25 sets, daily range): BP systolic 96–129; BP diastolic 45–72
[2017-12-20] MEDS: INSULIN REGULAR, HUMAN 100 UNIT/ML 3 ML VIAL SQ PRN ×3 (01:00→17:19)
[2017-12-20] MEDS: ALBUTEROL HALF STRENGTH 1.25 MG/3 ML VIAL.NEB NEB SCH ×6 (03:23→23:52)
[2017-12-20] MEDS: IPRATROPIUM NEB FS 0.5 MG/2.5 ML AMPUL.NEB NEB SCH ×6 (03:23→23:52)
[2017-12-20] MEDS: MEROPENEM 500 MG in IV NS 0.9% 50 ML IV SCH ×3 (05:10→21:17)
[2017-12-20 05:13] LABS: BASOPHILS % (AUTO) 0.3 % (0.0-2.0); EOSINOPHILS % (AUTO) 3.3 % (0.0-6.0); HEMATOCRIT 28 % (33-45); HEMOGLOBIN 8.6 g/dL (11.5-14.8); LYMPHOCYTES # (AUTO) 0.8 /CMM (0.8-4.8); LYMPHOCYTES % (AUTO) 8.2 % (20.0-44.0); MEAN CORPUSCULAR HGB CONC 31 g/dl (31.0-36.0); MEAN CORPUSCULAR VOLUME 77 fL (82-100); MONOCYTES # (AUTO) 0.4 /CMM (0.1-1.30); MONOCYTES % (AUTO) 3.8 % (2.0-12.0); NEUTROPHILS # (AUTO) 7.9 /CMM (1.8-8.9); NEUTROPHILS % (AUTO) 84.4 % (43.0-81.0); PLATELET COUNT (AUTO) 357 /CMM (150-450); RDW COEFFICIENT OF VARIATION 18.8 (11.5-15.0); WHITE BLOOD COUNT (AUTO) 9.4 K/uL (4.3-11.0)
[2017-12-20] MEDS: BLOOD SUGAR DIAGNOSTIC 1 EACH STRIP VI SCH ×4 (05:19→17:17)
[2017-12-20 05:32] LABS: CALCIUM, SERUM 8.7 mg/dL (8.5-10.1); CREATININE 0.5 mg/dL (0.6-1.3); MAGNESIUM 2.2 mg/dL (1.8-2.4); PHOSPHORUS 3.1 mg/dL (2.5-4.9); POTASSIUM 4.1 mmol/L (3.5-5.1)
[2017-12-20] MEDS: ACETYLCYSTEINE 10% SOLN 400 MG/4 ML VIAL NEB SCH ×3 (07:45→23:52)
[2017-12-20] MEDS: PROSOURCE / PROSTAT (PYXIS) 30 ML UDC GT SCH (08:27)
[2017-12-20] MEDS: ASCORBIC ACID 500 MG TABLET GT SCH ×2 (08:27→17:11)
[2017-12-20] MEDS: PANTOPRAZOLE 40 MG VIAL IV SCH (08:27)
[2017-12-20] MEDS: ACIDOPHILUS/BULGARICUS 1 EACH TAB.CHEW GT SCH (08:27)
[2017-12-20] MEDS: ASPIRIN 81 MG TAB.CHEW GT SCH (08:28)
[2017-12-20] MEDS: BACLOFEN (10 MG) 10 MG TABLET GT SCH (08:28)
[2017-12-20] MEDS: CYANOCOBALAMIN 500 MCG TABLET PO SCH (08:28)
[2017-12-20] MEDS: CHOLECALCIFEROL 1,000 UNIT TABLET (VIT D3) GT SCH (08:28)
[2017-12-20] MEDS: ACETAMINOPHEN ES 500 MG TABLET GT SCH (08:28)
[2017-12-20] MEDS: MULTIVIT, IRON, MIN NO. 8, FA 1 TAB GT SCH (08:28)
[2017-12-20] MEDS: SERTRALINE HCL 25 MG TABLET GT SCH (08:28)
[2017-12-20] MEDS: NEOMY SULF/BACITRAC ZN/POLY 15 GM TUBE TP SCH (08:29)
[2017-12-20] MEDS: DAKINS QUARTER STRENGTH (0.125%) 480 ML BOTTLE TOP SCH (08:29)
[2017-12-20] MEDS: ZINC SULFATE 220 MG CAPSULE GT SCH (08:30)
[2017-12-20] MEDS: VANCOMYCIN 0.75 GM in IV D5W 250 ML IV SCH (11:49)
[2017-12-20] MEDS: GLUCERNA GT PRN (14:51)
[2017-12-20] MEDS: clonazePAM 0.5 MG TABLET PO SCH (21:18)
[2017-12-21] VITALS (45 sets, daily range): BP systolic 90–122; BP diastolic 40–96
[2017-12-21] MEDS: BLOOD SUGAR DIAGNOSTIC 1 EACH STRIP VI SCH ×5 (00:08→23:24)
[2017-12-21] MEDS: ALBUTEROL HALF STRENGTH 1.25 MG/3 ML VIAL.NEB NEB SCH ×6 (03:27→23:41)
[2017-12-21] MEDS: IPRATROPIUM NEB FS 0.5 MG/2.5 ML AMPUL.NEB NEB SCH ×6 (03:27→23:41)
[2017-12-21] MEDS: MEROPENEM 500 MG in IV NS 0.9% 50 ML IV SCH ×3 (04:27→20:45)
[2017-12-21 04:37] LABS: BASOPHILS # (AUTO) 0.1 /CMM (0.0-0.2); BASOPHILS % (AUTO) 0.8 % (0.0-2.0); HEMATOCRIT 28 % (33-45); HEMOGLOBIN 8.8 g/dL (11.5-14.8); LYMPHOCYTES # (AUTO) 1.3 /CMM (0.8-4.8); LYMPHOCYTES % (AUTO) 15.1 % (20.0-44.0); MEAN CORPUSCULAR HGB CONC 31 g/dl (31.0-36.0); MEAN CORPUSCULAR VOLUME 78 fL (82-100); MONOCYTES # (AUTO) 0.4 /CMM (0.1-1.30); NEUTROPHILS # (AUTO) 6.3 /CMM (1.8-8.9); NEUTROPHILS % (AUTO) 74.1 % (43.0-81.0); PLATELET COUNT (AUTO) 381 /CMM (150-450); RDW COEFFICIENT OF VARIATION 18.8 (11.5-15.0); WHITE BLOOD COUNT (AUTO) 8.5 K/uL (4.3-11.0)
[2017-12-21] MEDS: GLUCERNA GT PRN (04:38)
[2017-12-21 04:51] LABS: CALCIUM, SERUM 8.7 mg/dL (8.5-10.1); CREATININE 0.5 mg/dL (0.6-1.3); PHOSPHORUS 3.3 mg/dL (2.5-4.9); POTASSIUM 4.2 mmol/L (3.5-5.1)
[2017-12-21] MEDS: VANCOMYCIN 0.75 GM in IV D5W 250 ML IV SCH ×2 (05:00→22:45)
[2017-12-21] MEDS: INSULIN REGULAR, HUMAN 100 UNIT/ML 3 ML VIAL SQ PRN (05:10)
[2017-12-21] MEDS: ZINC SULFATE 220 MG CAPSULE GT SCH (08:44)
[2017-12-21] MEDS: ASCORBIC ACID 500 MG TABLET GT SCH ×2 (08:44→16:30)
[2017-12-21] MEDS: CHOLECALCIFEROL 1,000 UNIT TABLET (VIT D3) GT SCH (08:44)
[2017-12-21] MEDS: ACIDOPHILUS/BULGARICUS 1 EACH TAB.CHEW GT SCH (08:45)
[2017-12-21] MEDS: SERTRALINE HCL 25 MG TABLET GT SCH (08:45)
[2017-12-21] MEDS: MULTIVIT, IRON, MIN NO. 8, FA 1 TAB GT SCH (08:45)
[2017-12-21] MEDS: PANTOPRAZOLE 40 MG VIAL IV SCH (08:45)
[2017-12-21] MEDS: CYANOCOBALAMIN 500 MCG TABLET PO SCH (08:45)
[2017-12-21] MEDS: ASPIRIN 81 MG TAB.CHEW GT SCH (08:45)
[2017-12-21] MEDS: BACLOFEN (10 MG) 10 MG TABLET GT SCH (08:45)
[2017-12-21] MEDS: ACETAMINOPHEN ES 500 MG TABLET GT SCH (08:45)
[2017-12-21] MEDS: PROSOURCE / PROSTAT (PYXIS) 30 ML UDC GT SCH (08:47)
[2017-12-21] MEDS: NEOMY SULF/BACITRAC ZN/POLY 15 GM TUBE TP SCH (08:48)
[2017-12-21] MEDS: ACETYLCYSTEINE 10% SOLN 400 MG/4 ML VIAL NEB SCH ×3 (08:48→23:41)
[2017-12-21] MEDS: DAKINS QUARTER STRENGTH (0.125%) 480 ML BOTTLE TOP SCH (08:48)
[2017-12-21] MEDS: ACETAMINOPHEN 325 MG TABLET PO PRN (16:30)
[2017-12-21] MEDS: clonazePAM 0.5 MG TABLET PO SCH (22:40)
[2017-12-22] VITALS (25 sets, daily range): BP systolic 97–152; BP diastolic 48–84
[2017-12-22] MEDS: IPRATROPIUM NEB FS 0.5 MG/2.5 ML AMPUL.NEB NEB SCH ×6 (03:34→23:17)
[2017-12-22] MEDS: ALBUTEROL HALF STRENGTH 1.25 MG/3 ML VIAL.NEB NEB SCH ×6 (03:35→23:17)
[2017-12-22 04:37] LABS: BASOPHILS % (AUTO) 0.5 % (0.0-2.0); EOSINOPHILS % (AUTO) 5.8 % (0.0-6.0); HEMATOCRIT 30 % (33-45); HEMOGLOBIN 9.3 g/dL (11.5-14.8); LYMPHOCYTES # (AUTO) 1.3 /CMM (0.8-4.8); LYMPHOCYTES % (AUTO) 16.8 % (20.0-44.0); MEAN CORPUSCULAR HGB CONC 31 g/dl (31.0-36.0); MEAN CORPUSCULAR VOLUME 78 fL (82-100); MONOCYTES # (AUTO) 0.4 /CMM (0.1-1.30); MONOCYTES % (AUTO) 5.6 % (2.0-12.0); NEUTROPHILS # (AUTO) 5.4 /CMM (1.8-8.9); NEUTROPHILS % (AUTO) 71.3 % (43.0-81.0); PLATELET COUNT (AUTO) 388 /CMM (150-450); RDW COEFFICIENT OF VARIATION 19.2 (11.5-15.0); WHITE BLOOD COUNT (AUTO) 7.6 K/uL (4.3-11.0)
[2017-12-22 04:51] LABS: CALCIUM, SERUM 9.1 mg/dL (8.5-10.1); CREATININE 0.4 mg/dL (0.6-1.3); MAGNESIUM 1.9 mg/dL (1.8-2.4); PHOSPHORUS 3.4 mg/dL (2.5-4.9); POTASSIUM 4.9 mmol/L (3.5-5.1)
[2017-12-22] MEDS: MEROPENEM 500 MG in IV NS 0.9% 50 ML IV SCH ×3 (04:53→20:20)
[2017-12-22] MEDS: BLOOD SUGAR DIAGNOSTIC 1 EACH STRIP VI SCH ×3 (05:49→18:18)
[2017-12-22] MEDS: ACETYLCYSTEINE 10% SOLN 400 MG/4 ML VIAL NEB SCH ×3 (08:13→23:17)
[2017-12-22] MEDS: DAKINS QUARTER STRENGTH (0.125%) 480 ML BOTTLE TOP SCH (09:55)
[2017-12-22] MEDS: NEOMY SULF/BACITRAC ZN/POLY 15 GM TUBE TP SCH (09:55)
[2017-12-22] MEDS ORDERED: ROCURONIUM BROMIDE 50 MG/5 ML ONE (12:52)
[2017-12-22] MEDS ORDERED: LIDOCAINE 1%-EPI 1:100,000 20 ML VIAL ONE (12:53)
[2017-12-22] MEDS ORDERED: SEVOFLURANE 250 ML BOTTLE IH ONE (12:59)
[2017-12-22] MEDS: GLUCERNA GT PRN (13:54)
[2017-12-22] MEDS: PANTOPRAZOLE 40 MG VIAL IV SCH (14:04)
[2017-12-22] MEDS: CHOLECALCIFEROL 1,000 UNIT TABLET (VIT D3) GT SCH (14:05)
[2017-12-22] MEDS: ACIDOPHILUS/BULGARICUS 1 EACH TAB.CHEW GT SCH (14:05)
[2017-12-22] MEDS: ZINC SULFATE 220 MG CAPSULE GT SCH (14:05)
[2017-12-22] MEDS: ACETAMINOPHEN ES 500 MG TABLET GT SCH (14:05)
[2017-12-22] MEDS: CYANOCOBALAMIN 500 MCG TABLET PO SCH (14:06)
[2017-12-22] MEDS: ASPIRIN 81 MG TAB.CHEW GT SCH (14:06)
[2017-12-22] MEDS: SERTRALINE HCL 25 MG TABLET GT SCH (14:06)
[2017-12-22] MEDS: BACLOFEN (10 MG) 10 MG TABLET GT SCH (14:06)
[2017-12-22] MEDS: MULTIVIT, IRON, MIN NO. 8, FA 1 TAB GT SCH (14:06)
[2017-12-22] MEDS: ASCORBIC ACID 500 MG TABLET GT SCH ×2 (14:07→17:06)
[2017-12-22] MEDS: PROSOURCE / PROSTAT (PYXIS) 30 ML UDC GT SCH (14:08)
[2017-12-22] MEDS: VANCOMYCIN 0.75 GM in IV D5W 250 ML IV SCH (17:06)
[2017-12-23] VITALS (19 sets, daily range): BP systolic 96–127; BP diastolic 47–73
[2017-12-23] MEDS: clonazePAM 0.5 MG TABLET PO SCH ×2 (00:06→21:22)
[2017-12-23] MEDS: INSULIN REGULAR, HUMAN 100 UNIT/ML 3 ML VIAL SQ PRN ×4 (00:29→17:10)
[2017-12-23] MEDS: BLOOD SUGAR DIAGNOSTIC 1 EACH STRIP VI SCH ×4 (00:31→17:04)
[2017-12-23] MEDS: ALBUTEROL HALF STRENGTH 1.25 MG/3 ML VIAL.NEB NEB SCH ×6 (03:06→23:26)
[2017-12-23] MEDS: IPRATROPIUM NEB FS 0.5 MG/2.5 ML AMPUL.NEB NEB SCH ×6 (03:06→23:26)
[2017-12-23] MEDS: MEROPENEM 500 MG in IV NS 0.9% 50 ML IV SCH ×2 (04:41→13:29)
[2017-12-23 05:17] LABS: CALCIUM, SERUM 9.4 mg/dL (8.5-10.1); CREATININE 0.5 mg/dL (0.6-1.3); POTASSIUM 4.3 mmol/L (3.5-5.1)
[2017-12-23] MEDS: ACETYLCYSTEINE 10% SOLN 400 MG/4 ML VIAL NEB SCH ×3 (08:10→23:26)
[2017-12-23] MEDS: ACIDOPHILUS/BULGARICUS 1 EACH TAB.CHEW GT SCH (08:43)
[2017-12-23] MEDS: ZINC SULFATE 220 MG CAPSULE GT SCH (08:43)
[2017-12-23] MEDS: PANTOPRAZOLE 40 MG VIAL IV SCH (08:43)
[2017-12-23] MEDS: PROSOURCE / PROSTAT (PYXIS) 30 ML UDC GT SCH (08:44)
[2017-12-23] MEDS: ASCORBIC ACID 500 MG TABLET GT SCH ×2 (08:44→17:04)
[2017-12-23] MEDS: BACLOFEN (10 MG) 10 MG TABLET GT SCH (08:44)
[2017-12-23] MEDS: MULTIVIT, IRON, MIN NO. 8, FA 1 TAB GT SCH (08:44)
[2017-12-23] MEDS: CHOLECALCIFEROL 1,000 UNIT TABLET (VIT D3) GT SCH (08:44)
[2017-12-23] MEDS: CYANOCOBALAMIN 500 MCG TABLET PO SCH (08:44)
[2017-12-23] MEDS: ASPIRIN 81 MG TAB.CHEW GT SCH (08:44)
[2017-12-23] MEDS: ACETAMINOPHEN ES 500 MG TABLET GT SCH (08:45)
[2017-12-23] MEDS: NEOMY SULF/BACITRAC ZN/POLY 15 GM TUBE TP SCH (08:46)
[2017-12-23] MEDS: DAKINS QUARTER STRENGTH (0.125%) 480 ML BOTTLE TOP SCH (08:46)
[2017-12-23] MEDS: GLUCERNA GT PRN ×2 (08:46→14:54)
[2017-12-23] MEDS: SERTRALINE HCL 25 MG TABLET GT SCH (08:51)
[2017-12-23] MEDS: VANCOMYCIN 0.75 GM in IV D5W 250 ML IV SCH (11:48)
[2017-12-24] VITALS: BP 116/52
[2017-12-24] MEDS: INSULIN REGULAR, HUMAN 100 UNIT/ML 3 ML VIAL SQ PRN ×3 (01:12→13:49)
[2017-12-24] MEDS: IPRATROPIUM NEB FS 0.5 MG/2.5 ML AMPUL.NEB NEB SCH ×4 (03:33→15:17)
[2017-12-24] MEDS: ALBUTEROL HALF STRENGTH 1.25 MG/3 ML VIAL.NEB NEB SCH ×4 (03:33→15:17)
[2017-12-24 04:00] VITALS: BP 108/56
[2017-12-24] MEDS: VANCOMYCIN 0.75 GM in IV D5W 250 ML IV SCH (05:01)
[2017-12-24] MEDS: BLOOD SUGAR DIAGNOSTIC 1 EACH STRIP VI SCH ×3 (05:31→13:00)
[2017-12-24 07:05] LABS: CALCIUM, SERUM 8.6 mg/dL (8.5-10.1); CREATININE 0.6 mg/dL (0.6-1.3); POTASSIUM 4.5 mmol/L (3.5-5.1)
[2017-12-24] MEDS: ACETYLCYSTEINE 10% SOLN 400 MG/4 ML VIAL NEB SCH ×2 (07:06→15:17)
[2017-12-24 08:00] VITALS: BP 120/53
[2017-12-24] MEDS: CYANOCOBALAMIN 500 MCG TABLET PO SCH (08:09)
[2017-12-24] MEDS: ZINC SULFATE 220 MG CAPSULE GT SCH (08:09)
[2017-12-24] MEDS: CHOLECALCIFEROL 1,000 UNIT TABLET (VIT D3) GT SCH (08:09)
[2017-12-24] MEDS: BACLOFEN (10 MG) 10 MG TABLET GT SCH (08:10)
[2017-12-24] MEDS: MULTIVIT, IRON, MIN NO. 8, FA 1 TAB GT SCH (08:11)
[2017-12-24] MEDS: ASCORBIC ACID 500 MG TABLET GT SCH ×2 (08:11→16:45)
[2017-12-24] MEDS: SERTRALINE HCL 25 MG TABLET GT SCH (08:11)
[2017-12-24] MEDS: ACIDOPHILUS/BULGARICUS 1 EACH TAB.CHEW GT SCH (08:12)
[2017-12-24] MEDS: ASPIRIN 81 MG TAB.CHEW GT SCH (08:12)
[2017-12-24] MEDS: PANTOPRAZOLE 40 MG VIAL IV SCH (08:13)
[2017-12-24] MEDS: ACETAMINOPHEN ES 500 MG TABLET GT SCH (08:15)
[2017-12-24] MEDS: PROSOURCE / PROSTAT (PYXIS) 30 ML UDC GT SCH (08:15)
[2017-12-24] MEDS: DAKINS QUARTER STRENGTH (0.125%) 480 ML BOTTLE TOP SCH (08:16)
[2017-12-24] MEDS: NEOMY SULF/BACITRAC ZN/POLY 15 GM TUBE TP SCH (08:16)
[2017-12-24] MEDS: GLUCERNA GT PRN (11:01)
[2017-12-24] MEDS: ACETAMINOPHEN 325 MG TABLET PO PRN (13:48)
[2017-12-24 16:00] VITALS: BP 106/59
== END 2017-12-24 17:00 | disposition home or self-care (01) | DRG 853 ==
LOC: ER 10:28 → ICU 12:43 → TELE1 12-23 17:55 → MEDSG1 12-24 10:14
PROVIDERS: ADMIT Registered Nurse; ATTEND Registered Nurse
PROC: 5A09457 Assistance with Respiratory Ventilation, 24-96 Consecutive Hours, Continuous Positive Airway Pressure (ICD-10-PCS; 2017-12-11)
PROC: 02HV33Z Insertion of Infusion Device into Superior Vena Cava, Percutaneous Approach (ICD-10-PCS; 2017-12-11)
PROC: B548ZZA Ultrasonography of Superior Vena Cava, Guidance (ICD-10-PCS; 2017-12-11)
PROC: 0QB10ZZ Excision of Sacrum, Open Approach (ICD-10-PCS; principal; 2017-12-15)
PROC: 30233N1 Transfusion of Nonautologous Red Blood Cells into Peripheral Vein, Percutaneous Approach (ICD-10-PCS; 2017-12-15)
PROC: 5A09457 Assistance with Respiratory Ventilation, 24-96 Consecutive Hours, Continuous Positive Airway Pressure (ICD-10-PCS; 2017-12-16)
PROC: 0JB80ZZ Excision of Abdomen Subcutaneous Tissue and Fascia, Open Approach (ICD-10-PCS; 2017-12-18)
DX: A41.9 Sepsis, unspecified organism (principal); J96.21 Acute and chronic respiratory failure with hypoxia; L89.154 Pressure ulcer of sacral region, stage 4; L89.324 Pressure ulcer of left buttock, stage 4; L89.314 Pressure ulcer of right buttock, stage 4; R53.2 Functional quadriplegia; J69.0 Pneumonitis due to inhalation of food and vomit; G93.40 Encephalopathy, unspecified; E44.0 Moderate protein-calorie malnutrition; N39.0 Urinary tract infection, site not specified; G23.1 Progressive supranuclear ophthalmoplegia [Steele-Richardson-Olszewski]; M86.9 Osteomyelitis, unspecified; E87.2 Acidosis; K31.6 Fistula of stomach and duodenum; K94.21 Gastrostomy hemorrhage; R65.20 Severe sepsis without septic shock; D50.9 Iron deficiency anemia, unspecified; Z99.81 Dependence on supplemental oxygen; E11.65 Type 2 diabetes mellitus with hyperglycemia; I10 Essential (primary) hypertension; E11.69 Type 2 diabetes mellitus with other specified complication; Z86.19 Personal history of other infectious and parasitic diseases; Z88.0 Allergy status to penicillin; Z79.4 Long term (current) use of insulin; Z79.82 Long term (current) use of aspirin; B96.89 Other specified bacterial agents as the cause of diseases classified elsewhere; R13.10 Dysphagia, unspecified; Z87.440 Personal history of urinary (tract) infections; Z90.710 Acquired absence of both cervix and uterus; M19.90 Unspecified osteoarthritis, unspecified site; F32.9 Major depressive disorder, single episode, unspecified; D63.8 Anemia in other chronic diseases classified elsewhere; E87.70 Fluid overload, unspecified; Y84.9 Medical procedure, unspecified as the cause of abnormal reaction of the patient, or of later complication, without mention of misadventure at the time of the procedure; Y82.9 Unspecified medical devices associated with adverse incidents; Y92.009 Unspecified place in unspecified non-institutional (private) residence as the place of occurrence of the external cause; L89.819 Pressure ulcer of head, unspecified stage; R62.7 Adult failure to thrive
CPT/HCPCS: 31720; 36415; 36600; 71045-TC; 74018; 80048-TC; 80053-TC; 80061-TC; 80076-TC; 80202-TC; 81000-TC; 82272-TC; 82803-TC; 82962-TC; 83605-TC; 83735-TC; 84100-TC; 84443-TC; 84484-TC; 85025-TC; 85610-TC; 85730-TC; 86850-TC; 86921-TC; 87040-TC; 87081-TC; 87086-TC; 94760-TC; 94799-TC; 99082-TC; A4216; A4217; A4606; A4624; A6253; A6402; A6403; C9113; J1450; J1650; J1815; J2185; J3370; J3475; J3490; J7030; J7042; J7050; J7060; P9016-BL; Q9963; Z7610

== ENCOUNTER 2018-03-02 13:00 | Outpatient (CLI) | payer MEDICARE, BC ==
[~2018-03-02 13:00] MED LIST changes: -ALBU1.25 NEB; +ALBU1.257 NEB; +CEFE1VIA11 IJ; -CYAN50003 GT; +CYAN500T4 PO; +NUT.237L28 GT; -NUT.237L30 GT; -VANC500F2 IV
== END 2018-03-02 23:59 | disposition home health service (06) ==
LOC: WOU 13:00
PROVIDERS: ATTEND Surgery
DX: L89.154 Pressure ulcer of sacral region, stage 4 (principal); L89.314 Pressure ulcer of right buttock, stage 4; L89.324 Pressure ulcer of left buttock, stage 4; L89.214 Pressure ulcer of right hip, stage 4; K94.29 Other complications of gastrostomy; M24.50 Contracture, unspecified joint; G82.20 Paraplegia, unspecified; R13.10 Dysphagia, unspecified; E11.9 Type 2 diabetes mellitus without complications; I10 Essential (primary) hypertension; E46 Unspecified protein-calorie malnutrition; Z68.1 Body mass index [BMI] 19.9 or less, adult; Z79.4 Long term (current) use of insulin
CPT/HCPCS: 11043; 11044; 11047 ×2; A6402 ×2; Z7610

== ENCOUNTER 2018-03-09 13:10 | Outpatient (CLI) | payer MEDICARE, BC | END 2018-03-09 23:59 | disposition home health service (06) | LOC: WOU 13:10 | PROVIDERS: ATTEND Surgery | DX: L89.154 Pressure ulcer of sacral region, stage 4 (principal); L89.314 Pressure ulcer of right buttock, stage 4; L89.324 Pressure ulcer of left buttock, stage 4; L89.214 Pressure ulcer of right hip, stage 4; L89.313 Pressure ulcer of right buttock, stage 3; G82.20 Paraplegia, unspecified; M24.50 Contracture, unspecified joint; E11.9 Type 2 diabetes mellitus without complications; Z79.4 Long term (current) use of insulin; I10 Essential (primary) hypertension; E46 Unspecified protein-calorie malnutrition; Z68.1 Body mass index [BMI] 19.9 or less, adult; Z87.891 Personal history of nicotine dependence | CPT/HCPCS: 11043; 11044; 11047; A6402; Z7610 ==

== ENCOUNTER 2018-03-19 13:00 | Outpatient (CLI) | payer MEDICARE, BC | END 2018-03-19 23:59 | disposition home health service (06) | LOC: WOU 13:00 | PROVIDERS: ATTEND Surgery | DX: L89.154 Pressure ulcer of sacral region, stage 4 (principal); L89.324 Pressure ulcer of left buttock, stage 4; L89.313 Pressure ulcer of right buttock, stage 3; L89.214 Pressure ulcer of right hip, stage 4; Z87.891 Personal history of nicotine dependence; G23.1 Progressive supranuclear ophthalmoplegia [Steele-Richardson-Olszewski]; E44.0 Moderate protein-calorie malnutrition; Z68.1 Body mass index [BMI] 19.9 or less, adult; M24.50 Contracture, unspecified joint; E11.9 Type 2 diabetes mellitus without complications; I10 Essential (primary) hypertension; Z79.4 Long term (current) use of insulin | CPT/HCPCS: 11043; 11044; 11047; A6402 ==

== ENCOUNTER 2018-03-30 12:40 | Outpatient (CLI) | payer MEDICARE, BC | END 2018-03-30 23:59 | disposition home health service (06) | LOC: WOU 12:40 | PROVIDERS: ATTEND Surgery | DX: L89.214 Pressure ulcer of right hip, stage 4 (principal); L89.154 Pressure ulcer of sacral region, stage 4; L89.314 Pressure ulcer of right buttock, stage 4; L89.324 Pressure ulcer of left buttock, stage 4; M24.50 Contracture, unspecified joint; G82.20 Paraplegia, unspecified; E46 Unspecified protein-calorie malnutrition; Z68.1 Body mass index [BMI] 19.9 or less, adult; E11.9 Type 2 diabetes mellitus without complications; Z79.4 Long term (current) use of insulin; I10 Essential (primary) hypertension; Z87.891 Personal history of nicotine dependence; M19.90 Unspecified osteoarthritis, unspecified site | CPT/HCPCS: 11043; 11044; 11047; A6402 ×2; Z7610 ==

== ENCOUNTER 2018-03-31 15:52 | Inpatient (IN) | payer MEDICARE, BC ==
[~2018-03-31] VITALS: Ht 175.3 cm; Wt 58.5 kg
--- NOTE | 2018-03-31 16:25 | NUR ---
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 ASLEEP BUT EASILY AWAKEN WITH VERBAL STIMULI AND WILL GO BACK TO SLEEP. PLACED ON O2 3L VIA NC, 96%. SEEN & EVAL'D BY DR. BURDEN, PLACED ON DIRECTOR OF GIFT PLANNING, SR, NO ECTOPY NOTED. GRANDDAUGHTER @ BS & WILL CONT TO MONITOR.
[2018-03-31] MEDS ORDERED: IV NS 0.9% 1,000 ML BAG IV ONE (16:30)
[2018-03-31 16:34] LABS: BASOPHILS # (AUTO) 0.1 /CMM (0.0-0.2); BASOPHILS % (AUTO) 0.7 % (0.0-2.0); EOSINOPHILS % (AUTO) 2.1 % (0.0-6.0); HEMATOCRIT 25 % (33-45); LYMPHOCYTES # (AUTO) 1.1 /CMM (0.8-4.8); LYMPHOCYTES % (AUTO) 9.7 % (20.0-44.0); MEAN CORPUSCULAR HGB CONC 32 g/dl (31.0-36.0); MEAN CORPUSCULAR VOLUME 82 fL (82-100); MONOCYTES # (AUTO) 0.6 /CMM (0.1-1.30); NEUTROPHILS # (AUTO) 9.8 /CMM (1.8-8.9); NEUTROPHILS % (AUTO) 82.5 % (43.0-81.0); PLATELET COUNT (AUTO) 282 /CMM (150-450); WHITE BLOOD COUNT (AUTO) 11.9 K/uL (4.3-11.0)
[2018-03-31 16:44] LABS: CALCIUM, SERUM 8.7 mg/dL (8.5-10.1); CARBON DIOXIDE 26 mmol/L (21-32); CHLORIDE 103 mmol/L (98-107); CREATININE 0.7 mg/dL (0.6-1.3); GLUCOSE 140 mg/dL (74-106); POTASSIUM 4.5 mmol/L (3.5-5.1); SODIUM SERUM 135 mmol/L (136-145); UREA NITROGEN, BLOOD 47 mg/dL (7-18)
[2018-03-31 16:50] LABS: ALANINE AMINOTRANSFERASE 26 U/L (12-78); ALBUMIN 2.2 g/dL (3.4-5.0); ALKALINE PHOSPHATASE 137 U/L (46-116); ASPARTATE AMINOTRANSFERASE 16 U/L (15-37); BILIRUBIN,TOTAL 0.2 mg/dL (0.2-1.0); TOTAL PROTEIN, SERUM 6.9 g/dL (6.4-8.2)
--- NOTE | 2018-03-31 17:54 | NUR ---
PT HAS LOW O2 SAT 88% ON 3L VIA NC. CHANGED TO MASK W/ 10L OF O2, O2 SAT 97%. PT HAS BODY TWITCHING, PER GRANDDAUGHTER " IT'S NORMAL FOR HER WHEN SHE'S UPSET ". DR. BURDEN AWARE OF O2 SAT. WILL CONT TO MONITOR.
[2018-03-31] MEDS ORDERED: LEVOFLOXACIN 750 MG /D5W 150ML 150 ML IV ONE ×2 (18:00→18:21)
[2018-03-31] MEDS ORDERED: HYDROCODONE/APAP 5/325MG 1 EACH TABLET GT PRN (19:00)
[2018-03-31] MEDS ORDERED: POLYETHYLENE GLYCOL 3350 17 GM POWD.PACK GT PRN (19:00)
[2018-03-31] MEDS ORDERED: INSULIN REGULAR, HUMAN 100 UNIT/ML 3 ML VIAL SQ PRN (19:00)
[2018-03-31] MEDS ORDERED: ONDANSETRON HCL/PF 4 MG/2 ML VIAL IVP PRN (19:00)
[2018-03-31] MEDS ORDERED: ZOLPIDEM TARTRATE 5 MG TABLET GT PRN (19:00)
[2018-03-31] MEDS ORDERED: MAG HYDROX/AL HYDROX/SIMETH 30 ML UDC GT PRN (19:00)
[2018-03-31] MEDS ORDERED: MAGNESIUM HYDROXIDE 30 ML UDC GT PRN (19:00)
[2018-03-31] MEDS ORDERED: Z GUARD REMEDY 2 OZ OINT TP PRN (19:00)
[2018-03-31] MEDS ORDERED: GLUCERNA 1.2 1,000 ML BOTTLE GT PRN (19:00)
[2018-03-31] MEDS ORDERED: DEXTROSE 50%-WATER 50 ML DISP.SYRIN IV PRN (19:30)
--- NOTE | 2018-03-31 19:36 | NUR ---
REPORT GIVEN TO GOLDEN SORIANO FOR CONT OF CARE.
--- NOTE | 2018-03-31 19:41 | NUR ---
PT SWITCHED TO VENTURI MASK AT 30% BY RT, TOLERATING WELL WITH O2 SAT 98%.
--- NOTE | 2018-03-31 19:50 | NUR ---
TRANSPORTED TO [facility] IN STABLE CONDITION VIA ACLS PROTOCOL. TOLERATING 98% ON 30% VENTURI MASK.
[2018-03-31] MEDS ORDERED: FEE PK DOSING 1 MIN EA MC ONE (19:52)
[2018-03-31 20:00] VITALS: BP 120/70
--- NOTE | 2018-03-31 20:00 | NUR ---
TELE/RN OPENING NOTES NEW ADMITTED PATIENT ARRIVE FROM ER ACCOMPANIED BY GRANDDAUGHTER WHO OVERSEES HER CARE. PATIENT ON VENTURI MASK AT 6LITERS AT 98% SATURATIONS, SKIN WARM TO TOUCH, RESPIRATIONS EVEN AND UNLABORED, REQUIRE EXTENSIVE ASSISTANCE IN ADL, CAN OPEN EYES BUT NON VERBAL, CAN MOAN AND MAKE SOUNDS, PER DAUGHTER IN LAW TWITCHES AND CAN STILL MOVE HER UPPER ARMS BUT CONTRACTED BUE, WITH MULTIPLE SKIN ISSUES, HAD DEBRIDEMENT WITH DR CASTELLANO YESTERDAY FOR SACRAL WOUND, ON WARD 16 FR, NOTICEABLE SEDIMENTS ON TUBINGS, CHARIS PICC LINE , WITH GTUBE, PER DAUGHTER IN LAW MD WAS MADE AWARE ABD PHARMACY THAT HOME MEDICATION IV ANTIBIOTIC WILL BE USED FROM HOME VANCOMYCIN 1 GRAM DAILY TO START IN AM , CEFEPIME 2X EVERY 12 HOURS AT 2GM IV PUSH FOR 5 MIN. MD ADMITTING MERNA COLON, FAMILY INVOLVE TO CARE, BELONGINGS CHECK AND FAMILY TO BRING HOME, HOME MEDICATION GIVEN TO PHARMACY. GTUBE FLUSHED FOR PATENCY, ON GLUCERNA 1 AT 70CC PER HOUR, TELE READING AT 80 SR. O2 AT 87%. BODY SKIN ASSESED,TO MONITOR. BED LOCKED, WILL MONITOR. PATIENT WAS BROUGHT DUE TO ELEVATED PULSE AND DESATURATION EPISODE.
--- NOTE | 2018-03-31 20:00 | NUR ---
TELE/RN NOTE PER DAUGHTER IN LAW GLORIA HAD S/P DEBRIDEMENT WITH DR CASTELLANO YESTERDAY, AGREED TO HAVE SACRAL AREA PICTURE TAKEN BUT REFUSE TO HAVE THE GAUZE/DRESSING REMOVED INSIDE,
[2018-03-31] MEDS ORDERED: CEFEPIME 2 GM in IV D5W 100 ML IV SCH (21:00)
[2018-03-31] MEDS ORDERED: CEFEPIME 1 GM VIAL IJ SCH (21:00)
[2018-03-31] MEDS: clonazePAM 0.5 MG TABLET GT SCH ×2 (22:00→23:38)
[2018-03-31] MEDS ORDERED: VANCOMYCIN HCL 0.75 GM in IV D5W 250 ML IV ONE (23:00)
[2018-03-31] MEDS: CEFEPIME IJ SCH (23:28)
[2018-03-31] MEDS: STERILE WATER IJ SCH (23:28)
[2018-03-31] MEDS: IV NS 0.9% 1,000 ML IV PRN (23:37)
[2018-03-31] MEDS: BLOOD SUGAR DIAGNOSTIC 1 EACH STRIP IN SCH (23:42)
[2018-03-31 23:44] LABS: APPEARANCE,URINE CLOUDY (CLEAR); BILIRUBIN,URINE NEGATIVE (NEGATIVE); BLOOD, URINE 1+ Ery/uL (NEGATIVE); COLOR,URINE YELLOW (YELLOW); KETONES,URINE NEGATIVE (NEGATIVE); LEUKOCYTE ESTERASE ,URINE 1+ (NEGATIVE); NITRITE, URINE NEGATIVE (NEGATIVE); PH,URINE 5.5 (5.0-8.0); PROTEIN,URINE 1+ mg/dl (NEGATIVE); UGLUCOSE NEGATIVE (NEGATIVE); UROBILINOGEN,URINE 0.2 EU/dL (0.2)
[2018-03-31 23:50] LABS: BACTERIA,URINE Few /HPF (None Seen); SQUAMOUS EPITHELIAL CELL,UR Few /HPF (None Seen); WBC,URINE 21-50 /HPF (0-3); YEAST,URINE Moderate /HPF (None Seen)
[2018-04-01] VITALS (7 sets, daily range): BP systolic 111–136; BP diastolic 52–86
[2018-04-01] MEDS: BLOOD SUGAR DIAGNOSTIC 1 EACH STRIP IN SCH ×4 (05:16→23:02)
[2018-04-01] MEDS: INSULIN REGULAR, HUMAN 100 UNIT/ML 3 ML VIAL SQ PRN (05:26)
[2018-04-01] MEDS: ACETAMINOPHEN 325 MG TABLET PO PRN ×2 (05:57→20:24)
--- NOTE | 2018-04-01 06:00 | NUR ---
tele/rn notes JOSE WAS MADE AWARE REGARDING FAMILY PREFERENCE TO BRING GLUCERNA 1.0 IN CANS, PATIETN GIVEN TYLENO FOR LOW GRADE FEVER OBSERVED 99.9 DEG F AND NOTICEABLE GRIMACE.
--- NOTE | 2018-04-01 06:24 | NUR ---
308-2 TELE/RN NOTES PATIENT SLEPT INTERMITENTLY, REQUIRE VENTURI MASK OXYGEN AT 6L WITH OXYGENATION AT 95%, TELE MONITORING SR TO ST 108. FRAGILE SKIN, WITH MULTIPLE WOUNDS, REPOSITONED AND ONM KCI MATTRESS, GTUBE FEEDING ON , PATENCY CHECK. IV HYDRATION MONIOTRED.WILL ENDORSE TO AM RN FOR ANGUS.
[2018-04-01] MEDS ORDERED: SERT50TA PO (06:43)
[2018-04-01 06:47] LABS: BASOPHILS % (AUTO) 0.4 % (0.0-2.0); EOSINOPHILS % (AUTO) 0.8 % (0.0-6.0); HEMATOCRIT 23 % (33-45); HEMOGLOBIN 7.3 g/dL (11.5-14.8); LYMPHOCYTES % (AUTO) 9.5 % (20.0-44.0); MEAN CORPUSCULAR HGB CONC 32 g/dl (31.0-36.0); MEAN CORPUSCULAR VOLUME 83 fL (82-100); MONOCYTES # (AUTO) 0.5 /CMM (0.1-1.30); MONOCYTES % (AUTO) 4.9 % (2.0-12.0); NEUTROPHILS # (AUTO) 8.4 /CMM (1.8-8.9); NEUTROPHILS % (AUTO) 84.4 % (43.0-81.0); PLATELET COUNT (AUTO) 243 /CMM (150-450); RED BLOOD CELL COUNT(AUTO) 2.75 MIL/uL (4.0-5.2)
[2018-04-01 06:58] LABS: CHOLESTEROL 84 mg/dL (<200); HDL CHOLESTEROL 40 mg/dL (40-60); LDL 40 mg/dL (0-99); TRIGLYCERIDES 110 mg/dL (30-150)
--- NOTE | 2018-04-01 07:15 | NUR ---
OUTSOLE FLEXER OPENING NOTES PT NON-VERBAL, REQUIRED VENTURI MASK OXYGEN AT 6L WITH 92%, TELE MONITORING SR TO ST 108. FRAGILE SKIN, WITH MULTIPLE WOUNDS, REPOSITONED AND ONM KCI MATTRESS, GTUBE FEEDING ON , RESIDUAL 5ML.
[2018-04-01 07:18] LABS: CALCIUM, SERUM 8.8 mg/dL (8.5-10.1); CARBON DIOXIDE 21 mmol/L (21-32); CHLORIDE 108 mmol/L (98-107); CREATININE 0.7 mg/dL (0.6-1.3); GLUCOSE 154 mg/dL (74-106); PHOSPHORUS 2.7 mg/dL (2.5-4.9); POTASSIUM 4.6 mmol/L (3.5-5.1); SODIUM SERUM 139 mmol/L (136-145); UREA NITROGEN, BLOOD 38 mg/dL (7-18)
[2018-04-01] MEDS ORDERED: GLUCERNA 1.2 1,000 ML BOTTLE GT PRN (08:48)
[2018-04-01] MEDS: PROSTAT (PYXIS) 30 ML UDC GT SCH (09:00)
[2018-04-01] MEDS ORDERED: BLOOD SUGAR DIAGNOSTIC 1 EACH STRIP IN SCH (09:00)
[2018-04-01] MEDS: ACETAMINOPHEN ES 500 MG TABLET GT SCH (09:43)
[2018-04-01] MEDS: ACIDOPHILUS/BULGARICUS 1 EACH TAB.CHEW GT SCH (09:43)
[2018-04-01] MEDS: BACLOFEN (10 MG) 10 MG TABLET GT SCH (09:43)
[2018-04-01] MEDS: ASCORBIC ACID 500 MG TABLET GT SCH ×2 (09:43→17:39)
[2018-04-01] MEDS: CYANOCOBALAMIN 500 MCG TABLET GT SCH (09:43)
[2018-04-01] MEDS: CHOLECALCIFEROL 1,000 UNIT TABLET (VIT D3) GT SCH (09:44)
[2018-04-01] MEDS: MULTIVIT W/MINERALS 1 TAB TABLET GT SCH (09:44)
[2018-04-01] MEDS: ASPIRIN 81 MG TAB.CHEW GT SCH (09:44)
[2018-04-01] MEDS: IV NS 0.9% 1,000 ML IV PRN ×2 (09:45→21:47)
[2018-04-01] MEDS: SERTRALINE HCL 50 MG TABLET GT SCH (09:50)
[2018-04-01] MEDS: ZINC SULFATE 220 MG CAPSULE GT SCH (09:50)
[2018-04-01] MEDS: NS IV SCH (10:21)
[2018-04-01] MEDS: VANCOMYCIN IV SCH (10:21)
[2018-04-01] MEDS: GLUCERNA GT PRN (11:00)
[2018-04-01] MEDS: CEFEPIME IJ SCH ×2 (11:06→22:45)
[2018-04-01] MEDS: STERILE WATER IJ SCH ×2 (11:06→22:45)
[2018-04-01] MEDS ORDERED: LIDOCAINE 2%-EPI 1:100,000 30 ML VIAL TP ONE (14:00)
[2018-04-01] MEDS: DAKINS QUARTER STRENGTH (0.125%) 480 ML BOTTLE TOP SCH ×2 (17:39→20:04)
--- NOTE | 2018-04-01 19:22 | NUR ---
RT Called for pt desatting. Pt found on 30% Venturi mask sat. 89%. Pt nasally sx'd and sat increased to 98%. No respiratory distress noted @ this time.
--- NOTE | 2018-04-01 19:30 | NUR ---
PATIENT NON-VERBAL, ON VENTURI MASK OXYGEN AT 6L WITH OXYGENATION AT 97% AT THIS TIME, WOUND CARE DONE ORDERED. PT REPOSITIONED Q2HR PER PROTOCOL. ALL NEEDS ATTENDED, PT KEPT CLEAN AND COMFORTABLE. PT ON G-TUBE FEEDING 70ML/HR WITH NO RESIDUAL. WILL ENDORSE TO NEXT SHIFT FOR ANGUS.
--- NOTE | 2018-04-01 19:36 | NUR ---
MS/RN OPENING NOTES RECEIVED PATIENT IN BED, NON VERBAL, NOTED SECRETIONS, ON VENTURI MASK AT 4L, REQUIRE TO INCREASE AT 6L PATIETN SATURATION IS GOING DOWN BELOW 90 RT WAS CALLED , SUCTION SECRETIONS, OXYGENATION INCREASED TO 95%, SKIN WARM TO TOUCH, ON MED SURG, MONITORING FOR ANY CHANGES IN VITAL SIGNS, PULSE RATE AT 99 TO 110 AT THIS TIME. MONITORED FREQUENTLY AND KEPT COMFORTABLE, ON GTUBE FEEDING, PATENCY CHECK, ON WARD, DRAINING URINE, AND ON IV HYDRATION, WILL MONITOR.
--- NOTE | 2018-04-01 20:10 | NUR ---
MS/RN NOTES PATIENT OBSERVE MOANING, WILL ADMINISTER PAIN MEDICATION TYLENOL 650 MG VIA GTUBE FOR COMFORT.
--- NOTE | 2018-04-01 22:33 | NUR ---
MS/RN NOTES PATIENT PROVIDED WOUND TREATMENT, MONITORED FOE ANY CHANGES, OXYGENATION, KEPT OXYGENATION ABOVE 92% ON VENTURI MASK AT 6L. , RT AT BEDSIDE, MD CONTACTED FOR FLUCTUATIONS IN OXYGENATION , TO MONITOR PATIENT, AND REPORT FOR ANY CHANGES AND FURTHER DESATURATION THAT CAN NOT BE MAINTAINED WITH ORDERED TREATMENT PLAN.
[2018-04-01] MEDS: clonazePAM 0.5 MG TABLET GT SCH (22:46)
[2018-04-02] MEDS: ALBUTEROL HALF STRENGTH 1.25 MG/3 ML VIAL.NEB NEB PRN (00:06)
--- NOTE | 2018-04-02 00:40 | NUR ---
MS/RN NOTES OBSERVED PATIENT DESATURATING TO 77% WHILE ON VENTURI MASK AT 6L THAT LAST FOR 5 MINUTES, AND GOES BACK TO 85% AND INCREASE AT 92 % AFTER INTERVENTION AND TO 95%, HOB ELEVATED, WHILE PATIENT OPENED MOUTH PATIETN IS MOUTH BREATHER, PROBE OXYGEN CHECK AND REAPPLIED A NEW PROBE OXYGEN,, CHARGE NURSE AND STEEL CHIPPER ASSISTED, CANCELLED CALL FOR RAPID RESPONSE PATIENT OXYGENATION MAINTAINED IN 95%, B/P ELEVATED 158/66, HR AT 99, BLOOD SUGAR CHECK 112. KEEP STABLE, MONITORED . PATIETN OBSERVE WITH GRIMACE, FRAIL, AND REQUIRE EXTENSIVE ASSISTANCE.
[2018-04-02] MEDS: DAKINS QUARTER STRENGTH (0.125%) 480 ML BOTTLE TOP SCH ×4 (01:11→20:54)
[2018-04-02 04:00] VITALS: BP 97/65
[2018-04-02] MEDS: BLOOD SUGAR DIAGNOSTIC 1 EACH STRIP IN SCH ×3 (05:00→17:27)
[2018-04-02] MEDS: ACETAMINOPHEN 325 MG TABLET PO PRN (05:05)
[2018-04-02] MEDS: INSULIN REGULAR, HUMAN 100 UNIT/ML 3 ML VIAL SQ PRN (05:12)
--- NOTE | 2018-04-02 06:42 | NUR ---
308-2 MS/RN NOTES PATIENT, NON VERBAL, FRAGILE AND REQUIRE VENTURI MASK AT 6 L FOR MAXIMUM OXYGENATION TOLERATED, EXTENSIVE ASSISTACNE REQUIRED FOR TURNING. KEPT COMFORTABLE WITH FREQUENT ROUNDS, CALL LIGHTS WITHIN REACH, BWED LOCKED WILL MONITOR.WILL ENDORSE TO AM RN FOR ANGUS.
--- NOTE | 2018-04-02 07:15 | NUR ---
MS RN OPENING NOTES PATIENT NON-VERBAL, ON VENTURI MASK OXYGEN AT 6L WITH OXYGENATION AT 93% AT THIS TIME,PT ON G-TUBE FEEDING 70ML/HR WITH NO RESIDUAL AND GENTLE FLUID HYDRATION.RESPIRATIONS UNLABORED AND EVEN AT THIS TIME. SAFETY PRECAUTIONS OBSERVED. WILL CONTINUE TO MONITOR
[2018-04-02 07:31] LABS: BASOPHILS # (AUTO) 0.1 /CMM (0.0-0.2); BASOPHILS % (AUTO) 0.7 % (0.0-2.0); EOSINOPHILS % (AUTO) 6.8 % (0.0-6.0); HEMATOCRIT 22 % (33-45); LYMPHOCYTES # (AUTO) 1.1 /CMM (0.8-4.8); LYMPHOCYTES % (AUTO) 14.4 % (20.0-44.0); MEAN CORPUSCULAR HGB CONC 32 g/dl (31.0-36.0); MEAN CORPUSCULAR VOLUME 83 fL (82-100); MONOCYTES # (AUTO) 0.5 /CMM (0.1-1.30); MONOCYTES % (AUTO) 6.3 % (2.0-12.0); NEUTROPHILS # (AUTO) 5.6 /CMM (1.8-8.9); NEUTROPHILS % (AUTO) 71.8 % (43.0-81.0); PLATELET COUNT (AUTO) 203 /CMM (150-450); RED BLOOD CELL COUNT(AUTO) 2.62 MIL/uL (4.0-5.2); WHITE BLOOD COUNT (AUTO) 7.9 K/uL (4.3-11.0)
[2018-04-02 07:37] LABS: CALCIUM, SERUM 8.2 mg/dL (8.5-10.1); CARBON DIOXIDE 23 mmol/L (21-32); CHLORIDE 111 mmol/L (98-107); CREATININE 0.5 mg/dL (0.6-1.3); GLUCOSE 133 mg/dL (74-106); POTASSIUM 4.1 mmol/L (3.5-5.1); SODIUM SERUM 143 mmol/L (136-145); UREA NITROGEN, BLOOD 25 mg/dL (7-18)
--- NOTE | 2018-04-02 07:41 | NUR ---
RECEIVED CALL FROM LAB: Isaac 7.0 , WILL INFORM
--- NOTE | 2018-04-02 07:45 | NUR ---
MADE AWARE HB 7.0. NO NEW ORDERS AT THIS TIME.
[2018-04-02 08:00] VITALS: BP_SYST 73; BP_SYST 96; BP_DIAS 41; BP_DIAS 53
[2018-04-02] MEDS: ASPIRIN 81 MG TAB.CHEW GT SCH (08:41)
[2018-04-02] MEDS: ASCORBIC ACID 500 MG TABLET GT SCH ×2 (08:41→17:26)
[2018-04-02] MEDS: CHOLECALCIFEROL 1,000 UNIT TABLET (VIT D3) GT SCH (08:41)
[2018-04-02] MEDS: BACLOFEN (10 MG) 10 MG TABLET GT SCH (08:42)
[2018-04-02] MEDS: CYANOCOBALAMIN 500 MCG TABLET GT SCH (08:42)
[2018-04-02] MEDS: MULTIVIT W/MINERALS 1 TAB TABLET GT SCH (08:42)
[2018-04-02] MEDS: ACIDOPHILUS/BULGARICUS 1 EACH TAB.CHEW GT SCH (08:42)
[2018-04-02] MEDS: ACETAMINOPHEN ES 500 MG TABLET GT SCH (08:42)
[2018-04-02] MEDS: VANCOMYCIN IV SCH (08:43)
[2018-04-02] MEDS: PROSTAT (PYXIS) 30 ML UDC GT SCH (08:43)
[2018-04-02] MEDS: NS IV SCH (08:43)
[2018-04-02] MEDS: SERTRALINE HCL 50 MG TABLET GT SCH (09:03)
[2018-04-02] MEDS: GLUCERNA GT PRN ×2 (09:04→21:56)
[2018-04-02] MEDS: ZINC SULFATE 220 MG CAPSULE GT SCH (09:05)
[2018-04-02 10:15] LABS: HEMOGLOBIN 7.4 g/dL (11.5-14.8)
[2018-04-02] MEDS: CEFEPIME IJ SCH (10:46)
[2018-04-02] MEDS: STERILE WATER IJ SCH (10:46)
[2018-04-02] MEDS: IV NS 0.9% 1,000 ML IV PRN (12:31)
[2018-04-02 16:00] VITALS: BP 102/60
--- NOTE | 2018-04-02 18:00 | NUR ---
PT SATURATION DROPPED TO 84 % , CALLED RT FOR SUCTIONING
--- NOTE | 2018-04-02 18:29 | NUR ---
PT SUCTIONED , O2 SATURATION 98% ON VENTURI MASK 6L.
--- NOTE | 2018-04-02 19:00 | NUR ---
PATIENT NON-VERBAL, ON VENTURI MASK OXYGEN AT 6L WITH OXYGENATION 98-100% AT THIS TIME,PT ON G-TUBE FEEDING 70ML/HR WITH NO RESIDUAL AND GENTLE FLUID HYDRATION.RESPIRATIONS UNLABORED AND EVEN AT THIS TIME. SAFETY PRECAUTIONS OBSERVED, WOUND DRESSING CHANGED, PT TURNED AND REPOSITIONED Q2HR. WILL ENDORSE TO NEXT SHIFT FOR ANGUS.
--- NOTE | 2018-04-02 19:50 | NUR ---
RN OPENING NOTES RECEIVED REPORT FROM [facility] GOLDEN GOLDEN. FOUND Pt IN BED. NO S/S OF ACUTE DISTRESS OR SEVERE SOB NOTED. Pt IS NONVERBAL, OBTUNDED, WITH CONTRACTED EXTREMITIES. IV ACCESS ON CHARIS PICCLINE; IVF NS @100ML/HR. SAFETY MEASURES IN PLACE. BED LOW, LOCKED, HOB ELEVATED, & SIDE RAILS UP. Pt ON 6L 02 VENTURI MASK SAT FROM 96-99%. WILL CONTINUE TO MONITOR Pt's CONDITION AND SAFETY THROUGHOUT THE NIGHT.
[2018-04-02 20:00] VITALS: BP 118/84
[2018-04-02 20:30] VITALS: BP 118/54
[2018-04-02] MEDS: clonazePAM 0.5 MG TABLET GT SCH (21:54)
--- NOTE | 2018-04-03 | NUR ---
RN NOTES BG 108. NO INSULIN COVERAGE NEEDED AT THIS TIME.
[2018-04-03] MEDS: BLOOD SUGAR DIAGNOSTIC 1 EACH STRIP IN SCH ×5 (00:38→23:06)
[2018-04-03] MEDS: IV NS 0.9% 1,000 ML IV PRN ×2 (02:22→16:57)
[2018-04-03] MEDS: DAKINS QUARTER STRENGTH (0.125%) 480 ML BOTTLE TOP SCH ×4 (02:24→20:18)
--- NOTE | 2018-04-03 06:00 | NUR ---
RN NOTES BG 101. NO INSULIN COVERAGE NEEDED AT THIS TIME. Pt ON CONTINUOUS GTF.
[2018-04-03 06:38] LABS: BASOPHILS # (AUTO) 0.1 /CMM (0.0-0.2); BASOPHILS % (AUTO) 0.8 % (0.0-2.0); EOSINOPHILS % (AUTO) 7.1 % (0.0-6.0); HEMATOCRIT 23 % (33-45); HEMOGLOBIN 7.4 g/dL (11.5-14.8); LYMPHOCYTES # (AUTO) 1.3 /CMM (0.8-4.8); LYMPHOCYTES % (AUTO) 14.8 % (20.0-44.0); MEAN CORPUSCULAR HGB CONC 33 g/dl (31.0-36.0); MEAN CORPUSCULAR VOLUME 82 fL (82-100); MONOCYTES # (AUTO) 0.5 /CMM (0.1-1.30); MONOCYTES % (AUTO) 6.1 % (2.0-12.0); NEUTROPHILS # (AUTO) 6.4 /CMM (1.8-8.9); NEUTROPHILS % (AUTO) 71.2 % (43.0-81.0); PLATELET COUNT (AUTO) 258 /CMM (150-450); RED BLOOD CELL COUNT(AUTO) 2.76 MIL/uL (4.0-5.2); WHITE BLOOD COUNT (AUTO) 8.9 K/uL (4.3-11.0)
--- NOTE | 2018-04-03 06:50 | NUR ---
RN CLOSING NOTES NO SIGNIFICANT CHANGES IN Pt's CONDITION. Pt REMAINS STABLE PER BASELINE. Pt RESTING IN BED. ON VENTURI MASK @6L. NO S/S OF ACUTE DISTRESS OR SOB NOTED DURING NIGHT. ON CONTINUOUS GTF @70ML/HR, TOLERATING WELL. ALL NEEDS MET AND ATTENDED TO. SAFETY MEASURES IN PLACE. WILL ENDORSE TO DAYSHIFT RN FOR Pt's ANGUS.
[2018-04-03 06:51] LABS: CALCIUM, SERUM 8.3 mg/dL (8.5-10.1); CARBON DIOXIDE 23 mmol/L (21-32); CHLORIDE 110 mmol/L (98-107); CREATININE 0.5 mg/dL (0.6-1.3); GLUCOSE 107 mg/dL (74-106); POTASSIUM 3.8 mmol/L (3.5-5.1); SODIUM SERUM 143 mmol/L (136-145); UREA NITROGEN, BLOOD 20 mg/dL (7-18)
--- NOTE | 2018-04-03 07:30 | NUR ---
MS/RN OPENING NOTE PATIENT IN BED IN STABLE CONDITION. A/O X 1, NON VERBAL. NO SIGNS OF ACUTE DISTRESS. NO COMPLAIN OF PAIN OR DISCOMFORT. ON VENTURI MASK AT 6LPM OXYGEN, SATURATION 96%. ON G TUBE FEEDING. TOLERATING WELL. HOB ELEVATED FOR ASPIRATION PRECAUTION. ALL NEEDS ATTENDED TO. CALL LIGHT WITHIN REACH. WILL CONTINUE TO MONITOR TO ENSURE SAFETY.
[2018-04-03 08:13] VITALS: BP 119/72
[2018-04-03] MEDS: CEFEPIME 2 GM in IV D5W 100 ML IV SCH ×2 (08:43→20:35)
[2018-04-03] MEDS: VANCOMYCIN 0.75 GM in IV D5W 250 ML IV SCH (08:50)
[2018-04-03] MEDS: ACETAMINOPHEN ES 500 MG TABLET GT SCH (08:51)
[2018-04-03] MEDS: BACLOFEN (10 MG) 10 MG TABLET GT SCH (08:51)
[2018-04-03] MEDS: MULTIVIT W/MINERALS 1 TAB TABLET GT SCH (08:51)
[2018-04-03] MEDS: CHOLECALCIFEROL 1,000 UNIT TABLET (VIT D3) GT SCH (08:51)
[2018-04-03] MEDS: ACIDOPHILUS/BULGARICUS 1 EACH TAB.CHEW GT SCH (08:51)
[2018-04-03] MEDS: ASPIRIN 81 MG TAB.CHEW GT SCH (08:51)
[2018-04-03] MEDS: ZINC SULFATE 220 MG CAPSULE GT SCH (08:51)
[2018-04-03] MEDS: ASCORBIC ACID 500 MG TABLET GT SCH ×2 (08:51→16:57)
[2018-04-03] MEDS: SERTRALINE HCL 50 MG TABLET GT SCH (08:51)
[2018-04-03] MEDS: CYANOCOBALAMIN 500 MCG TABLET GT SCH (08:51)
[2018-04-03] MEDS: PROSOURCE / PROSTAT (PYXIS) 30 ML UDC GT SCH (10:14)
[2018-04-03 16:00] VITALS: BP 130/71
[2018-04-03] MEDS: GLUCERNA GT PRN (17:08)
--- NOTE | 2018-04-03 18:20 | NUR ---
MS/RN CLOSING NOTE PATIENT IN BED IN STABLE CONDITION. A/O X 1, NON VERBAL. NO SIGNS OF ACUTE DISTRESS. NO COMPLAIN OF PAIN OR DISCOMFORT. ON VENTURI MASK AT 4LPM TOLERATING WELL. SATURATION 98%. ON G TUBE FEEDING GLUCERNA 1.2 AT 70 MLS/HR TOLERATING WELL. ALL NEEDS ATTENDED TO. CALL LIGHT WITHIN REACH. WILL ENDORSE TO NEXT SHIFT FOR CONTINUITY OF CARE. Addendum: 04/03/18 at 1947 by BO COSTA RN MS/RN NOTES RECEIVED PATIENT IN BED, WITH FLUCTUATING OXYGENATION, REQUIRE RT FOR SUCTION, RT AT BEDSIDE SUCTIONED PATIENT WITH HEAVY SECRETIONS, ON VENTURI MASK AT 4L,.SKIN WARM TO TOUCH, WILL MONITOR, AND CONTINUE TO PROVIDE CARE. BED LOCKED, RECEIVED ENDORESMENT FROM AM RN FOR ANGUS.
[2018-04-03 20:00] VITALS: BP 102/73
[2018-04-03] MEDS: clonazePAM 0.5 MG TABLET GT SCH (22:19)
--- NOTE | 2018-04-03 23:11 | NUR ---
ms/rn notes bs check at 109
[2018-04-04] MEDS: GLUCERNA GT PRN ×2 (01:03→16:51)
[2018-04-04] MEDS: DAKINS QUARTER STRENGTH (0.125%) 480 ML BOTTLE TOP SCH ×4 (01:13→20:06)
[2018-04-04] MEDS: BLOOD SUGAR DIAGNOSTIC 1 EACH STRIP IN SCH ×3 (05:01→17:02)
[2018-04-04] MEDS: IV NS 0.9% 1,000 ML IV PRN ×2 (05:35→20:47)
[2018-04-04 06:37] LABS: BASOPHILS # (AUTO) 0.1 /CMM (0.0-0.2); BASOPHILS % (AUTO) 1.1 % (0.0-2.0); EOSINOPHILS % (AUTO) 7.7 % (0.0-6.0); HEMATOCRIT 24 % (33-45); HEMOGLOBIN 7.6 g/dL (11.5-14.8); LYMPHOCYTES # (AUTO) 1.5 /CMM (0.8-4.8); LYMPHOCYTES % (AUTO) 15.7 % (20.0-44.0); MEAN CORPUSCULAR HGB CONC 32 g/dl (31.0-36.0); MEAN CORPUSCULAR VOLUME 82 fL (82-100); MONOCYTES # (AUTO) 0.6 /CMM (0.1-1.30); MONOCYTES % (AUTO) 5.8 % (2.0-12.0); NEUTROPHILS # (AUTO) 6.7 /CMM (1.8-8.9); NEUTROPHILS % (AUTO) 69.7 % (43.0-81.0); RED BLOOD CELL COUNT(AUTO) 2.86 MIL/uL (4.0-5.2); WHITE BLOOD COUNT (AUTO) 9.6 K/uL (4.3-11.0)
--- NOTE | 2018-04-04 06:39 | NUR ---
308-2 MS/RN NOTES PATIENT IN BED, ON VENTURI MASK AT 4 L WITH OXYGENATION AT 94%, NON VERBAL, OBTUNDED, REQUIRE EXTENSIVE ASSISTANCE, GTUBE FLUSHED AND PATENT, ON WARD CATHTER DRAINING YELLOW URINE, PICC LINE ON CHARIS PATENT, SUCTION NEEDED FOR SECRETIONS. KEPT COMFORTABLE. BED LOCKED AND FREQUENT ROUNDING, WILL ENDORSE TO AM RN FOR ANGUS.
[2018-04-04 07:00] LABS: CALCIUM, SERUM 8.4 mg/dL (8.5-10.1); CARBON DIOXIDE 23 mmol/L (21-32); CHLORIDE 110 mmol/L (98-107); CREATININE 0.6 mg/dL (0.6-1.3); GLUCOSE 120 mg/dL (74-106); POTASSIUM 3.9 mmol/L (3.5-5.1); SODIUM SERUM 144 mmol/L (136-145); UREA NITROGEN, BLOOD 25 mg/dL (7-18)
[2018-04-04 07:23] LABS: PLATELET COUNT (AUTO) 272 /CMM (150-450)
--- NOTE | 2018-04-04 07:44 | NUR ---
MS RN OPENING NOTES PATIENT EASILY DESATURATES. CALLED RT TO DEEP SUCTION PATIENT PATIENT WAS 74% ON VENTURI MASK. SUCTIONED PATIENT AND PATIENT NOW SATURATING AT 98%. BEDSIDE RAILS ARE UPX2. BED IS LOCKED AND LOWERED. CALL LIGHT IS WITHIN REACH. IV LINE IS INTACT AND PATENT. WILL CONTINUE TO MONITOR PATIENT.
[2018-04-04 08:06] VITALS: BP 134/67
[2018-04-04] MEDS: ALBUTEROL HALF STRENGTH 1.25 MG/3 ML VIAL.NEB NEB PRN ×3 (08:08→19:33)
[2018-04-04] MEDS: CYANOCOBALAMIN 500 MCG TABLET GT SCH (09:52)
[2018-04-04] MEDS: ASCORBIC ACID 500 MG TABLET GT SCH ×2 (09:52→16:45)
[2018-04-04] MEDS: ACETAMINOPHEN ES 500 MG TABLET GT SCH (09:52)
[2018-04-04] MEDS: CHOLECALCIFEROL 1,000 UNIT TABLET (VIT D3) GT SCH (09:52)
[2018-04-04] MEDS: PROSOURCE / PROSTAT (PYXIS) 30 ML UDC GT SCH (09:52)
[2018-04-04] MEDS: ASPIRIN 81 MG TAB.CHEW GT SCH (09:52)
[2018-04-04] MEDS: SERTRALINE HCL 50 MG TABLET GT SCH (09:52)
[2018-04-04] MEDS: ACIDOPHILUS/BULGARICUS 1 EACH TAB.CHEW GT SCH (09:53)
[2018-04-04] MEDS: MULTIVIT W/MINERALS 1 TAB TABLET GT SCH (09:53)
[2018-04-04] MEDS: BACLOFEN (10 MG) 10 MG TABLET GT SCH (09:53)
[2018-04-04] MEDS: ZINC SULFATE 220 MG CAPSULE GT SCH (09:53)
[2018-04-04] MEDS: CEFEPIME 2 GM in IV D5W 100 ML IV SCH ×2 (09:53→20:06)
[2018-04-04] MEDS: VANCOMYCIN 0.75 GM in IV D5W 250 ML IV SCH (11:10)
[2018-04-04 16:13] VITALS: BP 142/58
--- NOTE | 2018-04-04 19:00 | NUR ---
RN MS OPENING NOTES RECEIVED PATIENT IN BED WITH HEAD OF BED ELEVATED FOR ASPIRATION PRECAUTIONS, PATIENT HAS EYES OPEN, NON VERBAL OBTUNDED, ON 2-3 L VIA NC,SPO2 BETWEEN 92-97%. WARD CATHETER INTACT AND PATENT DRAINING WELL NOTED URINE YELLOW, GTUBE IN PLACE WITH FEEDING RUNNING AT 70ML/HR. PROPER PLACEMENT, TOLERATING MEALS WELL 40CC RESIDUAL. DRESSING REMAINS CLEAN, DRY AND INTACT. RIGHT UPPER ARM PICC LINE INTACT AND PATENT, WITH IVF RUNNING ORDERED. ALL NEEDS ATTENDED AT THIS TIME, REPOSITIONED REMAINS COMFORTABLE , WILL CONTINUE TO MONITOR AND ATTEND TO NEEDS.
--- NOTE | 2018-04-04 19:20 | NUR ---
MS RN CLOSING NOTES PATIENT IS IN STABLE CONDITION. IN NO APPARENT DISTRESS. BEDSIDE RAILS ARE UPX2. BED IS LOCKED AND LOWERED. CALL LIGHT IS WITHIN REACH. IV LINE IS INTACT AND PATENT. ALL NEEDS WERE MET. WILL ENDORSE CARE TO METALLURGICAL OR MATERIALS TECHNICIAN NURSE FOR ANGUS.
--- NOTE | 2018-04-04 19:30 | NUR ---
RN MS NOTES UPON SKIN ASSESSMENT NOTED LEFT EAR WITH REDNESS, PATIENT IS ON CONTIONOUS 02 PICTURE TAKEN , PLACED IN CHART MEPILEX APPLIED FOR SKIN MANAGEMENT AND PREVENTION WILL PLACE WOUND CARE CONSULT
[2018-04-04 20:00] VITALS: BP 145/85
[2018-04-04] MEDS: clonazePAM 0.5 MG TABLET GT SCH (22:27)
--- NOTE | 2018-04-04 22:27 | NUR ---
RN MS NOTES KLONOPIN GIVEN ORDERED 0.125MG 0.375MG WASTED WITH ANOTHER RN.
[2018-04-05] MEDS: BLOOD SUGAR DIAGNOSTIC 1 EACH STRIP IN SCH ×4 (00:40→18:14)
[2018-04-05] MEDS: DAKINS QUARTER STRENGTH (0.125%) 480 ML BOTTLE TOP SCH ×4 (02:14→20:03)
[2018-04-05] MEDS: GLUCERNA GT PRN ×3 (05:03→18:11)
--- NOTE | 2018-04-05 05:11 | NUR ---
BS 120 NO INSULIN NEEDED AT THIS TIME.
[2018-04-05] MEDS: IV NS 0.9% 1,000 ML IV PRN ×2 (06:16→17:56)
[2018-04-05 06:24] VITALS: BP 114/64
--- NOTE | 2018-04-05 06:34 | NUR ---
RN MS CLOSING NOTES PATIENT IN BED WITH HEAD OF BED ELEVATED FOR ASPIRATION PRECAUTIONS, PATIENT ISNON VERBAL OBTUNDED, ON 2-3 L VIA NC,SPO2 BETWEEN 97%. WARD CATHETER INTACT AND PATENT DRAINING WELL NOTED URINE YELLOW 1,100 ML VOIDED, GTUBE IN PLACE WITH FEEDING RUNNING AT 70ML/HR. PROPER PLACEMENT, TOLERATING MEALS WELL 0CC RESIDUAL. WOUND DRESSINGS REMAINS CLEAN, DRY AND INTACT. RIGHT UPPER ARM PICC LINE INTACT AND PATENT, WITH IVF RUNNING ORDERED. ALL NEEDS ATTENDED AT THIS TIME, REPOSITIONED REMAINS COMFORTABLE , WILL CONTINUE TO MONITOR AND ENDORSE TO NEXT SHIFT.
[2018-04-05] MEDS: ALBUTEROL HALF STRENGTH 1.25 MG/3 ML VIAL.NEB NEB PRN ×4 (07:49→20:20)
--- NOTE | 2018-04-05 07:50 | NUR ---
RN OPENING NOTES RECEIVED PT. IN BED AWAKE, PT. IS NON VERBAL AND OBTUNDED. BREATHING UNLABORED ON OXYGEN AT 3L/MIN VIA NASAL CANNULA. IV FLUIDS RUNNING AT 100 ML/HR. G TUBE FEEDING AT 70 ML/HR. WARD CATHETER HAS 200 CC OF CLEAR, AND YELLOW URINE OUTPUT. NO S/S OF ACUTE DISTRESS. BED IS IN LOWEST, AND LOCKED POSITION. 2 SIDE RAILS UP, AND CALL LIGHT IS WITHIN REACH. ALL NEEDS MET. WILL CONTINUE TO ASSESS AND MONITOR.
[2018-04-05 08:00] VITALS: BP 94/57
[2018-04-05 08:10] LABS: CALCIUM, SERUM 8.6 mg/dL (8.5-10.1); CARBON DIOXIDE 23 mmol/L (21-32); CHLORIDE 110 mmol/L (98-107); CREATININE 0.7 mg/dL (0.6-1.3); GLUCOSE 130 mg/dL (74-106); POTASSIUM 4.4 mmol/L (3.5-5.1); SODIUM SERUM 144 mmol/L (136-145); UREA NITROGEN, BLOOD 29 mg/dL (7-18)
--- NOTE | 2018-04-05 08:11 | NUR ---
PT. WAS SEEN AND EXAMINED BY DR. BAUMAN, DISCUSSED PT. CONDITION, NO NEW ORDERS GIVEN.
[2018-04-05] MEDS: CEFEPIME 2 GM in IV D5W 100 ML IV SCH ×2 (09:06→20:04)
[2018-04-05] MEDS: ACETAMINOPHEN ES 500 MG TABLET GT SCH (09:48)
[2018-04-05] MEDS: ASCORBIC ACID 500 MG TABLET GT SCH ×2 (09:48→17:56)
[2018-04-05] MEDS: ZINC SULFATE 220 MG CAPSULE GT SCH (09:48)
[2018-04-05] MEDS: ACIDOPHILUS/BULGARICUS 1 EACH TAB.CHEW GT SCH (09:49)
[2018-04-05] MEDS: SERTRALINE HCL 50 MG TABLET GT SCH (09:49)
[2018-04-05] MEDS: CYANOCOBALAMIN 500 MCG TABLET GT SCH (09:49)
[2018-04-05] MEDS: ASPIRIN 81 MG TAB.CHEW GT SCH (09:49)
[2018-04-05] MEDS: MULTIVIT W/MINERALS 1 TAB TABLET GT SCH (09:49)
[2018-04-05] MEDS: CHOLECALCIFEROL 1,000 UNIT TABLET (VIT D3) GT SCH (09:49)
[2018-04-05] MEDS: BACLOFEN (10 MG) 10 MG TABLET GT SCH (09:49)
[2018-04-05] MEDS: VANCOMYCIN 1 GM in IV D5W 250 ML IV SCH (10:04)
[2018-04-05] MEDS: PROSOURCE / PROSTAT (PYXIS) 30 ML UDC GT SCH (10:08)
[2018-04-05 16:00] VITALS: BP 128/63
[2018-04-05] MEDS: FLUCONAZOLE (100 MG) 100 MG TABLET GT SCH (16:09)
[2018-04-05] MEDS: ACETAMINOPHEN 325 MG TABLET PO PRN (18:05)
--- NOTE | 2018-04-05 19:35 | NUR ---
MS RN NOTE RECEIVED PT IN STABLE CONDITION. NONVERBAL, OBTUNDED. NO SOB OR DISTRESS NOTED. PT HR IS CURRENTLY 95 AND O2 SAT IS 97%. GTUBE PATENT AND INTACT FEEDING INFUSING AND TOLERATING WELL. PT WITH CHARIS PICC LINE INFUSING IVF NO SIGNS OF INFECTION AT SITE. WARD CATH. WITH ADEQUATE URINE OUTPUT WITH CLEAR YELLOW URINE DRAINING. SAFETY MEASURES IN PLACE: BED LOW, LOCKED, UPPER RAILS UP, AND CALL LIGHT WITHIN REACH. WILL CONT TO MONITOR.
--- NOTE | 2018-04-05 19:48 | NUR ---
RN CLOSING NOTES PT. IS IN BED SLEEPING, PT. IS NON VERBAL AND OBTUNDED. BREATHING UNLABORED ON OXYGEN AT 2L/MIN VIA NASAL CANNULA, SPO2 AT 99%, HR 93 BPM. IV FLUIDS RUNNING AT 100 ML/HR. G TUBE FEEDING AT 70 ML/HR. WARD CATHETER HAD 1000CC OF CLEAR, AND YELLOW URINE OUTPUT. NO S/S OF ACUTE DISTRESS. PT. WAS TURNED AND REPOSITIONED EVERY 2 HOURS. WOUND CARE WAS PERFORMED AND PT. TOLERATED WELL. BED IS IN LOWEST, AND LOCKED POSITION. 2 SIDE RAILS UP, AND CALL LIGHT IS WITHIN REACH. WILL ENDORSE REPORT TO NURSE.
[2018-04-05 20:00] VITALS: BP 121/57
[2018-04-05] MEDS: clonazePAM 0.5 MG TABLET GT SCH (21:27)
[2018-04-06] MEDS: BLOOD SUGAR DIAGNOSTIC 1 EACH STRIP IN SCH ×3 (00:05→11:44)
[2018-04-06] MEDS: DAKINS QUARTER STRENGTH (0.125%) 480 ML BOTTLE TOP SCH ×3 (02:51→14:26)
[2018-04-06] MEDS: IV NS 0.9% 1,000 ML IV PRN (04:58)
[2018-04-06] MEDS: GLUCERNA GT PRN ×2 (05:11→12:08)
--- NOTE | 2018-04-06 06:21 | NUR ---
MS RN NOTE PT IN STABLE CONDITION. NONVERBAL, OBTUNDED. NO SOB OR DISTRESS NOTED. PT HR IS CURRENTLY 98 AND O2 SAT IS 99%. GTUBE PATENT AND INTACT FEEDING INFUSING AND TOLERATING WELL. PT WITH CHARIS PICC LINE INFUSING IVF NO SIGNS OF INFECTION AT SITE. WARD CATH. WITH ADEQUATE URINE OUTPUT WITH CLEAR YELLOW URINE DRAINING. WOUND CHANGES DONE ORDERED. PT SUCTION PRN BY RT. SAFETY MEASURES IN PLACE: BED LOW, LOCKED, UPPER RAILS UP, AND CALL LIGHT WITHIN REACH. WILL CONT TO MONITOR AND ENDORSE TO NEXT SHIFT FOR ANGUS.
[2018-04-06 06:36] LABS: BASOPHILS # (AUTO) 0.1 /CMM (0.0-0.2); BASOPHILS % (AUTO) 0.9 % (0.0-2.0); EOSINOPHILS % (AUTO) 11.4 % (0.0-6.0); HEMATOCRIT 24 % (33-45); HEMOGLOBIN 7.6 g/dL (11.5-14.8); LYMPHOCYTES # (AUTO) 1.2 /CMM (0.8-4.8); LYMPHOCYTES % (AUTO) 12.4 % (20.0-44.0); MEAN CORPUSCULAR HGB CONC 32 g/dl (31.0-36.0); MEAN CORPUSCULAR VOLUME 83 fL (82-100); MONOCYTES # (AUTO) 0.6 /CMM (0.1-1.30); MONOCYTES % (AUTO) 6.4 % (2.0-12.0); NEUTROPHILS # (AUTO) 6.5 /CMM (1.8-8.9); NEUTROPHILS % (AUTO) 68.9 % (43.0-81.0); PLATELET COUNT (AUTO) 277 /CMM (150-450); RED BLOOD CELL COUNT(AUTO) 2.85 MIL/uL (4.0-5.2); WHITE BLOOD COUNT (AUTO) 9.5 K/uL (4.3-11.0)
[2018-04-06 06:45] LABS: CALCIUM, SERUM 8.6 mg/dL (8.5-10.1); CARBON DIOXIDE 23 mmol/L (21-32); CHLORIDE 110 mmol/L (98-107); CREATININE 0.6 mg/dL (0.6-1.3); GLUCOSE 106 mg/dL (74-106); POTASSIUM 4.1 mmol/L (3.5-5.1); SODIUM SERUM 143 mmol/L (136-145); UREA NITROGEN, BLOOD 29 mg/dL (7-18)
--- NOTE | 2018-04-06 07:40 | NUR ---
RN OPENING NOTES RECEIVED PT. IN BED SLEEPING, PT. IS NON VERBAL AND OBTUNDED. BREATHING UNLABORED ON OXYGEN AT 2L/MIN VIA NASAL CANNULA. IV FLUIDS RUNNING AT 100 ML/HR. G TUBE FEEDING AT 70 ML/HR. WARD CATHETER HAS 110 CC OF CLEAR, AND YELLOW URINE OUTPUT. NO S/S OF ACUTE DISTRESS. BED IS IN LOWEST, AND LOCKED POSITION. 2 SIDE RAILS UP, AND CALL LIGHT IS WITHIN REACH. ALL NEEDS MET. WILL CONTINUE TO ASSESS AND MONITOR.
[2018-04-06 08:00] VITALS: BP 132/70
--- NOTE | 2018-04-06 08:24 | NUR ---
WOUND CARE CONSULT: RECEIVED WOUND CONSULT FOR RT HIP WOUND AND LEFT EAR WOUND. DEFER TO SURGICAL TEAM CURRENTLY ON CASE.
[2018-04-06] MEDS: ACIDOPHILUS/BULGARICUS 1 EACH TAB.CHEW GT SCH (09:30)
[2018-04-06] MEDS: ZINC SULFATE 220 MG CAPSULE GT SCH (09:30)
[2018-04-06] MEDS: CHOLECALCIFEROL 1,000 UNIT TABLET (VIT D3) GT SCH (09:30)
[2018-04-06] MEDS: ACETAMINOPHEN ES 500 MG TABLET GT SCH (09:30)
[2018-04-06] MEDS: MULTIVIT W/MINERALS 1 TAB TABLET GT SCH (09:30)
[2018-04-06] MEDS: ASPIRIN 81 MG TAB.CHEW GT SCH (09:30)
[2018-04-06] MEDS: SERTRALINE HCL 50 MG TABLET GT SCH (09:30)
[2018-04-06] MEDS: CYANOCOBALAMIN 500 MCG TABLET GT SCH (09:30)
[2018-04-06] MEDS: BACLOFEN (10 MG) 10 MG TABLET GT SCH (09:30)
[2018-04-06] MEDS: FLUCONAZOLE (100 MG) 100 MG TABLET GT SCH (09:30)
[2018-04-06] MEDS: ASCORBIC ACID 500 MG TABLET GT SCH (09:30)
[2018-04-06] MEDS: CEFEPIME 2 GM in IV D5W 100 ML IV SCH (09:41)
[2018-04-06] MEDS: PROSOURCE / PROSTAT (PYXIS) 30 ML UDC GT SCH (09:42)
[2018-04-06] MEDS: VANCOMYCIN 1 GM in IV D5W 250 ML IV SCH (10:51)
[2018-04-06] MEDS: ALBUTEROL HALF STRENGTH 1.25 MG/3 ML VIAL.NEB NEB SCH ×2 (11:43→15:50)
[2018-04-06] MEDS: ACETYLCYSTEINE 10% SOLN 400 MG/4 ML VIAL NEB SCH ×2 (11:44→15:50)
[2018-04-06 11:56] LABS: ABG BASE EXCESS -1.9 mmol/L; ABG PCO2 31.3 mmHg (35.0-45.0); ABG PH 7.456 (7.350-7.450); ABG PO2 79.7 mmHg (75.0-100.0); AaDO2 54.2 mmHg; COHb 0.1 % (0.5-1.5); MetHb 0.6 % (0.0-1.5); O2Hb 94.3 % (94.0-97.0); SITE, ABG Right Radial; VENT MODE, BG 2 L NC
--- NOTE | 2018-04-06 14:00 | NUR ---
WOUND CARE PERFORMED ON SACRAL WOUND, AND RIGHT HIP REGION WITH SKIN CARE. PT. TOLERATED PROCEDURES WELL.
--- NOTE | 2018-04-06 14:23 | NUR ---
WARD CATHETER WAS REMOVED WITH 650 CC OF CLEAR, AND YELLOW URINE OUTPUT WITH SEDIMENTS. NEW WARD CATHETER WAS INSERTED PER GRANDDAUGHTER'S REQUEST. PT. TOLERATED PROCEDURE WELL.
[2018-04-06 15:33] VITALS: BP 132/70
[2018-04-06] MEDS ORDERED: PROSOURCE / PROSTAT (PYXIS) 30 ML UDC GT SCH (17:00)
--- NOTE | 2018-04-06 17:00 | NUR ---
TESTER SOUND PT. WAS DISCHARGE IN STABLE CONDITION. DISCHARGE INSTRUCTIONS WERE DISCUSSED WITH PT.'S GRANDDAUGHTER, LIZZETH VIA PHONE. BELONGINGS LIST CHECKED. PT. LEFT WITH RIGHT UPPER ARM CENTRAL LINE INTACT AND PATENT. ON OXYGEN AT 2L/MIN VIA NASAL CANNULA. G TUBE IS INTACT AND PATENT FLUSHED WITH FREE WATER. DISCHARGE PACKET WAS GIVEN TO AMBULANCE CREW. PT. LEFT BY AMBULANCE HOME. PER GRANDDAUGHTER'S REQUEST PT. WAS PROVIDED SIMPLE MASK, NASAL CANNULA, AND ADDITIONAL SUPPLIES TO TAKE HOME.
== END 2018-04-06 17:15 | disposition home health service (06) | DRG 981 ==
LOC: ER 15:54 → TELE 17:46 → MED 04-01 11:16
PROVIDERS: ADMIT Family Medicine; ATTEND Family Medicine
PROC: 0QB30ZZ Excision of Left Pelvic Bone, Open Approach (ICD-10-PCS; principal; 2018-04-02)
PROC: 0QB10ZZ Excision of Sacrum, Open Approach (ICD-10-PCS; 2018-04-02)
PROC: 0QB20ZZ Excision of Right Pelvic Bone, Open Approach (ICD-10-PCS; 2018-04-02)
PROC: 02HV33Z Insertion of Infusion Device into Superior Vena Cava, Percutaneous Approach (ICD-10-PCS; 2018-04-05)
PROC: B548ZZA Ultrasonography of Superior Vena Cava, Guidance (ICD-10-PCS; 2018-04-05)
DX: G23.1 Progressive supranuclear ophthalmoplegia [Steele-Richardson-Olszewski] (principal); L89.223 Pressure ulcer of left hip, stage 3; L89.154 Pressure ulcer of sacral region, stage 4; L89.324 Pressure ulcer of left buttock, stage 4; L89.314 Pressure ulcer of right buttock, stage 4; E43 Unspecified severe protein-calorie malnutrition; N17.0 Acute kidney failure with tubular necrosis; J80 Acute respiratory distress syndrome; E87.1 Hypo-osmolality and hyponatremia; B37.49 Other urogenital candidiasis; Z93.1 Gastrostomy status; Z90.710 Acquired absence of both cervix and uterus; Z79.82 Long term (current) use of aspirin; R13.10 Dysphagia, unspecified; D63.8 Anemia in other chronic diseases classified elsewhere; Z88.0 Allergy status to penicillin; Z91.048 Other nonmedicinal substance allergy status; Z79.4 Long term (current) use of insulin; Z79.899 Other long term (current) drug therapy; I10 Essential (primary) hypertension; E11.65 Type 2 diabetes mellitus with hyperglycemia; L89.890 Pressure ulcer of other site, unstageable; E86.9 Volume depletion, unspecified
CPT/HCPCS: 31720; 36415; 36600; 71045-TC; 80048-TC; 80061-TC; 80076-TC; 80202-TC; 81000-TC; 82803-TC; 82962-TC; 83605-TC; 83735-TC; 84100-TC; 84484-TC; 85025-TC; 85027-TC; 85730-TC; 87040-TC; 87081-TC; 87086-TC; 87400; 94762-TC; 94799-TC; A4624; A6253; A6402; A6403; G0378; J0692; J1815; J1956; J3370; J3490; J7030; J7060

== ENCOUNTER 2018-04-13 12:05 | Outpatient (CLI) | payer MEDICARE, BC ==
[~2018-04-13 12:05] MED LIST changes: +SERT50TA PO
== END 2018-04-13 23:59 | disposition home health service (06) ==
LOC: WOU 12:05
PROVIDERS: ATTEND Surgery
DX: L89.154 Pressure ulcer of sacral region, stage 4 (principal); L89.314 Pressure ulcer of right buttock, stage 4; L89.324 Pressure ulcer of left buttock, stage 4; L89.214 Pressure ulcer of right hip, stage 4; G82.20 Paraplegia, unspecified; M24.50 Contracture, unspecified joint; E11.9 Type 2 diabetes mellitus without complications; Z79.4 Long term (current) use of insulin; I10 Essential (primary) hypertension; E46 Unspecified protein-calorie malnutrition; Z68.1 Body mass index [BMI] 19.9 or less, adult; M19.90 Unspecified osteoarthritis, unspecified site
CPT/HCPCS: 11043; 11044; 11047; A6402; Z7610

== ENCOUNTER 2018-04-27 11:55 | Outpatient (CLI) | payer MEDICARE, BC | END 2018-04-27 23:59 | disposition home health service (06) | LOC: WOU 11:55 | PROVIDERS: ATTEND Surgery | DX: L89.154 Pressure ulcer of sacral region, stage 4 (principal); L89.314 Pressure ulcer of right buttock, stage 4; L89.324 Pressure ulcer of left buttock, stage 4; L89.214 Pressure ulcer of right hip, stage 4; G82.20 Paraplegia, unspecified; M24.50 Contracture, unspecified joint; E11.9 Type 2 diabetes mellitus without complications; Z79.4 Long term (current) use of insulin; I10 Essential (primary) hypertension; E46 Unspecified protein-calorie malnutrition; Z68.1 Body mass index [BMI] 19.9 or less, adult | CPT/HCPCS: 11044; 11047; 87070; 87075; 87077; 87186; A6402 ==

== ENCOUNTER 2018-04-28 17:05 | Inpatient (IN) | payer MEDICARE, BC ==
[~2018-04-28] VITALS: Ht 167.6 cm; Wt 62.1 kg
--- NOTE | 2018-04-28 17:16 | NUR ---
PT [id number], SOB 86% ON RA, TEMP 101.4 TYLENOL GIVEN AT 1330, PT IS AAOX0, NOTED DISTRESS, HOOKED TO 02 VIA NON-REBREATHER MASK, HOOKED TO MONITOR, KEPT RESTED AND COMFORTABLE, WILL CONTINUE TO MONITOR.
--- NOTE | 2018-04-28 17:28 | NUR ---
SEEN AND EXAMINED BY DR. BURDEN.
[2018-04-28] MEDS ORDERED: VANCOMYCIN 1 GM in IV D5W 250 ML IV ONE ×2 (17:30→21:30)
[2018-04-28] MEDS ORDERED: LEVOFLOXACIN 750 MG /D5W 150ML 150 ML IV ONE (17:30)
[2018-04-28 17:52] LABS: BASOPHILS % (AUTO) 0.3 % (0.0-2.0); EOSINOPHILS % (AUTO) 0.5 % (0.0-6.0); HEMATOCRIT 31 % (33-45); HEMOGLOBIN 9.9 g/dL (11.5-14.8); LYMPHOCYTES # (AUTO) 0.6 /CMM (0.8-4.8); MEAN CORPUSCULAR HGB CONC 32 g/dl (31.0-36.0); MEAN CORPUSCULAR VOLUME 80 fL (82-100); MONOCYTES # (AUTO) 0.8 /CMM (0.1-1.30); MONOCYTES % (AUTO) 4.7 % (2.0-12.0); NEUTROPHILS # (AUTO) 14.4 /CMM (1.8-8.9); NEUTROPHILS % (AUTO) 90.5 % (43.0-81.0); PLATELET COUNT (AUTO) 440 /CMM (150-450); RED BLOOD CELL COUNT(AUTO) 3.92 MIL/uL (4.0-5.2); WHITE BLOOD COUNT (AUTO) 15.9 K/uL (4.3-11.0)
--- NOTE | 2018-04-28 17:53 | NUR ---
LABS DRAWNED AND SENT TO LAB.
[2018-04-28 18:02] LABS: CALCIUM, SERUM 9.1 mg/dL (8.5-10.1); CARBON DIOXIDE 26 mmol/L (21-32); CHLORIDE 99 mmol/L (98-107); CREATININE 0.8 mg/dL (0.6-1.3); GLUCOSE 168 mg/dL (74-106); POTASSIUM 4.6 mmol/L (3.5-5.1); SODIUM SERUM 134 mmol/L (136-145); UREA NITROGEN, BLOOD 34 mg/dL (7-18)
[2018-04-28 18:08] LABS: ALANINE AMINOTRANSFERASE 34 U/L (12-78); ALKALINE PHOSPHATASE 141 U/L (46-116); ASPARTATE AMINOTRANSFERASE 18 U/L (15-37); BILIRUBIN,DIRECT 0.1 mg/dL (0.0-0.2); BILIRUBIN,TOTAL 0.2 mg/dL (0.2-1.0); TOTAL PROTEIN, SERUM 7.3 g/dL (6.4-8.2)
--- NOTE | 2018-04-28 18:13 | NUR ---
URINE SPECIMEN COLLECTED AND SENT TO LAB.
[2018-04-28 18:17] LABS: APPEARANCE,URINE Cloudy (CLEAR); BILIRUBIN,URINE Negative (NEGATIVE); BLOOD, URINE Small Ery/uL (NEGATIVE); COLOR,URINE Yellow (YELLOW); KETONES,URINE Negative (NEGATIVE); LEUKOCYTE ESTERASE ,URINE Small (NEGATIVE); NITRITE, URINE Negative (NEGATIVE); PROTEIN,URINE 100 mg/dl (NEGATIVE); UGLUCOSE Negative (NEGATIVE); UROBILINOGEN,URINE 0.2 EU/dL (0.2)
[2018-04-28 18:30] LABS: BACTERIA,URINE 1+ /HPF (None Seen); SQUAMOUS EPITHELIAL CELL,UR Few /HPF (None Seen)
--- NOTE | 2018-04-28 19:29 | NUR ---
REPORT GIVEN TO GOLDEN BELL FOR ANGUS. AWAITING ROOM FOR ADMISSION.
--- NOTE | 2018-04-28 19:59 | NUR ---
REPORT GIVEN TO GOLDEN HIGGINS FOR ANGUS
--- NOTE | 2018-04-28 20:00 | NUR ---
ADITYA/VENDING ATTENDANT NOTES: ADMITTED AN 73 YRS FEMALE FROM ER VIA [facility] W/ GAL BY BEDSIDE. PT. IS NON VERBAL, OBTUNDED AND ON NON BREATHER MASK W/ 13 LPM O2 SAT 100%. PT. OPEN EYES AND MOANS IF IN PAIN OR UNCOMFORTABLE PER GRANDDAUGHTER WHO IS ALSO PT.'S EVENT REPRESENTATIVE. PT. IS ON TELE W/ ST. PT. HAS A PICC LINE ON CHARIS W/ DRESSING C/D/I DATED OF 04/27/18 BY HOME HEALTH NURSE PER GRANDDAUGHTER. F/C CATH LAST CHANGED ON 04/09/18. PER GRANDDAUGHTER PRESSURE ULCER ON SACRUM AND RIGHT HIP WAS DEBRIDED ON 04/27/[address] GRANADOS IN HIS OFFICE. INCONTINENT OF B/B. HAS A GTF. PER GRANDDAUGHTER PT. TAKES GLUCERNA 1.0 AT 80 ML HR. PT. WILL BY SEEN BY DIETARY FIRST. IV BOLUS GIVEN PER ORDER. NO FACIAL GRIMACES OR MOANING NOTED. WILL CONTINUE TO MONITOR.
[2018-04-28 20:25] VITALS: BP 89/40
[2018-04-28] MEDS ORDERED: IV NS 0.9% 1,000 ML BAG IV ONE ×2 (21:30)
[2018-04-28 23:25] LABS: ABG BASE EXCESS 2.9 mmol/L; ABG OXYGEN SATURATION 98.2 % (92.0-98.5); ABG PCO2 35.4 mmHg (35.0-45.0); ABG PO2 120.8 mmHg (75.0-100.0); AaDO2 556.8 mmHg; COHb 0.6 % (0.5-1.5); MetHb 0.5 % (0.0-1.5); O2Hb 97.1 % (94.0-97.0); SITE, ABG Right Brachial; VENT MODE, BG NONREBREATHER
[2018-04-29] VITALS (10 sets, daily range): BP systolic 85–167; BP diastolic 43–144
[2018-04-29] MEDS: ACETAMINOPHEN 650 MG/20.3 ML UDC NG PRN ×3 (01:29→21:17)
[2018-04-29] MEDS ORDERED: MEROPENEM 1 G in IV NS 0.9% 100 ML IV SCH (05:00)
[2018-04-29] MEDS ORDERED: MEROPENEM 1 G VIAL IV ONE (05:34)
[2018-04-29] MEDS: IV NS 0.9% 1,000 ML IV PRN (05:53)
[2018-04-29 06:24] LABS: BASOPHILS % (AUTO) 0.3 % (0.0-2.0); LYMPHOCYTES % (AUTO) 8.2 % (20.0-44.0); MEAN CORPUSCULAR HGB CONC 32 g/dl (31.0-36.0); MEAN CORPUSCULAR VOLUME 80 fL (82-100); MONOCYTES # (AUTO) 0.7 /CMM (0.1-1.30); MONOCYTES % (AUTO) 5.7 % (2.0-12.0); NEUTROPHILS # (AUTO) 10.1 /CMM (1.8-8.9); NEUTROPHILS % (AUTO) 84.8 % (43.0-81.0); PLATELET COUNT (AUTO) 399 /CMM (150-450); RED BLOOD CELL COUNT(AUTO) 2.43 MIL/uL (4.0-5.2)
[2018-04-29 06:34] LABS: ALANINE AMINOTRANSFERASE 31 U/L (12-78); ALBUMIN 1.8 g/dL (3.4-5.0); ALKALINE PHOSPHATASE 109 U/L (46-116); ASPARTATE AMINOTRANSFERASE 20 U/L (15-37); BILIRUBIN,TOTAL 0.2 mg/dL (0.2-1.0); CALCIUM, SERUM 8.4 mg/dL (8.5-10.1); CARBON DIOXIDE 25 mmol/L (21-32); CHLORIDE 101 mmol/L (98-107); CREATININE 0.6 mg/dL (0.6-1.3); GLUCOSE 138 mg/dL (74-106); POTASSIUM 4.1 mmol/L (3.5-5.1); SODIUM SERUM 133 mmol/L (136-145); TOTAL PROTEIN, SERUM 6.2 g/dL (6.4-8.2); UREA NITROGEN, BLOOD 25 mg/dL (7-18)
[2018-04-29 06:44] LABS: HEMATOCRIT 20 % (33-45)
--- NOTE | 2018-04-29 06:46 | NUR ---
ADITYA/RN NOTES: OZZY FROM LAB CALLED W/ CRITICAL H/H 6.04/05. PAGED PRESIDENTIAL HELICOPTER CREW CHIEF DEVON FOY. CALLED GRANDDAUGHTER FOR BLOOD TRANSFUSION CONSENT W/ NURSE RN CON WITNESS.
[2018-04-29 06:47] LABS: HEMOGLOBIN 6.1 g/dL (11.5-14.8)
--- NOTE | 2018-04-29 07:05 | NUR ---
ADITYA/RN NOTES: DEPARTMENT HEAD JUNIOR COLLEGE NURSE RAUL IS AWARE OF CRITICAL LAB.
--- NOTE | 2018-04-29 07:30 | NUR ---
report received from HUSSEIN RN; pt remains obtunded; on NRB mask; not following commands; blood being redrawn by lab for repea HH
[2018-04-29 07:33] LABS: HEMOGLOBIN 6.8 g/dL (11.5-14.8)
--- NOTE | 2018-04-29 07:35 | NUR ---
RN/ADITYA NOTES: REPORT GIVEN TO AM NURSE FOR ANGUS.
[2018-04-29] MEDS: PANTOPRAZOLE 40 MG VIAL IV SCH (08:57)
[2018-04-29] MEDS ORDERED: FEE PK DOSING 1 MIN EA MC ONE (09:37)
[2018-04-29] MEDS: VANCOMYCIN 0.75 GM in IV D5W 250 ML IV SCH ×2 (10:01→21:03)
[2018-04-29] MEDS ORDERED: ACET1TAB12 PO (11:53)
[2018-04-29] MEDS: ALBUTEROL HALF STRENGTH 1.25 MG/3 ML VIAL.NEB NEB SCH ×5 (12:16→23:06)
[2018-04-29] MEDS: IPRATROPIUM NEB FS 0.5 MG/2.5 ML AMPUL.NEB NEB SCH ×5 (12:16→23:06)
[2018-04-29] MEDS: PROSOURCE / PROSTAT (PYXIS) 30 ML UDC GT SCH ×2 (12:42→17:11)
[2018-04-29] MEDS: MEROPENEM 500 MG in IV NS 0.9% 100 ML IV SCH (12:42)
[2018-04-29] MEDS: DAKINS QUARTER STRENGTH (0.125%) 480 ML BOTTLE TOP SCH (14:55)
--- NOTE | 2018-04-29 14:55 | NUR ---
PRBC tranasfusion completed;
--- NOTE | 2018-04-29 15:40 | NUR ---
pm cares rendered; unable to collect stool for occult blood; dressing changes done on sacro coccyx and R butt area as ordered; low air loss mattress applied
--- NOTE | 2018-04-29 19:07 | NUR ---
report given to Jorge FRANKS
--- NOTE | 2018-04-29 20:00 | NUR ---
TELE/RN NOTES: RECEIVED PT. IN BED W/ HOB ELEVATED. ON TELE MONITOR W/ ST. PT. IS OBTUNDED AND NON VERBAL. ON FACE MASK W/ O2 @ 8LPM SAT 100%. HAS GTF W/ GLUCERNA 1.0 TOLERATING AT 70 ML TOLERATING WELL W/ NO RESIDUAL NOTED. HAS F/C INPLACE AND PATENT DRAINING YELLOW URINE. HAS A PICC LINE CHARIS W/ DRESSING C/D/I PATENT AND INTACT W/ NO S/S OF INFECTION/INFILTRATION NOTED. W/ NS @ 75 ML/HR. BEDS LOCKED AND IN LOW POSITION. WILL CONTINUE TO MONITOR.
[2018-04-30] VITALS (7 sets, daily range): BP systolic 93–165; BP diastolic 44–76
[2018-04-30] MEDS: MEROPENEM 500 MG in IV NS 0.9% 100 ML IV SCH ×2 (00:04→12:26)
[2018-04-30] MEDS: DAKINS QUARTER STRENGTH (0.125%) 480 ML BOTTLE TOP SCH ×2 (02:37→15:53)
[2018-04-30] MEDS: IPRATROPIUM NEB FS 0.5 MG/2.5 ML AMPUL.NEB NEB SCH ×6 (03:09→23:16)
[2018-04-30] MEDS: ALBUTEROL HALF STRENGTH 1.25 MG/3 ML VIAL.NEB NEB SCH ×6 (05:19→23:17)
[2018-04-30] MEDS: IV NS 0.9% 1,000 ML IV PRN (05:19)
[2018-04-30 06:16] LABS: BASOPHILS # (AUTO) 0.1 /CMM (0.0-0.2); BASOPHILS % (AUTO) 0.6 % (0.0-2.0); EOSINOPHILS % (AUTO) 3.5 % (0.0-6.0); HEMATOCRIT 22 % (33-45); HEMOGLOBIN 7.1 g/dL (11.5-14.8); LYMPHOCYTES # (AUTO) 1.1 /CMM (0.8-4.8); MEAN CORPUSCULAR HGB CONC 33 g/dl (31.0-36.0); MEAN CORPUSCULAR VOLUME 81 fL (82-100); MONOCYTES # (AUTO) 0.8 /CMM (0.1-1.30); MONOCYTES % (AUTO) 7.5 % (2.0-12.0); NEUTROPHILS # (AUTO) 8.4 /CMM (1.8-8.9); NEUTROPHILS % (AUTO) 78.4 % (43.0-81.0); PLATELET COUNT (AUTO) 421 /CMM (150-450); WHITE BLOOD COUNT (AUTO) 10.7 K/uL (4.3-11.0)
[2018-04-30 06:20] LABS: CALCIUM, SERUM 8.4 mg/dL (8.5-10.1); CARBON DIOXIDE 25 mmol/L (21-32); CHLORIDE 106 mmol/L (98-107); CREATININE 0.6 mg/dL (0.6-1.3); GLUCOSE 148 mg/dL (74-106); MAGNESIUM 1.9 mg/dL (1.8-2.4); PHOSPHORUS 2.7 mg/dL (2.5-4.9); POTASSIUM 4.1 mmol/L (3.5-5.1); SODIUM SERUM 139 mmol/L (136-145); UREA NITROGEN, BLOOD 20 mg/dL (7-18)
--- NOTE | 2018-04-30 07:53 | NUR ---
RN/TELE NOTES: REPORT GIVEN TO NEXT SHIFT NURSE FOR ANGUS.
[2018-04-30] MEDS: VANCOMYCIN 0.75 GM in IV D5W 250 ML IV SCH ×2 (09:47→21:42)
[2018-04-30] MEDS: PANTOPRAZOLE 40 MG VIAL IV SCH (09:47)
[2018-04-30] MEDS: PROSOURCE / PROSTAT (PYXIS) 30 ML UDC GT SCH ×3 (09:48→17:07)
--- NOTE | 2018-04-30 13:00 | NUR ---
RN NOTE PT'S SON IN LAW BROUGHT 2 EXTRA BOTTLES OF GLUCERNA FOR G TUBE FEEDING THE PATIENT. THER IS ONE EXTRA AT BEDSIDE TOO. AND ONE IS RUNNING. NO RESIDUALS TOLERATES WELL.
--- NOTE | 2018-04-30 14:46 | NUR ---
RN NOTE PT HAD SACRAL WOUND DEBRIDEMENT, BY DR GRANADOS, TOLERATED WELL, PER DR GRANADOS PT WILL NEED TO HAVE R HIP SURGERY ON FRIDAY. PT TRANSFERRED TO 3WEST FLOOR TO ROOM [id number], REPORT GIVEN TO RAJENDRA FRANKS FOR ANGUS. PT WILL NEED WOUND DRESSING TO BE CHANGED.
--- NOTE | 2018-04-30 15:00 | NUR ---
PT RECEIVED IN BED FROM [facility] WITH [facility] [employer]. PT TELE STARTED. PT OBTUNDED. PT VITALS CHARTED. PT WITH O2 VIA NC AT 3LPM SPO2 99%, RHONCHI ON AUSCULTATION. PT WITH RU PICC LINE INTACT AND OPERATIONAL. PT WITH G.TUBE <5CC RESIDUALS, GTF RE COMMENCED. PT WOUND CARE PENDING S/P DEBRIDEMENT. WOUND CARE COMPLETED PER RX. PT CONT PULSE OX ESTABLISHED. PT REPOSITIONED AND OFFLOADED. PT SON PRESENT AND BRIEFED ON POC. BED IN LOWEST LUCIA WITH HOB ELEVATED, AND ALARM ENGAGED.
[2018-04-30] MEDS: LACTOBACILLUS RHAMNOSUS GG 1 EACH CAP.SPRINK GT SCH (17:07)
--- NOTE | 2018-04-30 18:11 | NUR ---
FORM BLOCK MAKER. PT REMAINS OBTUNDED, TELE SR 95. PT WITH O2 VIA NC AT 3LPM SPO2 99%, CONT PULSE OX AT BEDSIDE. PT WITH RU PICC LINE INTACT AND OPERATIONAL. PT WITH G.TUBE <5CC RESIDUALS, GTF PER RX. PT REPOSITIONED AND OFFLOADED. BED IN LOWEST LOCKED WITH HOB ELEVATED AND BED ALARM ENGAGED, [employer] INSITU. WILL ENDORSE TO NIGHT NURSE AT BEDSIDE FOR ANGUS.
--- NOTE | 2018-04-30 19:59 | NUR ---
TELE/RN OPENING NOTES RECEIVED PATIENT IN BED, HOB ELEVATED, OBTUNDED, CAN OPEN EYES BUT REQUIRE EXTENSIVE ASSISTANCE , ON OXYGEN VIA NC AT 3L, WITH CONTINUES PULSE OXIMETER, ON SUCTION NEEDED, TELE MONITOR AT AR 95, WITH WARD DRAINING YELLOW COLOR URINE, ON GTUBE FEEDING GLUCERNA 1, RECEIVED REPORT FROM AM RN FOR ANGUS. REQUIRE TURNING AND REPOSITION. WOUND TREATMENT. WILL MONITOR.
[2018-05-01] VITALS (7 sets, daily range): BP systolic 103–136; BP diastolic 44–73
[2018-05-01] MEDS: IV NS 0.9% 1,000 ML IV PRN ×2 (01:25→21:01)
[2018-05-01] MEDS: MEROPENEM 500 MG in IV NS 0.9% 100 ML IV SCH (01:26)
[2018-05-01] MEDS: DAKINS QUARTER STRENGTH (0.125%) 480 ML BOTTLE TOP SCH ×2 (01:27→14:31)
[2018-05-01] MEDS: ACETAMINOPHEN 650 MG/20.3 ML UDC NG PRN ×3 (01:46→21:00)
[2018-05-01] MEDS: ALBUTEROL HALF STRENGTH 1.25 MG/3 ML VIAL.NEB NEB SCH ×6 (03:29→23:36)
[2018-05-01] MEDS: IPRATROPIUM NEB FS 0.5 MG/2.5 ML AMPUL.NEB NEB SCH ×6 (03:29→23:36)
--- NOTE | 2018-05-01 06:33 | NUR ---
310-1 TELE/RN NOTED PATIENT OBTUNDED AND NON VERBAL, ON OXYGEN VIA NC AT 3L WITH CONTINUES PULSE OX. TELE READING AT SR, ABLE TO SLEEP 8 HOURS, TYLENOL GIVEN FOR NOTED GRIMACING. WILL ENDORSE TO AM RN FOR ANGUS.WILL MONITOR. BED LOCKED.HOB ELEVATED. SUCTION NEEDED. GTUBE SITE PATENT WITH NO 10 ML RESIDUAL, IV SITE W/ NO S/S O INFILTRATION, WARD DRAINING YELLOW COLORED URINE.
[2018-05-01 06:43] LABS: CALCIUM, SERUM 8.4 mg/dL (8.5-10.1); CARBON DIOXIDE 24 mmol/L (21-32); CHLORIDE 108 mmol/L (98-107); CREATININE 0.5 mg/dL (0.6-1.3); GLUCOSE 145 mg/dL (74-106); POTASSIUM 4.1 mmol/L (3.5-5.1); SODIUM SERUM 140 mmol/L (136-145); UREA NITROGEN, BLOOD 20 mg/dL (7-18)
--- NOTE | 2018-05-01 07:15 | NUR ---
RN OPENING NOTES RECEIVED PT. IN BED AWAKE, OBTUNDED, AND NON VERBAL. PT IS BREATHING UNLABORED ON OXYGEN AT 3L/MIN VIA NASAL CANNULA, SPO2 IS 93%. PT.'S TELE MONITOR IS READING SINUS RHYTHM WITH PAC'S 84 BPM.NO S/S OF ACUTE DISTRESS. IV FLUIDS RUNNING AT 75 ML/HR. WARD CATHETER CLEAR, AND YELLOW URINE OUTPUT. BED IS IN LOWEST, AND LOCKED POSITION. G TUBE FEEDING AT RUNNING AT 70 ML/HR. ALL NEEDS MET. WILL CONTINUE TO ASSESS AND MONITOR.
[2018-05-01] MEDS: PROSOURCE / PROSTAT (PYXIS) 30 ML UDC GT SCH ×3 (09:26→17:40)
[2018-05-01] MEDS: LACTOBACILLUS RHAMNOSUS GG 1 EACH CAP.SPRINK GT SCH ×2 (09:26→17:40)
[2018-05-01] MEDS: PANTOPRAZOLE 40 MG VIAL IV SCH (09:26)
[2018-05-01] MEDS: VANCOMYCIN 0.75 GM in IV D5W 250 ML IV SCH ×2 (09:27→22:13)
[2018-05-01 10:30] LABS: BASOPHILS # (AUTO) 0.1 /CMM (0.0-0.2); BASOPHILS % (AUTO) 0.6 % (0.0-2.0); EOSINOPHILS % (AUTO) 7.9 % (0.0-6.0); HEMATOCRIT 23 % (33-45); HEMOGLOBIN 7.3 g/dL (11.5-14.8); LYMPHOCYTES # (AUTO) 1.6 /CMM (0.8-4.8); LYMPHOCYTES % (AUTO) 16.8 % (20.0-44.0); MEAN CORPUSCULAR HGB CONC 32 g/dl (31.0-36.0); MEAN CORPUSCULAR VOLUME 82 fL (82-100); MONOCYTES # (AUTO) 0.8 /CMM (0.1-1.30); MONOCYTES % (AUTO) 8.1 % (2.0-12.0); NEUTROPHILS # (AUTO) 6.5 /CMM (1.8-8.9); NEUTROPHILS % (AUTO) 66.6 % (43.0-81.0); PLATELET COUNT (AUTO) 406 /CMM (150-450); RED BLOOD CELL COUNT(AUTO) 2.75 MIL/uL (4.0-5.2); WHITE BLOOD COUNT (AUTO) 9.7 K/uL (4.3-11.0)
[2018-05-01] MEDS: CEFEPIME 1 GM in IV NS 0.9% 50 ML IV SCH (16:09)
--- NOTE | 2018-05-01 19:04 | NUR ---
RN CLOSING NOTES PT. IN BED AWAKE, OBTUNDED, AND NON VERBAL. PT IS BREATHING UNLABORED ON OXYGEN AT 3L/MIN VIA NASAL CANNULA, SPO2 IS 93%. PT.'S TELE MONITOR IS READING SINUS RHYTHM WITH PAC'S 84 BPM.NO S/S OF ACUTE DISTRESS. IV FLUIDS RUNNING AT 75 ML/HR. WARD CATHETER HAS CLEAR, AND YELLOW URINE OUTPUT. BED IS IN LOWEST, AND LOCKED POSITION. G TUBE FEEDING AT RUNNING AT 70 ML/HR. ALL NEEDS MET. ENDORSED REPORT TO NURSE.
--- NOTE | 2018-05-01 19:30 | NUR ---
MS/RN OPENING NOTES RECEIVED PATIETN IN BED, AWAKE OPENS EYES WITH TREMORS, SKIN WARM TO TOUCH ON PULSE OXIMETER AT OXYGEN VIA NS AT 3L AT 99%, RESPIRATIONS EVEN AND UNLABORED, ON NEEDED SUCTION AND BREATHING TREATMENT. MONITOIRNG AND FREQUENT ROUNDS, BED LOCKED, HOB ELEVATED,
[2018-05-02] MEDS: DAKINS QUARTER STRENGTH (0.125%) 480 ML BOTTLE TOP SCH ×2 (02:22→13:00)
[2018-05-02] MEDS: CEFEPIME 1 GM in IV NS 0.9% 50 ML IV SCH ×2 (02:24→15:46)
[2018-05-02] MEDS: IPRATROPIUM NEB FS 0.5 MG/2.5 ML AMPUL.NEB NEB SCH ×6 (04:04→23:26)
[2018-05-02] MEDS: ALBUTEROL HALF STRENGTH 1.25 MG/3 ML VIAL.NEB NEB SCH ×6 (04:04→23:26)
[2018-05-02 05:10] VITALS: BP 103/44
--- NOTE | 2018-05-02 06:00 | NUR ---
MS/RN NOTES PATIENT RESTING COMFORTABLY IN BED , ON CONTINOUS PULSE. KEPT COMFORTABLE, REPOSITIONED FOR COMFORT. MONITORED, WILL ENDORSE TO AM RN FOR ANGUS.
[2018-05-02 06:22] LABS: CALCIUM, SERUM 8.7 mg/dL (8.5-10.1); CARBON DIOXIDE 23 mmol/L (21-32); CHLORIDE 106 mmol/L (98-107); CREATININE 0.5 mg/dL (0.6-1.3); GLUCOSE 155 mg/dL (74-106); POTASSIUM 4.5 mmol/L (3.5-5.1); SODIUM SERUM 140 mmol/L (136-145); UREA NITROGEN, BLOOD 20 mg/dL (7-18)
--- NOTE | 2018-05-02 07:00 | NUR ---
MS RN Opening Notes 310-1 Patient awake, resting in bed. Alert and oriented x1, non-verbal and obtunded. No complaints or signs of pain at this time. Respirations even and unlabored on 3 liters per minute via nasal cannula, no acute distress noted. PICC line to the right upper arm, all ports flushing, intact, patent and infusing NS at 75 mL/hr. G-tube in place, positive placement verified, with tube feeding of Glucerna 1.0 at 75 mL/hr (provided by family) . Zuleta catheter in place, intact, patent and draining clear, yellow urine. Updated patient on current plan of care and safety measures. Safety and fall precautions in place: bed in lowest and locked position, side rails up x2, bed alarm on, call light and personal possessions within reach. Will continue to monitor and intervene as needed.
[2018-05-02 08:00] VITALS: BP_SYST 145; BP_DIAS 71; BP_DIAS 77
[2018-05-02] MEDS: VANCOMYCIN 0.75 GM in IV D5W 250 ML IV SCH ×2 (10:02→21:09)
[2018-05-02] MEDS: PANTOPRAZOLE 40 MG VIAL IV SCH (10:02)
[2018-05-02] MEDS: PROSOURCE / PROSTAT (PYXIS) 30 ML UDC GT SCH ×3 (10:02→16:35)
[2018-05-02] MEDS: LACTOBACILLUS RHAMNOSUS GG 1 EACH CAP.SPRINK GT SCH ×2 (10:02→16:35)
[2018-05-02 12:53] LABS: IRON, SERUM 20 ug/dl (50-175); TOTAL IRON BINDING CAPACITY 182 ug/dl (250-450)
[2018-05-02] MEDS: ACETAMINOPHEN 650 MG/20.3 ML UDC NG PRN ×2 (12:56→20:53)
[2018-05-02 13:08] LABS: FERRITIN 246 ng/mL (8-388)
[2018-05-02] MEDS: IV NS 0.9% 1,000 ML IV PRN (13:36)
[2018-05-02 16:00] VITALS: BP 149/85
--- NOTE | 2018-05-02 16:00 | NUR ---
Sanju (family) and other visitor at bedside. All consent forms signed for procedure on Friday, 05/04. Forms placed in chart.
--- NOTE | 2018-05-02 18:00 | NUR ---
All wound care rendered as ordered. Indwelling catheter tubing and bag to be changed on svp monetization, per family has been 30 days since last changed. Will endorse to svp monetization.
--- NOTE | 2018-05-02 19:00 | NUR ---
MS RN Closing Notes 310-1 Patient awake, resting in bed. Alert and oriented x1, non-verbal and obtunded. No complaints or signs of pain at this time. Respirations even and unlabored on 3 liters per minute via nasal cannula, no acute distress noted. PICC line to the right upper arm, all ports flushing, intact, patent and infusing NS at 75 mL/hr. G-tube in place, positive placement verified, with tube feeding of Glucerna 1.0 at 75 mL/hr (provided by family) . Zuleta catheter in place, intact, patent and draining clear, yellow urine. Updated patient on current plan of care and safety measures. Safety and fall precautions in place: bed in lowest and locked position, side rails up x2, bed alarm on, call light and personal possessions within reach. No acute events this shift. All due medications given, all wound care rendered. Will endorse to fast food shift supervisor RN for continuity of care.
--- NOTE | 2018-05-02 19:30 | NUR ---
MS/RN OPENING NOTES PT OBTUNDED, RESTING COMFORTABLY IN BED. NON VERBAL. OPENS EYES SPONTANEOUSLY. ON 2L O2 VIA NC, BREATHING EVEN AND UNLABORED. NO S/S OF SOB OR PAIN AT THIS TIME. CHARIS PICC LINE PATENT AND INTACT RUNNING IVF ORDERED. GT FEEDING RUNNING AT 70ML/HR. WARD IN PLACE AND DRAINING TO GRAVITY. BED REMAINS IN LOW/LOCKED POSITION WITH CALL LIGHT IN REACH, BILATERAL UPPER SIDE RAILS IN PLACE. WILL CONTINUE TO MONITOR
[2018-05-02 20:00] VITALS: BP 124/66
--- NOTE | 2018-05-02 21:00 | NUR ---
MS/RN NOTES PT NOTED WITH FACIAL GRIMACING. ADMINISTERED PRN TYLENOL ORDERED
[2018-05-03] MEDS: CEFEPIME 1 GM in IV NS 0.9% 50 ML IV SCH ×2 (03:06→16:38)
[2018-05-03] MEDS: DAKINS QUARTER STRENGTH (0.125%) 480 ML BOTTLE TOP SCH ×2 (03:07→13:00)
[2018-05-03] MEDS: ALBUTEROL HALF STRENGTH 1.25 MG/3 ML VIAL.NEB NEB SCH ×6 (03:10→22:44)
[2018-05-03] MEDS: IPRATROPIUM NEB FS 0.5 MG/2.5 ML AMPUL.NEB NEB SCH ×6 (03:10→22:44)
[2018-05-03] MEDS: ACETAMINOPHEN 650 MG/20.3 ML UDC NG PRN ×4 (03:13→22:49)
--- NOTE | 2018-05-03 03:15 | NUR ---
MS/RN NOTES PT WITH INCREASED RIGHT ARM TWITCHING AND MOANING. ADMINISTERED PRN TYLENOL ORDERED.
[2018-05-03 06:14] LABS: BASOPHILS # (AUTO) 0.1 /CMM (0.0-0.2); BASOPHILS % (AUTO) 0.7 % (0.0-2.0); EOSINOPHILS % (AUTO) 8.1 % (0.0-6.0); HEMATOCRIT 27 % (33-45); HEMOGLOBIN 8.8 g/dL (11.5-14.8); LYMPHOCYTES # (AUTO) 1.6 /CMM (0.8-4.8); LYMPHOCYTES % (AUTO) 15.8 % (20.0-44.0); MEAN CORPUSCULAR HGB CONC 33 g/dl (31.0-36.0); MEAN CORPUSCULAR VOLUME 81 fL (82-100); MONOCYTES # (AUTO) 0.6 /CMM (0.1-1.30); MONOCYTES % (AUTO) 6.5 % (2.0-12.0); NEUTROPHILS # (AUTO) 6.8 /CMM (1.8-8.9); NEUTROPHILS % (AUTO) 68.9 % (43.0-81.0); PLATELET COUNT (AUTO) 502 /CMM (150-450); RED BLOOD CELL COUNT(AUTO) 3.32 MIL/uL (4.0-5.2); WHITE BLOOD COUNT (AUTO) 9.9 K/uL (4.3-11.0)
[2018-05-03 06:30] LABS: CARBON DIOXIDE 21 mmol/L (21-32); CHLORIDE 110 mmol/L (98-107); CREATININE 0.6 mg/dL (0.6-1.3); GLUCOSE 156 mg/dL (74-106); PHOSPHORUS 3.9 mg/dL (2.5-4.9); POTASSIUM 4.2 mmol/L (3.5-5.1); SODIUM SERUM 144 mmol/L (136-145); UREA NITROGEN, BLOOD 23 mg/dL (7-18)
--- NOTE | 2018-05-03 07:30 | NUR ---
MS RN Opening Notes 310-1 Patient awake, resting in bed. Alert and oriented x1, non-verbal and obtunded. No signs of pain at this time. Respirations even and unlabored on 3 liters per minute via nasal cannula, no acute distress noted. PICC line to the right upper arm, all ports flushing, intact, patent and infusing NS at 75 mL/hr. G-tube in place, positive placement verified, with tube feeding of Glucerna 1.0 at 70 mL/hr (provided by family) as per nutrition plan . Zuleta catheter in place, intact, patent and draining clear, yellow urine (tubing and bag changed last shift). Updated patient on current plan of care and safety measures. Safety and fall precautions in place: bed in lowest and locked position, side rails up x2, bed alarm on, call light and personal possessions within reach. Will continue to monitor and intervene as needed.
--- NOTE | 2018-05-03 07:31 | NUR ---
MS/RN CLOSING NOTES PT RESTING COMFORTABLY IN BED. OBTUNDED. NON VERBAL. OPENS EYES SPONTANEOUSLY. ON 2L O2 VIA NC, BREATHING EVEN AND UNLABORED. NO S/S OF SOB OR PAIN AT THIS TIME. PT HAD EPISODES OF DESATURATION LOW 85%. CHARIS PICC LINE PATENT AND INTACT RUNNING IVF ORDERED. GT FEEDING RUNNING AT 70ML/HR, WITH 30CC RESIDUALS NOTED. WARD IN PLACE AND DRAINING TO GRAVITY. TUBING CHANGED DURING SHIFT. PAGED RADIOLOGY TO FOLLOW UP WITH CT PELVIS WO CONTRAST, UNABLE TO COMPLETE LAST NIGHT. WOUND CARE PROVIDED ORDERED. TURNED/REPOSITIONED Q2H, HEELS OFFLOADED. HOB ELEVATED. ASPIRATION PRECAUTIONS IMPLEMENTED. BED REMAINS IN LOW/LOCKED POSITION WITH CALL LIGHT IN REACH, BILATERAL UPPER SIDE RAILS IN PLACE, ENDORSED TO DAY SHIFT RN ANGUS.
[2018-05-03 08:00] VITALS: BP 122/68
[2018-05-03] MEDS: LACTOBACILLUS RHAMNOSUS GG 1 EACH CAP.SPRINK GT SCH ×2 (08:45→16:39)
[2018-05-03] MEDS: PANTOPRAZOLE 40 MG VIAL IV SCH (08:45)
[2018-05-03] MEDS: PROSOURCE / PROSTAT (PYXIS) 30 ML UDC GT SCH ×3 (09:06→16:39)
[2018-05-03] MEDS: VANCOMYCIN 0.75 GM in IV D5W 250 ML IV SCH ×3 (10:00→22:21)
--- NOTE | 2018-05-03 11:14 | NUR ---
Patient transported via bed to CT for CT pelvis. Transported via ACLS protocol, with monitoring and oxygen via simple mask. Respiratory therapist accompanied to scan.
--- NOTE | 2018-05-03 12:00 | NUR ---
Followed up with lab about Vancomycin trough level. crm technical lead states that draw was attempted multiple times, however, RN was not notified of this. Discussed with pharmacy, verified it was okay to have Vancomycin added to 0500 AM draw. Lab stated they will run Vanco trough level. 1000 dose of Vancomycin held until level comes back.
--- NOTE | 2018-05-03 12:00 | NUR ---
Patient returned safely to room from CT. Stable condition, vital signs stable. On 3 L oxygen via nasal cannula. Will continue to monitor and intervene as needed.
[2018-05-03] MEDS: IV NS 0.9% 1,000 ML IV PRN (13:06)
[2018-05-03 16:00] VITALS: BP 116/68
--- NOTE | 2018-05-03 16:00 | NUR ---
Vancomycin trough level resulted at 1600, level of 22. Held AM dose of Vancomycin as ordered per level > 20.
--- NOTE | 2018-05-03 17:13 | NUR ---
Spoke with Woody from Radiology department regarding report from patient's CT pelvis without contrast in preparation for tomorrow's procedure. Told Woody we need report back STAT. Left extension to return call, will follow-up.
--- NOTE | 2018-05-03 19:00 | NUR ---
Endorsed to GOLDEN Restrepo regarding follow-up for CT pelvis report from radiologist.
--- NOTE | 2018-05-03 19:00 | NUR ---
MS RN Closing Notes 310-1 Patient awake, resting in bed. Alert and oriented x1, non-verbal and obtunded. No complaints or signs of pain at this time. Respirations even and unlabored on 3 liters per minute via nasal cannula, no acute distress noted. PICC line to the right upper arm, all ports flushing, intact, patent and infusing NS at 75 mL/hr. G-tube in place, positive placement verified, minimal residual noted, with tube feeding of Glucerna 1.0 at 70 mL/hr (provided by family) . Zuleta catheter in place, intact, patent and draining clear, yellow urine. Updated patient on current plan of care and safety measures. Safety and fall precautions in place: bed in lowest and locked position, side rails up x2, bed alarm on, call light and personal possessions within reach. No acute events this shift. All due medications given, all wound care rendered. Pre-operative checklist initiated. Will endorse to cook night RN for continuity of care.
--- NOTE | 2018-05-03 19:15 | NUR ---
MS/RN OPENING NOTES PT RECEIVED RESTING COMFORTABLY IN BED. ON 3L O2 VIA NC, BREATHING EVEN AND UNLABORED. IN NO ACUTE DISTRESS. NO S/S OF SOB OR PAIN. CONTINUOUS O2 MONITORING, SPO2 100%. OBTUNDED, OPENS EYES SPONTANEOUSLY. CHARIS PICC LINE PATENT AND INTACT RUNNING IVF ORDERED. WARD IN PLACE AND DRAINING TO GRAVITY. GT FEEDING PATENT AND INTACT RUNNING AT 70ML/HR. STILL AWAITING RESULT OF CT PELVIS WO CONTRAST. WILL FOLLOW UP WITH RADIOLOGY. BED IN LOW/LOCKED POSITION WITH CALL LIGHT IN REACH. BILATERAL UPPER SIDE RAILS IN PLACE, HOB ELEVATED. WILL CONTINUE TO MONITOR
[2018-05-03 20:00] VITALS: BP 113/69
[2018-05-03 20:08] VITALS: BP 113/69
--- NOTE | 2018-05-03 20:21 | NUR ---
MS/RN NOTES CALLED RADIOLOGY AND SPOKE TO MINDA. ASKED FOR ESTIMATED TIME THAT CT PELVIS WO CONTRAST RESULT WILL BE AVAILABLE. PT SCHEDULED FOR PROCEDURE AND IMAGING WAS TAKEN AT NOON. 3W EXTENSION PROVIDED. WILL FOLLOW UP. Addendum: 05/03/18 at 2037 by ATILIO CANO RN RADIOLOGY BROUGHT PAPER COPY OF RESULT OF CT PELVIS WO CONTRAST
--- NOTE | 2018-05-03 20:22 | NUR ---
PAPER COPY RESULT OF CT PELVIS WO CONTRAST FILED IN THE CHART
--- NOTE | 2018-05-03 21:00 | NUR ---
SPOKE TO DR. GRANADOS TO RELAY RESULT OF CT PELVIS WO CONTRAST. REVIEWED ORDER FOR PROCEDURE CONSENT AND VERIFIED PROCEDURE WILL BE THE SAME. DR. GRANADOS WITH ORDERS TO KEEP PT NPO POST MIDNIGHT, PREPARE FOR 0800 SURGERY TOMORROW. DRY CLEANER PRESSER AND ELECTRICAL ASSEMBLY SUPERVISOR MADE AWARE.
--- NOTE | 2018-05-03 21:17 | NUR ---
TILE LAYER AND NURSING GENERAL ACTIVITIES THERAPIST MADE AWARE THAT ORDER FOR SW/CM TO ARRANGE ADMISSIONS RECRUITER TO COME PRIOR TO PROCEDURE. SW/CM DOES NOT COME UNTIL 0830. NURSING GENERAL ACTIVITIES THERAPIST TRYING TO COORDINATE SOMETHING. SPOKE TO LIZZETH AND EXPLAINED THAT DR. GRANADOS SCHEDULED HER SURGERY TOMORROW AT 0800, WE ARE TRYING TO COORDINATE A ADMISSIONS RECRUITER TO COME BEFORE HAND BUT NOT SURE HOW LIKELY IT IS. ASKED IF SHE CAN TRY TO ARRANGE SOMETHING WELL. VERBALIZES UNDERSTANDING. TILE LAYER NOTIFIED.
--- NOTE | 2018-05-03 21:27 | NUR ---
CALLED LAB TO SEE IF 2100 VANCO TROUGH WAS DRAWN YET. LAB WILL COME UP NOW
[2018-05-04] VITALS (30 sets, daily range): BP systolic 91–147; BP diastolic 46–77
[2018-05-04] MEDS: DAKINS QUARTER STRENGTH (0.125%) 480 ML BOTTLE TOP SCH ×2 (02:46→13:49)
[2018-05-04] MEDS: CEFEPIME 1 GM in IV NS 0.9% 50 ML IV SCH ×2 (02:47→17:11)
[2018-05-04] MEDS: ALBUTEROL HALF STRENGTH 1.25 MG/3 ML VIAL.NEB NEB SCH ×6 (03:33→23:11)
[2018-05-04] MEDS: IPRATROPIUM NEB FS 0.5 MG/2.5 ML AMPUL.NEB NEB SCH ×6 (03:33→23:11)
[2018-05-04 06:36] LABS: CALCIUM, SERUM 8.6 mg/dL (8.5-10.1); CARBON DIOXIDE 23 mmol/L (21-32); CHLORIDE 109 mmol/L (98-107); CREATININE 0.5 mg/dL (0.6-1.3); GLUCOSE 131 mg/dL (74-106); POTASSIUM 4.1 mmol/L (3.5-5.1); SODIUM SERUM 143 mmol/L (136-145); UREA NITROGEN, BLOOD 24 mg/dL (7-18)
--- NOTE | 2018-05-04 07:00 | NUR ---
MS/RN NOTES CONSENT SIGNED BY TENZIN MCCRAY IN LAW. NOT DPOA. CALLED LIZZETH FAN (GRANDDAUGHTER) TO OBTAIN TELEPHONE CONSENT FOR PROCEDURE. WITNESSED BY BRENDA HERNANDEZ RN.
[2018-05-04] MEDS ORDERED: BUPIVACAINE MPF 0.5% W/EPI INJ 30 ML VIAL ONE (07:19)
[2018-05-04] MEDS ORDERED: ANESTHESIA TRAY IN PYXIS 1 EA TRAY MC ONE (07:19)
[2018-05-04] MEDS ORDERED: LIDOCAINE HCL/PF 1% 30 ML SDV ONE (07:19)
[2018-05-04] MEDS ORDERED: BACITRACIN 50000 UNITS/VIAL ONE (07:19)
--- NOTE | 2018-05-04 07:31 | NUR ---
MS/RN CLOSING NOTES PT WITH EYES CLOSED, RESTING COMFORTABLY IN BED. ON 2L O2 VIA NC, BREATHING EVEN AND UNLABORED. IN NO ACUTE DISTRESS. NO S/S OF SOB OR PAIN. CHARIS PICC LINE PATENT AND INTACT RUNNING IVF ORDERED. WARD IN PLACE AND DRAINING TO GRAVITY. GT IN PLACE, NPO SINCE MIDNIGHT. WOUND CARE PROVIDED ORDERED. TELEPHONE CONSENT OBTAINED WITH GRANDDAUGHTER - LIZZETH FAN, FOR PROCEDURE THIS AM. PREVIOUS CONSENT NOT VALID. TURNED/REPOSITIONED Q2H, HEELS OFFLOADED. NO SIGNIFICANT CHANGES OVERNIGHT. BED IN LOW/LOCKED POSITION WITH CALL LIGHT IN REACH. BILATERAL UPPER SIDE RAILS IN PLACE, HOB ELEVATED. ENDORSED TO DAY SHIFT RN ANGUS.
--- NOTE | 2018-05-04 07:40 | NUR ---
RN MS NOTES PT IN BED, AWAKE, NO SIGN OF PAIN OR DISTRESS, VITAL SIGNS STABLE, IV FLUIDS INFUSING, F/C IN PLACE, DRAINING WELL WITH CLEAR, YELLOW URINE, FOR RIGHT HIP ULCER RESECTION, CONSENTS GIVEN BY FAMILY MEMBER, PICKED UP BY O.R. STAFF FOR SURGERY IN STABLE CONDITION.
[2018-05-04] MEDS ORDERED: ROCURONIUM BROMIDE 50 MG/5 ML ONE ×2 (08:05→08:54)
[2018-05-04] MEDS ORDERED: CLINDAMYCIN 900 MG/6 ML VIAL ONE (08:11)
[2018-05-04] MEDS: PANTOPRAZOLE 40 MG VIAL IV SCH (09:00)
[2018-05-04] MEDS: PROSOURCE / PROSTAT (PYXIS) 30 ML UDC GT SCH ×3 (09:00→17:11)
[2018-05-04] MEDS: LACTOBACILLUS RHAMNOSUS GG 1 EACH CAP.SPRINK GT SCH ×2 (09:00→17:12)
--- NOTE | 2018-05-04 09:00 | NUR ---
RN MS NOTES PROTONIX IV NOT GIVEN, PT IN O.R. FOR HIP ULCER RESECTION.
--- NOTE | 2018-05-04 10:53 | NUR ---
RN MS NOTES PT TRANSFERRED TO ICU POST OP, REPORT GIVEN TO DUONG FRANKS.
--- NOTE | 2018-05-04 12:17 | NUR ---
INITIAL PROSTHETIC MAKEUP DESIGNER NOTE PT TRANSFERRED FROM OR S/P RIGHT HIP GIRDLESTONE AND FLAP RECONSTRUCTION. PT ABLE TO OPEN EYES, TWITCHING OBSERVED OVER RIGHT SHOULDER AND BILATERAL EYES R>L, PT'S GRANDSON AT BEDSIDE STATES THAT THIS IS BE BASELINE. ST ON MONITOR, SIMPLE MASK 8L, PT OBSERVED BREATHING HEAVILY PER FAMILY THIS IS PT'S BASELINE. PEG PLACEMENT VERIFIED BY AUSCULTATION/ASPIRATION OF GASTRIC CONTENTS. PER MD TUBE FEEDING TO BE RE-STARTED. WARD TO GRAVITY DRAINING CLOUDY, YELLOW URINE. PT HAS WOUND VAC OVER RIGHT HIP AREA AND TWO JANN DRAINS WITH SANGUINEOUS FLUID OVER RIGHT THIGH. CHARIS PICC C/D/I/PATENT, NO S/O INFILTRATION/PHLEBITIS OBSERVED UPON FLUSHING, IVF INFUSING ORDERED. WILL CONTINUE TO MONITOR PT FOR SAFETY AND COMFORT. BED IN LOW AND LOCKED POSITION CALL LIGHT WITHIN REACH. HEAD OF BED ELEVATED AT 35 DEGREES.
[2018-05-04] MEDS: VANCOMYCIN 0.75 GM in IV D5W 250 ML IV SCH ×2 (12:34→21:03)
[2018-05-04] MEDS: IV NS 0.9% 1,000 ML IV PRN ×2 (12:36→22:39)
[2018-05-04] MEDS: GLUCERNA NG PRN (13:47)
--- NOTE | 2018-05-04 18:44 | NUR ---
ASSISTANT TRACK COACH NOTE PT REMAINS STABLE, OPENS EYES, UNABLE TO FOLLOW COMMANDS, APPEARS IN NO DISTRESS. ST ON MONITOR, O2 TITRATED TO NASAL CANNULA FROM SIMPLE MASK TOLERATING WELL. PEG PLACEMENT VERIFIED BY AUSCULTATION/ASPIRATION OF GASTRIC CONTENTS, HIGHEST RESIDUAL OF 50 ML OBTAINED. WARD TO GRAVITY DRAINING CLOUDY, YELLOW URINE. TWO JPs DRAINING SANGUINEOUS FLUID, BULBS COMPRESSED. WOUND VAC TO 125 SUCTION. TUBE FEEDING STARTED AT 20ML/HR. IV SITES C/D/I/PATENT, NO S/O INFILTRATION/PHLEBITIS OBSERVED, IVF INFUSING ORDERED. PT'S CARE WILL BE ENDORSED TO CO TEACHER RN FOR CONTINUITY OF CARE. BED IN LOW AND LOCKED POSITION. CALL LIGHT WITHIN REACH. HEAD OF BED ELEVATED AT 35 DEGREES.
--- NOTE | 2018-05-04 19:30 | NUR ---
CITY ADMINISTRATOR INITIAL HSIFT NOTES RECEIVED PATIENT IN BED, ASLEEP, EYES CLOSED. PATIENT EASILY AROUSABLE/WOKEN TO NAME OR TOUCH. PATIENT OPENS EYES, BUT IS NONVERBAL, NONCOMMUNICATIVE. BREATHING EVEN AND NONLABORED WHILE ON O2 VIA NC @ 2LPM, TOLERATING WELL, SPO2 WNL, NO S/S OF RESPIRATORY DISTRESS AT THIS TIME, PERIODS OF INTERMITTENT TACHYPNEA TO 30s. CHARIS PICC PATENT AND INTACT, FLUSHED WITH NS, FREE FROM ANY S/S OF INFILTRATION OR PHLEBITIS. RIGHT HIP NOTED WITH WOUND VAC @ 125 MMHG CONTINUOUS LOW SUCTION, NO LEAKS NOTED, NO OUTPUT, WILL MONITOR CLOSELY. ALSO NOTED WITH JANN DRAIN X2, NOTED WITH SANGUINOUS OUTPUT. WARD CATHETER PATENT AND INTACT, DRAINING PALE, CLOUDY YELLOW URINE VIA GRAVITY. RLE CONTRACTED. HOB KEPT ELEVATED FOR ASPIRATION PRECAUTIONS. NOTED WITH 150ML OF GASTRIC RESIDUALS, TUBE FEEDING KEPT ON HOLD. WILL CONTINUE TO CLOSELY MONITOR
[2018-05-04] MEDS: ACETAMINOPHEN 650 MG/20.3 ML UDC NG PRN (19:41)
--- NOTE | 2018-05-04 20:10 | NUR ---
RECEIVED PT ON 2L NC, NO DISTRESS. O2 SAT 100%. BS CL DM. PT IS RECEIVING Q4 BREATHING TX. NO NEED TO SX AT THIS TIME. WILL CONTINUE TO MONITOR.
[2018-05-05] VITALS (37 sets, daily range): BP systolic 94–129; BP diastolic 52–95
[2018-05-05] MEDS: DAKINS QUARTER STRENGTH (0.125%) 480 ML BOTTLE TOP SCH ×2 (01:53→13:10)
[2018-05-05] MEDS: CEFEPIME 1 GM in IV NS 0.9% 50 ML IV SCH ×2 (02:03→15:46)
[2018-05-05] MEDS: ALBUTEROL HALF STRENGTH 1.25 MG/3 ML VIAL.NEB NEB SCH ×6 (03:22→23:41)
[2018-05-05] MEDS: IPRATROPIUM NEB FS 0.5 MG/2.5 ML AMPUL.NEB NEB SCH ×6 (03:23→23:41)
--- NOTE | 2018-05-05 04:00 | NUR ---
SADDLE AND SIDE WIRE STITCHER NOTES BED BATH RENDERED, NOTED WITH SMALL BM X1. SACRAL WOUND DRESSING KEPT CLEAN AND DRY.
[2018-05-05 04:51] LABS: BASOPHILS # (AUTO) 0.1 /CMM (0.0-0.2); BASOPHILS % (AUTO) 0.8 % (0.0-2.0); EOSINOPHILS % (AUTO) 0.4 % (0.0-6.0); HEMATOCRIT 22 % (33-45); LYMPHOCYTES # (AUTO) 1.5 /CMM (0.8-4.8); MEAN CORPUSCULAR HGB CONC 32 g/dl (31.0-36.0); MEAN CORPUSCULAR VOLUME 81 fL (82-100); MONOCYTES # (AUTO) 0.8 /CMM (0.1-1.30); MONOCYTES % (AUTO) 4.8 % (2.0-12.0); NEUTROPHILS # (AUTO) 13.8 /CMM (1.8-8.9); PLATELET COUNT (AUTO) 501 /CMM (150-450); RED BLOOD CELL COUNT(AUTO) 2.66 MIL/uL (4.0-5.2); WHITE BLOOD COUNT (AUTO) 16.2 K/uL (4.3-11.0)
[2018-05-05 04:59] LABS: CALCIUM, SERUM 8.5 mg/dL (8.5-10.1); CARBON DIOXIDE 23 mmol/L (21-32); CHLORIDE 108 mmol/L (98-107); CREATININE 0.6 mg/dL (0.6-1.3); GLUCOSE 153 mg/dL (74-106); MAGNESIUM 1.7 mg/dL (1.8-2.4); PHOSPHORUS 3.2 mg/dL (2.5-4.9); POTASSIUM 4.5 mmol/L (3.5-5.1); SODIUM SERUM 140 mmol/L (136-145); UREA NITROGEN, BLOOD 27 mg/dL (7-18)
[2018-05-05 05:12] LABS: HEMOGLOBIN 6.8 g/dL (11.5-14.8)
[2018-05-05 05:16] LABS: LYMPHOCYTES % (MANUAL) 12 % (16-48); NEUTROPHILS % (MANUAL) 84 (42-76)
[2018-05-05 05:17] LABS: MONOCYTES % (MANUAL) 4 % (0-11.0)
--- NOTE | 2018-05-05 08:17 | NUR ---
INITIAL CUFF TURNER MACHINE OPERATOR NOTE RCVD PT ABLE TO OPEN EYES, NOT FOLLOWING COMMANDS. ST ON MONITOR. TOLERATING O2 VIA NC. PEG PLACEMENT VERIFIED BY AUSCULTATION/ASPIRATION OF GASTRIC CONTENTS. NO RESIDUAL OBTAINED, TOLERATING TUBE FEEDING RATE CURRENTLY AT 20 ML/HR. WARD TO GRAVITY DRAINING CLOUDY, YELLOW URINE. WOUND VAC OVER RIGHT HIP AREA, TWO JPs WITH SANGUINEOUS DRAINAGE OBSERVED. CHARIS PICC C/D/I/PATENT, NO S/O INFILTRATION/PHLEBITIS OBSERVED UPON FLUSHING. WILL CONTINUE TO MONITOR PT FOR SAFETY AND COMFORT. BED IN LOW AND LOCKED POSITION. CALL LIGHT WITHIN REACH. HEAD OF BED ELEVATED AT 35 DEGREES.
[2018-05-05] MEDS: LACTOBACILLUS RHAMNOSUS GG 1 EACH CAP.SPRINK GT SCH ×2 (08:38→17:04)
[2018-05-05] MEDS: PANTOPRAZOLE 40 MG VIAL IV SCH (08:38)
[2018-05-05] MEDS: PROSOURCE / PROSTAT (PYXIS) 30 ML UDC GT SCH ×3 (08:38→17:04)
--- NOTE | 2018-05-05 09:52 | NUR ---
SCHOOL MANAGER NOTE PER DR. DIAZ GO AHEAD AND START BLOOD TRANSFUSION WITH TEMP OF 100.8 AND MEDICATE WITH TYLENOL 650MG. WILL CONTINUE TO MONITOR.
[2018-05-05] MEDS ORDERED: ACETAMINOPHEN 650 MG/20.3 ML UDC NG ONE (10:00)
[2018-05-05] MEDS: VANCOMYCIN 500 MG in IV D5W 100 ML IV SCH ×2 (12:09→22:02)
[2018-05-05] MEDS: Magnesium 1GM/D5W 100ML PREMIX 100 ML IV SCH ×2 (13:10→14:46)
--- NOTE | 2018-05-05 13:40 | NUR ---
HOSPITAL RECEIVING CLERK NOTE PT TOLERATED BLOOD TRANSFUSION WELL, NO S/O DISTRESS, VITAL SIGNS REMAINED STABLE THROUGHOUT. WILL CONTINUE TO MONITOR.
[2018-05-05] MEDS: GLUCERNA NG PRN (15:03)
--- NOTE | 2018-05-05 18:40 | NUR ---
TRANSFER OUT OF GLOBAL PRODUCT MANAGER NOTE PT AWAKE TRANSFERRED TO ROOM 111-1 VIA BED IN STABLE CONDITION. ST ON MONITOR, TOLERATING O2 VIA NASAL CANNULA, PEG PLACEMENT VERIFIED BY AUSCULTATION/ASPIRATION, TOLERATING TUBE FEEDING. WARD TO GRAVITY DRAINING CLOUDY, YELLOW URINE. CHARIS PICC C/D/I/PATENT, NO S/O INFILTRATION/PHLEBITIS OBSERVED UPON FLUSHING. LIZZETH PT'S GRANDDAUGHTER CALLED TO INFORMED ABOUT PT'S ROOM CHANGE, SHE ACKNOWLEDGED. REPORT GIVEN AT BEDSIDE TO GOLDEN FABIAN.
--- NOTE | 2018-05-05 18:44 | NUR ---
INITIAL FACILITIES MANAGER NOTE RCEIVED PATIENT FROM ICU NURSE TANISHA,PT ABLE TO OPEN EYES, NOT FOLLOWING COMMANDS. ST ON MONITOR HR 111. TOLERATING O2 VIA NC SATURATING 96%. PEG PLACEMENT VERIFIED BY AUSCULTATION/ASPIRATION OF GASTRIC CONTENTS. NO RESIDUAL OBTAINED.TUBE FEEDING RATE CURRENTLY AT 50 ML/HR. WARD TO GRAVITY DRAINING CLOUDY, YELLOW URINE. WOUND VAC OVER RIGHT HIP AREA, TWO JPs WITH SANGUINEOUS DRAINAGE OBSERVED. CHARIS PICC C/D/I/PATENT, NO S/O INFILTRATION/PHLEBITIS OBSERVED UPON FLUSHING. WILL CONTINUE TO MONITOR PT FOR SAFETY AND COMFORT. BED IN LOW AND LOCKED POSITION. CALL LIGHT WITHIN REACH. HEAD OF BED ELEVATED AT 35 DEGREES.
--- NOTE | 2018-05-05 19:49 | NUR ---
OVEN ATTENDANT NOTES RECEIVED PT ON BED. OBTUNDED ON NASAL CANNULA 2LPM SATURATING WELL. ON TELE MONITOR ST 118. ON WARD CATH DRAINING YELLOW URINE. IV ACCESS ON CHARIS PICC PATENT AND INTACT. GTUBE FEEDING GLUCERNA @ 70CC/HR NO RESIDUAL NOTED. JANN DRAINING SEROSANGUINEOUS WITH HEMOVAC NO DRAIN NOTED. HEAD OF BED ELEVATED. SIDE RAILS UP. CALL LIGHT WITHIN REACH. BED ALARM ON. WILL MONITOR PT CLOSELY.
[2018-05-05] MEDS: ACETAMINOPHEN 650 MG/20.3 ML UDC NG PRN (19:58)
[2018-05-06] VITALS: BP 117/57
[2018-05-06] MEDS: DAKINS QUARTER STRENGTH (0.125%) 480 ML BOTTLE TOP SCH ×2 (01:31→14:36)
[2018-05-06] MEDS: CEFEPIME 1 GM in IV NS 0.9% 50 ML IV SCH (03:11)
[2018-05-06] MEDS: ALBUTEROL HALF STRENGTH 1.25 MG/3 ML VIAL.NEB NEB SCH ×6 (03:36→22:58)
[2018-05-06] MEDS: IPRATROPIUM NEB FS 0.5 MG/2.5 ML AMPUL.NEB NEB SCH ×6 (03:36→22:58)
[2018-05-06 04:00] VITALS: BP 121/67
--- NOTE | 2018-05-06 05:25 | NUR ---
MS RN NOTES WOUND CARE DONE.
--- NOTE | 2018-05-06 06:41 | NUR ---
MS RN NOTES NO ACUTE CHANGES NOTED DURING THE SHIFT. PROVIDED COMFORT AND SAFETY.WOUND CARE DONE. DUE MEDS GIVEN.WILL ENDORSE TO THE AM NURSE FOR CONTINUITY OF CARE.
--- NOTE | 2018-05-06 07:05 | NUR ---
RN OPENING NOTE PATIENT IN BED ASLEEP BUT EASILY AROUSABLE. NON-VERBAL. ON GT FEEDING GLUCERNA AT 70 ML/HR TOLERATING WELL NO RESIDUAL. HAS A RIGHT UPPER ARM PICC LINE NO FLUIDS RUNNING. ON WARD CATHETER ON GRAVITY WITH CLEAR AND YELLOW URINE. PATIENT ON NC 2L SATING AT 97%. SKIN ISSUES CHECKED WITH THE NOC RN. HAS JANN 1 AND 2 DRAINING. NOTED THAT THE PATIENT IS ALLERGIC TO PLASTIC TAPE. BED LOCKED AND LOWEST POSITION. CALL LIGHT WITHIN REACH. WILL CONT TO MONITOR THROUGHOUT THE SHIFT
[2018-05-06 07:39] LABS: CALCIUM, SERUM 8.6 mg/dL (8.5-10.1); CARBON DIOXIDE 23 mmol/L (21-32); CHLORIDE 108 mmol/L (98-107); CREATININE 0.5 mg/dL (0.6-1.3); GLUCOSE 177 mg/dL (74-106); MAGNESIUM 2.1 mg/dL (1.8-2.4); POTASSIUM 4.9 mmol/L (3.5-5.1); SODIUM SERUM 142 mmol/L (136-145); UREA NITROGEN, BLOOD 23 mg/dL (7-18)
[2018-05-06 08:00] VITALS: BP 129/67
[2018-05-06] MEDS: PANTOPRAZOLE 40 MG VIAL IV SCH (08:36)
[2018-05-06] MEDS: PROSOURCE / PROSTAT (PYXIS) 30 ML UDC GT SCH ×3 (08:36→16:03)
[2018-05-06] MEDS: LACTOBACILLUS RHAMNOSUS GG 1 EACH CAP.SPRINK GT SCH ×2 (08:36→16:02)
[2018-05-06] MEDS: VANCOMYCIN 500 MG in IV D5W 100 ML IV SCH ×2 (10:55→23:07)
[2018-05-06 12:00] VITALS: BP 129/71
[2018-05-06 13:15] LABS: BASOPHILS # (AUTO) 0.1 /CMM (0.0-0.2); BASOPHILS % (AUTO) 0.6 % (0.0-2.0); EOSINOPHILS % (AUTO) 2.8 % (0.0-6.0); HEMATOCRIT 26 % (33-45); HEMOGLOBIN 8.3 g/dL (11.5-14.8); LYMPHOCYTES # (AUTO) 1.3 /CMM (0.8-4.8); LYMPHOCYTES % (AUTO) 10.1 % (20.0-44.0); MEAN CORPUSCULAR HGB CONC 32 g/dl (31.0-36.0); MEAN CORPUSCULAR VOLUME 84 fL (82-100); MONOCYTES # (AUTO) 0.7 /CMM (0.1-1.30); NEUTROPHILS # (AUTO) 10.6 /CMM (1.8-8.9); NEUTROPHILS % (AUTO) 81.5 % (43.0-81.0); PLATELET COUNT (AUTO) 451 /CMM (150-450); RED BLOOD CELL COUNT(AUTO) 3.13 MIL/uL (4.0-5.2)
[2018-05-06 16:00] VITALS: BP 136/63
[2018-05-06] MEDS: GLUCERNA NG PRN (17:45)
--- NOTE | 2018-05-06 19:05 | NUR ---
RN CLOSING NOTE PATIENT IN BED, NON VERBAL OPENING EYES. WARD CATHETER ON GRAVITY WITH CLEAR AND YELLOW URINE, OUTPUT 1000CC. WOUND CARE DONE. JANN 1 OUTPUT WAS 50, JP2 OUTPUT WAS 25. GLUCERNA RUNNING AT 70 CC/HR, TOLERATING WELL. NONE TO 20CC RESIDUAL. FAMILY PROVIDED A WHOLE NEW BOX OF GLUCERNA THAT WAS BROUGHT TO THE PHARMACY. HAS A RIGHT UPPER PICC SALINE LOCKED. WILL ENDORSE TO NOC SHIFT RN.
[2018-05-06 20:00] VITALS: BP 125/67
[2018-05-07] MEDS: DAKINS QUARTER STRENGTH (0.125%) 480 ML BOTTLE TOP SCH ×2 (03:07→15:21)
[2018-05-07] MEDS: IPRATROPIUM NEB FS 0.5 MG/2.5 ML AMPUL.NEB NEB SCH ×6 (03:25→23:58)
[2018-05-07] MEDS: ALBUTEROL HALF STRENGTH 1.25 MG/3 ML VIAL.NEB NEB SCH ×6 (03:25→23:58)
[2018-05-07 04:00] VITALS: BP 123/65
--- NOTE | 2018-05-07 06:21 | NUR ---
MS RN NOTES PT SLEEPING. NON VERBAL. RESPONSIVE TO TOUCH. NOT IN ANY DISTRESS. NO SOB NOTED. NO S/SX OF ANY PAIN OR DISCOMFORT AT THIS TIME. WITH IVF AND GT FEEDING INFUSING WELL. KEPT ON ASPIRATION PREC AAT. JANN KEPT ON NEGATIVE PRESSURE. WOUND VAC INTACT. AM CARE DONE. MONITORED ACCORDINGLY. CALL LIGHT WITHIN REACH. BED IN LOWEST POSITION. SR UP X 3 WITH BED ALARM ON FOR SAFETY. WILL ENDORSE TO NEXT SHIFT.
[2018-05-07 07:33] LABS: BASOPHILS # (AUTO) 0.1 /CMM (0.0-0.2); BASOPHILS % (AUTO) 0.5 % (0.0-2.0); EOSINOPHILS % (AUTO) 3.4 % (0.0-6.0); HEMATOCRIT 25 % (33-45); LYMPHOCYTES # (AUTO) 1.3 /CMM (0.8-4.8); LYMPHOCYTES % (AUTO) 11.8 % (20.0-44.0); MEAN CORPUSCULAR HGB CONC 33 g/dl (31.0-36.0); MEAN CORPUSCULAR VOLUME 82 fL (82-100); MONOCYTES # (AUTO) 0.6 /CMM (0.1-1.30); MONOCYTES % (AUTO) 5.4 % (2.0-12.0); NEUTROPHILS # (AUTO) 8.8 /CMM (1.8-8.9); NEUTROPHILS % (AUTO) 78.9 % (43.0-81.0); PLATELET COUNT (AUTO) 403 /CMM (150-450); RED BLOOD CELL COUNT(AUTO) 2.97 MIL/uL (4.0-5.2); WHITE BLOOD COUNT (AUTO) 11.2 K/uL (4.3-11.0)
--- NOTE | 2018-05-07 07:38 | NUR ---
MS RN OPENING NOTES PT SLEEPING. NON VERBAL. RESPONSIVE TO TOUCH. NOT IN ANY DISTRESS. NO SOB NOTED ON 2LTRS NASAL CANNULA. NO S/SX OF ANY PAIN OR DISCOMFORT AT THIS TIME.CHARIS PICC SL AND GT FEEDING ON HOLD AWAITING FAMILY TO BRING NEW FEEDING. KEPT ON ASPIRATION PRECAUTIONS . JANN KEPT ON NEGATIVE PRESSURE. WOUND VAC INTACT. AM CARE DONE. MONITORED ACCORDINGLY. CALL LIGHT WITHIN REACH. BED IN LOWEST POSITION. SR UP X 3 WITH BED ALARM ON FOR SAFETY. WILL CONT TO MONITOR
[2018-05-07 07:49] LABS: CALCIUM, SERUM 8.5 mg/dL (8.5-10.1); CARBON DIOXIDE 24 mmol/L (21-32); CHLORIDE 107 mmol/L (98-107); CREATININE 0.5 mg/dL (0.6-1.3); GLUCOSE 203 mg/dL (74-106); POTASSIUM 4.7 mmol/L (3.5-5.1); SODIUM SERUM 141 mmol/L (136-145); UREA NITROGEN, BLOOD 23 mg/dL (7-18)
[2018-05-07 08:00] VITALS: BP_SYST 123; BP_DIAS 65; BP_DIAS 66
[2018-05-07] MEDS: PROSOURCE / PROSTAT (PYXIS) 30 ML UDC GT SCH ×3 (08:46→16:24)
[2018-05-07] MEDS: LACTOBACILLUS RHAMNOSUS GG 1 EACH CAP.SPRINK GT SCH ×2 (08:46→16:24)
[2018-05-07] MEDS: PANTOPRAZOLE 40 MG VIAL IV SCH (08:46)
[2018-05-07] MEDS: VANCOMYCIN 500 MG in IV D5W 100 ML IV SCH (11:10)
[2018-05-07] MEDS: GLUCERNA NG PRN (15:26)
[2018-05-07 16:00] VITALS: BP 144/75
--- NOTE | 2018-05-07 19:19 | NUR ---
MS RN CLOSING NOTES PT SLEEPING. NON VERBAL MOANS OCCASIONALLY RESPONSIVE TO TOUCH. NOT IN ANY DISTRESS. NO SOB NOTED ON 2LTRS NASAL CANNULA. NO S/SX OF ANY PAIN OR DISCOMFORT AT THIS TIME.CHARIS PICC SL AND GT FEEDING RUNNING @ 70ML/HR WITH NO RESIDUAL OR NVD NOTED KEPT ON ASPIRATION PRECAUTIONS . JANN KEPT ON NEGATIVE PRESSURE. WOUND VAC INTACT. AM CARE DONE. MONITORED ACCORDINGLY. CALL LIGHT WITHIN REACH. ASPIRATION AND SAFETY PRECAUTIONS IN PLACE BED IN LOWEST POSITION. SR UP X 3 WITH BED ALARM ON FOR SAFETY. WILL ENDORSE TO NOC
[2018-05-07 20:00] VITALS: BP 97/49
--- NOTE | 2018-05-07 20:00 | NUR ---
RN/MS NOTES: RECEIVED PT. IN BED W/ HOB ELEVATED. PT. IS OBTUNDED AND NON VERBAL. MOANS. NO FACIAL GRIMACES OR MOANING NOTED. RESPONSIVE TO TACTILE TOUCH. NO SOB NOTED. O2 @ 2LPM VIA . CHARIS PICC DRESSING C/D/I. ON GT FEEDING OF GLUCERNA 1.0 AT 70 ML/HR TOLERATING WELL. NO RESIDUAL NOTED. KEPT ON ASPIRATION PRECAUTIONS . JANN X 2 KEPT ON NEGATIVE PRESSURE. WOUND VAC INTACT. ALL NEEDS MEET. WILL CONTINUE TO MONITOR. CALL LIGHT WITHIN REACH. BED IN LOWEST POSITION. SR UP X 3 WITH BED ALARM ON FOR SAFETY.
[2018-05-08] VITALS: BP 86/51
[2018-05-08] MEDS: VANCOMYCIN 500 MG in IV D5W 100 ML IV SCH ×2 (00:03→11:06)
[2018-05-08] MEDS: DAKINS QUARTER STRENGTH (0.125%) 480 ML BOTTLE TOP SCH ×2 (02:59→14:00)
[2018-05-08] MEDS: IPRATROPIUM NEB FS 0.5 MG/2.5 ML AMPUL.NEB NEB SCH ×6 (03:20→23:50)
[2018-05-08] MEDS: ALBUTEROL HALF STRENGTH 1.25 MG/3 ML VIAL.NEB NEB SCH ×6 (03:21→23:50)
[2018-05-08 04:00] VITALS: BP 89/50
--- NOTE | 2018-05-08 07:13 | NUR ---
RN/MS NOTES: REPORT GIVEN TO NEXT SHIFT NURSE FOR ANGUS.
--- NOTE | 2018-05-08 07:15 | NUR ---
MS RN OPENING NOTES PT SLEEPING. NON VERBAL. RESPONSIVE TO TOUCH. NOT IN ANY DISTRESS. NO SOB NOTED ON 2LTRS NASAL CANNULA. NO S/SX OF ANY PAIN OR DISCOMFORT AT THIS TIME.CHARIS PICC SL AND GT FEEDING RUNNING @ 70ML/HR TOLERATING WELL NO NVD NOTED KEPT ON ASPIRATION PRECAUTIONS . JANN KEPT ON NEGATIVE PRESSURE. WOUND VAC INTACT. MONITORED ACCORDINGLY. CALL LIGHT WITHIN REACH. BED IN LOWEST POSITION. SR UP X 3 WITH BED ALARM ON FOR SAFETY. WILL CONT TO MONITOR
--- NOTE | 2018-05-08 07:45 | NUR ---
RN OPENING NOTES PT ASLEEP NO SIGNS OF DISTRESS. RECEIVED REPORT FROM PROPERTY INVESTOR RN. PT IS ON 2L O2 VIA NC. PT HAS A PICC LINE IN CHARIS WITH NS RUNNING AT 3ML/HR. PT HAS G -TUBE RUNNING AT 70ML/HR. BED IS LOCKED AND CALL LIGHT IS WITHIN REACH. WARD IS PRESENT WITH YELLOW URINE DRAINING TO GRAVITY. WOUND VACUUM IS PRESENT AT END OF BED AND IT IS TURNED ON.
[2018-05-08 08:00] VITALS: BP 118/60
[2018-05-08 08:04] LABS: CALCIUM, SERUM 8.8 mg/dL (8.5-10.1); CARBON DIOXIDE 24 mmol/L (21-32); CHLORIDE 104 mmol/L (98-107); CREATININE 0.5 mg/dL (0.6-1.3); GLUCOSE 193 mg/dL (74-106); POTASSIUM 5.1 mmol/L (3.5-5.1); SODIUM SERUM 138 mmol/L (136-145); UREA NITROGEN, BLOOD 23 mg/dL (7-18)
[2018-05-08] MEDS: PROSOURCE / PROSTAT (PYXIS) 30 ML UDC GT SCH ×3 (09:24→17:02)
[2018-05-08] MEDS: LACTOBACILLUS RHAMNOSUS GG 1 EACH CAP.SPRINK GT SCH ×2 (09:24→17:02)
[2018-05-08] MEDS: PANTOPRAZOLE 40 MG VIAL IV SCH (09:24)
[2018-05-08] MEDS: GLUCERNA NG PRN (10:26)
[2018-05-08] MEDS: ACETAMINOPHEN 650 MG/20.3 ML UDC NG PRN (15:49)
[2018-05-08 16:00] VITALS: BP 126/63
--- NOTE | 2018-05-08 16:45 | NUR ---
RN NOTES WOUND IRRIGATED WITH NS AND PACKED WITH IMPREGNATED DAKINS COVERED WITH ABD PAD.
--- NOTE | 2018-05-08 19:27 | NUR ---
RN CLOSING NOTES PT ASLEEP NO SIGNS OF DISTRESS. GAVE REPORT FROM SENIOR COMPENSATION ANALYST GOLDEN WHITE. PT IS ON 2L O2 VIA NC. PT HAS A PICC LINE IN CHARIS WITH NS RUNNING AT 3ML/HR. PT HAS G -TUBE RUNNING AT 70ML/HR. BED IS LOCKED AND CALL LIGHT IS WITHIN REACH. WARD IS PRESENT WITH YELLOW URINE DRAINING TO GRAVITY. WOUND VACUUM IS PRESENT AT END OF BED AND IT IS TURNED ON.JANN DRAIN 1 OUTPUT 25 ML JANN DRAIN 2 OUTPUT 20 ML.
--- NOTE | 2018-05-08 20:00 | NUR ---
RN OPENING NOTES RECEIVED PT ASLEEP WITH NO SIGNS OF DISTRESS. RECEIVED REPORT FROM DAY SHIFT RN. PT IS ON 2L O2 VIA NC. PT HAS A PICC LINE IN CHARIS PATIENT AND INTACT. PT HAS G -TUBE RUNNING AT 70ML/HR. BED IS LOCKED AND CALL LIGHT IS WITHIN REACH. WARD IS PRESENT WITH YELLOW URINE DRAINING TO GRAVITY. WOUND VAC IS PRESENT . WILL CONTINUE TO MONITOR PATIENT CLOSELY.
[2018-05-09] MEDS: VANCOMYCIN 500 MG in IV D5W 100 ML IV SCH ×3 (00:27→23:14)
[2018-05-09] MEDS: DAKINS QUARTER STRENGTH (0.125%) 480 ML BOTTLE TOP SCH ×2 (02:55→15:03)
[2018-05-09] MEDS: IPRATROPIUM NEB FS 0.5 MG/2.5 ML AMPUL.NEB NEB SCH ×6 (03:31→23:26)
[2018-05-09] MEDS: ALBUTEROL HALF STRENGTH 1.25 MG/3 ML VIAL.NEB NEB SCH ×6 (03:31→23:26)
[2018-05-09 04:00] VITALS: BP 128/57
[2018-05-09] MEDS: ACETAMINOPHEN 650 MG/20.3 ML UDC NG PRN ×2 (06:48→23:56)
[2018-05-09] MEDS: GLUCERNA NG PRN (06:49)
--- NOTE | 2018-05-09 07:10 | NUR ---
RN CLOSING NOTES RN NOTES PT ASLEEP NO SIGNS OF DISTRESS. GAVE REPORT TO DAY SHIFT RN SHIFT RN. PT IS ON 2L O2 VIA NC. PT HAS A PICC LINE PATIENT AND INTACT. PT HAS G -TUBE RUNNING AT 70ML/HR. BED IS LOCKED AND CALL LIGHT IS WITHIN REACH. WARD IS PRESENT WITH YELLOW URINE DRAINING TO GRAVITY. WOUND VACUUM IS PRESENT AT END OF BED AND IT IS TURNED ON.JANN DRAIN 1 OUTPUT 25 ML JANN DRAIN 2 OUTPUT 10 ML.
[2018-05-09 07:28] LABS: BASOPHILS # (AUTO) 0.1 /CMM (0.0-0.2); BASOPHILS % (AUTO) 0.4 % (0.0-2.0); EOSINOPHILS % (AUTO) 4.5 % (0.0-6.0); HEMATOCRIT 26 % (33-45); HEMOGLOBIN 8.2 g/dL (11.5-14.8); LYMPHOCYTES # (AUTO) 1.3 /CMM (0.8-4.8); LYMPHOCYTES % (AUTO) 10.8 % (20.0-44.0); MEAN CORPUSCULAR HGB CONC 32 g/dl (31.0-36.0); MEAN CORPUSCULAR VOLUME 82 fL (82-100); MONOCYTES # (AUTO) 0.5 /CMM (0.1-1.30); MONOCYTES % (AUTO) 4.4 % (2.0-12.0); NEUTROPHILS # (AUTO) 9.3 /CMM (1.8-8.9); NEUTROPHILS % (AUTO) 79.9 % (43.0-81.0); PLATELET COUNT (AUTO) 397 /CMM (150-450); RED BLOOD CELL COUNT(AUTO) 3.13 MIL/uL (4.0-5.2); WHITE BLOOD COUNT (AUTO) 11.7 K/uL (4.3-11.0)
[2018-05-09 07:49] LABS: CALCIUM, SERUM 9.1 mg/dL (8.5-10.1); CARBON DIOXIDE 25 mmol/L (21-32); CHLORIDE 105 mmol/L (98-107); CREATININE 0.5 mg/dL (0.6-1.3); GLUCOSE 189 mg/dL (74-106); POTASSIUM 4.3 mmol/L (3.5-5.1); SODIUM SERUM 138 mmol/L (136-145); UREA NITROGEN, BLOOD 27 mg/dL (7-18)
[2018-05-09 08:00] VITALS: BP 90/57
[2018-05-09] MEDS: PANTOPRAZOLE 40 MG VIAL IV SCH (09:31)
[2018-05-09] MEDS: LACTOBACILLUS RHAMNOSUS GG 1 EACH CAP.SPRINK GT SCH ×2 (09:31→16:45)
[2018-05-09] MEDS: PROSOURCE / PROSTAT (PYXIS) 30 ML UDC GT SCH ×3 (09:31→16:45)
[2018-05-09 12:00] VITALS: BP 99/64
[2018-05-09] MEDS: MORPHINE SULFATE INJ 2 MG/ML DISP.SYRIN IV PRN (13:47)
[2018-05-09 14:27] LABS: ABG BASE EXCESS 0.1 mmol/L; ABG OXYGEN SATURATION 94.2 % (92.0-98.5); ABG PCO2 34.1 mmHg (35.0-45.0); ABG PO2 69.5 mmHg (75.0-100.0); AaDO2 89.9 mmHg; COHb 0.8 % (0.5-1.5); MetHb 0.4 % (0.0-1.5); O2Hb 93.1 % (94.0-97.0); SITE, ABG Right Brachial
[2018-05-09 16:00] VITALS: BP 98/49
[2018-05-09 20:00] VITALS: BP 96/59
--- NOTE | 2018-05-09 20:00 | NUR ---
RN NOTES RECEIVED PT. SLEEPING BUT AROUSABLE TO PAINFUL STIMULI, OBTUNDED WOUND VAC IN PLACE, WITH 2 JANN DRAINAGE -DRAINING SEROSANGUINEOUS, G-TUBE RUNNING @ 70ML /HR, PATIENT LOOKS PALE AND RESPIRATION IS 22.. CALLED CHARGE NURSE ATTENTION AND PATIENT REALLY LIKE THAT .. MD IS AWARE, SIDERAILSUPX2, CONTINUE TO MONITOR
--- NOTE | 2018-05-09 21:00 | NUR ---
RN NOTES CHECK ON FEEDING CHECKED RESIDUAL.. IT'S MORE THAN 250ML... STOPPED THE FEEDING AND WE WILL CHECK IT AGAIN AFTER 2 HRS... CHARGE NURSE MADE AWARE
[2018-05-10] VITALS (18 sets, daily range): BP systolic 82–123; BP diastolic 41–75
--- NOTE | 2018-05-10 | NUR ---
RN NOTES CHECKED RESIDUAL AGAIN STILL MORE THAN 250ML, CONTINUE TO STOPPED THE FEEDING...CHARGE NURSE MADE AWARE... PT. DOESN'T LOOK COMFORTABLE ... REPOSITIONED THE PT. AND GAVE TYLENOL 650 MG VIA G-TUBE...CONTINUE TO MONITOR
[2018-05-10] MEDS: DAKINS QUARTER STRENGTH (0.125%) 480 ML BOTTLE TOP SCH ×2 (02:11→14:10)
[2018-05-10] MEDS: IPRATROPIUM NEB FS 0.5 MG/2.5 ML AMPUL.NEB NEB SCH ×6 (02:34→23:30)
[2018-05-10] MEDS: ALBUTEROL HALF STRENGTH 1.25 MG/3 ML VIAL.NEB NEB SCH ×6 (02:34→23:30)
--- NOTE | 2018-05-10 03:30 | NUR ---
RN NOTES CHECKED TUBE FEEDING RESIDUAL IT'S 75ML/HR, RESUMED G-TUBE FEEDING, WILL CONTINUE TO MONITOR
--- NOTE | 2018-05-10 06:42 | NUR ---
RN NOTES SLEEPING BUT AROUSABLE, NOT IN DISTRESS, WOUND VAC IN PLACE, JANN DRAINAGE IN PLACE, SIDERAILSUPX2, NO PAIN NOTED, MORNING CARE RENDERED, PT. NEEDS ATTENDED
--- NOTE | 2018-05-10 07:10 | NUR ---
MS RN OPENING NOTES RECEIVED REPORT FROM WARP KNIT OPERATOR RN. PT AWAKE, OBTUNDED WITH NO SIGNS OF DISTRESS. PT IS ON 4L O2 VIA NC. PT HAS A PICC LINE IN CHARIS PATIENT AND INTACT. PT HAS G -TUBE RUNNING AT 70ML/HR. BED IS LOCKED AND IN LOWEST POSITION. CALL LIGHT WITHIN REACH. WARD IS PRESENT WITH YELLOW URINE DRAINING TO GRAVITY. WOUND VAC IS PRESENT. WILL CONTINUE TO MONITOR PATIENT CLOSELY THROUGHOUT SHIFT.
[2018-05-10 08:43] LABS: CARBON DIOXIDE 24 mmol/L (21-32); CHLORIDE 107 mmol/L (98-107); CREATININE 0.4 mg/dL (0.6-1.3); GLUCOSE 184 mg/dL (74-106); POTASSIUM 4.1 mmol/L (3.5-5.1); SODIUM SERUM 142 mmol/L (136-145); UREA NITROGEN, BLOOD 27 mg/dL (7-18)
[2018-05-10] MEDS: LACTOBACILLUS RHAMNOSUS GG 1 EACH CAP.SPRINK GT SCH ×2 (09:29→17:42)
[2018-05-10] MEDS: PROSOURCE / PROSTAT (PYXIS) 30 ML UDC GT SCH ×3 (09:29→17:42)
[2018-05-10] MEDS: PANTOPRAZOLE 40 MG VIAL IV SCH (09:29)
[2018-05-10] MEDS: VANCOMYCIN 500 MG in IV D5W 100 ML IV SCH ×2 (11:55→22:18)
--- NOTE | 2018-05-10 19:25 | NUR ---
MS RN CLOSING NOTES PT AWAKE, OBTUNDED WITH NO SIGNS OF DISTRESS. PT IS ON 5L O2 VIA NC. PT HAS A PICC LINE IN CHARIS PATIENT AND INTACT. PT HAS G-TUBE RUNNING AT 70ML/HR, TOLERATING WELL. BED IS LOCKED AND IN LOWEST POSITION. CALL LIGHT WITHIN REACH. WARD IS PRESENT WITH YELLOW URINE DRAINING TO GRAVITY. WOUND VAC IS PRESENT. NO ACUTE CHANGES THROUGHOUT SHIFT. ALL MD ORDERS ATTENDED. ENDORSED TO HEAD HOST/HOSTESS NURSE FOR ANGUS.
--- NOTE | 2018-05-10 19:30 | NUR ---
MS/RN OPENING NOTES PT RECEIVED HOB ELEVATED. NON VERBAL. OBTUNDED. RECEIVING BREATHING TX. BREATHING LABORED BUT NO SIGNS OF ACUTE DISTRESS. WARD IN PLACE AND DRAINING TO GRAVITY. CHARIS PICC RUNNING NS TKO. GT PATENT AND INTACT, FEEDING COMPLETED. RIGHT HIP WOUND VAC IN PLACE AND RUNNING AT 125MMHG. TWO JANN DRAINS TO RIGHT HIP IN PLACE NOTED WITH SANGUINOUS OUTPUT. BED IN LOW/LOCKED POSITION WITH BILATERAL UPPER SIDE RAILS IN PLACE. WILL CONTINUE TO MONITOR
--- NOTE | 2018-05-10 20:10 | NUR ---
MS/RN NOTES PT WAS ON 5L O2, DESATURATING TO 60'S-70'S. HOB ELEVATED FOR OPTIMAL LUNG EXPANSION. ORAL AND NASOTRACHEAL SUCTIONING PROVIDED BY RT WITH COPIOUS AMOUNTS OF THICK YELLOW SECRETIONS. PULSE= 132, RR=27, PLACED ON NON REBREATHER, SPO2 SHOWING 82%. PAGED MARCUS FOR ORDERS
[2018-05-10 20:21] LABS: ABG BASE EXCESS -2.8 mmol/L; ABG OXYGEN SATURATION 61.4 % (92.0-98.5); ABG PCO2 37.1 mmHg (35.0-45.0); ABG PH 7.388 (7.350-7.450); AaDO2 642.9 mmHg; COHb 0.5 % (0.5-1.5); MetHb 0.4 % (0.0-1.5); O2Hb 60.8 % (94.0-97.0); SITE, ABG Right Brachial; VENT MODE, BG NRB
--- NOTE | 2018-05-10 20:21 | NUR ---
RELAYED ABG RESULT TO MARCUS CABRERA
--- NOTE | 2018-05-10 20:22 | NUR ---
POST ABG RESULTS REPORTED TO MARCUS CABRERA. STATED HE WANTED PATIENT TO GO TO ICU AND TO BE PUT ON BIPAP DUE TO HYPOXIA.
[2018-05-10] MEDS: ACETAMINOPHEN 650 MG/20.3 ML UDC NG PRN (20:26)
--- NOTE | 2018-05-10 20:30 | NUR ---
KAREY CABRERA AT BEDSIDE TO ASSESS PT. WITH ORDERS FOR CHEST XRAY. UPGRADE TO ICU WITH BPAP
--- NOTE | 2018-05-10 21:15 | NUR ---
TRANSFERRED PT TO ICU ROOM 254 VIA ACLS PROTOCOL IN STABLE CONDITION. REPORT GIVEN TO GOLDEN ESTRADA FOR CONTINUITY OF CARE
--- NOTE | 2018-05-10 21:30 | NUR ---
NOTIFIED GRANDDAUGHTER LIZZETH OF PT CONDITION AND TRANSFER TO ICU. ALL QUESTIONS ANSWERED. GLUCERNA 1.0 FINISHED. ADDITIONAL BAGS NOT AVAILABLE ON UNIT TO REPLACE FEEDING. ASKED LIZZETH TO BRING MORE. SHE STATES THAT NUTRITION USES GLUCERNA 1.0 SMALL SUPPLEMENT BOTTLES AND POURS 3 INTO THE GT BAG. WILL NOTIFY ICU
[2018-05-10] MEDS: MORPHINE SULFATE INJ 2 MG/ML DISP.SYRIN IV PRN (21:56)
[2018-05-10 22:39] LABS: ABG BASE EXCESS 0.7 mmol/L; ABG OXYGEN SATURATION 98.8 % (92.0-98.5); ABG PCO2 38.6 mmHg (35.0-45.0); ABG PH 7.429 (7.350-7.450); ABG PO2 175.9 mmHg (75.0-100.0); AaDO2 498.5 mmHg; COHb 0.1 % (0.5-1.5); MetHb 0.9 % (0.0-1.5); O2Hb 97.8 % (94.0-97.0); PEEP,BG 10 cm H2O; SITE, ABG Right Brachial; VENT MODE, BG S/T 12 15/10 100%
[2018-05-11] VITALS (106 sets, daily range): BP systolic 45–156; BP diastolic 18–94
[2018-05-11] MEDS: ALBUTEROL HALF STRENGTH 1.25 MG/3 ML VIAL.NEB NEB SCH ×7 (01:01→22:54)
[2018-05-11] MEDS: IPRATROPIUM NEB FS 0.5 MG/2.5 ML AMPUL.NEB NEB SCH ×7 (01:01→22:54)
[2018-05-11] MEDS: DAKINS QUARTER STRENGTH (0.125%) 480 ML BOTTLE TOP SCH ×2 (01:43→15:27)
[2018-05-11 05:00] LABS: ABG BASE EXCESS -1.9 mmol/L; ABG OXYGEN SATURATION 49.7 % (92.0-98.5); ABG PCO2 32.5 mmHg (35.0-45.0); ABG PH 7.443 (7.350-7.450); ABG PO2 26.3 mmHg (75.0-100.0); AaDO2 654.2 mmHg; COHb 0.4 % (0.5-1.5); MetHb 0.7 % (0.0-1.5); O2Hb 49.2 % (94.0-97.0); PEEP,BG 10 cm H2O; SITE, ABG Left Radial; VENT MODE, BG ST 12 15/10 100%
[2018-05-11 05:30] LABS: CALCIUM, SERUM 9.4 mg/dL (8.5-10.1); CARBON DIOXIDE 25 mmol/L (21-32); CHLORIDE 109 mmol/L (98-107); CREATININE 0.7 mg/dL (0.6-1.3); GLUCOSE 184 mg/dL (74-106); POTASSIUM 4.9 mmol/L (3.5-5.1); SODIUM SERUM 144 mmol/L (136-145); UREA NITROGEN, BLOOD 37 mg/dL (7-18)
--- NOTE | 2018-05-11 05:47 | NUR ---
pt intubated by er physician post abg results and placed on vent with charted settings. ett 7.0@23cm at the teeth. airway patent. secured with anchor fast. ambu bag at bedside. alarms set and audible. disconnect alarms checked. vent plugged into red outlet. suctioned a small amount of thick yellow secretions. suctioned mouth with Yankauer. Addendum: 05/11/18 at 0552 by BENJAMIN DC RT Amended: Links added.
--- NOTE | 2018-05-11 05:48 | NUR ---
PT STARTED DESATTING VIA O2SAT, ABG WAS DONE, PO2 WAS 26.3, MARCUS CABRERA TOBACCO STRIPPER NOTIFIED, ORDER TO INTUBATE THE PATIENT, DR ZHANG FROM ER AT BEDSIDE TO INTUBATE PT
[2018-05-11] MEDS ORDERED: AZTREONAM 1 G in IV NS 0.9% 100 ML IV SCH (06:00)
[2018-05-11] MEDS ORDERED: PROPOFOL 100 ML IV PRN (06:00)
--- NOTE | 2018-05-11 06:07 | NUR ---
PT HAD FEVER OF 101.3, PT IS DIAPHORETIC AND BREATHING OVER VENT, PROPOFOL STARTED FOR SEDATION,TYLENOL GIVEN AND COOLING MEASURES IMPLEMENTED
[2018-05-11] MEDS ORDERED: AZTREONAM 1 G VIAL ONE (06:19)
[2018-05-11] MEDS: ACETAMINOPHEN 650 MG/20.3 ML UDC NG PRN ×2 (06:45→20:48)
[2018-05-11 07:37] LABS: ABG BASE EXCESS -1.7 mmol/L; ABG OXYGEN SATURATION 83.2 % (92.0-98.5); ABG PCO2 38.4 mmHg (35.0-45.0); ABG PH 7.394 (7.350-7.450); ABG PO2 48.6 mmHg (75.0-100.0); COHb 0.1 % (0.5-1.5); MetHb 0.8 % (0.0-1.5); O2Hb 82.5 % (94.0-97.0); PEEP,BG 5 cm H2O; SITE, ABG Left Radial; VENT MODE, BG AC 20 360 100% +5; VT, ABG 360 mL
[2018-05-11] MEDS: LACTOBACILLUS RHAMNOSUS GG 1 EACH CAP.SPRINK GT SCH ×2 (08:13→16:28)
[2018-05-11] MEDS: PANTOPRAZOLE 40 MG VIAL IV SCH (08:13)
[2018-05-11 08:17] LABS: BASOPHILS # (AUTO) 0.2 /CMM (0.0-0.2); BASOPHILS % (AUTO) 0.7 % (0.0-2.0); EOSINOPHILS % (AUTO) 0.6 % (0.0-6.0); HEMATOCRIT 29 % (33-45); HEMOGLOBIN 8.8 g/dL (11.5-14.8); LYMPHOCYTES # (AUTO) 1.4 /CMM (0.8-4.8); LYMPHOCYTES % (AUTO) 6.4 % (20.0-44.0); MEAN CORPUSCULAR HGB CONC 31 g/dl (31.0-36.0); MEAN CORPUSCULAR VOLUME 84 fL (82-100); MONOCYTES # (AUTO) 0.7 /CMM (0.1-1.30); MONOCYTES % (AUTO) 3.2 % (2.0-12.0); NEUTROPHILS # (AUTO) 19.7 /CMM (1.8-8.9); NEUTROPHILS % (AUTO) 89.1 % (43.0-81.0); PLATELET COUNT (AUTO) 552 /CMM (150-450); RED BLOOD CELL COUNT(AUTO) 3.43 MIL/uL (4.0-5.2); WHITE BLOOD COUNT (AUTO) 22.1 K/uL (4.3-11.0)
[2018-05-11] MEDS: PROSOURCE / PROSTAT (PYXIS) 30 ML UDC GT SCH ×3 (09:00→16:28)
[2018-05-11] MEDS ORDERED: ETOMIDATE 2 MG/ML VIAL IV ONE (09:44)
[2018-05-11] MEDS ORDERED: ROCURONIUM BROMIDE 50 MG/5 ML IV ONE (09:44)
[2018-05-11] MEDS: PHENYLEPHRINE 80 MG in IV NS 0.9% 250 ML IV PRN (09:58)
--- NOTE | 2018-05-11 10:06 | NUR ---
RT NOTE RECEIVED PT MECHANICALLY VENTILATED VIA 7.0 ETT 23 CM AT TEETH. CUFF INFLATED. ETT SECURE. VENTILATOR SETTINGS PRESCRIBED. ALARMS SET PER PROTOCOL AND AUDIBLE. VENT PLUGGED IN TO RED OUTLET. AMBU BAG AT BED SIDE. NO DISTRESS NOTED AT MOMENT. Addendum: 05/11/18 at 1007 by YULISSA BURDEN RT Amended: Links added.
--- NOTE | 2018-05-11 10:30 | NUR ---
RN INITIAL NOTES 0710 RECEIVED PT INTUBATED, ON VENT. PT ON FI02 100%. 02 SAT ON LOW 80S. WILL DO ABG. HPB ELEVATED. NO SIGNS OF PAIN NOTED. PT ON DIPRIVAN AT 10MCG/MIN. PT OBTUNDED. CHARIS PICC IN PLACE. GT IN PLACE. FC IN PLACE. NO HEMATURIA NOTED. JANN DRAINS AND WOUND VAC INTACT. BLE ELEVATED. WILL CLOSELY MONITOR. 0830 SEEN AND EXAMINED BY JUAN WELLER NP. AWARE OF PT'S CURRENT STATUS, LAB VALUES NAD CXR RESULT. OFF SEDATION. PT OBTUNDED. NO AGITATION NOTED. PT REMAINS ON FIO2 100%, AWARE OF ABG RESULT. SBP NOW ON LOW 80S, HAS NEOSYNEPHRINE PRN ORDER. WILL START PER PROTOCOL. RECYCLER ORDERED TO REMOVE PEEP. WILL CLOSELY MONITOR. 1015 SEEN AND EXAMINED BY DR DIAZ. AWARE OF CURRENT LAB VALUES, ABG AND CXR RESULT. PT STARTED ON RENE ORDERED. WILL TITRATE ACCORDINGLY. ORDERED LEFT CHEST PHYSIOTHERAPY AND MAINTAIN PT ON RIGHT SIDE AT ALL TIMES. WILL CLOSELY MONITOR.
[2018-05-11] MEDS: ACETYLCYSTEINE 10% SOLN 400 MG/4 ML VIAL NEB SCH ×3 (10:50→22:54)
[2018-05-11] MEDS: VANCOMYCIN 500 MG in IV D5W 100 ML IV SCH ×2 (11:28→22:18)
[2018-05-11] MEDS: GLUCERNA NG PRN (11:58)
--- NOTE | 2018-05-11 12:00 | NUR ---
RN NOTES SEEN AND EXAMINED BY DR GRANADOS. REASSESSED RIGHT HIP SURGICAL SITE WITH WOUND VAC. SITE CLEAN AND DRY. JD INTACT. NO SIGNS OF BLEEDING NOR INFECTION NOTED. JANN DRAINS #[address] DRAINING SEROSANGUINEOUS, SCANT IN AMOUNT. REMOVED WOUND VAC. COVERED WITH DRY DRESSING. WILL CONTINUE TO MONITOR.
[2018-05-11] MEDS ORDERED: MEROPENEM 1 G in IV NS 0.9% 100 ML IV ONE (13:00)
[2018-05-11 13:21] LABS: ABG BASE EXCESS -1.1 mmol/L; ABG OXYGEN SATURATION 97.6 % (92.0-98.5); ABG PCO2 34.2 mmHg (35.0-45.0); ABG PH 7.441 (7.350-7.450); ABG PO2 112.7 mmHg (75.0-100.0); AaDO2 566.1 mmHg; COHb 0.3 % (0.5-1.5); MetHb 0.8 % (0.0-1.5); O2Hb 96.5 % (94.0-97.0); PEEP,BG 0 cm H2O; SITE, ABG Left Radial; VENT MODE, BG AC 20 360 100% +0; VT, ABG 360 mL
[2018-05-11] MEDS ORDERED: DOSE PER PHARMACY MICAFUNGIN 1 EA XX PRN (15:00)
[2018-05-11] MEDS ORDERED: DOSING PER PHARMACY-AMIKACI IV XX PRN (15:00)
[2018-05-11] MEDS ORDERED: FEE PK DOSING 1 MIN EA MC ONE (15:16)
[2018-05-11 15:26] LABS: BILIRUBIN,URINE NEGATIVE (NEGATIVE); BLOOD, URINE 2+ Ery/uL (NEGATIVE); COLOR,URINE YELLOW (YELLOW); KETONES,URINE NEGATIVE (NEGATIVE); LEUKOCYTE ESTERASE ,URINE 1+ (NEGATIVE); NITRITE, URINE NEGATIVE (NEGATIVE); PROTEIN,URINE TRACE mg/dl (NEGATIVE); UGLUCOSE NEGATIVE (NEGATIVE); UROBILINOGEN,URINE 0.2 EU/dL (0.2)
[2018-05-11 15:35] LABS: APPEARANCE,URINE CLOUDY (CLEAR)
[2018-05-11 15:41] LABS: RBC,URINE 51-80 /HPF (0-2)
[2018-05-11 15:42] LABS: BACTERIA,URINE Moderate /HPF (None Seen)
[2018-05-11 15:43] LABS: SQUAMOUS EPITHELIAL CELL,UR Rare /HPF (None Seen)
[2018-05-11 15:44] LABS: YEAST,URINE Moderate /HPF (None Seen)
[2018-05-11] MEDS ORDERED: AMIKACIN 800 MG in IV D5W 100 ML IV SCH ×2 (16:00→18:00)
[2018-05-11] MEDS: MICAFUNGIN SODIUM 100 MG in IV NS 0.9% 100 ML IV SCH (16:39)
[2018-05-11] MEDS: MORPHINE SULFATE INJ 2 MG/ML DISP.SYRIN IV PRN (17:51)
--- NOTE | 2018-05-11 18:49 | NUR ---
RN CLOSING NOTES NO SIGNIFICANT CHANGE NOTED. REMAINS INTUBATED, ON VENT. NO RESPIRATORY DISTRESS NOTED. NO SOB NOTED. NO SIGNS OF PAIN NOTED. CHARIS PICC IN PLACE. ON RENE AT 50MCG/MIN. KEPT SBP>90. GT IN PLACE. TOLERATING GTF WELL. JANN DRAINS #[address] #[address] FC IN PLACE. TX PROVIDED ORDERED. KEPT CLEAN AND DRY. KEPT ON RIGHT SIDE ORDERED. BLE ELEVATED. KEPT COMFORTABLE. WILL ENDORSE FOR CONTINUITY OF CARE.
--- NOTE | 2018-05-11 20:00 | NUR ---
CLOUD CONSULTANT - NOTES - RECEIVED PT INTUBATED, ON VENT. PT ON FI02 100%. 02 SAT ON LOW 90S. PT OPENS EYES, BUT NOT TRACKING OR FOLLOWING COMMANDS. CHARIS PICC IN PLACE. GT IN PLACE. FC IN PLACE. NO HEMATURIA NOTED. JANN DRAINS. BLE ELEVATED. WILL CLOSELY MONITOR
[2018-05-11] MEDS: MEROPENEM 1 G in IV NS 0.9% 100 ML IV SCH (20:48)
[2018-05-12] VITALS (102 sets, daily range): BP systolic 72–160; BP diastolic 21–91
--- NOTE | 2018-05-12 02:41 | NUR ---
PT RCVD ORALLY INTUBATED 7.0 AND 23CM @LIP. HHN TX GIVEN IN-LINE WITH ADVERSE REACTION NOTED. SX DONE. ETT PATENT AND SECURE. AMBU BAG AT BEDSIDE. VENT PLUGGED INTO RED OUTLET. ALARMS ARE ON AND AUDIBLE. WILL CONTINUE TO MONITOR. Addendum: 05/12/18 at 0244 by FERNANDA AGUILA RT Amended: Links added. Addendum: 05/12/18 at 0249 by FERNANDA AGUILA RT CORRECT NOTE PT RCVD ORALLY INTUBATED 7.0 AND 23CM @LIP ON MECHANICAL VENT WITH CHARTED SETTINGS. HHN TX GIVEN IN-LINE WITH ADVERSE REACTION NOTED. SX DONE. ETT PATENT AND SECURE. AMBU BAG AT BEDSIDE. VENT PLUGGED INTO RED OUTLET. ALARMS ARE ON AND AUDIBLE. WILL CONTINUE TO MONITOR.
[2018-05-12] MEDS: DAKINS QUARTER STRENGTH (0.125%) 480 ML BOTTLE TOP SCH ×2 (02:46→15:01)
[2018-05-12 03:08] LABS: BASOPHILS # (AUTO) 0.2 /CMM (0.0-0.2); BASOPHILS % (AUTO) 1.3 % (0.0-2.0); EOSINOPHILS % (AUTO) 0.2 % (0.0-6.0); HEMATOCRIT 22 % (33-45); LYMPHOCYTES # (AUTO) 1.5 /CMM (0.8-4.8); LYMPHOCYTES % (AUTO) 8.9 % (20.0-44.0); MEAN CORPUSCULAR HGB CONC 32 g/dl (31.0-36.0); MEAN CORPUSCULAR VOLUME 81 fL (82-100); MONOCYTES # (AUTO) 0.7 /CMM (0.1-1.30); MONOCYTES % (AUTO) 4.4 % (2.0-12.0); NEUTROPHILS % (AUTO) 85.2 % (43.0-81.0); PLATELET COUNT (AUTO) 443 /CMM (150-450); WHITE BLOOD COUNT (AUTO) 16.4 K/uL (4.3-11.0)
[2018-05-12 03:14] LABS: CALCIUM, SERUM 8.7 mg/dL (8.5-10.1); CARBON DIOXIDE 26 mmol/L (21-32); CHLORIDE 108 mmol/L (98-107); CREATININE 0.7 mg/dL (0.6-1.3); GLUCOSE 228 mg/dL (74-106); POTASSIUM 4.3 mmol/L (3.5-5.1); SODIUM SERUM 145 mmol/L (136-145); UREA NITROGEN, BLOOD 36 mg/dL (7-18)
[2018-05-12] MEDS: ALBUTEROL HALF STRENGTH 1.25 MG/3 ML VIAL.NEB NEB SCH ×6 (03:16→23:02)
[2018-05-12] MEDS: IPRATROPIUM NEB FS 0.5 MG/2.5 ML AMPUL.NEB NEB SCH ×6 (03:16→23:02)
--- NOTE | 2018-05-12 03:30 | NUR ---
chest pt done by rt and suction done, large amount of thick yellow secretions removed
[2018-05-12] MEDS: MEROPENEM 1 G in IV NS 0.9% 100 ML IV SCH ×3 (04:35→20:11)
[2018-05-12] MEDS: GLUCERNA NG PRN ×3 (04:44→23:18)
[2018-05-12] MEDS: MORPHINE SULFATE INJ 2 MG/ML DISP.SYRIN IV PRN ×2 (06:45→14:03)
--- NOTE | 2018-05-12 07:00 | NUR ---
RN NOTES RECEIVED PT ORALLY INTUBATED 7.0 AND 23CM @LIP. TOLERATING VENT SETTING WELL, O2 SAT 100%, SR- ST ON TELE , WARD DRINING TO GRAVITY , GLUCERNA AT 70CC/HR RUNNING VIA PEG , TOLERATING WELL, CONTINUE TO MONITOR RESIDUAL , R UPPER ARM PICC SITE CLEAN, DRY AND INTACT WITH RENE AT 60 MCG/MIN RUNNING .CONTINUE TO MONITOR VSS . SR UP X3, CALL LIGHT WITHIN EASY REACH, BED LOCKED AND IN LOWEST POSITION, CONTINUE TO MONITOR
[2018-05-12] MEDS: PHENYLEPHRINE 80 MG in IV NS 0.9% 250 ML IV PRN (07:18)
[2018-05-12] MEDS: ACETYLCYSTEINE 10% SOLN 400 MG/4 ML VIAL NEB SCH ×3 (07:21→23:02)
--- NOTE | 2018-05-12 07:21 | NUR ---
RT Pt received with a 7.5 ETT secured at 24cm at the lip line. Pt responds to stimuli when sx'd. Vent alarms are set and audible with BVM by bedside. DIRECTOR OF REHABILITATION AND WELLNESS cuff pressure noted. Vent is plugged into red outlet. Sx'd large thick pale yellow secretions. No respiratory distress noted at this time, will continue to monitor. Addendum: 05/12/18 at 0853 by MARLEN WU RT Amended: Links added. Addendum: 05/12/18 at 0857 by MARLEN WU RT CORRECTION: (7.0 ETT)
[2018-05-12] MEDS: LACTOBACILLUS RHAMNOSUS GG 1 EACH CAP.SPRINK GT SCH ×2 (08:04→16:43)
[2018-05-12] MEDS: PANTOPRAZOLE 40 MG VIAL IV SCH (08:04)
[2018-05-12] MEDS: ACETAMINOPHEN 650 MG/20.3 ML UDC NG PRN (08:04)
[2018-05-12] MEDS: PROSOURCE / PROSTAT (PYXIS) 30 ML UDC GT SCH ×3 (08:06→16:43)
[2018-05-12 08:28] LABS: ABG BASE EXCESS 0.1 mmol/L; ABG OXYGEN SATURATION 98.7 % (92.0-98.5); ABG PCO2 38.2 mmHg (35.0-45.0); ABG PH 7.425 (7.350-7.450); ABG PO2 148.5 mmHg (75.0-100.0); AaDO2 237.3 mmHg; COHb 0.6 % (0.5-1.5); MetHb 0.6 % (0.0-1.5); O2Hb 97.5 % (94.0-97.0); PEEP,BG 0 cm H2O; SITE, ABG Right Brachial; VT, ABG 360 mL
--- NOTE | 2018-05-12 10:11 | NUR ---
RN NOTES SYLVIA REPLACED PER FELECIA RECRUITING CONSULTANT ORDER .
--- NOTE | 2018-05-12 10:42 | NUR ---
RN NOTES RT NOTIFED REGARDING CHEST PT x2 DAYS PER MD ORDER .
[2018-05-12] MEDS: VANCOMYCIN 500 MG in IV D5W 100 ML IV SCH ×2 (11:31→23:17)
--- NOTE | 2018-05-12 13:00 | NUR ---
RN NOTES PT STABLE, CONTINUE TO TITRATE RENE , TOLERATING TF WELL, CONTINUE TO MONITOR .
[2018-05-12] MEDS: MICAFUNGIN SODIUM 100 MG in IV NS 0.9% 100 ML IV SCH (16:43)
--- NOTE | 2018-05-12 18:45 | NUR ---
RN NOTES RENE AT 10 MCG/MIN AT THIS TIME , 40CC LIGHT BLOODY DRINING FROM JANN #1 AND 10 CC FROM JANN#2 DRAINED, PT TOLERATING TF WELL, NO RESIDUAL NOTED .SR UP X3, CALL LIGHT WITHIN EASY REACH, WILL ENDOSE TO GLUING PRESSMAN NURSE FOR CONTINUITY OF CARE .
[2018-05-13] VITALS (66 sets, daily range): BP systolic 96–143; BP diastolic 44–91
[2018-05-13] MEDS: DAKINS QUARTER STRENGTH (0.125%) 480 ML BOTTLE TOP SCH ×2 (02:42→14:17)
[2018-05-13] MEDS: MEROPENEM 1 G in IV NS 0.9% 100 ML IV SCH ×3 (04:16→21:00)
[2018-05-13] MEDS: ALBUTEROL HALF STRENGTH 1.25 MG/3 ML VIAL.NEB NEB SCH ×5 (04:27→23:31)
[2018-05-13] MEDS: IPRATROPIUM NEB FS 0.5 MG/2.5 ML AMPUL.NEB NEB SCH ×5 (04:27→23:31)
[2018-05-13 04:46] LABS: BASOPHILS # (AUTO) 0.1 /CMM (0.0-0.2); HEMATOCRIT 21 % (33-45); LYMPHOCYTES # (AUTO) 1.2 /CMM (0.8-4.8); LYMPHOCYTES % (AUTO) 10.3 % (20.0-44.0); MEAN CORPUSCULAR HGB CONC 32 g/dl (31.0-36.0); MEAN CORPUSCULAR VOLUME 81 fL (82-100); MONOCYTES # (AUTO) 0.5 /CMM (0.1-1.30); MONOCYTES % (AUTO) 4.7 % (2.0-12.0); NEUTROPHILS # (AUTO) 9.2 /CMM (1.8-8.9); PLATELET COUNT (AUTO) 353 /CMM (150-450); WHITE BLOOD COUNT (AUTO) 11.1 K/uL (4.3-11.0)
[2018-05-13 04:58] LABS: ALBUMIN 1.7 g/dL (3.4-5.0); CALCIUM, SERUM 8.7 mg/dL (8.5-10.1); CARBON DIOXIDE 26 mmol/L (21-32); CHLORIDE 109 mmol/L (98-107); CREATININE 0.6 mg/dL (0.6-1.3); GLUCOSE 219 mg/dL (74-106); MAGNESIUM 1.8 mg/dL (1.8-2.4); PHOSPHORUS 2.1 mg/dL (2.5-4.9); POTASSIUM 4.2 mmol/L (3.5-5.1); SODIUM SERUM 145 mmol/L (136-145); UREA NITROGEN, BLOOD 28 mg/dL (7-18)
[2018-05-13 05:10] LABS: HEMOGLOBIN 6.7 g/dL (11.5-14.8); LYMPHOCYTES % (MANUAL) 8 % (16-48); NEUTROPHILS % (MANUAL) 86 (42-76)
[2018-05-13 05:11] LABS: BAND % (MANUAL) 1 % (0.0-5.0); EOSINOPHILS % (MANUAL) 2 % (0-4); MONOCYTES % (MANUAL) 3 % (0-11.0)
--- NOTE | 2018-05-13 05:30 | NUR ---
HGB 6.7 HCT 21, DR BAUMAN NOTIFIED, WILL REPEAT H/H AT 1000
[2018-05-13] MEDS: AMIKACIN 800 MG in IV D5W 100 ML IV SCH (06:34)
--- NOTE | 2018-05-13 07:10 | NUR ---
DR WYLIE AT BEDSIDE. PER MD PLEASE GIVE PRBC.
[2018-05-13] MEDS: ACETYLCYSTEINE 10% SOLN 400 MG/4 ML VIAL NEB SCH ×3 (07:14→23:31)
--- NOTE | 2018-05-13 07:15 | NUR ---
RT Pt received with a 7.0 ETT secured at 24cm at the lip line. Pt responds to stimuli. Vent alarms are set and audible with BVM by bedside. RETORT CONDENSER ATTENDANT cuff pressure noted. Vent is plugged into red outlet. Sx'd moderate thick pale yellow secretions. No respiratory distress noted at this time, will continue to monitor. Addendum: 05/13/18 at 1508 by MARLEN WU RT Amended: Links added.
--- NOTE | 2018-05-13 07:30 | NUR ---
RECEIVED PATIENT ALERT MOVED TO LOCALIZED PAIN. INTUBATED 7.0/24 LIP LINE WITH VENT SETTINGS PER ORDER. NO SOB, DIFFICULTY BREATHING. NO S/S ACUTE DISTRESS NOTED. AT THIS TIME FLACC 0. TUBE FEEDING PER ORDER WITH 20ML RESIDUAL NOTED G TUBE SITE CLEAN AND DRY. WOUNDS NOTED AND DRESSINGS CLEAN AND SECURE. 2 JANN SITES C/D/I/P. SAFETY, SKIN, ASPIRATION PRECAUTIONS IN PLACE AND WILL MONITOR.
[2018-05-13] MEDS: LACTOBACILLUS RHAMNOSUS GG 1 EACH CAP.SPRINK GT SCH ×2 (08:24→16:03)
[2018-05-13] MEDS: PROSOURCE / PROSTAT (PYXIS) 30 ML UDC GT SCH ×3 (08:24→16:03)
[2018-05-13] MEDS: PANTOPRAZOLE 40 MG VIAL IV SCH (08:25)
[2018-05-13] MEDS: Z GUARD REMEDY 2 OZ OINT TP PRN ×2 (08:25→14:17)
[2018-05-13] MEDS: GLUCERNA GT SCH (09:29)
[2018-05-13] MEDS: VANCOMYCIN 500 MG in IV D5W 100 ML IV SCH (10:05)
[2018-05-13] MEDS ORDERED: NEUTRA PHOS 1 POWD.PACKET NG ONE (12:30)
--- NOTE | 2018-05-13 13:00 | NUR ---
correct bp 129/59 at 1300
--- NOTE | 2018-05-13 15:51 | NUR ---
PER LAW ORDER HH 3HRS S/P BLOOD TRANSFUSION
[2018-05-13] MEDS: SOD FERRIC GLUC 125 MG in IV NS 0.9% 100 ML IV SCH (16:02)
--- NOTE | 2018-05-13 18:37 | NUR ---
ALL DUE MEDS GIVEN AND ALL NEEDS ASSESSED. TOLERATED BLOOD TRANSFUSION WITHOUT REACTIONS. IV SITE C/D/I/P. WARD TO GRAVITY. WOUND AND SKIN CARE PER ORDER/PRN SOILING. ETT STABLE NO CHANGE. TOLERATING VENT. GRAND DAUGHTER LIZZETH WILL BE HERE TOMORROW AROUND 3PM TO SPEAK WITH DR DIAZ; DR DIAZ AWARE. SAFETY, SKIN, ASPIRATION PRECAUTIONS IN PLACE AND MONITORED THROUGHOUT DAY. PATIENT TOLERATING TUBE FEEDING
--- NOTE | 2018-05-13 19:00 | NUR ---
STUDENT SUPPORT COUNSELOR NOTES Received patient orally intubated on the ventilator on AC mode,awake but does not follow commands, very contracted extremities.G tube intact with on going feeding ,Aspiration Precaution observed. PICC line intact via CHARIS .2 JANN's noted to bulb suction with serousanguinous drainage.Comfort care done.
--- NOTE | 2018-05-13 19:31 | NUR ---
PT RECEIVED ORALLY INTUBATED WITH 7.0 ETT SECURED @ 24 CM AT THE LIP. PT RESPONDS TO STIMULI. Q4 BREATHING TX GIVEN PER MD'S ORDER. NO ADVERSE REACTION NOTED. SUCTIONED MODERATE AMOUNT OF WHITE THICK SECRETIONS. VENT PLUGGED INTO RED OUTLET. VENT ALARMS WORKS AND AUDIBLE. AMBU BAG AT BEDSIDE. WILL CONTINUE TO MONITOR THE PT.
[2018-05-13 20:55] LABS: HEMOGLOBIN 7.9 g/dL (11.5-14.8)
[2018-05-14] VITALS (43 sets, daily range): BP systolic 91–157; BP diastolic 47–78
--- NOTE | 2018-05-14 | NUR ---
REMAINS STABLE,STATUS UNCHANGED,INTUBATED,OBTUNDED BUT OPENS EYES, GRIMACES,WITHDRAWS TO PAIN.MNOT IN ANY DISTRESS.COMFORT CARE DONE.
[2018-05-14] MEDS: VANCOMYCIN 500 MG in IV D5W 100 ML IV SCH ×3 (00:07→23:09)
[2018-05-14] MEDS: DAKINS QUARTER STRENGTH (0.125%) 480 ML BOTTLE TOP SCH ×2 (02:12→13:55)
[2018-05-14] MEDS: GLUCERNA GT SCH ×2 (03:31→16:59)
[2018-05-14] MEDS: ALBUTEROL HALF STRENGTH 1.25 MG/3 ML VIAL.NEB NEB SCH ×6 (03:48→23:09)
[2018-05-14] MEDS: IPRATROPIUM NEB FS 0.5 MG/2.5 ML AMPUL.NEB NEB SCH ×6 (03:48→23:09)
[2018-05-14 04:37] LABS: BASOPHILS # (AUTO) 0.1 /CMM (0.0-0.2); EOSINOPHILS % (AUTO) 5.4 % (0.0-6.0); HEMATOCRIT 26 % (33-45); HEMOGLOBIN 8.3 g/dL (11.5-14.8); LYMPHOCYTES # (AUTO) 1.3 /CMM (0.8-4.8); LYMPHOCYTES % (AUTO) 16.1 % (20.0-44.0); MEAN CORPUSCULAR HGB CONC 32 g/dl (31.0-36.0); MEAN CORPUSCULAR VOLUME 79 fL (82-100); MONOCYTES # (AUTO) 0.4 /CMM (0.1-1.30); MONOCYTES % (AUTO) 5.4 % (2.0-12.0); NEUTROPHILS # (AUTO) 5.6 /CMM (1.8-8.9); NEUTROPHILS % (AUTO) 72.1 % (43.0-81.0); PLATELET COUNT (AUTO) 344 /CMM (150-450); RED BLOOD CELL COUNT(AUTO) 3.25 MIL/uL (4.0-5.2); WHITE BLOOD COUNT (AUTO) 7.8 K/uL (4.3-11.0)
[2018-05-14 04:43] LABS: CALCIUM, SERUM 9.1 mg/dL (8.5-10.1); CARBON DIOXIDE 28 mmol/L (21-32); CHLORIDE 106 mmol/L (98-107); CREATININE 0.5 mg/dL (0.6-1.3); GLUCOSE 177 mg/dL (74-106); MAGNESIUM 1.7 mg/dL (1.8-2.4); PHOSPHORUS 3.1 mg/dL (2.5-4.9); SODIUM SERUM 144 mmol/L (136-145); UREA NITROGEN, BLOOD 25 mg/dL (7-18)
[2018-05-14] MEDS: MEROPENEM 1 G in IV NS 0.9% 100 ML IV SCH ×4 (05:01→20:38)
[2018-05-14] MEDS: AMIKACIN 800 MG in IV D5W 100 ML IV SCH (06:00)
--- NOTE | 2018-05-14 06:10 | NUR ---
REMAINS STABLE,NO CHANGED IN STATUS.REMAINS INTUBATED. 07 REPORT GIVEN TO LINO FRANKS
--- NOTE | 2018-05-14 07:30 | NUR ---
RECEIVED PATIENT ALERT MOVED TO LOCALIZED PAIN. INTUBATED 7.0/24 LIP LINE WITH VENT SETTINGS PER ORDER. NO SOB, DIFFICULTY BREATHING. NO S/S ACUTE DISTRESS NOTED. AT THIS TIME FLACC 0. TUBE FEEDING PER ORDER WITH 40ML RESIDUAL NOTED G TUBE SITE CLEAN AND DRY. WOUNDS NOTED AND DRESSINGS CLEAN AND SECURE. 2 JANN SITES C/D/I/P WITH NO CHANGE IN FLUID. SAFETY, SKIN, ASPIRATION PRECAUTIONS IN PLACE AND WILL MONITOR.
[2018-05-14] MEDS: Magnesium 1GM/D5W 100ML PREMIX 100 ML IV SCH ×2 (07:40→08:38)
[2018-05-14] MEDS: ACETYLCYSTEINE 10% SOLN 400 MG/4 ML VIAL NEB SCH ×3 (07:45→23:09)
[2018-05-14] MEDS: PROSOURCE / PROSTAT (PYXIS) 30 ML UDC GT SCH ×3 (08:32→16:36)
[2018-05-14] MEDS: Z GUARD REMEDY 2 OZ OINT TP PRN ×2 (08:32→16:36)
[2018-05-14] MEDS: LACTOBACILLUS RHAMNOSUS GG 1 EACH CAP.SPRINK GT SCH ×2 (08:33→16:36)
[2018-05-14] MEDS: PANTOPRAZOLE 40 MG VIAL IV SCH (08:33)
--- NOTE | 2018-05-14 08:54 | NUR ---
pt rec'd orally intubated via ETT sz 7.0 secured @ 24 @ the lip line. Pt on [facility] vent on AC, and shows no signs of resp distress or SOB. Sx'd for mod amt of pale yellow secretions. Alarms are set and audible. Vent plugged into Red outlet. Anbu bag bedside. Will continue to monitor Closely. Addendum: 05/14/18 at 0856 by HOA HERZOG RT Amended: Links added.
--- NOTE | 2018-05-14 09:30 | NUR ---
S/P SACRAL WOUND DEBRIDEMENT WITH DR GRANADOS. WOUND CARE COMPLETED. NO COMPLICATIONS/ BLEEDING NOTED. PATIENT VSS.
--- NOTE | 2018-05-14 10:07 | NUR ---
LIZZETH GRAND DAUGHTER AGREEABLE TO TRACH. SPOKE WITH DR EDGAR AND INFORMED HE WILL HAVE PROCEDURE AROUND 530PM. DR DIAZ TO DISCUSS PROCEDURE AND LIZZETH TO SIGN CONSENTS 3PM AT BEDSIDE Addendum: 05/14/18 at 1013 by LINO CANALES RN PER HOLD TUBE FEEDINGS AT THIS TIME.
--- NOTE | 2018-05-14 11:30 | NUR ---
PER DR HERVE PEDERSEN FOR TOMORROW 05/15 AROUND 10AM. WILL RESUME FEEDING. NPO MN
--- NOTE | 2018-05-14 13:45 | NUR ---
CALLED PHARMACY TO HAVE FERRLECIT DELIVERED. WILL GIVE FIRST AND MERREM SECOND THEY ARE NOT COMPATIBLE
--- NOTE | 2018-05-14 14:30 | NUR ---
CALLED PHARMACY AGAIN TO F/U ON JOSE DE JESUS
[2018-05-14] MEDS: ACETAMINOPHEN 650 MG/20.3 ML UDC NG PRN (16:54)
[2018-05-14] MEDS: SOD FERRIC GLUC 125 MG in IV NS 0.9% 100 ML IV SCH (17:52)
--- NOTE | 2018-05-14 18:34 | NUR ---
ALL DUE MEDS GIVEN AND ALL NEEDS MET. PATIENT VSS. TOLERATING VENT. NO CHANGE IN ETT. PENDING TRACH PLACEMENT 10AM WITH DR EDGAR TOMORROW AM. G TUBE FEEDING PER ORDER AND TOLERATING WELL; NPO MN. SKIN AND WOUND CARE PER ORDER/PRN SOILING S/P DEBRIDEMENT TODAY WITH DR GRANADOS. AFEBRILE TODAY. FOELY CATH TO GRAVITY 550ML OUTPUT. JANN #1 60ML OUTPUT AND JANN#2 10ML OUTPUT. SKIN, SAFETY, ASPIRATION PRECAUTIONS IN PLACE AND MONITORED.
--- NOTE | 2018-05-14 19:21 | NUR ---
PT RECEIVED ORALLY INTUBATED WITH 7.0 ETT SECURED @ 24 CM AT THE LIP ON VENT WITH NOTED SETTINGS. PT OPEN EYES, NON VERBAL, RESPONDS TO STIMULI WHEN SUCTION. Q4 BREATHING TX GIVEN PER MD'S ORDER. NO ADVERSE REACTION NOTED. SUCTIONED MODERATE AMOUNT OF WHITE THICK SECRETIONS. VENT PLUGGED INTO RED OUTLET. VENT ALARMS WORKS AND AUDIBLE. AMBU BAG AT BEDSIDE. WILL CONTINUE TO MONITOR THE PT.
--- NOTE | 2018-05-14 20:07 | NUR ---
CHECK CASHIER. INITIAL ASSESSMENT. RECEIVED THE PT REST ON THE BED. ORALLY INTUBATED. OPEN EYES. DOES NOT FOLLOW COMMANDS. QLIKVIEW DEVELOPER SHOWING NSR. ETT #7,LIP 24,AC 20,TV 360,FIO2 30%. SAT 98%. NO ACUTE DISTRESS NOTED. QLIKVIEW DEVELOPER SHOWING NSR. IV RT UPPER AR,M PICC LINE TKO RUNNING. RT HIP JD INTACT. RT HIP 2JP TUBE INTACT. HOB ELEVATED. FC PATENT. WILL CONTINUE TO MONITOR VITALS.
[2018-05-14] MEDS ORDERED: IV NS 0.9% 250 ML BAG IV PRN (21:00)
[2018-05-14] MEDS ORDERED: LEVOFLOXACIN 750 MG /D5W 150ML 150 ML IV ONE (22:01)
[2018-05-14] MEDS: LEVOFLOXACIN 750 MG /D5W 150ML 750 MG in PREMIX 1 EA IV SCH (22:34)
[2018-05-14] MEDS: MORPHINE SULFATE INJ 2 MG/ML DISP.SYRIN IV PRN (23:55)
[2018-05-15] VITALS (38 sets, daily range): BP systolic 95–144; BP diastolic 48–94
[2018-05-15] MEDS: DAKINS QUARTER STRENGTH (0.125%) 480 ML BOTTLE TOP SCH ×2 (02:19→14:55)
--- NOTE | 2018-05-15 02:31 | NUR ---
PATTERN PERFORATING MACHINE OPERATOR. PT IS NPO.
[2018-05-15] MEDS: IPRATROPIUM NEB FS 0.5 MG/2.5 ML AMPUL.NEB NEB SCH ×6 (03:28→22:54)
[2018-05-15] MEDS: ALBUTEROL HALF STRENGTH 1.25 MG/3 ML VIAL.NEB NEB SCH ×6 (03:28→22:54)
--- NOTE | 2018-05-15 03:37 | NUR ---
ORCHESTRA DIRECTOR. AM CARE, ORAL CARE, BED BATH GIVEN. LINEN CHANGED. REMAINING SAME VENT SETTING TOLERATED WELL. SAT 98%. NO ACUTE DISTRESS NOTED. LADLE OPERATOR SHOWING S TACH, IV RT UPPER ARM PICC LINE. TKO RUNNING. FC PATENT. URINE DRAINING. GT INTACT. PT IS NPO. FOR TRACHEOSTOMY. HOB ELEVATED, AUTUMN LOWER AND UPPER EXTREMITY CONTRACTED, WILL CONTINUE TO MONITOR VITALS.
[2018-05-15 04:54] LABS: BASOPHILS # (AUTO) 0.1 /CMM (0.0-0.2); BASOPHILS % (AUTO) 0.9 % (0.0-2.0); EOSINOPHILS % (AUTO) 6.2 % (0.0-6.0); HEMATOCRIT 27 % (33-45); HEMOGLOBIN 8.7 g/dL (11.5-14.8); LYMPHOCYTES # (AUTO) 1.1 /CMM (0.8-4.8); LYMPHOCYTES % (AUTO) 12.9 % (20.0-44.0); MEAN CORPUSCULAR HGB CONC 32 g/dl (31.0-36.0); MEAN CORPUSCULAR VOLUME 79 fL (82-100); MONOCYTES # (AUTO) 0.5 /CMM (0.1-1.30); MONOCYTES % (AUTO) 5.4 % (2.0-12.0); NEUTROPHILS # (AUTO) 6.2 /CMM (1.8-8.9); NEUTROPHILS % (AUTO) 74.6 % (43.0-81.0); PLATELET COUNT (AUTO) 380 /CMM (150-450); RED BLOOD CELL COUNT(AUTO) 3.44 MIL/uL (4.0-5.2); WHITE BLOOD COUNT (AUTO) 8.3 K/uL (4.3-11.0)
[2018-05-15 05:12] LABS: ALANINE AMINOTRANSFERASE 42 U/L (12-78); ALBUMIN 1.7 g/dL (3.4-5.0); ALKALINE PHOSPHATASE 113 U/L (46-116); ASPARTATE AMINOTRANSFERASE 26 U/L (15-37); BILIRUBIN,TOTAL 0.2 mg/dL (0.2-1.0); CALCIUM, SERUM 9.2 mg/dL (8.5-10.1); CARBON DIOXIDE 28 mmol/L (21-32); CHLORIDE 107 mmol/L (98-107); CREATININE 0.5 mg/dL (0.6-1.3); GLUCOSE 144 mg/dL (74-106); MAGNESIUM 2.2 mg/dL (1.8-2.4); PHOSPHORUS 3.3 mg/dL (2.5-4.9); POTASSIUM 4.1 mmol/L (3.5-5.1); SODIUM SERUM 145 mmol/L (136-145); TOTAL PROTEIN, SERUM 6.2 g/dL (6.4-8.2); UREA NITROGEN, BLOOD 27 mg/dL (7-18)
--- NOTE | 2018-05-15 06:11 | NUR ---
RN LABOR DELIVERY. JANN DRAIN#1 -15., #2-5ML TOTAL 15ML SEROSANGUI
[2018-05-15] MEDS: ACETYLCYSTEINE 10% SOLN 400 MG/4 ML VIAL NEB SCH ×3 (07:12→22:54)
--- NOTE | 2018-05-15 07:15 | NUR ---
RN INITIAL NOTES RECEIVED PT OBTUNDED. INTUBATED, ON VENT. NO RESPIRATORY DISTRESS NOTED. NO SOB NOTED. NO SIGNS OF PAIN NOTED. CHARIS PICC IN PLACE. GT IN PLACE, CLAMPED. PT NPO. FOR TRACH PLACEMENT TODAY WITH DR EDGAR. FC IN PLACE. NO HEMATURIA NOTED. BLE ELEVATED. WILL MONITOR.
--- NOTE | 2018-05-15 07:49 | NUR ---
PT RECEIVED ORALLY INTUBATED IN ICU W/ 7.0 ETT SECURED BY ANCHORFAST @ 24 CM AT THE LIP ON THE VENT WITH NOTED SETTINGS. HHN INLINE TX GIVEN PER MD'S ORDER. NO ADVERSE REACTION NOTED. PT SX'ED AND LAVAGED TO SMALL AMOUNT OF GUTIERREZ THICK SECRETIONS. VENT IN RED OUTLET. VENT ALARMS CHECKED AND AUDIBLE. AMBU BAG AT BEDSIDE. PLAN IS TO CONTINUE CARE UNDER CURRENT MD ORDERS AND MONITOR FOR CHANGES. WILL CONTINUE TO MONITOR THE PT.
[2018-05-15] MEDS: PROSOURCE / PROSTAT (PYXIS) 30 ML UDC GT SCH ×3 (08:10→17:06)
[2018-05-15] MEDS: LACTOBACILLUS RHAMNOSUS GG 1 EACH CAP.SPRINK GT SCH ×2 (08:10→17:05)
[2018-05-15] MEDS: PANTOPRAZOLE 40 MG VIAL IV SCH (08:12)
--- NOTE | 2018-05-15 09:54 | NUR ---
RN NOTES 0900 SEEN AND EXAMINED BY DR DIAZ. AWARE OF CURRENT LAB AND CXR RESULT. PT FOR TRACH PLACEMENT TODAY. WILL MONITOR. 0950 PT LEFT FOR TRACH PLACEMENT. NO RESPIRATORY DISTRESS NOTED. NO SIGNS OF PAIN NOTED. VS WNL. LEFT TO OR IN STABLE CONDITION.
[2018-05-15] MEDS ORDERED: LIDOCAINE HCL/PF 1% 30 ML SDV ONE (09:58)
[2018-05-15] MEDS ORDERED: CELLULOSE,OXIDIZED 1 EA PACK MC ONE (10:11)
--- NOTE | 2018-05-15 10:40 | NUR ---
RN NOTES PT BACK FROM OR. TRACH IN PLACE, BIMAL #8. NO RESPIRATORY DISTRESS NOTED. NO SOB NOTED. VS WNL. GOLDEN PELAEZ AT BEDSIDE RECOVERING PT. WILL CLOSELY MONITOR.
--- NOTE | 2018-05-15 10:55 | NUR ---
PT TRANSPORTED TO OR FOR TRACH PLACEMENT, BAGGED ON TRANSPORT AND PLACED BY MD ON OR VENT FOR PROCEDURE. KILN CAR REPAIRER AND ACLS GUIDELINES FOLLOWED ON TRANSPORT. PT RETURN BACK TO ROOM IN ICU W/ 8.O SHILEY CUFFED TRACH AND PLACED BACK ON PB840 VENT W/ PRIOR SETTINGS. TRACH TUBE PATENT, SECURE. PT SX'ED TO SMALL AMOUNTS OF THICK CREAMY SECRETIONS. NO BLEEDING NOTED AT THIS TIME. DIRECTOR GLOBAL SALES DONE, EQUAL CLEAR/DIMINISHED BREATH SOUNDS NOTED. AMBUBAG AT BEDSIDE.
[2018-05-15] MEDS: GLUCERNA GT SCH ×2 (11:45→23:07)
[2018-05-15] MEDS: VANCOMYCIN 500 MG in IV D5W 100 ML IV SCH ×2 (11:45→23:04)
[2018-05-15] MEDS: SOD FERRIC GLUC 125 MG in IV NS 0.9% 100 ML IV SCH (15:24)
[2018-05-15] MEDS: MORPHINE SULFATE INJ 2 MG/ML DISP.SYRIN IV PRN (18:04)
--- NOTE | 2018-05-15 18:50 | NUR ---
RN CLOSING NOTES PT SP TRACH PLACEMENT. MINIMAL BLEEDING NOTED. NO RESPIRATORY DISTRESS NOTED. NO SOB NOTED. NO SIGNS OF PAIN NOTED. TX PROVIDED ORDERED. KEPT CLEAN AND DRY. REPOSITIONED. BLE ELEVATED. WILL ENDORSE FOR CONTINUITY OF CARE.
--- NOTE | 2018-05-15 19:30 | NUR ---
CAR DISTRIBUTOR: RECEIVED PT S/P TRACH PLACEMENT TODAY. OPENS EYES, UNABLE TO FOLLOW COMMANDS. VENT SETTINGS ORDERED WT NO ACUTE DISTRESS. TRACH SITE WT MINIMAL BLOOD NOTED. KEPT CLEAN AND DRY. NO EVIDENCE OF DISCOMFORT SUCH FACIAL GRIMACE. SR-ST ON NDT INSPECTOR. RT. HIP DRESSING DRY AND CLEAN, 2 JANN DRAINS NOTED WT MINIMAL AMT. OF SEROSANGUINEOUS DRAINAGE. GT IN PLACE RUNNING GLUCERNA AT 70ML/HR WT NO RESIDUAL. CHARIS PICC TKO WT NO S/S OF COMPLICATIONS. F/C PATENT AND INTACT DRAINING CLOUDY YELLOW URINE TO GRAVITY. SAFETY PRECAUTION NOTED WT HOB AT 35 DEGREES, BED LOW POSITION AND LOCKED WT UPPER SIDE RAILS UP. WILL CONTINUE TO MONITOR.
[2018-05-15] MEDS: LEVOFLOXACIN 750 MG /D5W 150ML 750 MG in PREMIX 1 EA IV SCH (21:21)
[2018-05-16] VITALS (46 sets, daily range): BP systolic 87–126; BP diastolic 46–72
[2018-05-16] MEDS: DAKINS QUARTER STRENGTH (0.125%) 480 ML BOTTLE TOP SCH ×2 (01:53→15:22)
[2018-05-16] MEDS: ALBUTEROL HALF STRENGTH 1.25 MG/3 ML VIAL.NEB NEB SCH ×6 (03:40→23:30)
[2018-05-16] MEDS: IPRATROPIUM NEB FS 0.5 MG/2.5 ML AMPUL.NEB NEB SCH ×6 (03:40→23:30)
[2018-05-16 04:51] LABS: BASOPHILS # (AUTO) 0.1 /CMM (0.0-0.2); BASOPHILS % (AUTO) 0.5 % (0.0-2.0); EOSINOPHILS % (AUTO) 4.1 % (0.0-6.0); HEMATOCRIT 26 % (33-45); HEMOGLOBIN 8.4 g/dL (11.5-14.8); LYMPHOCYTES # (AUTO) 1.1 /CMM (0.8-4.8); LYMPHOCYTES % (AUTO) 11.2 % (20.0-44.0); MEAN CORPUSCULAR HGB CONC 33 g/dl (31.0-36.0); MEAN CORPUSCULAR VOLUME 80 fL (82-100); MONOCYTES # (AUTO) 0.6 /CMM (0.1-1.30); MONOCYTES % (AUTO) 5.9 % (2.0-12.0); NEUTROPHILS # (AUTO) 7.7 /CMM (1.8-8.9); NEUTROPHILS % (AUTO) 78.3 % (43.0-81.0); PLATELET COUNT (AUTO) 374 /CMM (150-450); WHITE BLOOD COUNT (AUTO) 9.8 K/uL (4.3-11.0)
[2018-05-16 05:05] LABS: CALCIUM, SERUM 8.8 mg/dL (8.5-10.1); CARBON DIOXIDE 28 mmol/L (21-32); CHLORIDE 103 mmol/L (98-107); CREATININE 0.5 mg/dL (0.6-1.3); GLUCOSE 174 mg/dL (74-106); MAGNESIUM 1.8 mg/dL (1.8-2.4); PHOSPHORUS 2.8 mg/dL (2.5-4.9); POTASSIUM 4.5 mmol/L (3.5-5.1); SODIUM SERUM 137 mmol/L (136-145); UREA NITROGEN, BLOOD 20 mg/dL (7-18)
--- NOTE | 2018-05-16 06:40 | NUR ---
FLIGHT CONTROL MANAGER: NO SIGNIFICANT ANGUS DURING THE SHIFT. VENT SETTINGS ORDERED WT NO ACUTE DISTRESS. NO EVIDENCE OF DISCOMFORT. GTF TOLERATED WELL WT NO RESIDUAL. RT. HIP JANN DRAIN#1=10CC & JANN DRAIN #2=40CC BOTH SEROSANGUINEOUS DRAINAGE. VS WITHIN HER BASELINE. ALL NEEDS MET. HOB AT 35 DEGREES, BED LOW POSITION AND LOCKED WT UPPER SIDE RAILS UP.
[2018-05-16] MEDS: ACETYLCYSTEINE 10% SOLN 400 MG/4 ML VIAL NEB SCH ×3 (07:52→23:30)
--- NOTE | 2018-05-16 08:00 | NUR ---
FOREPART ROUNDER: pt.is obtunded, reactive by touch, no eyes contact, contracted, SR, SBP over 100, O2sat. over 96%, small bloody discharge around new trach, GTF residual WNL, JANN drainages x2 from R.Hip: intact/patent, dressing is intact/dry
[2018-05-16] MEDS: PROSOURCE / PROSTAT (PYXIS) 30 ML UDC GT SCH ×3 (08:55→16:17)
[2018-05-16] MEDS: PANTOPRAZOLE 40 MG VIAL IV SCH (08:55)
[2018-05-16] MEDS: LACTOBACILLUS RHAMNOSUS GG 1 EACH CAP.SPRINK GT SCH ×2 (08:55→16:17)
--- NOTE | 2018-05-16 09:20 | NUR ---
WIRE SAW OPERATOR: is in room, updated with pt.current condition, VS, suction amount, bloody trach site discharge, JANN drainages, GTF, I/O, see new orders
[2018-05-16] MEDS: VANCOMYCIN 500 MG in IV D5W 100 ML IV SCH ×2 (10:27→23:23)
[2018-05-16] MEDS: GLUCERNA GT SCH (13:05)
--- NOTE | 2018-05-16 13:20 | NUR ---
RECREATION CLERK: transfer order to [facility] is in [facility], but assignment was changed between [facility]/ICU, pt.will stay in ICU
[2018-05-16] MEDS: SOD FERRIC GLUC 125 MG in IV NS 0.9% 100 ML IV SCH (15:22)
[2018-05-16] MEDS: ACETAMINOPHEN 650 MG/20.3 ML UDC NG PRN (15:24)
--- NOTE | 2018-05-16 17:31 | NUR ---
TRUST OFFICER: pt.is rest, SR/ST max 105, SBP WNL, O2sat. over 97%, PM/skin care/wounds care are done, ID JIG BUILDER updated with all above, called to [facility]/room is still busy with unavailable nurse to get report/charge nurse will call back
--- NOTE | 2018-05-16 18:21 | NUR ---
[facility] RN, patient received to room 115-2 from icu vent /trach 30% fio2 patient open eyes nonverbal due to vent/trach s/p right hip surgery JANN x2 with serosanguinous draining noted to gravity GT in place with glucerna 1.0 camila at 70ml/hr with tolerated well will continue to assess and evaluate reyes catheter in place with draining well to gravity will continue to assess and evaluate
--- NOTE | 2018-05-16 18:38 | NUR ---
JUNIOR LINUX ADMINISTRATOR: pt.is transferred to [facility] with report for Soon, CN
--- NOTE | 2018-05-16 20:00 | NUR ---
amy rn notes received pts in bed with eye open obtunded on ventilator dependent, settings well tolerated no sob no distress noted on tele sr on monitor ,sating 100%,v/s stable afebrile ,on gt feeding glucerna 1.0 at 70cc/hr tolerating well no residual noted , hob elevated at all times bed in low position and locked for safety .with f/c intact and patent , draining with yellowish urine output,with right ua piccline intact and patent .all needs attended too call light within reach kept patient clean dry and comfortable.turned and reposition q2hrs and prn .
[2018-05-16] MEDS: LEVOFLOXACIN 750 MG /D5W 150ML 750 MG in PREMIX 1 EA IV SCH (22:22)
[2018-05-17] VITALS (7 sets, daily range): BP systolic 117–137; BP diastolic 53–75
[2018-05-17] MEDS: DAKINS QUARTER STRENGTH (0.125%) 480 ML BOTTLE TOP SCH ×2 (02:17→13:10)
[2018-05-17] MEDS: ALBUTEROL HALF STRENGTH 1.25 MG/3 ML VIAL.NEB NEB SCH ×6 (03:40→23:17)
[2018-05-17] MEDS: IPRATROPIUM NEB FS 0.5 MG/2.5 ML AMPUL.NEB NEB SCH ×6 (03:40→23:17)
--- NOTE | 2018-05-17 06:35 | NUR ---
amy rn notes pts remains in bed obtunded remains on ventilator dependent . no colin noted at this time,will endorse to rn day shift for continuity of care.
[2018-05-17 06:58] LABS: BASOPHILS % (AUTO) 0.5 % (0.0-2.0); EOSINOPHILS % (AUTO) 3.9 % (0.0-6.0); HEMATOCRIT 26 % (33-45); HEMOGLOBIN 8.3 g/dL (11.5-14.8); LYMPHOCYTES # (AUTO) 0.9 /CMM (0.8-4.8); LYMPHOCYTES % (AUTO) 10.3 % (20.0-44.0); MEAN CORPUSCULAR HGB CONC 32 g/dl (31.0-36.0); MEAN CORPUSCULAR VOLUME 80 fL (82-100); MONOCYTES # (AUTO) 0.5 /CMM (0.1-1.30); MONOCYTES % (AUTO) 5.9 % (2.0-12.0); NEUTROPHILS # (AUTO) 7.2 /CMM (1.8-8.9); NEUTROPHILS % (AUTO) 79.4 % (43.0-81.0); PLATELET COUNT (AUTO) 353 /CMM (150-450); RED BLOOD CELL COUNT(AUTO) 3.24 MIL/uL (4.0-5.2); WHITE BLOOD COUNT (AUTO) 9.1 K/uL (4.3-11.0)
[2018-05-17 07:06] LABS: CALCIUM, SERUM 8.8 mg/dL (8.5-10.1); CARBON DIOXIDE 30 mmol/L (21-32); CHLORIDE 105 mmol/L (98-107); CREATININE 0.5 mg/dL (0.6-1.3); GLUCOSE 151 mg/dL (74-106); MAGNESIUM 1.9 mg/dL (1.8-2.4); PHOSPHORUS 3.8 mg/dL (2.5-4.9); POTASSIUM 4.1 mmol/L (3.5-5.1); SODIUM SERUM 140 mmol/L (136-145); UREA NITROGEN, BLOOD 22 mg/dL (7-18)
[2018-05-17] MEDS: ACETYLCYSTEINE 10% SOLN 400 MG/4 ML VIAL NEB SCH ×3 (07:21→23:17)
--- NOTE | 2018-05-17 08:00 | NUR ---
amy rn notes received pts in bed with eye open obtunded on ventilator dependent, settings well tolerated no sob no distress noted on tele sr on monitor ,sating 100%,v/s stable afebrile ,on gt feeding glucerna 1.0 at 70cc/hr tolerating well no residual noted , hob elevated at all times bed in low position and locked for safety .with f/c to gravity intact and patent , draining with yellowish urine output,with right ua picc line intact and patent .all needs attended too call light within reach kept patient clean dry and comfortable.turned and reposition q2hrs and prn .dr tobias at bedside will order change vent setting, will cont to monitor closely
[2018-05-17] MEDS: LACTOBACILLUS RHAMNOSUS GG 1 EACH CAP.SPRINK GT SCH ×2 (08:48→16:21)
[2018-05-17] MEDS: PROSOURCE / PROSTAT (PYXIS) 30 ML UDC GT SCH ×3 (08:48→16:21)
[2018-05-17] MEDS: PANTOPRAZOLE 40 MG VIAL IV SCH (08:48)
--- NOTE | 2018-05-17 09:38 | NUR ---
VENT CHANGES BELOW PER DR. DIAZ. SIMV 4 PS 15 VT 360 PEEP +5 FIO2 30% RN NOTIFIED ON ABOVE CHANGES FOR WEANING TRIAL. Addendum: 05/17/18 at 0941 by GILSON ANDERSEN RT Amended: Links added.
--- NOTE | 2018-05-17 10:47 | NUR ---
[facility] RN NOTE RT AT BEDSIDE. PLACED ON SIMV SETTING ,WILL F\U WITH ABG
[2018-05-17] MEDS: VANCOMYCIN 500 MG in IV D5W 100 ML IV SCH ×2 (10:50→23:13)
--- NOTE | 2018-05-17 10:51 | NUR ---
[facility] RN NOTE SPOKE WITH PHARMACIST OK TO GIVE VANCO , VANCO LEVEL 14 WAS DONE ON 05/15/18
[2018-05-17] MEDS: GLUCERNA GT SCH (12:06)
[2018-05-17 12:11] LABS: ABG BASE EXCESS 0.6 mmol/L; ABG OXYGEN SATURATION 94.8 % (92.0-98.5); ABG PCO2 33.6 mmHg (35.0-45.0); ABG PH 7.472 (7.350-7.450); ABG PO2 78.6 mmHg (75.0-100.0); AaDO2 95.8 mmHg; COHb 0.8 % (0.5-1.5); MetHb 0.6 % (0.0-1.5); O2Hb 93.5 % (94.0-97.0); PEEP,BG 5 cm H2O; SITE, ABG Left Radial; VENT MODE, BG SIMV 4 / PS 15; VT, ABG 360 mL
--- NOTE | 2018-05-17 13:00 | NUR ---
[facility] RN NOTE PATIENT ON SIMV VENT SETTING ORDERED, ABG DONE, REPORTED TO DR DIAZ ,STATED CONT ON VENT SETTING IF GOT DISTRESS BACK TO FULL SUPPORT, WILL F\U
[2018-05-17] MEDS: SOD FERRIC GLUC 125 MG in IV NS 0.9% 100 ML IV SCH (14:18)
--- NOTE | 2018-05-17 15:08 | NUR ---
ADITYA RN NOTE ALL NEEDS ATTENDED ,ON G TUBE FEEDING ORDERED, KEEP HOB ELEVATED AT ALL TIME, DR MELTON SKIN SURGEON AWARE ABOUT 2 JANN DRAIN ,STATED TO CONT TO HAVE AT THESE TIME, WILL CONT TO MONITOR CLOSELY
--- NOTE | 2018-05-17 18:50 | NUR ---
ADITYA RN NOTE ALL NEEDS ATTENDED WITH TRACH TO VENT SETTING ORDERED ,TRACH SUCTIONING DONE WILL CONT TO MONITOR CLOSELY
--- NOTE | 2018-05-17 19:10 | NUR ---
RN ADITYA NOTE RECEIVED PATIENT OBTUNDED WITH HOB ELEVATED, NO S/SX OF RESPIRATORY OR CARDIAC DISTRESS, ON TELE SR, VENT TO TRACH ON SETTINGS ORDERED, F/C DRAINING TO GRAVITY YELLOW URINE, CHARIS PICC LINE ,PATENT FLUSHING WELL, SITE IS CLEAN AND DRY, G TUBE WITH GLUCERNA AT 70 ML/HR, NO RESIDUAL, SKIN KEPT CLEAN AND DRY, JANN DRAINS IN PLACE, SAFETY MAINTAINED AT ALL TIMES, BED IN LOW LOCKED POSITION CALL LIGHT IN PLACE, WILL CONTINUE TO MONITOR FOR ANY CHANGES IN CONDITION.
[2018-05-17] MEDS: LEVOFLOXACIN 750 MG /D5W 150ML 750 MG in PREMIX 1 EA IV SCH (21:03)
[2018-05-17] MEDS: ACETAMINOPHEN 650 MG/20.3 ML UDC NG PRN (23:13)
[2018-05-18] VITALS: BP 101/59
[2018-05-18] MEDS: DAKINS QUARTER STRENGTH (0.125%) 480 ML BOTTLE TOP SCH ×2 (02:39→14:02)
[2018-05-18] MEDS: ALBUTEROL HALF STRENGTH 1.25 MG/3 ML VIAL.NEB NEB SCH ×4 (03:46→15:38)
[2018-05-18] MEDS: IPRATROPIUM NEB FS 0.5 MG/2.5 ML AMPUL.NEB NEB SCH ×4 (03:46→15:38)
[2018-05-18 04:00] VITALS: BP 113/50
--- NOTE | 2018-05-18 05:30 | NUR ---
RT Pt trach on SIMV [facility] vent settings. pt appears comfortable on settings. pt sx prn. svn given inline. trach secure and patent. Addendum: 05/18/18 at 0531 by IVETTE POOLE RT Amended: Links added.
[2018-05-18 07:07] LABS: BASOPHILS # (AUTO) 0.1 /CMM (0.0-0.2); BASOPHILS % (AUTO) 0.6 % (0.0-2.0); EOSINOPHILS % (AUTO) 5.6 % (0.0-6.0); HEMATOCRIT 26 % (33-45); HEMOGLOBIN 8.5 g/dL (11.5-14.8); LYMPHOCYTES # (AUTO) 1.2 /CMM (0.8-4.8); LYMPHOCYTES % (AUTO) 14.2 % (20.0-44.0); MEAN CORPUSCULAR HGB CONC 32 g/dl (31.0-36.0); MEAN CORPUSCULAR VOLUME 81 fL (82-100); MONOCYTES # (AUTO) 0.6 /CMM (0.1-1.30); MONOCYTES % (AUTO) 6.6 % (2.0-12.0); NEUTROPHILS # (AUTO) 6.1 /CMM (1.8-8.9); PLATELET COUNT (AUTO) 336 /CMM (150-450); RED BLOOD CELL COUNT(AUTO) 3.27 MIL/uL (4.0-5.2); WHITE BLOOD COUNT (AUTO) 8.3 K/uL (4.3-11.0)
[2018-05-18 07:23] LABS: CARBON DIOXIDE 29 mmol/L (21-32); CHLORIDE 103 mmol/L (98-107); CREATININE 0.5 mg/dL (0.6-1.3); GLUCOSE 141 mg/dL (74-106); PHOSPHORUS 3.6 mg/dL (2.5-4.9); POTASSIUM 4.4 mmol/L (3.5-5.1); SODIUM SERUM 139 mmol/L (136-145); UREA NITROGEN, BLOOD 22 mg/dL (7-18)
--- NOTE | 2018-05-18 07:30 | NUR ---
RN ADITYA OPENING NOTES RECEIVED REPORT FROM MARKETING OPERATIONS ASSISTANT RN. PT HAS A TRACH AND IS ON A VENT. ON TELE MONITOR PT IS SR. PT HAS A G-TUBE WITH GLUCERNA THAT FAMILY BRINGS FROM HOME RUNNING @70 MLS/HR. TOLERATING FEEDING. PT HAS A PICC LINE IN RUST. PT HAS 2 JANN DRAINS AND A WARD CATHETER DRAINING TO GRAVITY. PT'S UPPER EXTREMITIES ARE CONTRACTED. PT APPEARS TO SHOW NO SIGNS/SYMPTOMS OF RESPIRATORY DISTRESS. BED IS LOCKED AND IN LOWEST POSITION WITH HOB ELEVATED. CALL LIGHT WITHIN REACH AND BED ALARM IS ON.
[2018-05-18 08:00] VITALS: BP 144/93
[2018-05-18] MEDS: ACETYLCYSTEINE 10% SOLN 400 MG/4 ML VIAL NEB SCH ×2 (08:09→15:37)
--- NOTE | 2018-05-18 08:26 | NUR ---
RT Pt rec'd trached on SIMV [facility] vent settings as noted. no sob noted at this time. pt appears comfortable on settings. pt sx prn. svn given inline with no adverse reaction. trach secure and patent. bvm by bedside. vent alarms on and audible. vent plugged in red outlet. will continue to monitor. Addendum: 05/18/18 at 0829 by BETO GAMEZ RT Amended: Links added.
[2018-05-18] MEDS: PANTOPRAZOLE 40 MG VIAL IV SCH (09:00)
[2018-05-18] MEDS: LACTOBACILLUS RHAMNOSUS GG 1 EACH CAP.SPRINK GT SCH ×2 (09:00→16:23)
[2018-05-18] MEDS: PROSOURCE / PROSTAT (PYXIS) 30 ML UDC GT SCH ×3 (09:40→16:23)
--- NOTE | 2018-05-18 10:45 | NUR ---
RN NOTE: DR. MARIA LUISA GRAYSON PRESENT AT THE BEDSIDE AND WAS PLANNING TO DO A SERIAL WOUND DEBRIDEMENT ON THE SACRAL AND BILATERAL BUTTOCK WOUNDS. MD CALLED AND SPOKE WITH LIZZETH ELLIOTT (GRANDDAUGHTER) AND SHE CONSENTED TO THE DOCTOR FOR THE DEBRIDEMENT. IT WAS VERIFIED BY ANOTHER NURSE FOR THE TELEPHONE CONSENT AND SHE AGREED TO HAVE THE DEBRIDEMENT DONE. INFORMED CONSENT WAS SIGNED BY DR. GRAYSON AND WAS FILED ON THE PATIENT'S CHART.
--- NOTE | 2018-05-18 11:12 | NUR ---
RN NOTE: CALLED AND INFORMED THE PHARMACIST REGARDING THE PATIENT'S VANCOMYCIN TROUGH 14 AND PER PHARMACIST OK TO CONTINUE WITH THE CURRENT IV VANCOMYCIN. WILL INFORM DEVON FOY DNP ABOUT THE VANCOMYCIN TROUGH RESULT.
[2018-05-18] MEDS: ACETAMINOPHEN 650 MG/20.3 ML UDC NG PRN (11:40)
[2018-05-18] MEDS: VANCOMYCIN 500 MG in IV D5W 100 ML IV SCH (11:40)
[2018-05-18 12:00] VITALS: BP 159/77
[2018-05-18 12:03] VITALS: BP 159/77
[2018-05-18] MEDS: Z GUARD REMEDY 2 OZ OINT TP PRN (12:07)
[2018-05-18] MEDS ORDERED: INSULIN REGULAR, HUMAN 100 UNIT/ML 3 ML VIAL SQ PRN (14:00)
[2018-05-18] MEDS ORDERED: DEXTROSE 50%-WATER 50 ML DISP.SYRIN IV PRN (14:00)
[2018-05-18] MEDS: BLOOD SUGAR DIAGNOSTIC 1 EACH STRIP IN SCH ×2 (14:02→18:14)
--- NOTE | 2018-05-18 15:50 | NUR ---
RT VENT CHANGES DONE PER MD ORDER. SIMV/CPAP PS 15 WITH PEEP +5. PT TOLERATING SETTINGS. NO SOB NOTED AT THIS TIME. WILL CONTINUE TO MONITOR. Addendum: 05/18/18 at 1552 by BETO GAMEZ RT Amended: Links added.
[2018-05-18 16:00] VITALS: BP 150/65
--- NOTE | 2018-05-18 17:45 | NUR ---
RN ELSIE NOTES EMS PERSONNEL RECEIVED REPORT. EFRA CALLED AND RECEIVING NURSE MAIKEL GIVEN REPORT AT [place]. NURSE SAID PT'S ROOM NUMBER WOULD BE 3341. PICC LINE DRESSING CHANGED CHARIS WARD CATHETER BAG WAS ALSO REPLACED. PT SAT AT 99% AT TIME OF IMPLEMENTATION SPECIALIST. BELONGINGS WERE GIVEN TO EMS PERSONNEL. PT WAS STABLE. PT WAS PLACED ON EMS GURNEY.
== END 2018-05-18 18:16 | disposition short-term general hospital (02) | DRG 3 ==
LOC: ER 17:07 → TELE1 19:40 → TELE-TD 21:13 → TELE1 04-29 16:37 → TELE 04-30 12:26 → MED 05-01 08:51 → ICU 05-04 11:00 → TELE1 05-05 18:19 → MEDSG1 05-06 05:15 → ICU 05-10 21:01 → TELE1 05-16 13:40 → ICU 05-16 13:53 → TELE1 05-16 18:10 → TELE-TD 05-16 18:20
PROVIDERS: ADMIT Internal Medicine; ATTEND Internal Medicine
PROC: 30233N1 Transfusion of Nonautologous Red Blood Cells into Peripheral Vein, Percutaneous Approach (ICD-10-PCS; 2018-04-29)
PROC: 0QB30ZZ Excision of Left Pelvic Bone, Open Approach (ICD-10-PCS; principal; 2018-04-30)
PROC: 0QB10ZZ Excision of Sacrum, Open Approach (ICD-10-PCS; 2018-04-30)
PROC: 0QB20ZZ Excision of Right Pelvic Bone, Open Approach (ICD-10-PCS; 2018-04-30)
PROC: 0KXN0ZZ Transfer Right Hip Muscle, Open Approach (ICD-10-PCS; 2018-04-30)
PROC: 02HV33Z Insertion of Infusion Device into Superior Vena Cava, Percutaneous Approach (ICD-10-PCS; 2018-04-30)
PROC: B548ZZA Ultrasonography of Superior Vena Cava, Guidance (ICD-10-PCS; 2018-04-30)
PROC: 0QB60ZZ Excision of Right Upper Femur, Open Approach (ICD-10-PCS; 2018-05-04)
PROC: 5A09357 Assistance with Respiratory Ventilation, Less than 24 Consecutive Hours, Continuous Positive Airway Pressure (ICD-10-PCS; 2018-05-10)
PROC: 0BH18EZ Insertion of Endotracheal Airway into Trachea, Via Natural or Artificial Opening Endoscopic (ICD-10-PCS; 2018-05-11)
PROC: 5A1955Z Respiratory Ventilation, Greater than 96 Consecutive Hours (ICD-10-PCS; 2018-05-11)
PROC: 0QB30ZZ Excision of Left Pelvic Bone, Open Approach (ICD-10-PCS; 2018-05-14)
PROC: 0QB10ZZ Excision of Sacrum, Open Approach (ICD-10-PCS; 2018-05-14)
PROC: 0QB20ZZ Excision of Right Pelvic Bone, Open Approach (ICD-10-PCS; 2018-05-14)
PROC: 0B110F4 Bypass Trachea to Cutaneous with Tracheostomy Device, Open Approach (ICD-10-PCS; 2018-05-15)
PROC: 0QB30ZZ Excision of Left Pelvic Bone, Open Approach (ICD-10-PCS; 2018-05-18)
PROC: 0QB10ZZ Excision of Sacrum, Open Approach (ICD-10-PCS; 2018-05-18)
PROC: 0QB20ZZ Excision of Right Pelvic Bone, Open Approach (ICD-10-PCS; 2018-05-18)
DX: A41.9 Sepsis, unspecified organism (principal); L89.154 Pressure ulcer of sacral region, stage 4; S72.051A Unspecified fracture of head of right femur, initial encounter for closed fracture; J96.21 Acute and chronic respiratory failure with hypoxia; G93.41 Metabolic encephalopathy; R53.2 Functional quadriplegia; E43 Unspecified severe protein-calorie malnutrition; J69.0 Pneumonitis due to inhalation of food and vomit; R65.21 Severe sepsis with septic shock; L89.214 Pressure ulcer of right hip, stage 4; L89.324 Pressure ulcer of left buttock, stage 4; L89.314 Pressure ulcer of right buttock, stage 4; S73.004A Unspecified dislocation of right hip, initial encounter; I50.32 Chronic diastolic (congestive) heart failure; E87.1 Hypo-osmolality and hyponatremia; G23.1 Progressive supranuclear ophthalmoplegia [Steele-Richardson-Olszewski]; Z68.1 Body mass index [BMI] 19.9 or less, adult; M86.9 Osteomyelitis, unspecified; E87.2 Acidosis; N39.0 Urinary tract infection, site not specified; N13.30 Unspecified hydronephrosis; J98.11 Atelectasis; B49 Unspecified mycosis; J90 Pleural effusion, not elsewhere classified; D63.8 Anemia in other chronic diseases classified elsewhere; E83.42 Hypomagnesemia; E86.1 Hypovolemia; E83.39 Other disorders of phosphorus metabolism; I11.0 Hypertensive heart disease with heart failure; Z93.1 Gastrostomy status; Z90.710 Acquired absence of both cervix and uterus; Z87.440 Personal history of urinary (tract) infections; Z79.899 Other long term (current) drug therapy; Z79.82 Long term (current) use of aspirin; Z79.4 Long term (current) use of insulin; R13.10 Dysphagia, unspecified; Z86.19 Personal history of other infectious and parasitic diseases; Z88.0 Allergy status to penicillin; Z91.048 Other nonmedicinal substance allergy status; E11.69 Type 2 diabetes mellitus with other specified complication; M19.90 Unspecified osteoarthritis, unspecified site; B95.2 Enterococcus as the cause of diseases classified elsewhere; M24.561 Contracture, right knee; K56.41 Fecal impaction; B96.5 Pseudomonas (aeruginosa) (mallei) (pseudomallei) as the cause of diseases classified elsewhere; L89.611 Pressure ulcer of right heel, stage 1; Y92.129 Unspecified place in nursing home as the place of occurrence of the external cause; T17.990A Other foreign object in respiratory tract, part unspecified in causing asphyxiation, initial encounter; Y84.8 Other medical procedures as the cause of abnormal reaction of the patient, or of later complication, without mention of misadventure at the time of the procedure; D47.3 Essential (hemorrhagic) thrombocythemia
CPT/HCPCS: 31720; 36415; 36600; 71045-TC; 72192-TC; 76770-TC; 80048-TC; 80053-TC; 80076-TC; 80150; 80202-TC; 81000-TC; 82040-TC; 82728-TC; 82803-TC; 82962-TC; 83540-TC; 83605-TC; 83735-TC; 84100-TC; 84484-TC; 85025-TC; 85027-TC; 85610-TC; 85730-TC; 86850-TC; 86921-TC; 87040-TC; 87070-TC; 87075-TC; 87081-TC; 87086-TC; 87186-TC; 88305-TC; 88311-TC; 94002-TC; 94003-TC; 94668-TC; 94760-TC; 94799-TC; 99082-TC; A4216; A4217; A6253; A6402; A6403; A7526; C9113; G0378; J0278; J0692; J1100; J1815; J1956; J2185; J2248; J2270; J2370; J2405; J2704; J2710; J2916; J3370; J3475; J3490; J7030; J7050; J7060; P9016-BL

== ENCOUNTER 2018-06-13 18:39 | Inpatient (IN) | payer OTHER, MEDICARE, BC ==
[~2018-06-13] VITALS: Ht 165.1 cm; Wt 54.4 kg
[~2018-06-13 18:39] MED LIST changes: +ACET1TAB12 PO; -CEFE1VIA11 IJ; -RXVAN XX; -SERT50TA PO
[2018-06-13 21:09] VITALS: BP 93/46
--- NOTE | 2018-06-13 21:20 | NUR ---
TELE/RN NOTES RECEIVED PATIENT A DIRECT ADMIT FROM [facility] FOR DEHESENCE OF RIGHT HIP WOUND FOR DR CARBAJAL CONSULT/SX, MD DEWEY ADMITTING MD, PATIENT ON COOLING AEROSOL, 8 BRENDAN, DIMAS , TELE RYTHM AT WITH PAC IN 70'S, PATIENT WITH HX OF RESPIRATORY FAILURE, DM, HTN, CHF, ANEMIA, OSTEOMYELITIS, ALLERGIC TO PCN, MORPHINE AND PLASTIC TAPE, CONTRACTED IN BUE AND BLE. WITH WARD CATHETER DUER TO SACRAL PRESSURE ULCER ON SACRUM, LEFT AND RIGHT HIP. BED BOUND, WITH JNAN DRAIN IN RITH HIP MINIMAL OUTPUL LESS 10ML. WITH GTUBE, NOP, ON GLUCERNA 1.2, ON TRAECH. , PICC LINE 2 LUMEN , NON VERBAL, WITH ORDER FOR ABT THERAPY. FOR RECONCILATION OF ORDER,BELONGINGS CHECK, WILL MONITOR. WOUND PHOTOS TAKEN , MD MADE AWARE AND TO GIVE ORDER.
[2018-06-13] MEDS ORDERED: ACETAMINOPHEN LIQUID 160 MG/5 ML BOTTLE PO ONE (23:30)
[2018-06-13] MEDS ORDERED: DEXTROSE 50%-WATER 50 ML DISP.SYRIN IVP ONE (23:30)
[2018-06-13] MEDS ORDERED: GLUCAGON,HUMAN RECOMBINANT 1 MG/VIAL VIAL IV ONE (23:30)
[2018-06-13] MEDS ORDERED: clonazePAM 0.5 MG TABLET GT PRN (23:30)
[2018-06-13] MEDS ORDERED: ALBUTEROL FS 2.5 MG/0.5 ML VIAL.NEB NEB PRN (23:30)
[2018-06-13] MEDS ORDERED: INSULIN REGULAR, HUMAN 100 UNIT/ML 10 ML VIAL SQ ONE (23:30)
[2018-06-13] MEDS ORDERED: POLYETHYLENE GLYCOL 3350 17 GM POWD.PACK PO PRN (23:30)
[2018-06-14] VITALS: BP 103/49
[2018-06-14] MEDS ORDERED: DEXTROSE 50%-WATER 50 ML DISP.SYRIN IV PRN (00:30)
[2018-06-14] MEDS ORDERED: GLUCAGON,HUMAN RECOMBINANT 1 MG/VIAL VIAL IV PRN (00:30)
[2018-06-14] MEDS ORDERED: INSULIN REGULAR, HUMAN 100 UNIT/ML 10 ML VIAL SQ PRN (00:30)
[2018-06-14] MEDS ORDERED: DEXTROSE 50%-WATER 50 ML DISP.SYRIN IVP PRN (00:30)
[2018-06-14] MEDS ORDERED: ONDANSETRON HCL/PF 4 MG/2 ML VIAL IVP PRN (01:00)
[2018-06-14] MEDS ORDERED: ACETAMINOPHEN SUSP 80 MG/0.8 ML BOTTLE GT PRN (01:00)
[2018-06-14] MEDS ORDERED: ZOLPIDEM TARTRATE 5 MG TABLET PO PRN (01:00)
[2018-06-14] MEDS ORDERED: CEFEPIME 1 GM in IV D5W 50 ML IV SCH (01:00)
[2018-06-14] MEDS ORDERED: Z GUARD REMEDY 2 OZ OINT TP PRN (01:00)
[2018-06-14] MEDS ORDERED: HYDROCODONE/APAP 5/325MG 1 EACH TABLET GT PRN (01:00)
[2018-06-14] MEDS ORDERED: VANCOMYCIN 1 GM VIAL ONE (01:03)
[2018-06-14] MEDS ORDERED: CEFEPIME 1 GM VIAL ONE (01:20)
[2018-06-14] MEDS ORDERED: INSULIN REGULAR, HUMAN 100 UNIT/ML 3 ML VIAL SQ PRN (01:30)
[2018-06-14] MEDS ORDERED: ALBUTEROL FS 2.5 MG/3 ML VIAL.NEB NEB PRN (01:30)
[2018-06-14] MEDS ORDERED: IPRATROPIUM NEB FS 0.5 MG/2.5 ML AMPUL.NEB NEB PRN (01:30)
[2018-06-14] MEDS ORDERED: POLYETHYLENE GLYCOL 3350 17 GM POWD.PACK GT PRN (01:30)
[2018-06-14] MEDS ORDERED: VANCOMYCIN 1 GM in IV D5W 250ml IV SCH (02:00)
[2018-06-14 04:00] VITALS: BP 109/49
[2018-06-14] MEDS ORDERED: BLOOD SUGAR DIAGNOSTIC 1 EACH STRIP IN SCH (06:00)
[2018-06-14] MEDS: ACIDOPHILUS/BULGARICUS 1 EACH TAB.CHEW GT SCH ×2 (06:05→17:22)
--- NOTE | 2018-06-14 06:49 | NUR ---
108-1 TELE/RN NOTES PATIENT IN HOB, ON COOLING AEROSOL WITH T-PIECE, SKIN WARM TO TOUCH., MONITORED FOR SAFETY, GTUBE FLUSHED, ON FEEDING AT 40ML/HR, REQUIRE OXYGENATION.FREQUENT ROUNDS. BED LOCKED. WILL MONITOR.
[2018-06-14 07:09] LABS: CALCIUM, SERUM 9.4 mg/dL (8.5-10.1); CARBON DIOXIDE 33 mmol/L (21-32); CHLORIDE 100 mmol/L (98-107); CREATININE 0.5 mg/dL (0.6-1.3); GLUCOSE 146 mg/dL (74-106); POTASSIUM 4.3 mmol/L (3.5-5.1); SODIUM SERUM 135 mmol/L (136-145); UREA NITROGEN, BLOOD 36 mg/dL (7-18)
[2018-06-14 07:12] LABS: ALBUMIN 2.3 g/dL (3.4-5.0); MAGNESIUM 2.1 mg/dL (1.8-2.4); PHOSPHORUS 3.4 mg/dL (2.5-4.9)
[2018-06-14 07:14] LABS: BASOPHILS % (AUTO) 0.7 % (0.0-2.0); EOSINOPHILS % (AUTO) 3.6 % (0.0-6.0); HEMATOCRIT 28 % (33-45); HEMOGLOBIN 9.1 g/dL (11.5-14.8); LYMPHOCYTES # (AUTO) 1.2 /CMM (0.8-4.8); LYMPHOCYTES % (AUTO) 17.5 % (20.0-44.0); MEAN CORPUSCULAR HGB CONC 33 g/dl (31.0-36.0); MEAN CORPUSCULAR VOLUME 81 fL (82-100); MONOCYTES # (AUTO) 0.4 /CMM (0.1-1.30); MONOCYTES % (AUTO) 6.6 % (2.0-12.0); NEUTROPHILS # (AUTO) 4.8 /CMM (1.8-8.9); NEUTROPHILS % (AUTO) 71.6 % (43.0-81.0); PLATELET COUNT (AUTO) 184 /CMM (150-450); RED BLOOD CELL COUNT(AUTO) 3.45 MIL/uL (4.0-5.2); WHITE BLOOD COUNT (AUTO) 6.7 K/uL (4.3-11.0)
[2018-06-14] MEDS ORDERED: ACETAMINOPHEN 650 MG/20.3 ML UDC GT PRN (07:30)
--- NOTE | 2018-06-14 07:48 | NUR ---
CYBER OPERATOR NOTES RECEIVED BEDSIDE REPORT. PATIENT ASLEEP IN BED NO SIGNS OR SYMPTOMS OF RESPIRATORY DISTRESS ON COOL AEROSOL 28% . SINUS RHYTHM ON MONITOR WARD DRAINING CLEAR YELLOW URINE GTF FEEDING GLUCERNA RUNNING @ 40 ML/HR NO NAUSEA VOMITING OR DIARRHEA NOTED . BED IN LOW POSITION HOB ELEVATED ASPIRATION AND SAFETY PRECAUTIONS IN PLACE.CALL LIGHT WITHIN REACH WILL CONT TO MONITOR
[2018-06-14 07:56] LABS: APPEARANCE,URINE CLEAR (CLEAR); BILIRUBIN,URINE NEGATIVE (NEGATIVE); BLOOD, URINE NEGATIVE Ery/uL (NEGATIVE); COLOR,URINE YELLOW (YELLOW); KETONES,URINE NEGATIVE (NEGATIVE); LEUKOCYTE ESTERASE ,URINE 2+ (NEGATIVE); NITRITE, URINE NEGATIVE (NEGATIVE); PH,URINE 7.5 (5.0-8.0); PROTEIN,URINE NEGATIVE (NEGATIVE); UGLUCOSE NEGATIVE (NEGATIVE); UROBILINOGEN,URINE 0.2 EU/dL (0.2)
[2018-06-14 08:00] VITALS: BP 99/47
[2018-06-14 08:00] LABS: BACTERIA,URINE Rare /HPF (None Seen); SQUAMOUS EPITHELIAL CELL,UR Rare /HPF (None Seen)
[2018-06-14 08:01] LABS: YEAST,URINE Few /HPF (None Seen)
[2018-06-14] MEDS ORDERED: FEE PK DOSING 1 MIN EA MC ONE (08:44)
[2018-06-14] MEDS: CYANOCOBALAMIN 500 MCG TABLET PO SCH (08:56)
[2018-06-14] MEDS: LEVETIRACETAM SOL (5 ML) 100 MG/ML UDC PO SCH ×2 (08:56→17:22)
[2018-06-14] MEDS: MULTIVIT W/MINERALS 1 TAB TABLET GT SCH (08:56)
[2018-06-14] MEDS: ZINC SULFATE 220 MG CAPSULE GT SCH (08:56)
[2018-06-14] MEDS: CHOLECALCIFEROL 1,000 UNIT TABLET (VIT D3) GT SCH (08:56)
[2018-06-14] MEDS: ASPIRIN 81 MG TAB.CHEW GT SCH (08:56)
[2018-06-14] MEDS: BACLOFEN (10 MG) 10 MG TABLET GT SCH (08:56)
[2018-06-14] MEDS: SERTRALINE HCL 50 MG TABLET GT SCH (08:56)
[2018-06-14] MEDS: ASCORBIC ACID 500 MG TABLET GT SCH ×2 (08:57→17:22)
[2018-06-14] MEDS ORDERED: CHOLECALCIFEROL (VITAMIN D 3) 400 UNIT TABLET GT SCH (09:00)
[2018-06-14] MEDS ORDERED: SERTRALINE HCL 50 MG TABLET GT SCH (09:00)
[2018-06-14] MEDS ORDERED: ASCORBIC ACID 500 MG TABLET GT SCH (09:00)
[2018-06-14] MEDS ORDERED: MULTIVITAMINS,THERAGRAN 1 UDTAB TABLET PO SCH (09:00)
[2018-06-14] MEDS ORDERED: COLLAGENASE 15 GM TUBE TP SCH (09:00)
[2018-06-14] MEDS: LISINOPRIL (5MG) 5 MG TABLET GT SCH (09:00)
[2018-06-14] MEDS: METOPROLOL TARTRATE 25 MG TABLET PO SCH ×2 (09:00→17:22)
[2018-06-14] MEDS ORDERED: VANCOMYCIN HCL 125 MG/2.5 ML ORAL.SUSP PO SCH (09:00)
[2018-06-14] MEDS ORDERED: ACIDOPHILUS/BULGARICUS 1 EACH GRAN.PACK GT SCH (09:00)
[2018-06-14] MEDS ORDERED: ASPIRIN EC 81 MG TABLET.DR PO SCH (09:00)
[2018-06-14] MEDS ORDERED: BACLOFEN (10 MG) 10 MG TABLET GT SCH (09:00)
[2018-06-14] MEDS ORDERED: GLUCERNA 1.2 1,000 ML BOTTLE NG PRN (09:00)
[2018-06-14] MEDS ORDERED: ZINC SULFATE 220 MG CAPSULE GT SCH (09:00)
[2018-06-14] MEDS ORDERED: CYANOCOBALAMIN 500 MCG TABLET GT SCH ×2 (09:00)
[2018-06-14] MEDS: PANTOPRAZOLE 40 MG/PACK PACK GT SCH (09:03)
[2018-06-14] MEDS: PROSOURCE / PROSTAT (PYXIS) 30 ML UDC GT SCH (09:04)
[2018-06-14] MEDS: THERAHONEY GEL 1.5 OZ TUBE TP SCH (09:05)
[2018-06-14] MEDS: POVIDONE-IODINE OINT 28.4 GM TUBE TP SCH ×2 (09:05→17:23)
[2018-06-14] MEDS: BLOOD SUGAR DIAGNOSTIC 1 EACH STRIP IN SCH ×3 (09:16→17:48)
[2018-06-14 12:00] VITALS: BP 110/55
[2018-06-14] MEDS: CEFEPIME 2 GM in IV D5W 100 ML IV SCH (12:59)
[2018-06-14] MEDS: INSULIN REGULAR, HUMAN 100 UNIT/ML 3 ML VIAL SQ PRN ×2 (13:07→17:49)
[2018-06-14 16:00] VITALS: BP 113/60
[2018-06-14] MEDS: VANCOMYCIN 500 MG in IV D5W 100 ML IV SCH (17:57)
[2018-06-14] MEDS: IV NS 0.9% 1,000 ML IV PRN (17:57)
--- NOTE | 2018-06-14 19:25 | NUR ---
OFFICE MACHINE SERVICE SUPERVISOR CLOSING NOTES REPORT GIVEN TO NOC. NO SIGNIFICANT CHANGED THROUGHOUT THE DAY. WOUND DRESSINGS CHANGED SUCTIONED PERIODICALLY DURING SHIFT. BED IN LOW POSITION ASPIRATION AND SEIZURE PRECAUTIONS IN PLACE CALL LIGHT WITHIN REACH.ANGUS
--- NOTE | 2018-06-14 19:52 | NUR ---
CAR SEAT COVERER OPENING NOTES RECEIVED PATIENT IN BED AWAKE, ALERT AND ORIENTED X0, OBTUNDED. BREATHING EVEN AND UNLABORED. ON TRACH WITH ORDERED SETTINGS. NO SOB NOTED. NO S/S OF PAIN OR DISCOMFORT. NO FACIAL GRIMACING. RIGHT UPPER ARM PICC LINE INTACT AND PATENT. SKIN DRY AND WARM TO TOUCH. AFEBRILE. PATIENT WITH WARD CATH, INTACT AND DRAINING YELLOW URINE. PATIENT ALSO WITH GTUBE FEEDING INFUSING GLUCERNA 1.2 @ 40ML/HR. TOLERATING WELL. NO RESIDUAL NOTED. ALL OTHER NEEDS ATTENDED TO. SAFETY MEASURES IN PLACE. CALL LIGHT WITHIN REACH. WILL CONTINUE TO MONITOR.
[2018-06-14 20:00] VITALS: BP 107/53
[2018-06-14] MEDS ORDERED: VANCOMYCIN 1 GM in IV D5W 250 ML IV SCH (21:00)
[2018-06-14] MEDS ORDERED: clonazePAM 0.5 MG TABLET GT SCH (22:00)
[2018-06-15] VITALS (7 sets, daily range): BP systolic 96–118; BP diastolic 51–56
--- NOTE | 2018-06-15 05:04 | NUR ---
BOX SEALING INSPECTOR NOTES PER MAR FROM PHARMACY, OK TO GIVE VANCOMYCIN IV 500MG WITH TROUGH 20.
[2018-06-15] MEDS: VANCOMYCIN 500 MG in IV D5W 100 ML IV SCH (05:27)
--- NOTE | 2018-06-15 06:30 | NUR ---
IMPLEMENTATION MANAGER CLOSING NOTES PATIENT RESTING IN BED. NO ACUTE CHANGES THROUGHOUT SHIFT. BREATHING EVEN AND UNLABORED. ON TRACH WITH ORDERED SETTINGS. NO SOB NOTED. NO S/S OF PAIN OR DISCOMFORT. NO FACIAL GRIMACING. RIGHT UPPER ARM PICC LINE INTACT AND PATENT WITH NS RUNNING AT 75ML/HR. SKIN DRY AND WARM TO TOUCH. AFEBRILE. PATIENT WITH WARD CATH, INTACT AND DRAINING YELLOW URINE. GTUBE FEEDING INFUSING GLUCERNA 1.2 @ 40ML/HR. TOLERATING WELL. NO RESIDUAL NOTED. KEPT CLEAN DRY AND COMFORTABLE. DRESSINGS CLEAN, INTACT, AND DRY. REMAINS ON CONTACT ISOLATION. ALL OTHER NEEDS ATTENDED TO. SAFETY MEASURES IN PLACE. CALL LIGHT WITHIN REACH. WILL ENDORSE TO ONCOMING NURSE FOR ANGUS.
[2018-06-15 06:41] LABS: BASOPHILS # (AUTO) 0.1 /CMM (0.0-0.2); BASOPHILS % (AUTO) 0.9 % (0.0-2.0); EOSINOPHILS % (AUTO) 3.5 % (0.0-6.0); HEMATOCRIT 29 % (33-45); HEMOGLOBIN 9.5 g/dL (11.5-14.8); LYMPHOCYTES # (AUTO) 1.2 /CMM (0.8-4.8); LYMPHOCYTES % (AUTO) 17.9 % (20.0-44.0); MEAN CORPUSCULAR HGB CONC 33 g/dl (31.0-36.0); MEAN CORPUSCULAR VOLUME 82 fL (82-100); MONOCYTES # (AUTO) 0.4 /CMM (0.1-1.30); MONOCYTES % (AUTO) 6.6 % (2.0-12.0); NEUTROPHILS # (AUTO) 4.7 /CMM (1.8-8.9); NEUTROPHILS % (AUTO) 71.1 % (43.0-81.0); PLATELET COUNT (AUTO) 172 /CMM (150-450); RED BLOOD CELL COUNT(AUTO) 3.55 MIL/uL (4.0-5.2); WHITE BLOOD COUNT (AUTO) 6.6 K/uL (4.3-11.0)
[2018-06-15 06:56] LABS: CARBON DIOXIDE 30 mmol/L (21-32); CHLORIDE 103 mmol/L (98-107); CREATININE 0.6 mg/dL (0.6-1.3); GLUCOSE 146 mg/dL (74-106); MAGNESIUM 2.3 mg/dL (1.8-2.4); PHOSPHORUS 3.9 mg/dL (2.5-4.9); POTASSIUM 4.6 mmol/L (3.5-5.1); SODIUM SERUM 138 mmol/L (136-145); UREA NITROGEN, BLOOD 26 mg/dL (7-18)
--- NOTE | 2018-06-15 07:32 | NUR ---
CHEMIST PHARMACEUTICAL NOTES RECEIVED BEDSIDE REPORT. PATIENT ASLEEP IN BED NO SIGNS OR SYMPTOMS OF RESPIRATORY DISTRESS ON COOL AEROSOL 35% O2 8 LTRS VIA T-TUBE/TRACH. SINUS RHYTHM ON MONITOR WARD DRAINING CLEAR YELLOW URINE GTF FEEDING GLUCERNA RUNNING @ 40 ML/HR NO NAUSEA VOMITING OR DIARRHEA NOTED . BED IN LOW POSITION HOB ELEVATED ASPIRATION AND SAFETY PRECAUTIONS IN PLACE.CALL LIGHT WITHIN REACH WILL CONT TO MONITOR
[2018-06-15] MEDS ORDERED: LIDOCAINE 2%-EPI 1:100,000 30 ML VIAL TP ONE (09:00)
[2018-06-15] MEDS ORDERED: SILVER NITRATE APPLICATOR 1 EA BOX TP ONE (09:00)
[2018-06-15] MEDS: POVIDONE-IODINE OINT 28.4 GM TUBE TP SCH ×2 (09:00→17:00)
[2018-06-15] MEDS: THERAHONEY GEL 1.5 OZ TUBE TP SCH (09:00)
[2018-06-15] MEDS: BLOOD SUGAR DIAGNOSTIC 1 EACH STRIP IN SCH ×3 (09:00→17:44)
[2018-06-15] MEDS: BACLOFEN (10 MG) 10 MG TABLET GT SCH (09:23)
[2018-06-15] MEDS: LISINOPRIL (5MG) 5 MG TABLET GT SCH (09:24)
[2018-06-15] MEDS: SERTRALINE HCL 50 MG TABLET GT SCH (09:24)
[2018-06-15] MEDS: ZINC SULFATE 220 MG CAPSULE GT SCH (09:24)
[2018-06-15] MEDS: CHOLECALCIFEROL 1,000 UNIT TABLET (VIT D3) GT SCH (09:24)
[2018-06-15] MEDS: CYANOCOBALAMIN 500 MCG TABLET PO SCH (09:25)
[2018-06-15] MEDS: MULTIVIT W/MINERALS 1 TAB TABLET GT SCH (09:25)
[2018-06-15] MEDS: ASPIRIN 81 MG TAB.CHEW GT SCH (09:25)
[2018-06-15] MEDS: ASCORBIC ACID 500 MG TABLET GT SCH ×2 (09:25→17:34)
[2018-06-15] MEDS: METOPROLOL TARTRATE 25 MG TABLET PO SCH ×2 (09:25→17:34)
[2018-06-15] MEDS: LEVETIRACETAM SOL (5 ML) 100 MG/ML UDC PO SCH ×2 (09:25→17:34)
[2018-06-15] MEDS: ACIDOPHILUS/BULGARICUS 1 EACH TAB.CHEW GT SCH ×2 (09:26→17:34)
[2018-06-15] MEDS: PANTOPRAZOLE 40 MG/PACK PACK GT SCH (09:26)
[2018-06-15] MEDS: PROSOURCE / PROSTAT (PYXIS) 30 ML UDC GT SCH (09:27)
[2018-06-15] MEDS: IV NS 0.9% 1,000 ML IV PRN (09:42)
--- NOTE | 2018-06-15 11:30 | NUR ---
SPOUT TENDER NOTES CALLED GRAND LANEY MOREAU TO OBTAIN PHONE CONSENT FOR SERIAL R HIP/SACRUM/BUTTOCKS DEBRIDEMENT. NO ANSWER WILL TRY AGAIN LATER
[2018-06-15] MEDS ORDERED: GLUCERNA 1.2 1,000 ML BOTTLE NG PRN (12:56)
[2018-06-15] MEDS: INSULIN REGULAR, HUMAN 100 UNIT/ML 3 ML VIAL SQ PRN ×2 (13:09→17:44)
[2018-06-15] MEDS: CEFEPIME 2 GM in IV D5W 100 ML IV SCH (13:12)
[2018-06-15] MEDS ORDERED: DAKINS QUARTER STRENGTH (0.125%) 480 ML BOTTLE TOP SCH (14:00)
--- NOTE | 2018-06-15 15:00 | NUR ---
REED WORKER NOTES SPOKE WITH GRAND DTR IN REGARDS TO CONSENT FOR DEBRIDEMENT OVER PHONE . SOON MOLD COOLER VERIFIED WITH GRAND DAUGHTER. EXPLAINED PROCEDURE AND POSSIBLE WOUND VAC PLACEMENT. WILL REFER TO DR GRANADOS
--- NOTE | 2018-06-15 19:37 | NUR ---
ELECTRICAL ACCESSORIES ASSEMBLER TELE NOTES PATIENT DISCHARGED TO [facility] PER T/O DR FOY. FAMILY AWARE. PT LEFT VIA AMBULANCE ON GURNEY. ALL EXIT CARE GIVEN WITH ALL DISCHARGE ORDERS TO TRANSPORTER.
[2018-06-16] MEDS ORDERED: VANCOMYCIN 500 MG in IV D5W 100 ML IV SCH ×2
== END 2018-06-15 20:20 | disposition short-term general hospital (02) | DRG 907 ==
LOC: TELE1 21:05
PROVIDERS: ADMIT Nurse Practitioner Acute Care; ATTEND Hospitalist
PROC: 02HV33Z Insertion of Infusion Device into Superior Vena Cava, Percutaneous Approach (ICD-10-PCS; 2018-06-14)
PROC: B548ZZA Ultrasonography of Superior Vena Cava, Guidance (ICD-10-PCS; 2018-06-14)
PROC: 0QB10ZZ Excision of Sacrum, Open Approach (ICD-10-PCS; principal; 2018-06-15)
PROC: 0QB20ZZ Excision of Right Pelvic Bone, Open Approach (ICD-10-PCS; 2018-06-15)
DX: T81.30XA Disruption of wound, unspecified, initial encounter (principal); L89.214 Pressure ulcer of right hip, stage 4; L89.324 Pressure ulcer of left buttock, stage 4; L89.314 Pressure ulcer of right buttock, stage 4; L89.154 Pressure ulcer of sacral region, stage 4; R53.2 Functional quadriplegia; J96.21 Acute and chronic respiratory failure with hypoxia; G93.41 Metabolic encephalopathy; E43 Unspecified severe protein-calorie malnutrition; I13.0 Hypertensive heart and chronic kidney disease with heart failure and stage 1 through stage 4 chronic kidney disease, or unspecified chronic kidney disease; E87.1 Hypo-osmolality and hyponatremia; D68.59 Other primary thrombophilia; G23.1 Progressive supranuclear ophthalmoplegia [Steele-Richardson-Olszewski]; B37.49 Other urogenital candidiasis; I50.32 Chronic diastolic (congestive) heart failure; I48.0 Paroxysmal atrial fibrillation; Z93.0 Tracheostomy status; Z93.1 Gastrostomy status; N18.9 Chronic kidney disease, unspecified; R13.10 Dysphagia, unspecified; Y83.9 Surgical procedure, unspecified as the cause of abnormal reaction of the patient, or of later complication, without mention of misadventure at the time of the procedure; Y92.129 Unspecified place in nursing home as the place of occurrence of the external cause; D50.9 Iron deficiency anemia, unspecified; E11.22 Type 2 diabetes mellitus with diabetic chronic kidney disease; E11.9 Type 2 diabetes mellitus without complications; Z74.01 Bed confinement status; D63.8 Anemia in other chronic diseases classified elsewhere; M62.84 Sarcopenia; Z90.710 Acquired absence of both cervix and uterus; Z87.440 Personal history of urinary (tract) infections; Z86.73 Personal history of transient ischemic attack (TIA), and cerebral infarction without residual deficits; Z79.4 Long term (current) use of insulin; Z79.82 Long term (current) use of aspirin; Z79.899 Other long term (current) drug therapy
CPT/HCPCS: 31720; 36415; 71045-TC; 80048-TC; 80202-TC; 81000-TC; 82040-TC; 82962-TC; 83605-TC; 83735-TC; 84100-TC; 84134-TC; 85025-TC; 85610-TC; 86850-TC; 87070-TC; 87081-TC; 87086-TC; 87186-TC; 94664-TC; 94762-TC; 94799-TC; A6253; A6402; A6403; G0378; J0692; J1815; J1953; J3370; J3490; J7030; J7050; J7060